=== PATIENT | female | born 1965 | race Caucasian/White ===

== ENCOUNTER 2018-05-04 23:12 | Emergency (ER) | payer MEDICARE, OTHER ==
[~2018-05-04] VITALS: Ht 157.5 cm; Wt 77.1 kg
[~2018-05-04 23:12] MED LIST: AMBIEN10 MG PO; AZITHROMYCIN250 MG PO; LITHIUM; LITHIUM CARBON300 M1 PO; LITHIUM CARBON600 MG PO; XANAX2 MG PO; [UNRECOGNIZED DRUG - REMARK]
--- OUTSIDE RECORDS SUMMARY | 2018-05-04 23:15 | XMS REPORT ---
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 Allergies, Adverse Reactions, Alerts Allergy Name Allergy Type Status Severity Reaction(s) Onset Date Inactive Date Treating Clinician Comments benztropine mesylate DA Active SV 2018-03-27 00:00:00 sertraline HCl DA Active U 2018-03-27 00:00:00 haloperidol DA Active U 2018-03-27 00:00:00 risperidone DA Active MO 2018-03-27 00:00:00 benztropine mesylate DA Active SV 2017-08-06 00:00:00 sertraline HCl DA Active U 2017-08-06 00:00:00 haloperidol DA Active U 2017-08-06 00:00:00 risperidone DA Active MO 2017-08-06 00:00:00 Medications This patient has no known medications. Results Test Description Test Time Test Comments Text Results Atomic Results Result Comments COMPREHENSIVE METABOLIC PANEL 2018-03-27 19:35:00 SODIUM (test code=NA) 139 mmol/L 136-145 POTASSIUM (test code=K) 3.6 mmol/L 3.5-5.1 CHLORIDE (test code=CL) 105.0 mmol/L 98-107 CARBON DIOXIDE (test code=CO2) 23.0 mmol/L 21-32 ANION GAP (test code=GAP) 14.6 10-20 GLUCOSE (test code=GLU) 116 mg/dL 74-106 BLOOD UREA NITROGEN (test code=BUN) 10 mg/dL 7-18 GLOMERULAR FILTRATION RATE (test code=GFR) > 60 mL/min >=60 Estimated GFR by using Modified MDRD formula.Chronic kidney disease is defined as either kidney damageor GFR <60 mL/min/1.73 m2 for >3 months. CREATININE (test code=CREAT) 0.70 mg/dL 0.55-1.02 Note change in reference range due to change in reagent. BUN/CREATININE RATIO (test code=BUN/CREA) 14.0 10-20 TOTAL PROTEIN (test code=PROT) 6.8 gram/dL 6.4-8.2 ALBUMIN (test code=ALB) 3.7 g/dL 3.4-5.0 GLOBULIN (test code=GLOB) 3.1 gram/dL 2.7-4.2 ALBUMIN/GLOBULIN RATIO (test code=A/G) 1.2 0.75-1.50 CALCIUM (test code=CA) 8.6 mg/dL 8.5-10.1 BILIRUBIN TOTAL (test code=BILT) 0.20 mg/dL 0.0-1.0 SGOT/AST (test code=AST) 17 IUnit/L 15-37 SGPT/ALT (test code=ALT) 23 IUnit/L 12-78 ALKALINE PHOSPHATASE TOTAL (test code=ALKP) 83 IUnit/L 45-117 Note change in reference range due to change in reagent. [id number] 19:35:00* Test Item Value Reference Range Comments AMYLASE (test code=DAVIDSON) 62 Unit/L 25-115 URINALYSIS W/O [id number] 19:34:00* Test Item Value Reference Range Comments UA COLOR (test code=COLU) YELLOW YELLOW UA APPEARANCE (test code=APPU) CLEAR CLEAR UA GLUCOSE DIPSTICK (test code=DGLUU) NEGATIVE mg/dL NEGATIVE UA BILIRUBIN DIPSTICK (test code=BILU) NEGATIVE mg/dL NEGATIVE UA KETONE DIPSTICK (test code=KETU) Negative mg/dL NEGATIVE UA SPECIFIC GRAVITY (test code=SGU) 1.021 1.001-1.035 UA BLOOD DIPSTICK (test code=JAMIE) Negative NEGATIVE UA PH DIPSTICK (test code=DOLORES) 5.0 5.0-8.0 UA PROTEIN DIPSTICK (test code=PROU) Negative mg/dL NEGATIVE UA UROBILINIOGEN DIPSTICK (test code=URO) NEGATIVE mg/dL NEGATIVE UA NITRITE DIPSTICK (test code=ISABEL) NEGATIVE NEGATIVE UA LEUKOCYTE ESTERASE W REFLEX (test code=LEUUR) NEGATIVE NEGATIVE COMPREHENSIVE METABOLIC [id number] 19:22:00* Test Item Value Reference Range Comments SODIUM (test code=NA) 139 mmol/L 136-145 POTASSIUM (test code=K) 3.6 mmol/L 3.5-5.1 CHLORIDE (test code=CL) 105.0 mmol/L 98-107 CARBON DIOXIDE (test code=CO2) mmol/L 21-32 ANION GAP (test code=GAP) 10-20 GLUCOSE (test code=GLU) mg/dL 74-106 BLOOD UREA NITROGEN (test code=BUN) mg/dL 7-18 GLOMERULAR FILTRATION RATE (test code=GFR) mL/min >=60 CREATININE (test code=CREAT) mg/dL 0.55-1.02 BUN/CREATININE RATIO (test code=BUN/CREA) 10-20 TOTAL PROTEIN (test code=PROT) gram/dL 6.4-8.2 ALBUMIN (test code=ALB) g/dL 3.4-5.0 GLOBULIN (test code=GLOB) gram/dL 2.7-4.2 ALBUMIN/GLOBULIN RATIO (test code=A/G) 0.75-1.50 CALCIUM (test code=CA) mg/dL 8.5-10.1 BILIRUBIN TOTAL (test code=BILT) mg/dL 0.0-1.0 SGOT/AST (test code=AST) IUnit/L 15-37 SGPT/ALT (test code=ALT) IUnit/L 12-78 ALKALINE PHOSPHATASE TOTAL (test code=ALKP) IUnit/L 45-117 [id number] 19:22:00* Test Item Value Reference Range Comments AMYLASE (test code=DAVIDSON) Unit/L 25-115 CBC W/AUTO [id number] 19:18:00* Test Item Value Reference Range Comments WHITE BLOOD CELL (test code=WBC) 9.1 K/mm3 4.5-12.5 RED BLOOD CELL (test code=RBC) 3.84 mill/mm3 3.7-5.2 HEMOGLOBIN (test code=HGB) 11.5 gram/dL 11.5-15.5 HEMATOCRIT (test code=HCT) 37.3 % 36.0-46.0 MEAN CELL VOLUME (test code=MCV) 97.1 fL 80-98 MEAN CELL HGB (test code=MCH) 29.9 picogram 27.0-33.0 MEAN CELL HGB CONCETRATION (test code=MCHC) 30.8 gram/dL 33.0-36.0 RED CELL DISTRIBUTION WIDTH (test code=RDW) 13.0 % 11.6-16.2 RED CELL DISTRIBUTION WIDTH SD (test code=RDW-SD) 46.1 fL 37.0-51.0 PLATELET COUNT (test code=PLT) 225 K/mm3 150-450 MEAN PLATELET VOLUME (test code=MPV) 10.2 fL 6.7-11.0 NEUTROPHIL % (test code=NT%) 85.5 % 39.0-69.0 IMMATURE GRANULOCYTE % (test code=IG%) 0.4 % 0.0-5.0 LYMPHOCYTE % (test code=LY%) 5.9 % 25.0-55.0 MONOCYTE % (test code=MO%) 7.2 % 0.0-10.0 EOSINOPHIL % (test code=EO%) 0.5 % 0.0-5.0 BASOPHIL % (test code=BA%) 0.5 % 0.0-1.0 NUCLEATED RBC % (test code=NRBC%) 0.0 % 0-0 NEUTROPHIL # (test code=NT#) 7.79 K/mm3 1.8-7.7 IMMATURE GRANULOCYTE # (test code=IG#) 0.04 x10 3/uL 0-0.03 LYMPHOCYTE # (test code=LY#) 0.54 K/mm3 1.0-5.0 MONOCYTE # (test code=MO#) 0.66 K/mm3 0-0.8 EOSINOPHIL # (test code=EO#) 0.05 K/mm3 0.0-0.5 BASOPHIL # (test code=BA#) 0.05 K/mm3 0.0-0.2 NUCLEATED RBC # (test code=NRBC#) 0.00 K/mm3 0.0-0.1 CBC W/AUTO [id number] 19:14:00* Test Item Value Reference Range Comments WHITE BLOOD CELL (test code=WBC) K/mm3 4.5-12.5 RED BLOOD CELL (test code=RBC) mill/mm3 3.7-5.2 HEMOGLOBIN (test code=HGB) 11.5 gram/dL 11.5-15.5 HEMATOCRIT (test code=HCT) 37.3 % 36.0-46.0 MEAN CELL VOLUME (test code=MCV) fL 80-98 MEAN CELL HGB (test code=MCH) picogram 27.0-33.0 MEAN CELL HGB CONCETRATION (test code=MCHC) gram/dL 33.0-36.0 RED CELL DISTRIBUTION WIDTH (test code=RDW) % 11.6-16.2 RED CELL DISTRIBUTION WIDTH SD (test code=RDW-SD) fL 37.0-51.0 PLATELET COUNT (test code=PLT) K/mm3 150-450 MEAN PLATELET VOLUME (test code=MPV) fL 6.7-11.0 NEUTROPHIL % (test code=NT%) % 39.0-69.0 IMMATURE GRANULOCYTE % (test code=IG%) % 0.0-5.0 LYMPHOCYTE % (test code=LY%) % 25.0-55.0 MONOCYTE % (test code=MO%) % 0.0-10.0 EOSINOPHIL % (test code=EO%) % 0.0-5.0 BASOPHIL % (test code=BA%) % 0.0-1.0 NEUTROPHIL # (test code=NT#) K/mm3 1.8-7.7 LYMPHOCYTE # (test code=LY#) K/mm3 1.0-5.0 MONOCYTE # (test code=MO#) K/mm3 0-0.8 EOSINOPHIL # (test code=EO#) K/mm3 0.0-0.5 BASOPHIL # (test code=BA#) K/mm3 0.0-0.2 - XR CHEST 2 [id number] 17:23:00 FAX: MIKE MELÉNDEZ NP [place]: B St: REG Name: GRZEGORZ TOUSSAINT [facility] : [birth year] Age/S: 53/F Paula Gates Unit #: [id number] Loc: INDERJIT [place] [address] Phys: MIKE MELÉNDEZ NP Acct: [id number] Dis Date: Status: REG ER PHONE #: [phone] Exam Date: 03/27/2018 1721 FAX #: [phone] Reason: cough EXAMS: CPT CODE: [id number] XR CHEST 2 V [id number] REASON FOR EXAM: cough Exam Order Date: 03/27/2018 4:55 PM Ordering Hernandez: MIKE MELÉNDEZ NP PROCEDURE: - XR CHEST 2 V COMPARISON: FINDINGS: PA and lateral views of the chest show clear lungs. No evidence of consolidation. No evidence of effusion. The heart size is within normal limits. Pulmonary vasculatures are unremarkable. The osseous structures are grossly intact. IMPRESSION: No active disease. at 1720 Reported and signed by: Dannie Hernández M.D. 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 FINDINGS: 3 images of the right hand and fingers are provided. Laceration is seen involving the distal aspect of the 3rd distal phalanx. Tiny ossific density is seen adjacent to the base of the 3rd distal phalanx. This was present on prior study and likely represent sequelae of remote injury. No acute fracture demonstrated. No foreign body. IMPRESSION: 1. Soft tissue laceration. No acute fracture or foreign body. Electronically Signed by Jesse Trivedi MD on 02/14 at 0864 Reported and signed by: Jesse Trivedi MD CC: Tonya Brennan NP Technologist: Liliana Diop Trnscrd Da te/Time/By: 03/09/2018 (7896) : By: [email or web address] Orig Print D/T: S: 03/10 (0002) PAGE 1 Signed Report
== END 2018-05-04 23:49 | disposition left against medical advice (07) ==
LOC: ER 23:12
DX: R21 Rash and other nonspecific skin eruption (principal)

== ENCOUNTER 2019-07-05 01:17 | Emergency (ER) | payer MEDICARE, OTHER ==
[~2019-07-05] VITALS: Ht 157.5 cm; Wt 77.1 kg
--- OUTSIDE RECORDS SUMMARY | 2019-07-05 01:20 | XMS REPORT | Clinical Summary ---
Author Author [facility] Address Unknown Phone Unavailable Care Team Providers Care Adhesive Sprayer Name Role Phone Asked, No Pcp PCP Unavailable Allergies Comments Active Allergy Reactions Severity Noted Date Lips turn blue Haloperidol Other (See 06/20/2019 Comments) Medications End Date Status Medication Sig Dispensed Refills Start Date Active lithium 150 MG capsule Take 150 mg 0 by mouth 3 (three) times a day with meals. Active phenytoin (DILANTIN) 100 Take 500 mg 0 MG ER capsule by mouth 3 (three) times a day. Active ALPRAZolam (XANAX) 1 MG Take 1 mg by 0 tablet mouth nightly as needed for anxiety. Active HYDROcodone-acetaminophen Take 1 tablet 0 (NORCO) 7.5-325 mg per by mouth tabletIndications: acute every 6 (six) pain hours as needed for moderate pain .acute pain. Active Problems Not on file Encounters Care Team Description Date Type Specialty Anthony Talamantes, Seizure (HCC) (Primary Dx) 06/20/2019 Emergency Emergency Medicine 06/20/2019 Travel after 07/04/2018 Social History Date Tobacco Use Types Packs/Day Years Used Never Smoker Drinks/Week oz/Week Comments Alcohol Use Never Alcohol Habits Answer Date Recorded How often do you have a drink containing alcohol? Never 06/20/2019 How many drinks containing alcohol do you have on No t asked a typical day when you are drinking? How often do you have six or more drinks on one Not asked occasion? Sex Assigned at Date Recorded Not on file Industry Job Start Date Occupation Not on file Not on file Not on file Travel End Travel History Travel Start No recent travel history available. Date Recorded COVID-19 Exposure Response 06/20/2019 12:34 AM CDT In the last month, have you been in contact with No / Unsure someone who was confirmed or suspected to have Coronavirus / COVID-19? Last Filed Vital Signs Reading Time Taken Comments Vital Sign 102/62 06/20/2019 5:12 AM CDT Blood Pressure 66 06/20/2019 5:12 AM CDT Pulse 36.8 C (98.3 F) 06/20/2019 5:12 AM CDT Temperature 18 06/20/2019 5:12 AM CDT Respiratory Rate 95% 06/20/2019 5:12 AM CDT Oxygen Saturation - - Inhaled Oxygen Concentration 81.6 kg (180 lb) 06/20/2019 12:45 AM CDT Weight 157.5 cm (5' 2") 06/20/2019 12:45 AM CDT Height 32.92 06/20/2019 12:45 AM CDT Body Mass Index Plan of Treatment Not on file Procedures Comments Procedure Name Priority Date/Time Associated Diag nosis LACTIC ACID LEVEL, SEPSIS Timed 06/20/2019 - NOW AND REPEAT 2X EVERY 3:30 AM CDT 3 HOURS ECG 12-LEAD STAT 06/20/2019 12:40 AM CDT PHENYTOIN LEVEL STAT 06/20/2019 12:30 AM CDT ESTIMATED GFR STAT 06/20/2019 12:30 AM CDT CREATINE KINASE, TOTAL STAT 06/20/2019 (CPK) 12:30 AM CDT LACTIC ACID LEVEL, SEPSIS STAT 06/20/2019 - NOW AND REPEAT 2X EVERY 12:30 AM CDT 3 HOURS COMPREHENSIVE METABOLIC STAT 06/20/2019 PANEL 12:30 AM CDT HC COMPLETE BLD COUNT STAT 06/20/2019 W/AUTO DIFF 12:30 AM CDT after 07/04/2018 Results * Lactic acid level, SEPSIS - Now and repeat 2x every 3 hours (06/20/2019 3:30 AM CDT) Only the most recent of 2 results within the time period is included. Lactic acid 1.6 0.5 - 2.2 mmol/L [facility] Specimen Blood Performing Organization Address City/State/Zipcode Ph one Number [facility] DEPARTMENT OF [address] [place] [address] PATHOLOGY AND GENOMIC MEDICINE [facility] [place] [address] * ECG 12 lead (06/20/2019 12:40 AM CDT) Ventricular 92 [facility] rate Atrial rate 92 [facility] MN interval 162 [facility] QRSD interval 94 [facility] QT interval 360 [facility] QTC interval 445 [facility] P axis 1 60 [facility] QRS axis 1 46 [facility] T wave axis 47 [facility] EKG impression Normal sinus rhythm-Incomplete [facility] MU SE right bundle branch block-Possible Lateral infarct , age undetermined-Abnormal ECG-In automated comparison with ECG of 07-MAY-2010 11:33,-Borderline criteria for Lateral infarct are now present- Specimen Narrative Performed At This result has an attachment that is n ot available. Performing Organization Address City/State/[facility] Ph one Number [facility] MUSE [address] [place] [address] * Estimated GFR (06/20/2019 12:30 AM CDT) [facility] Estimated GFR >=90 mL/min/1.73 m2 [place] Comment: ANABAPTISM Catergory Units [facility] G1 >=90 Normal or high G2 60-89 Mildly decreased G3a 45-59 Mildly to moderately decreased G3b 30-44 Moderately to severely decreased G4 15-29 Severely decreased G5 <15 Kidney failure The eGFR was calculated using the Chronic Kidney Disease Epidemiology Collaboration (CKD-EPI) equation. Interpretation is based on recommendations of the National Kidney Foundation-Kidney Disease Outcomes Quality Initiative (NKF-KDOQI) published in 2014. Specimen Performing Organization Address City/State/Zipcode Ph one Number [facility] DEPARTMENT OF [address] [place] [address] PATHOLOGY AND GENOMIC MEDICINE [facility] [place] [place] [address] * CBC with platelet and differential (06/20/2019 12:30 AM CDT) [facility] WBC 10.1 4.2 - 11.0 k/uL [facility] RBC 3.82 (L) 4.04 - 5.86 m/uL [facility] HGB 11.8 11.5 - 15.3 g/dL [facility] HCT 37.5 34.0 - 45.0 % [facility] MCV 98.2 (H) 80.0 - 98.[address] [facility] MCH 30.9 27.0 - 34.[address] [facility] MCHC 31.5 31.5 - 36.5 g/dL [facility] RDW - SD 47.8 37.0 - 51.[address] [facility] MPV 10.7 (H) 7.4 - 10.[address] [facility] Platelet count 312 150 - 400 k/uL [facility] Nucleated RBC 0.00 /[address] [facility] Neutrophils 91.2 (H) 36.0 - 66.0 % [facility] Lymphocytes 7.3 (L) 24.0 - 44.0 % [facility] Monocytes 0.8 0.0 - 6.0 % [facility] Eosinophils 0.0 0.0 - 6.0 % [facility] Basophils 0.2 0.0 - 1.2 % [facility] Immature 0.5 0.0 - 1.0 % [place] granulocytes [facility] Specimen Blood Performing Organization Address City/[facility] Ph one Number [facility] DEPARTMENT OF [address] [place] [address] PATHOLOGY AND GENOMIC MEDICINE [address] * Creatine kinase, total (CPK) (06/20/2019 12:30 AM CDT) Creatine kinase 65 26 - 192 U/L [facility] Specimen Blood Performing Organization Address City/State/Zipcode Ph one Number [facility] DEPARTMENT OF [facility] [place] [address] PATHOLOGY AND GENOMIC MEDICINE [address] * Phenytoin level (06/20/2019 12:30 AM CDT) Phenytoin <0.9 (L) 10.0 - 20.0 ug/mL [place] Comment: ANABAPTISM Therapeutic Range: [place] 10 - 20 ug/mL HOSPITAL Specimen Blood Performing Organization Address [facility] Ph one Number [facility] DEPARTMENT OF [address] [place] [id number] PATHOLOGY AND GENOMIC MEDICINE [place] [address] [address] * Comprehensive metabolic panel (06/20/2019 12:30 AM CDT) [facility] Sodium 136 135 - 150 mEq/L [facility] Potassium 3.8 3.5 - 5.0 mEq/L [facility] Chloride 100 98 - 112 mEq/L [facility] CO2 21 (L) 24 - 31 mmol/L [facility] Anion gap 15@ANIO 7 - 15 mEq/L [facility] BUN 9 7 - 18 mg/dL [facility] Creatinine 0.50 0.50 - 0.90 mg/dL [facility] Glucose 215 (H) 65 - 100 mg/dL [facility] Calcium 9.4 8.3 - 10.2 mg/dL [facility] Protein 6.8 6.3 - 8.3 g/dL [facility] Albumin 3.7 3.5 - 5.0 g/dL [facility] A/G ratio 1.2 0.7 - 3.[address] [facility] Alkaline 67 0 - 104 U/L [place] phosphatase [facility] AST 20 10 - 35 U/L [facility] ALT 19 5 - 50 U/L [facility] Total bilirubin <0.3 0.2 - 1.2 mg/dL [facility] Specimen Blood Performing Organization Address City/[facility] Ph one Number [facility] DEPARTMENT OF [address] [place] [address] PATHOLOGY AND GENOMIC MEDICINE [facility] [place] [place] [address] 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
--- OUTSIDE RECORDS SUMMARY | 2019-07-05 01:20 | XMS REPORT ---
Author Author [facility] t Organization [facility] Address [address] [place] [address] Phone Unavailable Care Team Providers Care Professor Of German Name Role Phone VERNA, (NON STAFF) DEVIN PCP Gen Finley DO Attphys [phone] Payers Payer Name Policy Type Policy Number Effective Date Expiration Date Minda jolly [employer] Work [facility] ADVxxxxxxxx2019-PresentO xxxxxxxx 2019 00:00:00 [facility] [employer] Songforcovina [id number] 2016 00:00:00 [facility] [id number] 2016 00:00 :00 [facility] Problems This patient has no known problems. Allergies, Adverse Reactions, Alerts Allergy Name Allergy Type Status Severity Reaction(s) Onset Date Inacti ve Date Treating Clinician Comments Source Haloperidol Propensity to adverse reactions to drug Active Other (See Comments) 2019-06-20 00:00:00 Lips turn blue [place] [facility] benztropine mesylate DA Active SV 2019-04-15 00:00:00 [facility] sertraline HCl DA Active U 2019-04-15 00:00:00 [facility] Penicillins DA Active U 2019-04-15 00:00:00 [facility] peanut FA Active SV 2019-04-15 00:00:00 [facility] haloperidol DA Active U 2019-04-15 00:00:00 [facility] phenytoin DA Active U 2019-04-15 00:00:00 [facility] risperidone DA Active MO 2019-04-15 00:00:00 [facility] shrimp FA Active SV 2019-04-15 00:00:00 [facility] Penicillins DA Active U 2019-03-27 00:00:00 [facility] phenytoin DA Active U 2019-03-27 00:00:00 [facility] benztropine mesylate DA Active SV 2019-03-14 00:00:00 [facility] sertraline HCl DA Active U 2019-03-14 00:00:00 [facility] peanut FA Active SV 2019-03-14 00:00:00 [facility] haloperidol DA Active U 2019-03-14 00:00:00 [facility] phenytoin DA Active SV 2019-03-14 00:00:00 [facility] risperidone DA Active MO 2019-03-14 00:00:00 [facility] shrimp FA Active SV 2019-03-14 00:00:00 [facility] benztropine mesylate DA Active SV 2018-09-01 00:00:00 [facility] sertraline HCl DA Active U 2018-09-01 00:00:00 [facility] haloperidol DA Active U 2018-09-01 00:00:00 [facility] risperidone DA Active MO 2018-09-01 00:00:00 [facility] benztropine mesylate DA Active SV 2018-05-05 00:00:00 [facility] sertraline HCl DA Active U 2018-05-05 00:00:00 [facility] haloperidol DA Active U 2018-05-05 00:00:00 [facility] risperidone DA Active MO 2018-05-05 00:00:00 [facility] benztropine mesylate DA Active SV 2018-03-27 00:00:00 [facility] sertraline HCl DA Active U 2018-03-27 00:00:00 [facility] haloperidol DA Active U 2018-03-27 00:00:00 [facility] risperidone DA Active MO 2018-03-27 00:00:00 [facility] benztropine mesylate DA Active SV 2017-08-06 00:00:00 [facility] sertraline HCl DA Active U 2017-08-06 00:00:00 [facility] haloperidol DA Active U 2017-08-06 00:00:00 [facility] risperidone DA Active MO 2017-08-06 00:00:00 [facility] DERMABOND Allergy to Substance Active Unknown 2016-05-21 00:00:00 [facility] benztropine mesylate Allergy to Substance Active Severe 2011- 00:00:00 [facility] Haloperidol Lactate Allergy to Substance Active Unknown 2010-09 00:00:00 [facility] Haloperidol Allergy to Substance Active Unknown 2010-09-30 00:00:0 0 [facility] Peanuts Allergy to Substance Active Unknown 2010-02-22 00:00:00 [facility] Risperidone Allergy to Substance Active Unknown 2010-02-22 00:00:0 0 [facility] Sertraline Allergy to Substance Active Severe SWELLING, SEIZU RES 2010-02-22 00:00:00 [facility] Ziprasidone Allergy to Substance Active Moderate HALLUCINATIONS 2010-02-22 00:00:00 [facility] Social History Social Habit Start Date Stop Date Quantity Comments Source History SDOH Alcohol Std Drinks Nam [facility] History SDOH Alcohol Binge Nam Harry Sex Assigned At [facility] Exposure to SARS-CoV-2 (event) Not sure Nam Harry Alcohol intake 2019-06-20 00:00:00 2019-06-20 00:00:00 Lifetime non-drinker (finding) Nam Princeist History SDOH Alcohol Frequency 2019-06-20 00:00:00 2019-06-20 00:00:0 0 1 Nam Harry Smoking Status Start Date Stop Date Source Never smoker Nam [place] t Medications Ordered Medication Name Filled Medication Name Start Date Stop Da te Current Medication? Ordering Clinician Indication Dosage Frequency Signature (SIG) Comments Components Source phenytoin (DILANTIN) 100 MG ER capsule 2019-06-20 01:12:39 Yes 500mg Q.[id number] Take 500 mg by mouth 3 (three) times a day. Nam Harry ALPRAZolam (XANAX) 1 MG tablet 2019-06-20 01:12:39 Yes 1mg QD Take 1 mg by mouth nightly as needed for anxiety. Nam Harry HYDROcodone-acetaminophen (NORCO) 7.5-325 mg per tablet 2019-06-20 01:12:39 Yes acute pain 1{tbl} Q6H Take 1 tablet b y mouth every 6 (six) hours as needed for moderate pain .acute pain. Nam quiros lithium 150 MG capsule 2019-06-20 01:12:38 Yes 150mg Q.[id number] Take 150 mg by mouth 3 (three) times a day with meals. Nam Haryr Alprazolam (Xanax) 2 Mg Tablet Alprazolam (Xanax) 2 Mg Tablet Yes 1 Twice A Day [facility] [place] Carbonate 300 Mg Tablet [place] Carbonate 300 Mg Tablet Yes 300 Every Morning [facility] [place] Carbonate 600 Mg Capsule [place] Carbonate 600 Mg Capsule Yes 300 Bedtime [facility] Zolpidem Tartrate (Ambien) 10 Mg Tablet, 10 Mg Oral Zo lpidem Tartrate (Ambien) 10 Mg Tablet, 10 Mg Oral 2016-05-29 00:00:00 No 10 Bedtime [facility] Azithromycin (Z-Leon) 250 Mg Tablet, 250 Mg Oral Azithr omycin (Z-Leon) 250 Mg Tablet, 250 Mg Oral 2012-04-03 00:00:00 No 250 He y [facility] Windom , [place] , 2012-04-03 00:00:00 No [facility] On Chemotherapy , On Chemotherapy , 2012-04-03 00:00:00 No [facility] Vital Signs Vital Name Observation Time Observation Value Comments Source Systolic blood pressure 2019-06-20 05:12:00 102 mm[Hg] Nam Harry Diastolic blood pressure 2019-06-20 05:12:00 62 mm[Hg] Nam Harry Heart rate 2019-06-20 05:12:00 66 /min Nam Harry Body temperature 2019-06-20 05:12:00 36.83 Gabrielle Delmar Harry Respiratory rate 2019-06-20 05:12:00 18 /min Delmar Harry Oxygen saturation in Arterial blood by Pulse oximetry 06-19 05:12:00 95 /min Nam Harry Body height 2019-06-20 00:45:00 157.5 cm Nam Harry Body weight 2019-06-20 00:45:00 81.647 kg Nam Harry BMI 2019-06-20 00:45:00 32.92 kg/m2 Nam Harry Procedures Procedure Date / Time Performed Performing Clinician Sourc e LACTIC ACID LEVEL, SEPSIS - NOW AND REPEAT 2X EVERY 3 HOURS 2019-06-20 03:30:00 Anthony Finley ECG 12-LEAD 2019-06-20 00:40:56 Anthony Finley HC COMPLETE BLD COUNT W/AUTO DIFF 2019-06-20 00:30:00 Anthony Finley COMPREHENSIVE METABOLIC PANEL 2019-06-20 00:30:00 Chai Finley LACTIC ACID LEVEL, SEPSIS - NOW AND REPEAT 2X EVERY 3 HOURS 2019-06-20 00:30:00 Anthony Finley CREATINE KINASE, TOTAL (CPK) 2019-06-20 00:30:00 Jackelyn Finley [facility] ESTIMATED GFR 2019-06-20 00:30:00 Anthony Finley on [facility] PHENYTOIN LEVEL 2019-06-20 00:30:00 Anthony Finley on [facility] Encounters Start Date/Time End Date/Time [facility] Source 2019-06-20 00:00:00 2019-06-20 00:00:00 Emergency [facility] [id number] Nam Harry 2018-08-02 21:30:00 2018-08-02 21:30:00 Emergency E [facility]SE [facility]SE [id number] [facility]SE 2018-07-26 14:13:00 2018-07-26 14:13:00 Emergency E MHSE [facility]SE [id number] [facility]SE 2018-07-23 17:46:00 2018-07-23 17:46:00 Emergency E MHSE MHSE [id number] MH 2018-07-03 00:04:00 2018-07-03 00:04:00 Emergency E MHSE MHSE [id number] [facility] 2018-06-25 01:05:00 2018-06-25 01:05:00 Emergency E MHSE MHSE [id number] MHSE 2018-06-21 01:16:00 2018-06-21 01:16:00 Emergency E MHSE MHSE [id number] [facility] 2018-06-04 00:29:00 2018-06-04 00:29:00 Emergency E MHSE MHSE [id number] MH 2018-05-04 23:12:00 2018-05-04 23:49:00 Departed Emergency Room [facility] [id number] [facility] Results Test Description Test Time Test Comments Results Result Comments Source ECG 12 lead 2019-06-21 17:46:56 Test Item Ventricular rate (test code = 253) 92 Atrial rate (test code = 255) 92 MD interval (test code = 266) 162 QRSD interval (test code = 260) 94 QT interval (test code = 264) 360 QTC interval (test code = 265) 445 P axis 1 (test code = 267) 60 QRS axis 1 (test code = 268) 46 T wave axis (test code = 270) 47 EKG impression (test code = 273) Normal sinus rhythm-I ncomplete right bundle branch block-Possible Lateral infarct , age undetermined-Abnormal ECG-In automated comparison with ECG of 07-MAY-2010 11:33,-Borderline criteria for Lateral infarct are now present- [facility] MethodistL[facility] acid level, SEPSIS - Now and repeat 2x every 3 hours 2019-06-20 03:58:32* Test Item Value Reference Range Interpretation Comments Lactic acid (test code = 72030-5) 1.6 mmol/L 0.5-2.2 [place] [facility]heny[facility]in [id number] 01:52:38* Test Item Value Reference Range Interpretation Comments Phenytoin (test code = 3968-5) <0.9 10-20 L Therapeutic Range: 10 - 20 ug/mL Lab Interpretation (test code = 49923-3) Abnormal [place] [facility]Comprehensive metabolic [id number] 01:51:55* Test Item Value Reference Range Interpretation Comments Sodium (test code = 2951-2) 136 135- 150 mEq/L Potassium (test code = 2823-3) 3.8 3.5- 5.0 mEq/L Chloride (test code = 2075-0) 100 98- 112 mEq/L CO2 (test code = 2027-9) 21 mmol/L 24-31 L Anion gap (test code = 61397-3) 15@ANIO 7- 15 mEq/L BUN (test code = 3094-0) 9 mg/dL 7-18 Creatinine (test code = 2160-0) 0.50 mg/dL 0.5-0.9 Glucose (test code = 2345-7) 215 mg/dL 65-100 H Calcium (test code = 39173-6) 9.4 mg/dL 8.3-10.2 Protein (test code = 2885-2) 6.8 g/dL 6.3-8.3 Albumin (test code = 1751-7) 3.7 g/dL 3.5-5 A/G ratio (test code = 1759-0) 1.2 0.7-3.8 Alkaline phosphatase (test code = 6768-6) 67 U/L 0-104 AST (test code = 1920-8) 20 U/L 10-35 ALT (test code = 1742-6) 19 U/L 5-50 Total bilirubin (test code = 1974-2) <0.3 0.2-1.2 Lab Interpretation (test code = 88570-2) Abnormal [place] MethodistCreatine kinase, total (CPK)2019-06-20 01:51:55* Test Item Value Reference Range Interpretation Comments Creatine kinase (test code = 2157-6) 65 U/L 26-192 [place] MethodistEstimated [id number] 01:51:55* Test Item Value Reference Range Interpretation Comments Estimated GFR (test code = 5488) >=90 mL/min/1.73 m2 Catergory Units InterpretationG1 >=90 Normal or highG2 60-89 Mildly vwidcudaaY6m 45-59 Mildly to moderately phtaqdsngH9l 30-44 Moderately to severely decreasedG4 15-29 Severely decreasedG5 <15 Kidney failureThe eGFR was calculated using the Chronic Kidney Disease Epidemiology Collaboration (CKD-EPI) equation. Interpretation is based on recommendations of the National Kidney Foundation-Kidney Disease Outcomes Quality Initiative (NKF-KDOQI) published in 2014. [place] MethodistCBC with platelet and [id number] 01:46:22* Test Item Value Reference Range Interpretation Comments WBC (test code = 99431-9) 10.1 4.2- 11.0 k/uL RBC (test code = 16118-1) 3.82 m/uL 4.04-5.86 L HGB (test code = 718-7) 11.8 g/dL 11.5-15.3 HCT (test code = 4544-3) 37.5 % 34-45 MCV (test code = 787-2) 98.2 fL 80-98 H MCH (test code = 785-6) 30.9 pg 27-34 MCHC (test code = 786-4) 31.5 g/dL 31.5-36.5 RDW - SD (test code = 37956-5) 47.8 fL 37-51 MPV (test code = 68533-5) 10.7 fL 7.4-10.4 H Platelet count (test code = 17150-8) 312 150- 400 k/uL Nucleated RBC (test code = 01816-6) 0.00 /100 WBC Neutrophils (test code = 45981-1) 91.2 % 36-66 H Lymphocytes (test code = 88756-0) 7.3 % 24-44 L Monocytes (test code = 81032-3) 0.8 % 0-6 Eosinophils (test code = 23767-5) 0.0 % 0-6 Basophils (test code = 89619-4) 0.2 % 0-1.2 Immature granulocytes (test code = 13542-6) 0.5 % 0-1 Lab Interpretation (test code = 78862-3) Abnormal [facility] [id number] 03:18:00* Test Item Value Reference Range Interpretation Comments GLUBED (test code = GLUBED) 94 mg/dL 74-106 N Performed by certified finishing operator at [facility] BASIC METABOLIC [id number] 01:38:00* Test Item Value Reference Range Interpretation Comments SODIUM (test code = NA) 142 mmol/L 136-145 N POTASSIUM (test code = K) 3.8 mmol/L 3.5-5.1 N CHLORIDE (test code = CL) 110.0 mmol/L 98-107 H CARBON DIOXIDE (test code = CO2) 23.0 mmol/L 21-32 N ANION GAP (test code = GAP) 12.8 10-20 N GLUCOSE (test code = GLU) 67 mg/dL 74-106 L BLOOD UREA NITROGEN (test code = BUN) 12 mg/dL 7-18 N GLOMERULAR FILTRATION RATE (test code = GFR) > 60 mL/min >=60 Estimated GFR by using Modified MDRD formula.Chronic kidney disease is defined as either kidney damageor GFR <60 mL/min/1.73 m2 for >3 months. CREATININE (test code = CREAT) 0.70 mg/dL 0.55-1.02 N Note change in reference range due to change in reagent. BUN/CREATININE RATIO (test code = BUN/CREA) 17.1 10-20 N CALCIUM (test code = CA) 8.5 mg/dL 8.5-10.1 N HCG SERUM [id number] 01:38:00* Test Item Value Reference Range Interpretation Comments HCG SERUM QUAL (test code = HCGQL) NEGATIVE DILANTIN (PHENYTOIN)2019-03-15 01:38:00* Test Item Value Reference Range Interpretation Comments DILANTIN (PHENYTOIN) (test code = DIL) 0.6 ug/mL 10.0-20.0 L BASIC METABOLIC [id number] 01:33:00* Test Item Value Reference Range Interpretation Comments SODIUM (test code = NA) 142 mmol/L 136-145 N POTASSIUM (test code = K) 3.8 mmol/L 3.5-5.1 N CHLORIDE (test code = CL) 110.0 mmol/L 98-107 H CARBON DIOXIDE (test code = CO2) mmol/L 21-32 ANION GAP (test code = GAP) 10-20 GLUCOSE (test code = GLU) mg/dL 74-106 BLOOD UREA NITROGEN (test code = BUN) mg/dL 7-18 GLOMERULAR FILTRATION RATE (test code = GFR) mL/min >=60 CREATININE (test code = CREAT) mg/dL 0.55-1.02 BUN/CREATININE RATIO (test code = BUN/CREA) 10-20 CALCIUM (test code = CA) 8.5 mg/dL 8.5-10.1 N HCG SERUM [id number] 01:33:00* Test Item Value Reference Range Interpretation Comments HCG SERUM QUAL (test code = HCGQL) NEGATIVE CBC W/O [id number] 01:18:00* Test Item Value Reference Range Interpretation Comments WHITE BLOOD CELL (test code = WBC) 10.4 K/mm3 4.5-12.5 N RED BLOOD CELL (test code = RBC) 3.94 mill/mm3 3.7-5.2 N HEMOGLOBIN (test code = HGB) 12.3 gram/dL 11.5-15.5 N HEMATOCRIT (test code = HCT) 39.4 % 36.0-46.0 N MEAN CELL VOLUME (test code = MCV) 100.0 fL 80-98 H MEAN CELL HGB (test code = MCH) 31.2 picogram 27.0-33.0 N MEAN CELL HGB CONCETRATION (test code = MCHC) 31.2 gram/dL 33.0-36. 0 L RED CELL DISTRIBUTION WIDTH (test code = RDW) 13.5 % 11.6-16. 2 N PLATELET COUNT (test code = PLT) 308 K/mm3 150-450 N MEAN PLATELET VOLUME (test code = MPV) 10.2 fL 6.7-11.0 N - XR KNEE 3 V [id number] 00:30:00 FAX: Devin Craft MD [phone] [place]: B St: REG FAX: Jn Mohr MD [phone] Name: MADISYN GONZALES [facility] : 1965 Age/S: 54/F [address] Unit #: [id number] Loc: [place] [address] Phys: Jn Mohr MD Acct: [id number] Dis Date: Status: REG ER PHONE #: [phone] Exam Date: 03/15/2019 0020 FAX #: [phone] Reason: leg pain EXAMS: CPT CODE: [id number] XR KNEE 3 V RT [id number] Dictation location: H37. RIGHT HIP 2 VIEWS; RIGHT FEMUR 2 VIEWS AND RIGHT KNEE 3 VIEWS HISTORY: Leg pain FINDINGS: No fracture or dislocation in the right hip, femur or knee. No knee joint effusion. No suspicious osseous lesion. Lower lumb ar fusion at L4-L5. IMPRESSION: No fract ure or dislocation in the right hip, femur or knee. Jenna dinero Signed by Ezequiel Mcmahon M.D. on 03/15/19 20 at 0030 Reported and signed by: Brianda Mcmahon M.D. CC: Devin Wright MD; Jn Mohr MD Technologist: Gris El Trnscrd Date/Time/By: 03/15/2019 (003) : By: [email or web address] Orig Print D/T: S: 03/15/2019 (0033) PAGE 1 Signed Report - XR FEMUR MIN 2 VWS RT 2019-03-15 00:30:00 FAX: Devin Craft MD [phone] [place]: [address] St: REG FAX: Jn Mohr MD [phone] Name: MADISYN GONZALES [facility] : 1965 Age/S: 54/F [address] [facility] Unit #: [id number] Loc: [place] [address] Phys: Jn Mohr MD Acct: [id number] Dis Date: Status: REG ER PHONE #: [phone] Exam Date: 03/15/2019 0020 FAX #: [phone] Reason: leg pain EXAMS: CPT CODE: [id number] XR FEMUR MIN 2 [place] [id number] Dictation location: H37. RIGHT HIP 2 VIEWS; RIGHT FEMUR 2 VIEWS AND RIGHT KNEE 3 VIEWS HISTORY: Leg pain FINDINGS: No fracture or dislocation in the right hip, femur or knee. No knee joint effusion. No suspicious osseous lesion. Lower lumbar fusion at L4-L5. IMPRESSION: No fracture or dislocation in the right hip, femur or knee. at 0030 Reported and signed by: Ezequiel Mcmahon M.D. CC: Devin Wright MD; Jn Mohr MD Technologist: Gris El Trngard Date/Time/By: 03/15/2019 (0030) : By: [email or web address] Orig Print D/T: S: 03/15/2019 (0033) PAGE 1 Signed Report - XR HIP W/PEL UNI 2+V RT 2019-03-15 00:30:00 FAX: Devin Craft MD [phone] [place]: B St: REG FAX: Jn Mohr MD [phone] Name: MADISYN GONZALES [facility] : 1965 Age/S: 54/F [address] Unit #: [id number] Loc: [place] [address] Phys: Jn Mohr MD Acct: [id number] Dis Date: Status: REG ER PHONE #: [phone] Exam Date: 03/15/2019 0020 FAX #: [phone] Reason: leg pain EXAMS: CPT CODE: [id number] XR HIP W/PEL UNI 2+V [place] [id number] Dictation location: H37. RIGHT HIP 2 VIEWS; RIGHT FEMUR 2 VIEWS AND RIGHT KNEE 3 VIEWS HISTORY: Leg pain FINDINGS: No fracture or dislocation in the right hip, femur or knee. No knee joint effusion. No suspicious osseous lesion. Lower lumbar fusion at L4-L5. IMPRESSION: No fracture or dislocation in the right hip, femur or knee. at 0030 Reported and signed by: Ezequiel Mcmahon M.D. CC: Devin Wright MD; Jn Mohr MD Technologist: Gris El Trngard Date/Time/By: 03/15/2019 (0030) : By: [email or web address] Orig Print D/T: S: 03/15/2019 (0033) PAGE 1 Signed Report - CT C-SPINE W/O CONTRAST 2019-03-14 23:04:00 Name: MADISYN GONZALES [facility] : 1965 Age/S: 54 / F [address] Unit #: [id number] Loc: [place] [address] Phys: Jn Mohr MD Acct: [id number] Dis Date: Status: REG ER PHONE #: [phone] Exam Date: 03/14/2019 2250 FAX #: [phone] Reason: neck pain EXAMS: CPT CODE: [id number] CT C-SPINE W/O CONTRAST 16063 EXAM: CT of the cervical spine without contrast; INFORMATION: Status post seizure; TECHNIQUE: CT dose reduction protocol; Helical scans of the cervical spine with sagittal and coronal reconstructions; FINDINGS: There is good alignment of the cervical spine; vertebral bodies and posterior elements are intact; the height of intervertebral discs is maintained. Soft tissue windows show no evidence of epidural or paravertebral hematoma. IMPRESSION: 1. Normal CT scan of the cervical spine; 2. No evidence of acute osseous trauma. Location code: [facility] at 2304 Reported and signed by: Raul Rehman M.D. CC: Devin Wright MD; Jn Mohr MD Technologist:Julisa BLAKELY(R); ROMAINE Gibson CTDI: DLP: Trnscb Date/Time: 03/14/2019 (2303) [email or web address] Orig Print D/T: S: 03/14/2019 (2306) PAGE 1 Signed Report - CT HEAD/BRAIN W/O CONT 2019-03-14 23:03:00 [facility] 1965 Age[facility]S: 54 / F [address] [facility] Unit #: [id number] Loc: [place] [address] Phys: Jn Mohr MD Acct: [id number] Dis Date: Status: REG ER PHONE #: [phone] Exam Date: 03/14/2019 224 FAX #: [phone] Reason: seizure EXAMS: CPT CODE: [id number] CT HEAD/BRAIN W/O CONT 78435 EXAM: CT of the head; INFORMATION: Seizure; TECHNIQUE AND FINDINGS: CT dose reduction protocol; The ventricles are symmetric and of normal diameter; normal width of basilar cisterns and sulci; normal prasad/white matter differentiation; no evidence of intra or extra-axial hemorrhage, mass lesion or midline shift. Bone windows show no abnormalities. No evidence of skull fracture. IMPRESSION: Normal CT scan of the head. Location code: [facility] at 2303 Reported and signed by: Raul Rehman M.D. CC: Devin Wright MD; Jn Mohr MD Technologist:Julisa Ingram RT(R); ROMAINE Gibson CTDI: DLP: Trnscb Date/Time: 03/14/2019 (9616) [email or web address] Orig Print D/T: S: 03/14/2019 (5912) PAGE 1 Signed Report - XR TOE(S) 2+V [id number] 03:10:00 FAX: Devin Craft MD [phone] [place]: St: REG FAX: Armando Ibrahim [facility] [phone] Name: GRZEGORZ GONZALES [facility] : 1965 Age/S: 54/F [address] [facility] Unit #: [id number] Loc: [place] [address] Phys: Armando Carreon [facility] Acct: [id number] Dis Date: Status: REG ER PHONE #: [phone] Exam Date: 03/14/2019 0243 FAX #: [phone] Reason: TOE PAIN EXAMS: CPT CODE: [id number] XR TOE(S) 2+V LT 77831 Dictation location: H37. LEFT TOES, 3 VIEWS HISTORY: Laceration to fifth toe, pain FINDINGS: Overlying bandage limits assessment. No fracture or dislocation. There may be at least 2 radiopaque foreign body measuring up to 3 mm at the level of the PIP joint concerning for foreign bodies. IMPRESSION: Possible foreign bodies at the level of the fifth PIP joint. No fracture. at 0310 Reported and signed by: Ezequiel Mcmahon M.D. CC: Devin Wright MD; Armando Carreon Technologist: RT BETTY Trnscrd Date/Time/By: 03/14/2019 (309) : By: [email or web address] Orig Print D/T: S: 03/14/2019 (6) PAGE 1 Signed Report URINALYSIS [id number] 14:05:00* Test Item Value Reference Range Interpretation Comments UA COLOR (test code = COLU) YELLOW YELLOW UA APPEARANCE (test code = APPU) Cloudy CLEAR A UA GLUCOSE DIPSTICK (test code = DGLUU) NEGATIVE mg/dL NEGATIVE UA BILIRUBIN DIPSTICK (test code = BILU) NEGATIVE mg/dL NEGATIVE UA KETONE DIPSTICK (test code = KETU) >150 (4+) mg/dL NEGATIVE A UA SPECIFIC GRAVITY (test code = SGU) 1.034 1.001-1.035 UA BLOOD DIPSTICK (test code = JAMIE) 0.1 mg/dL (1+) mg/dL NEGATIVE A UA PH DIPSTICK (test code = DOLORES) 6.0 5.0-8.0 UA PROTEIN DIPSTICK (test code = PROU) 70 (1+) mg/dL NEGATIVE A UA UROBILINIOGEN DIPSTICK (test code = URO) 2.0 (1+) mg/dL NEGATIVE A UA NITRITE DIPSTICK (test code = ISABEL) NEGATIVE NEGATIVE UA LEUKOCYTE ESTERASE W REFLEX (test code = LEUUR) 500 Daren/u L (3+) Daren/uL NEGATIVE A UA WBC (test code = WBCU) 51-100 per HPF 0-5 A UA RBC (test code = RBCU) 6-10 #/HPF 0-5 A UA EPITHELIAL CELLS (test code = EPIU) MANY per HPF FEW UA BACTERIA (test code = BACU) FEW #/HPF NONE A UA MUCUS (test code = MUCU) MANY #/LPF FEW A Urine Source? Clean CatchDRUGS OF ABUSE SCREEN [id number] 14:05:00* Test Item Value Reference Range Interpretation Comments URN COCAINE (test code = COCAURN) NEGATIVE <300 ng/mL URN CANNABINOIDS (test code = CANNABURN) NEGATIVE <50 ng/mL URN AMPHETAMINE (test code = AMPHETURN) POSITIVE <1000 ng/mL A This test provides only a preliminary test result. A morespecific alternate chemical method must be used in order toobtain a confirmed analytical result. Gas chromatography/mass spectrometry (GC/MS) is thepreferred confirmatory method. Other chemical confirmationmethods are available. Clinical consideration and professional judgment should be applied to any drug of abusetest result, particularly when preliminary positive resultsare used.Unconfirmed screening results must not be used fornon-medical purposes (e.g., employment testing, legaltesting). URN BARBITURATE (test code = BARBITURN) NEGATIVE <200 ng/mL URN BENZODIAZEPINE (test code = BENZOURN) NEGATIVE <200 ng/mL URN OPIATES (test code = OPIATURN) NEGATIVE <300 ng/mL URN PHENCYCLIDINE (PCP) (test code = PHENCURN) NEGATIVE <25 ng/ mL URN METHADONE (test code = METHAURN) NEGATIVE <300 ng/mL Urine Source? Clean CatchBASIC METABOLIC [id number] 13:58:00* Test Item Value Reference Range Interpretation Comments SODIUM (test code = NA) 139 mmol/L 136-145 N POTASSIUM (test code = K) 3.5 mmol/L 3.5-5.1 N CHLORIDE (test code = CL) 106.0 mmol/L 98-107 N CARBON DIOXIDE (test code = CO2) 24.0 mmol/L 21-32 N ANION GAP (test code = GAP) 12.5 10-20 N GLUCOSE (test code = GLU) 86 mg/dL 74-106 N BLOOD UREA NITROGEN (test code = BUN) 10 mg/dL 7-18 N GLOMERULAR FILTRATION RATE (test code = GFR) > 60 mL/min >=60 Estimated GFR by using Modified MDRD formula.Chronic kidney disease is defined as either kidney damageor GFR <60 mL/min/1.73 m2 for >3 months. CREATININE (test code = CREAT) 0.50 mg/dL 0.55-1.02 L Note change in reference range due to change in reagent. BUN/CREATININE RATIO (test code = BUN/CREA) 18.4 10-20 N CALCIUM (test code = CA) 8.6 mg/dL 8.5-10.1 N HEPATIC FUNCTION [id number] 13:58:00* Test Item Value Reference Range Interpretation Comments TOTAL PROTEIN (test code = PROT) 7.0 gram/dL 6.4-8.2 N ALBUMIN (test code = ALB) 3.9 g/dL 3.4-5.0 N GLOBULIN (test code = GLOB) 3.1 gram/dL 2.7-4.2 N ALBUMIN/GLOBULIN RATIO (test code = A/G) 1.3 0.75-1.50 N BILIRUBIN TOTAL (test code = BILT) 0.60 mg/dL 0.0-1.0 N BILIRUBIN DIRECT (test code = BILD) 0.16 mg/dL 0.0-0.20 N SGOT/AST (test code = AST) 18 IUnit/L 15-37 N SGPT/ALT (test code = ALT) 34 IUnit/L 12-78 N ALKALINE PHOSPHATASE TOTAL (test code = ALKP) 95 IUnit/L 45-117 N Note change in reference range due to change in reagent. [id number] 13:58:00* Test Item Value Reference Range Interpretation Comments LIPASE (test code = LIP) 134 U/L 73.0-393.0 N HCG SERUM [id number] 13:58:00* Test Item Value Reference Range Interpretation Comments HCG SERUM QUAL (test code = HCGQL) NEGATIVE NEGATIVE This HCGQL test is NOT applicable for MALE patients.Check with nurse about probable order error.If Tumor Marker Test needed, nurse should order test "HCGTU"(Test #550.54928) TSH REFLEX TO [id number] 13:58:00* Test Item Value Reference Range Interpretation Comments TSH REFLEX TO FT4 (test code = TSHREFLEX) 0.8 0.4-5.5 N [id number] 13:58:00* Test Item Value Reference Range Interpretation Comments TROPONIN-I (test code = TROPI) <0.015 ng/mL 0-0.045 N [id number] 13:58:00* Test Item Value Reference Range Interpretation Comments LITHIUM (test code = LITH) <0.1 mmol/L 0.5-1.5 L [id number] 13:58:00* Test Item Value Reference Range Interpretation Comments ALCOHOL (test code = ALC) < 3 mg/dL 0.0-3.0 N -- INTERPRETIVE DATA NOTE: POSITIVE SCREENING RESULTS SHOULD BE CONSIDERED PRESUMPTIVE.WHEN COLLECTED FOR MEDICAL PURPOSES ONLY. SPECIMEN WILL NOTBE COLLECTED BY CHAIN OF CUSTODY.IF A CONFIRMATION OF POSITIVE RESULTS IS DESIRED, ACONFIRMATION TEST MUST BE REQUESTED BY THE PHYSICIAN AT ANADDITIONAL CHARGE TO THE PATIENT. URINALYSIS [id number] 13:51:00* Test Item Value Reference Range Interpretation Comments UA COLOR (test code = COLU) YELLOW YELLOW UA APPEARANCE (test code = APPU) Cloudy CLEAR A UA GLUCOSE DIPSTICK (test code = DGLUU) NEGATIVE mg/dL NEGATIVE UA BILIRUBIN DIPSTICK (test code = BILU) NEGATIVE mg/dL NEGATIVE UA KETONE DIPSTICK (test code = KETU) >150 (4+) mg/dL NEGATIVE A UA SPECIFIC GRAVITY (test code = SGU) 1.034 1.001-1.035 UA BLOOD DIPSTICK (test code = JAMIE) 0.1 mg/dL (1+) mg/dL NEGATIVE A UA PH DIPSTICK (test code = DOLORES) 6.0 5.0-8.0 UA PROTEIN DIPSTICK (test code = PROU) 70 (1+) mg/dL NEGATIVE A UA UROBILINIOGEN DIPSTICK (test code = URO) 2.0 (1+) mg/dL NEGATIVE A UA NITRITE DIPSTICK (test code = ISABEL) NEGATIVE NEGATIVE UA LEUKOCYTE ESTERASE W REFLEX (test code = LEUUR) 500 Daren/u L (3+) Daren/uL NEGATIVE A UA WBC (test code = WBCU) 51-100 per HPF 0-5 A UA RBC (test code = RBCU) 6-10 #/HPF 0-5 A UA EPITHELIAL CELLS (test code = EPIU) MANY per HPF FEW UA BACTERIA (test code = BACU) FEW #/HPF NONE A UA MUCUS (test code = MUCU) MANY #/LPF FEW A Urine Source? Clean CatchDRUGS OF ABUSE SCREEN [id number] 13:51:00* Test Item Value Reference Range Interpretation Comments URN COCAINE (test code = COCAURN) <300 ng/mL URN CANNABINOIDS (test code = CANNABURN) <50 ng/mL URN AMPHETAMINE (test code = AMPHETURN) <1000 ng/mL URN BARBITURATE (test code = BARBITURN) <200 ng/mL URN BENZODIAZEPINE (test code = BENZOURN) <200 ng/mL URN OPIATES (test code = OPIATURN) <300 ng/mL URN PHENCYCLIDINE (PCP) (test code = PHENCURN) <25 ng/ mL URN METHADONE (test code = METHAURN) <300 ng/mL Urine Source? Clean CatchBASIC METABOLIC [id number] 13:51:00* Test Item Value Reference Range Interpretation Comments SODIUM (test code = NA) 139 mmol/L 136-145 N POTASSIUM (test code = K) 3.5 mmol/L 3.5-5.1 N CHLORIDE (test code = CL) 106.0 mmol/L 98-107 N CARBON DIOXIDE (test code = CO2) mmol/L 21-32 ANION GAP (test code = GAP) 10-20 GLUCOSE (test code = GLU) mg/dL 74-106 BLOOD UREA NITROGEN (test code = BUN) mg/dL 7-18 GLOMERULAR FILTRATION RATE (test code = GFR) mL/min >=60 CREATININE (test code = CREAT) mg/dL 0.55-1.02 BUN/CREATININE RATIO (test code = BUN/CREA) 10-20 CALCIUM (test code = CA) mg/dL 8.5-10.1 HEPATIC FUNCTION [id number] 13:51:00* Test Item Value Reference Range Interpretation Comments TOTAL PROTEIN (test code = PROT) gram/dL 6.4-8.2 ALBUMIN (test code = ALB) g/dL 3.4-5.0 GLOBULIN (test code = GLOB) gram/dL 2.7-4.2 ALBUMIN/GLOBULIN RATIO (test code = A/G) 0.75-1.50 BILIRUBIN TOTAL (test code = BILT) mg/dL 0.0-1.0 BILIRUBIN DIRECT (test code = BILD) mg/dL 0.0-0.20 SGOT/AST (test code = AST) IUnit/L 15-37 SGPT/ALT (test code = ALT) IUnit/L 12-78 ALKALINE PHOSPHATASE TOTAL (test code = ALKP) IUnit/L 45-117 [id number] 13:51:00* Test Item Value Reference Range Interpretation Comments LIPASE (test code = LIP) U/L 73.0-393.0 HCG SERUM [id number] 13:51:00* Test Item Value Reference Range Interpretation Comments HCG SERUM QUAL (test code = HCGQL) NEGATIVE NEGATIVE This HCGQL test is NOT applicable for MALE patients.Check with nurse about probable order error.If Tumor Marker Test needed, nurse should order test "HCGTU"(Test #550.13804) TSH REFLEX TO [id number] 13:51:00* Test Item Value Reference Range Interpretation Comments TSH REFLEX TO FT4 (test code = TSHREFLEX) 0.4-5.5 [id number] 13:51:00* Test Item Value Reference Range Interpretation Comments TROPONIN-I (test code = TROPI) ng/mL 0-0.045 [id number] 13:51:00* Test Item Value Reference Range Interpretation Comments LITHIUM (test code = LITH) <0.1 mmol/L 0.5-1.5 L [id number] 13:51:00* Test Item Value Reference Range Interpretation Comments ALCOHOL (test code = ALC) mg/dL 0-3 PROTHROMBIN [id number] 13:41:00* Test Item Value Reference Range Interpretation Comments PROTHROMBIN TIME PATIENT (test code = PTP) 11.9 seconds 9.0-14.0 N INTERNATIONAL NORMAL RATIO (test code = INR) 1.0 0.8-1.2 N The therapeutic range for oral anticoagulant therapy formost indications is an international normalized ratio (INR)of between 2.0 and 3.0. The recommended therapeutic INRrange for various clinical situations is listed below: Clinical Situation INR range Pulmonary e mbolism treatment (2.0-3.0)Venous thrombosis treatmentVenous thrombosis prophylaxis (high risk surgery)Prevention of systemic embolism from: Acute myocardial infarction Valvular heart disease Atrial fibrillation Mechanical prosthetic heart valves (2.5-3.5) IS PATIENT ON ANTICOAGULANTS? NTHROMBOPLASTIN TIME [id number] 13:41:00* Test Item Value Reference Range Interpretation Comments THROMBOPLASTIN TIME PARTIAL (test code = PTT) 35.8 seconds 25.0-36. 5 N IS PATIENT ON ANTICOAGULANTS? [id number] 13:34:00* Test Item Value Reference Range Interpretation Comments MAGNESIUM (test code = MAG) 2.1 mg/dL 1.8-2.4 N BASIC METABOLIC [id number] 13:33:00* Test Item Value Reference Range Interpretation Comments SODIUM (test code = NA) 139 mmol/L 136-145 N POTASSIUM (test code = K) 3.5 mmol/L 3.5-5.1 N CHLORIDE (test code = CL) 106.0 mmol/L 98-107 N CARBON DIOXIDE (test code = CO2) mmol/L 21-32 ANION GAP (test code = GAP) 10-20 GLUCOSE (test code = GLU) mg/dL 74-106 BLOOD UREA NITROGEN (test code = BUN) mg/dL 7-18 GLOMERULAR FILTRATION RATE (test code = GFR) mL/min >=60 CREATININE (test code = CREAT) mg/dL 0.55-1.02 BUN/CREATININE RATIO (test code = BUN/CREA) 10-20 CALCIUM (test code = CA) mg/dL 8.5-10.1 HEPATIC FUNCTION [id number] 13:33:00* Test Item Value Reference Range Interpretation Comments TOTAL PROTEIN (test code = PROT) gram/dL 6.4-8.2 ALBUMIN (test code = ALB) g/dL 3.4-5.0 GLOBULIN (test code = GLOB) gram/dL 2.7-4.2 ALBUMIN/GLOBULIN RATIO (test code = A/G) 0.75-1.50 BILIRUBIN TOTAL (test code = BILT) mg/dL 0.0-1.0 BILIRUBIN DIRECT (test code = BILD) mg/dL 0.0-0.20 SGOT/AST (test code = AST) IUnit/L 15-37 SGPT/ALT (test code = ALT) IUnit/L 12-78 ALKALINE PHOSPHATASE TOTAL (test code = ALKP) IUnit/L 45-117 [id number] 13:33:00* Test Item Value Reference Range Interpretation Comments LIPASE (test code = LIP) U/L 73.0-393.0 HCG SERUM [id number] 13:33:00* Test Item Value Reference Range Interpretation Comments HCG SERUM QUAL (test code = HCGQL) NEGATIVE TSH REFLEX TO [id number] 13:33:00* Test Item Value Reference Range Interpretation Comments TSH REFLEX TO FT4 (test code = TSHREFLEX) 0.4-5.5 [id number] 13:33:00* Test Item Value Reference Range Interpretation Comments TROPONIN-I (test code = TROPI) ng/mL 0-0.045 [id number] 13:33:00* Test Item Value Reference Range Interpretation Comments LITHIUM (test code = LITH) <0.1 mmol/L 0.5-1.5 L [id number] 13:33:00* Test Item Value Reference Range Interpretation Comments ALCOHOL (test code = ALC) mg/dL 0-3 - CT HEAD/BRAIN W/O [id number] 13:32:00 Name: GRZEGORZ GONZALES [facility] : 1965 Age/S: 53 / F [address] [facility] Unit #: [id number] Loc: [place] [address] Phys: Michael Adame MD Acct: [id number] Dis Date: Status: REG ER PHONE #: [phone] Exam Date: 11/05/2018 1320 FAX #: [phone] Reason: headache EXAMS: CPT CODE: [id number] CT HEAD/BRAIN W/O CONT 74897 HISTORY: headache TECHNIQUE: Noncontrast 2.[address] of the head. Examination acquired within 24 hours of arrival. Automated exposure control for dose reduction. COMPARISON: Noncontrast CT brain January 22, 2017 FINDINGS: No lacerations or contusions of the scalp or facial soft tissues.. Calvarium and skull base are intact. No acute hemorrhage. No intracranial mass, mass effect, or midline shift. No effacement of the sulci or malik-white matter interface to suggest acute infarct. No cortical atrophy. No signs of white matter small-vessel disease. No hydrocephalus.. No extra-axial fluid collection. Visualized paranasal sinuses are clear. Right mastoidotomy is unchanged. Cerumen is present in the left external auditory canal. Orbital contents are unremarkable. IMPRESSION: No acute intracranial process. Right mastoidotomy is unchanged from the previous exam. Electronically Signed by Jayson Brooks MD on 0 11/05/2018 at 1332 Reported and signed by: Jayson Brooks MD CC: Devin Wright MD; Michael Adame MD Technologist :Leonard Vance RT(R),(MR),(CT); CTDI: DLP: Trnscb Date/Time: 10/15 (5752) t.SDR.RR31 Orig Print D/T: S: 11/05/2018 (13 35) PAGE 1 Signed Report BASIC METABOLIC [id number] 13:30:00* Test Item Value Reference Range Interpretation Comments SODIUM (test code = NA) mmol/L 136-145 POTASSIUM (test code = K) mmol/L 3.5-5.1 CHLORIDE (test code = CL) mmol/L 98-107 CARBON DIOXIDE (test code = CO2) mmol/L 21-32 ANION GAP (test code = GAP) 10-20 GLUCOSE (test code = GLU) mg/dL 74-106 BLOOD UREA NITROGEN (test code = BUN) mg/dL 7-18 GLOMERULAR FILTRATION RATE (test code = GFR) mL/min >=60 CREATININE (test code = CREAT) mg/dL 0.55-1.02 BUN/CREATININE RATIO (test code = BUN/CREA) 10-20 CALCIUM (test code = CA) mg/dL 8.5-10.1 HEPATIC FUNCTION [id number] 13:30:00* Test Item Value Reference Range Interpretation Comments TOTAL PROTEIN (test code = PROT) gram/dL 6.4-8.2 ALBUMIN (test code = ALB) g/dL 3.4-5.0 GLOBULIN (test code = GLOB) gram/dL 2.7-4.2 ALBUMIN/GLOBULIN RATIO (test code = A/G) 0.75-1.50 BILIRUBIN TOTAL (test code = BILT) mg/dL 0.0-1.0 BILIRUBIN DIRECT (test code = BILD) mg/dL 0.0-0.20 SGOT/AST (test code = AST) IUnit/L 15-37 SGPT/ALT (test code = ALT) IUnit/L 12-78 ALKALINE PHOSPHATASE TOTAL (test code = ALKP) IUnit/L 45-117 [id number] 13:30:00* Test Item Value Reference Range Interpretation Comments LIPASE (test code = LIP) U/L 73.0-393.0 HCG SERUM [id number] 13:30:00* Test Item Value Reference Range Interpretation Comments HCG SERUM QUAL (test code = HCGQL) NEGATIVE TSH REFLEX TO [id number] 13:30:00* Test Item Value Reference Range Interpretation Comments TSH REFLEX TO FT4 (test code = TSHREFLEX) 0.4-5.5 [id number] 13:30:00* Test Item Value Reference Range Interpretation Comments TROPONIN-I (test code = TROPI) ng/mL 0-0.045 [id number] 13:30:00* Test Item Value Reference Range Interpretation Comments LITHIUM (test code = LITH) <0.1 mmol/L 0.5-1.5 L [id number] 13:30:00* Test Item Value Reference Range Interpretation Comments ALCOHOL (test code = ALC) mg/dL 0-3 CBC W/O [id number] 13:29:00* Test Item Value Reference Range Interpretation Comments WHITE BLOOD CELL (test code = WBC) 5.9 K/mm3 4.5-12.5 N RED BLOOD CELL (test code = RBC) 4.53 mill/mm3 3.7-5.2 N HEMOGLOBIN (test code = HGB) 13.5 gram/dL 11.5-15.5 N HEMATOCRIT (test code = HCT) 40.8 % 36.0-46.0 N MEAN CELL VOLUME (test code = MCV) 90.1 fL 80-98 N MEAN CELL HGB (test code = MCH) 29.8 picogram 27.0-33.0 N MEAN CELL HGB CONCETRATION (test code = MCHC) 33.1 gram/dL 33.0-36. 0 N RED CELL DISTRIBUTION WIDTH (test code = RDW) 13.2 % 11.6-16. 2 N PLATELET COUNT (test code = PLT) 287 K/mm3 150-450 N MEAN PLATELET VOLUME (test code = MPV) 9.2 fL 6.7-11.0 N CBC W/O [id number] 13:25:00* Test Item Value Reference Range Interpretation Comments WHITE BLOOD CELL (test code = WBC) K/mm3 4.5-12.5 RED BLOOD CELL (test code = RBC) mill/mm3 3.7-5.2 HEMOGLOBIN (test code = HGB) 13.5 gram/dL 11.5-15.5 N HEMATOCRIT (test code = HCT) 40.8 % 36.0-46.0 N MEAN CELL VOLUME (test code = MCV) fL 80-98 MEAN CELL HGB (test code = MCH) picogram 27.0-33.0 MEAN CELL HGB CONCETRATION (test code = MCHC) gram/dL 33.0-36. 0 RED CELL DISTRIBUTION WIDTH (test code = RDW) % 11.6-16. 2 PLATELET COUNT (test code = PLT) K/mm3 150-450 MEAN PLATELET VOLUME (test code = MPV) fL 6.7-11.0 BASIC METABOLIC [id number] 20:30:00* Test Item Value Reference Range Interpretation Comments SODIUM (test code = NA) 141 mmol/L 136-145 N POTASSIUM (test code = K) 4.6 mmol/L 3.5-5.1 N CHLORIDE (test code = CL) 107.0 mmol/L 98-107 N CARBON DIOXIDE (test code = CO2) 27.0 mmol/L 21-32 N ANION GAP (test code = GAP) 11.6 10-20 N GLUCOSE (test code = GLU) 77 mg/dL 74-106 N BLOOD UREA NITROGEN (test code = BUN) 12 mg/dL 7-18 N GLOMERULAR FILTRATION RATE (test code = GFR) > 60 mL/min >=60 Estimated GFR by using Modified MDRD formula.Chronic kidney disease is defined as either kidney damageor GFR <60 mL/min/1.73 m2 for >3 months. CREATININE (test code = CREAT) 0.60 mg/dL 0.55-1.02 N Note change in reference range due to change in reagent. BUN/CREATININE RATIO (test code = BUN/CREA) 18.7 10-20 N CALCIUM (test code = CA) 8.7 mg/dL 8.5-10.1 N SPECIMEN HEMOLYZED [id number] HAS BEEN NOTIEFIED PLEASE [facility] 2018-09-01 20:26:00* Test Item Value Reference Range Interpretation Comments SODIUM (test code = NA) 141 mmol/L 136-145 N POTASSIUM (test code = K) 4.6 mmol/L 3.5-5.1 N CHLORIDE (test code = CL) 107.0 mmol/L 98-107 N CARBON DIOXIDE (test code = CO2) mmol/L 21-32 ANION GAP (test code = GAP) 10-20 GLUCOSE (test code = GLU) mg/dL 74-106 BLOOD UREA NITROGEN (test code = BUN) mg/dL 7-18 GLOMERULAR FILTRATION RATE (test code = GFR) mL/min >=60 CREATININE (test code = CREAT) mg/dL 0.55-1.02 BUN/CREATININE RATIO (test code = BUN/CREA) 10-20 CALCIUM (test code = CA) mg/dL 8.5-10.1 SPECIMEN HEMOLYZED [id number] HAS BEEN NOTIEFIED [facility]FF 2018-09-01 19:06:00* Test Item Value Reference Range Interpretation Comments WHITE BLOOD CELL (test code = WBC) 7.8 K/mm3 4.5-12.5 N RED BLOOD CELL (test code = RBC) 4.46 mill/mm3 3.7-5.2 N HEMOGLOBIN (test code = HGB) 13.3 gram/dL 11.5-15.5 N HEMATOCRIT (test code = HCT) 43.5 % 36.0-46.0 N MEAN CELL VOLUME (test code = MCV) 97.5 fL 80-98 N MEAN CELL HGB (test code = MCH) 29.8 picogram 27.0-33.0 N MEAN CELL HGB CONCETRATION (test code = MCHC) 30.6 gram/dL 33.0-36. 0 L RED CELL DISTRIBUTION WIDTH (test code = RDW) 13.5 % 11.6-16. 2 N PLATELET COUNT (test code = PLT) 262 K/mm3 150-450 N MEAN PLATELET VOLUME (test code = MPV) 10.2 fL 6.7-11.0 N CBC W/O [id number] 19:04:00* Test Item Value Reference Range Interpretation Comments WHITE BLOOD CELL (test code = WBC) K/mm3 4.5-12.5 RED BLOOD CELL (test code = RBC) mill/mm3 3.7-5.2 HEMOGLOBIN (test code = HGB) 13.3 gram/dL 11.5-15.5 N HEMATOCRIT (test code = HCT) 43.5 % 36.0-46.0 N MEAN CELL VOLUME (test code = MCV) fL 80-98 MEAN CELL HGB (test code = MCH) picogram 27.0-33.0 MEAN CELL HGB CONCETRATION (test code = MCHC) gram/dL 33.0-36. 0 RED CELL DISTRIBUTION WIDTH (test code = RDW) % 11.6-16. 2 PLATELET COUNT (test code = PLT) K/mm3 150-450 MEAN PLATELET VOLUME (test code = MPV) fL 6.7-11.0 - XR HAND 3 + V [id number] 16:20:00 FAX: Marry Luna NP [place]: St: [facility] FAX: Devin Craft MD [phone] Name: GRZEGORZ GONZALES [facility] : 1965 Age/S: 53/F [address] [facility] Unit #: [id number] Loc: [place]DERJIT [place] [address] Phys: Marry Luna NP Acct: [id number] Dis Date: Status: REG ER PHONE #: [phone] Exam Date: 09/01/2018 1605 FAX #: [phone] Reason: pain sp fall EXAMS: CPT CODE: [id number] XR HAND 3 + [place] [address] CLINICAL HISTORY: pain sp fall TECHNIQUE: AP, oblique, and lateral views of the left hand COMPARISON: 01/17/18 FINDINGS: No acute fracture or dislocation. Bony trabecular pattern is unremarkable. No cortical destruction or periosteal reaction. Joint spaces are preserved. Dorsal wrist and hand soft tissue swelling. IMPRESSION: No acute osseous abnormalit y. Dorsal wrist and hand soft tissue swelling. Electronicall y Signed by Lana Ahuja D.O. on 09/01/2018 at 1620 Reporte d and signed by: Lana Ahuja D.O. CC: Marry Luna NP; Devin Manzanares MD Technologist: HOMER CLARK RT(R) Trnscrd Date/Time/By: 09/01/2018 (9184) : By: [email or web address] Orig Print D/T: S: 09/01/2018 (3242) PAGE 1 Signed Report - XR FOREARM 2 VIEWS [id number] 16:16:00 FAX: Marry Luna NP [place]: St: [facility] FAX: Devin Craft MD [phone] Name: GRZEGORZ GONZALES [facility] : 1965 Age/S: 53/F Paula Agarwalncer lio Unit #: [id number] Loc: INDERJIT [place] [address] Phys: Marry Luna [employer]ER Acct: [id number] Dis Date: Status: REG ER PHONE #: [phone] Exam Date: 09/01/2018 1605 FAX #: [phone] Reason: pain sp fall EXAMS: CPT CODE: [id number] XR [place] [address] [place] [address] CLINICAL HISTORY: pain sp fall TECHNIQUE: AP and lateral views of the left forearm COMPARISON: None FINDINGS: No acute fracture. Bony trabecular pattern is unremarkable. No cortical destruction or periosteal reaction. Elbow and wrist joints do not appear dislocated. Dorsal soft tissue swelling of the distal forearm and wrist. IMPRESSION: No acute osseous abnormality. Dorsal soft tissue swelling of the distal forearm and wrist. at 1616 Reported and signed by: Lana Ahuja D.O. CC: Marry Luna NP; Devin Wright MD Technologist: HOMER BLAKELY(R) Trnscrd Date/Time/By: 0 09/01/2018 (4671) : By: [email or web address] Orig Print D/T: S: 09/01/2018 (4371) PAGE 1 Signed Report BASIC METABOLIC [id number] 20:52:00* Test Item Value Reference Range Interpretation Comments SODIUM (test code = NA) 139 mmol/L 136-145 N POTASSIUM (test code = K) 4.3 mmol/L 3.5-5.1 N CHLORIDE (test code = CL) 103.0 mmol/L 98-107 N CARBON DIOXIDE (test code = CO2) 28.0 mmol/L 21-32 N ANION GAP (test code = GAP) 12.3 10-20 N GLUCOSE (test code = GLU) 92 mg/dL 74-106 N BLOOD UREA NITROGEN (test code = BUN) 16 mg/dL 7-18 N GLOMERULAR FILTRATION RATE (test code = GFR) > 60 mL/min >=60 Estimated GFR by using Modified MDRD formula.Chronic kidney disease is defined as either kidney damageor GFR <60 mL/min/1.73 m2 for >3 months. CREATININE (test code = CREAT) 0.60 mg/dL 0.55-1.02 N Note change in reference range due to change in reagent. BUN/CREATININE RATIO (test code = BUN/CREA) 26.7 10-20 H CALCIUM (test code = CA) 9.2 mg/dL 8.5-10.1 N [id number] 20:52:00* Test Item Value Reference Range Interpretation Comments TROPONIN-I (test code = TROPI) <0.015 ng/mL 0-0.045 N BASIC METABOLIC [id number] 20:46:00* Test Item Value Reference Range Interpretation Comments SODIUM (test code = NA) 139 mmol/L 136-145 N POTASSIUM (test code = K) 4.3 mmol/L 3.5-5.1 N CHLORIDE (test code = CL) 103.0 mmol/L 98-107 N CARBON DIOXIDE (test code = CO2) mmol/L 21-32 ANION GAP (test code = GAP) 10-20 GLUCOSE (test code = GLU) mg/dL 74-106 BLOOD UREA NITROGEN (test code = BUN) mg/dL 7-18 GLOMERULAR FILTRATION RATE (test code = GFR) mL/min >=60 CREATININE (test code = CREAT) mg/dL 0.55-1.02 BUN/CREATININE RATIO (test code = BUN/CREA) 10-20 CALCIUM (test code = CA) 9.2 mg/dL 8.5-10.1 N [id number] 20:46:00* Test Item Value Reference Range Interpretation Comments TROPONIN-I (test code = TROPI) ng/mL 0-0.045 CBC W/O [id number] 20:30:00* Test Item Value Reference Range Interpretation Comments WHITE BLOOD CELL (test code = WBC) K/mm3 4.5-12.5 RED BLOOD CELL (test code = RBC) mill/mm3 3.7-5.2 HEMOGLOBIN (test code = HGB) 13.4 gram/dL 11.5-15.5 N HEMATOCRIT (test code = HCT) 44.2 % 36.0-46.0 N MEAN CELL VOLUME (test code = MCV) fL 80-98 MEAN CELL HGB (test code = MCH) picogram 27.0-33.0 MEAN CELL HGB CONCETRATION (test code = MCHC) gram/dL 33.0-36. 0 RED CELL DISTRIBUTION WIDTH (test code = RDW) % 11.6-16. 2 PLATELET COUNT (test code = PLT) K/mm3 150-450 MEAN PLATELET VOLUME (test code = MPV) fL 6.7-11.0 CBC W/O [id number] 20:30:00* Test Item Value Reference Range Interpretation Comments WHITE BLOOD CELL (test code = WBC) 13.8 K/mm3 4.5-12.5 H RED BLOOD CELL (test code = RBC) 4.55 mill/mm3 3.7-5.2 N HEMOGLOBIN (test code = HGB) 13.4 gram/dL 11.5-15.5 N HEMATOCRIT (test code = HCT) 44.2 % 36.0-46.0 N MEAN CELL VOLUME (test code = MCV) 97.1 fL 80-98 N MEAN CELL HGB (test code = MCH) 29.5 picogram 27.0-33.0 N MEAN CELL HGB CONCETRATION (test code = MCHC) 30.3 gram/dL 33.0-36. 0 L RED CELL DISTRIBUTION WIDTH (test code = RDW) 13.5 % 11.6-16. 2 N PLATELET COUNT (test code = PLT) 346 K/mm3 150-450 N MEAN PLATELET VOLUME (test code = MPV) 9.6 fL 6.7-11.0 N - XR CHEST 1 [id number] 19:48:00 FAX: Allen Brandon MD [phone] [place]: St: REG Name: [facility] : [birth year] Age/S: 53/F [address] [facility] Unit #: [id number] Loc: [place] [address] Phys: Allen Brandon MD Acct: [id number] Dis Date: Status: REG ER PHONE #: [phone] Exam Date: 05/12/20181943 FAX #: [phone] Reason: CHEST PAIN EXAMS: CPT CODE: [id number] XR CHEST 1 V 23203 HISTORY: CHEST PAIN TECHNIQUE: AP chest x-ray COMPARISON: 03/27/18 FINDIN GS: No airspace consolidation or pleural effusion. Normal heart si ze. Mediastinal silhouette is unremarkable. Visualized osseous structures are grossly intact. IMPRESSION: No radio graphic evidence of acute cardiopulmonary process. Electronically Si gned by Lana Ahuja D.O. on 05/12/2018 at 1948 Reported an d signed by: Lana Ahuja D.O. CC: Allen Brandon MD Technologist: BILLIE LOUISE RT(R) Trnscrd Date/Time/By: 05/12/2018 (1947) : By: [email or web address] Orig Print D/T: S: 05/12/2018 (1950) PAGE 1 Signed Report COMPREHENSIVE METABOLIC [id number] 19:35:00* Test Item Value Reference Range Interpretation Comments SODIUM (test code = NA) 139 mmol/L 136-145 N POTASSIUM (test code = K) 3.6 mmol/L 3.5-5.1 N CHLORIDE (test code = CL) 105.0 mmol/L 98-107 N CARBON DIOXIDE (test code = CO2) 23.0 mmol/L 21-32 N ANION GAP (test code = GAP) 14.6 10-20 N GLUCOSE (test code = GLU) 116 mg/dL 74-106 H BLOOD UREA NITROGEN (test code = BUN) 10 mg/dL 7-18 N GLOMERULAR FILTRATION RATE (test code = GFR) > 60 mL/min >=60 Estimated GFR by using Modified MDRD formula.Chronic kidney disease is defined as either kidney damageor GFR <60 mL/min/1.73 m2 for >3 months. CREATININE (test code = CREAT) 0.70 mg/dL 0.55-1.02 N Note change in reference range due to change in reagent. BUN/CREATININE RATIO (test code = BUN/CREA) 14.0 10-20 N TOTAL PROTEIN (test code = PROT) 6.8 gram/dL 6.4-8.2 N ALBUMIN (test code = ALB) 3.7 g/dL 3.4-5.0 N GLOBULIN (test code = GLOB) 3.1 gram/dL 2.7-4.2 N ALBUMIN/GLOBULIN RATIO (test code = A/G) 1.2 0.75-1.50 N CALCIUM (test code = CA) 8.6 mg/dL 8.5-10.1 N BILIRUBIN TOTAL (test code = BILT) 0.20 mg/dL 0.0-1.0 N SGOT/AST (test code = AST) 17 IUnit/L 15-37 N SGPT/ALT (test code = ALT) 23 IUnit/L 12-78 N ALKALINE PHOSPHATASE TOTAL (test code = ALKP) 83 IUnit/L 45-117 N Note change in reference range due to change in reagent. [id number] 19:35:00* Test Item Value Reference Range Interpretation Comments AMYLASE (test code = DAVIDSON) 62 Unit/L 25-115 N URINALYSIS W/O [id number] 19:34:00* Test Item Value Reference Range Interpretation Comments UA COLOR (test code = COLU) YELLOW YELLOW UA APPEARANCE (test code = APPU) CLEAR CLEAR UA GLUCOSE DIPSTICK (test code = DGLUU) NEGATIVE mg/dL NEGATIVE UA BILIRUBIN DIPSTICK (test code = BILU) NEGATIVE mg/dL NEGATIVE UA KETONE DIPSTICK (test code = KETU) Negative mg/dL NEGATIVE UA SPECIFIC GRAVITY (test code = SGU) 1.021 1.001-1.035 UA BLOOD DIPSTICK (test code = JAMIE) Negative NEGATIVE UA PH DIPSTICK (test code = DOLORES) 5.0 5.0-8.0 UA PROTEIN DIPSTICK (test code = PROU) Negative mg/dL NEGATIVE UA UROBILINIOGEN DIPSTICK (test code = URO) NEGATIVE mg/dL NEGATIVE UA NITRITE DIPSTICK (test code = ISABEL) NEGATIVE NEGATIVE UA LEUKOCYTE ESTERASE W REFLEX (test code = LEUUR) NEGATIVE NEG ATIVE COMPREHENSIVE METABOLIC [id number] 19:22:00* Test Item Value Reference Range Interpretation Comments SODIUM (test code = NA) 139 mmol/L 136-145 N POTASSIUM (test code = K) 3.6 mmol/L 3.5-5.1 N CHLORIDE (test code = CL) 105.0 mmol/L 98-107 N CARBON DIOXIDE (test code = CO2) mmol/L 21-32 ANION GAP (test code = GAP) 10-20 GLUCOSE (test code = GLU) mg/dL 74-106 BLOOD UREA NITROGEN (test code = BUN) mg/dL 7-18 GLOMERULAR FILTRATION RATE (test code = GFR) mL/min >=60 CREATININE (test code = CREAT) mg/dL 0.55-1.02 BUN/CREATININE RATIO (test code = BUN/CREA) 10-20 TOTAL PROTEIN (test code = PROT) gram/dL 6.4-8.2 ALBUMIN (test code = ALB) g/dL 3.4-5.0 GLOBULIN (test code = GLOB) gram/dL 2.7-4.2 ALBUMIN/GLOBULIN RATIO (test code = A/G) 0.75-1.50 CALCIUM (test code = CA) mg/dL 8.5-10.1 BILIRUBIN TOTAL (test code = BILT) mg/dL 0.0-1.0 SGOT/AST (test code = AST) IUnit/L 15-37 SGPT/ALT (test code = ALT) IUnit/L 12-78 ALKALINE PHOSPHATASE TOTAL (test code = ALKP) IUnit/L 45-117 [id number] 19:22:00* Test Item Value Reference Range Interpretation Comments AMYLASE (test code = DAVIDSON) Unit/L 25-115 CBC W/AUTO [id number] 19:18:00* Test Item Value Reference Range Interpretation Comments WHITE BLOOD CELL (test code = WBC) 9.1 K/mm3 4.5-12.5 N RED BLOOD CELL (test code = RBC) 3.84 mill/mm3 3.7-5.2 N HEMOGLOBIN (test code = HGB) 11.5 gram/dL 11.5-15.5 N HEMATOCRIT (test code = HCT) 37.3 % 36.0-46.0 N MEAN CELL VOLUME (test code = MCV) 97.1 fL 80-98 N MEAN CELL HGB (test code = MCH) 29.9 picogram 27.0-33.0 N MEAN CELL HGB CONCETRATION (test code = MCHC) 30.8 gram/dL 33.0-36. 0 L RED CELL DISTRIBUTION WIDTH (test code = RDW) 13.0 % 11.6-16. 2 N RED CELL DISTRIBUTION WIDTH SD (test code = RDW-SD) 46.1 fL 37 .0-51.0 N PLATELET COUNT (test code = PLT) 225 K/mm3 150-450 N MEAN PLATELET VOLUME (test code = MPV) 10.2 fL 6.7-11.0 N NEUTROPHIL % (test code = NT%) 85.5 % 39.0-69.0 H IMMATURE GRANULOCYTE % (test code = IG%) 0.4 % 0.0-5.0 N LYMPHOCYTE % (test code = LY%) 5.9 % 25.0-55.0 L MONOCYTE % (test code = MO%) 7.2 % 0.0-10.0 N EOSINOPHIL % (test code = EO%) 0.5 % 0.0-5.0 N BASOPHIL % (test code = BA%) 0.5 % 0.0-1.0 N NUCLEATED RBC % (test code = NRBC%) 0.0 % 0-0 N NEUTROPHIL # (test code = NT#) 7.79 K/mm3 1.8-7.7 H IMMATURE GRANULOCYTE # (test code = IG#) 0.04 x10 3/uL 0-0.03 H LYMPHOCYTE # (test code = LY#) 0.54 K/mm3 1.0-5.0 L MONOCYTE # (test code = MO#) 0.66 K/mm3 0-0.8 N EOSINOPHIL # (test code = EO#) 0.05 K/mm3 0.0-0.5 N BASOPHIL # (test code = BA#) 0.05 K/mm3 0.0-0.2 N NUCLEATED RBC # (test code = NRBC#) 0.00 K/mm3 0.0-0.1 N CBC W/AUTO [id number] 19:14:00* Test Item Value Reference Range Interpretation Comments WHITE BLOOD CELL (test code = WBC) K/mm3 4.5-12.5 RED BLOOD CELL (test code = RBC) mill/mm3 3.7-5.2 HEMOGLOBIN (test code = HGB) 11.5 gram/dL 11.5-15.5 N HEMATOCRIT (test code = HCT) 37.3 % 36.0-46.0 N MEAN CELL VOLUME (test code = MCV) fL 80-98 MEAN CELL HGB (test code = MCH) picogram 27.0-33.0 MEAN CELL HGB CONCETRATION (test code = MCHC) gram/dL 33.0-36. 0 RED CELL DISTRIBUTION WIDTH (test code = RDW) % 11.6-16. 2 RED CELL DISTRIBUTION WIDTH SD (test code = RDW-SD) fL 37 .0-51.0 PLATELET COUNT (test code = PLT) K/mm3 150-450 MEAN PLATELET VOLUME (test code = MPV) fL 6.7-11.0 NEUTROPHIL % (test code = NT%) % 39.0-69.0 IMMATURE GRANULOCYTE % (test code = IG%) % 0.0-5.0 LYMPHOCYTE % (test code = LY%) % 25.0-55.0 MONOCYTE % (test code = MO%) % 0.0-10.0 EOSINOPHIL % (test code = EO%) % 0.0-5.0 BASOPHIL % (test code = BA%) % 0.0-1.0 NEUTROPHIL # (test code = NT#) K/mm3 1.8-7.7 LYMPHOCYTE # (test code = LY#) K/mm3 1.0-5.0 MONOCYTE # (test code = MO#) K/mm3 0-0.8 EOSINOPHIL # (test code = EO#) K/mm3 0.0-0.5 BASOPHIL # (test code = BA#) K/mm3 0.0-0.2 - XR CHEST 2 [id number] 17:23:00 FAX: MIKE MELÉNDEZ NP [place]: St: REG Name: GR[facility]Z [facility] : [birth year] Age/S: 53/F [address] [facility] Unit #: [id number] Loc: [place] [address] Phys: MIKE MELÉNDEZ NP Acct: [id number] Dis Date: Status: REG ER PHONE #: [phone] Exam Date: 03/27/2018 1721 FAX #: [phone] Reason: cough EXAMS: CPT CODE: [id number] XR CHEST 2 V [id number] REASON FOR EXAM: cough Exam Order Date: 03/27/2018 4:55 PM Ordering MPolly: MIKE MELÉNDEZ NP PROCEDURE: - XR CHEST 2 V COMPARISON : FINDINGS: PA and lateral views of the chest show clear lungs. N o evidence of consolidation. No evidence of effusion. The heart size is within normal limits. Pulmonary vasculatures are unremarkable. The oss eous structures are grossly intact. IMPRESSION: No active diseas e. at 1723 Reported and signed by: Hernandez Cook C: MIKE MELÉNDEZ NP Technologist: JED WEBBER RT(R) Trnscrd Date/Time/By: 03/27/2018 (665) : By: AzaleaL Orig Print D/T: S: 03/27/2018 (0067) PAGE 1 Signed Report - XR HAND 3 + V [id number] 23:59:00 FAX: Tonya Brennan [place]: B St: PRE Name: GRZEGORZ [facility]SSA[facility] : [birth year] Age/S: 53/F Paula Brown lio Unit #: [id number] Loc: [place] [address] Phys: Tonya Brennan ie [employer] Acct: [id number] Dis Date: Status: PRE ER PHONE #: [phone] Exam Date: 03/09/2018 7570 FAX #: [phone] Reason: LAC, R/O FB EXAMS: CPT CODE: [id number] XR HAND 3 + V RT 8[address]33 HISTORY: Laceration Location: C3 Comparison to exam [...] IMPRESSION: 1. Soft tissue laceration. No acute fractur e or foreign body. Electronically Signed by Romaine Trivedi MD on 02/14 at 2356 Reported and signed by: Romaine Trivedi MD CC: Tonya Brennan NP Technologist: Liliana Diop Trnscrd Da te/Time/By: 03/09/2018 (2359) : By: [email or web address] Orig Print D/T: S: 03/10 (0002) PAGE 1 Signed Report
[2019-07-05] MEDS ORDERED: SODIUM CHLORIDE 0.9% 1000ML 1,000 ML IV STA ×2 (01:23→03:15)
[2019-07-05] MEDS ORDERED: ASPIRIN 81 MG CHEW TAB PO ONE (01:30)
[2019-07-05 01:45] LABS: BASOPHILS # (AUTO) 0.1 (0.0-0.1); BASOPHILS % 1.1 % (0.0-1.0); EOSINOPHILS # (AUTO) 0.1 (0.0-0.4); EOSINOPHILS % 0.9 % (0.0-6.0); HEMATOCRIT 35.5 % (34.2-44.1); LYMPHOCYTES # (AUTO) 1.9 (1.0-3.2); LYMPHOCYTES % 20.7 % (18.0-39.1); MEAN CORPUSCULAR HEMOGLOBIN 30.6 pg (28-32); MEAN CORPUSCULAR VOLUME 98.6 fL (81-99); MONOCYTES # (AUTO) 0.7 (0.2-0.8); MONOCYTES % 7.8 % (4.4-11.3); NEUTROPHILS # (AUTO) 6.2 (2.1-6.9); NEUTROPHILS % 69.2 % (38.7-80.0); PLATELET COUNT 355 x10e3/uL (140-360); RED CELL DISTRIBUTION WIDTH 13.6 % (11.7-14.4)
[2019-07-05] MEDS ORDERED: SODIUM CHLORIDE 0.9% 1000ML 1,000 ML IV ONE (01:45)
[2019-07-05 02:00] LABS: ALANINE AMINOTRANSFERASE 21 IU/L (0-55); ALBUMIN 3.8 g/dL (3.5-5.0); ALBUMIN/GLOBULIN RATIO 1.4 (0.8-2.0); ALKALINE PHOSPHATASE 62 IU/L (40-150); ANION GAP 12.1 mmol/L (8-16); BLOOD UREA NITROGEN 18 mg/dL (7-26); BUN/CREATININE RATIO 25 (6-25); CALCIUM 8.8 mg/dL (8.4-10.2); CARBON DIOXIDE 26 mmol/L (22-29); CHLORIDE 103 mmol/L (98-107); CREATINE KINASE 67 IU/L (29-168); CREATININE, SERUM 0.72 mg/dL (0.57-1.11); EST GLOMERULAR FILTRATION RATE > 60 ML/MIN (60-); GLUCOSE 122 mg/dL (74-118); POTASSIUM 4.1 mmol/L (3.5-5.1); SODIUM 137 mmol/L (136-145)
[2019-07-05 02:05] LABS: AMPHETAMINES SCREEN,URINE NEGATIVE (NEGATIVE); BENZODIAZEPINES SCREEN,URINE NEGATIVE (NEGATIVE); PHENCYCLIDINE SCREEN,URINE NEGATIVE (NEGATIVE)
--- NOTE | 2019-07-05 03:03 | Diagnostic Imaging Report ---
History: Overdose, dizziness Comparison studies: None Technique: Axial images were obtained from the skull base to the vertex. Coronal and sagittal reconstructions obtained from the axial data. Dose modulation, iterative reconstruction, and/or weight based adjustment of the mA/kV was utilized to reduce the radiation dose to as low as reasonably achievable. Findings: Scalp/skull: No abnormalities. No fractures, blastic or lytic lesions. Extra-axial spaces: No masses. No fluid collections. Brain sulci: Appropriate for age. Ventricles: Normal in size and configuration. No hydrocephalus. Parenchyma: No abnormal densities. No masses, hemorrhage, acute or chronic cortical vascular insults. Sellar/suprasellar region: No abnormalities Craniocervical junction: Patent foramen magnum. No Chiari one malformation. IMPRESSION: No abnormalities . Signed by: DR Ho Lennon M.D. on 07/05/2019 2:59 AM
[2019-07-05] MEDS ORDERED: NALOXONE HCL 2MG/2 ML SYRINGE IV ONE (03:15)
--- NOTE | 2019-07-05 03:17 | Emergency Department Note ---
History of Present Illnes History of Present Illness Chief Complaint: General Medicine Complaints History of Present Illness This is a 54 year old female brought by EMS for evaluation of accidental drug ingestion. Patient states that she took more than her usual dose of medication inadavertantly . Denies SI. . 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 Any updates have been documented here. Past Medical History Recent Fever: No Clinical Suspicion of Infectio: No New/Unexplained Change in Ment: Yes Other Medical History: BIPOLAR CHRONIC BACK PAIN Past Surgical History: Back Surgery Other Surgery: EAR(MULTIPLE), SKIN GRAFT BACK SURGERY Social History Smoking Cessation: Former smoker Counseling Performed: Yes Alcohol Use: Social Any Illegal Drug Use: No Other Last Tetanus: unknown Review of Systems Review of Systems Constitutional: no symptoms EENTM: no symptoms Cardiovascular: no symptoms Respiratory: no symptoms Gastrointestinal: no symptoms Genitourinary: no symptoms Musculoskeletal: no symptoms Neurological: weakness Psychological: no symptoms Endocrine: no symptoms Hematological/Lymphatic: no symptoms Review of other systems All other systems reviewed and negative. Physical Exam Related Data Allergies: Coded Allergies: benztropine mesylate (Verified Allergy, Severe, 11/17/11) sertraline (Verified Allergy, Severe, SWELLING, SEIZURES, 02/22/10) ziprasidone (Verified Allergy, Intermediate, HALLUCINATIONS, 02/22/10) Haloperidol Lactate (Verified Allergy, Unknown, 09/30/10) haloperidol (Verified Allergy, Unknown, 09/30/10) peanut (Verified Allergy, Unknown, 02/22/10) risperidone (Verified Allergy, Unknown, 02/22/10) Uncoded Allergies: DERMABOND (Allergy, Unknown, 05/21/16) Triage Vital Signs Vital Signs Date Time Temp Pulse Resp B/P (MAP) Pulse Ox O2 Delivery O2 Flow Rate FiO2 07/05/19 01:45 66 16 111/98 100 07/05/19 01:57 97.8 Vital signs reviewed: Yes Physical Exam CONSTITUTIONAL Constitutional: well-developed, well-nourished HENT HENT: normocephalic, atraumatic, oropharynx clear/moist, nose normal HENT L/R: left ext ear normal, right ext ear normal EYES Eyes: PERRL, conjunctivae normal NECK Neck: ROM normal PULMONARY Pulmonary: effort normal, breath sounds normal CARDIOVASCULAR Cardiovascular: regular rhythm, heart sounds normal, capillary refill normal, normal rate GASTROINTESTINAL Abdominal: soft, nontender, bowel sounds normal GENITOURINARY Genitourinary: exam deferred SKIN Skin: warm, dry MUSCULOSKELETAL Musculoskeletal: ROM normal NEUROLOGICAL Neurological: alert, oriented x 3, no gross motor or sensory deficits, other (lethargic) PSYCHOLOGICAL Psychological: mood/affect normal Results Laboratory Lab results reviewed: Yes Laboratory comments UDS (+) narcotic tylenol level neg CMP : neg Imaging Imaging results reviewed: Yes Impressions [place] [address] Patient Name: MADISYN GONZALES MR #: [id number] : 1965 Age/Sex: 54/F Req #: [id number] Adm Physician: Ordered by: LINETTE WEST DO Report #: [id number] Location: ER Room/Bed: Procedure: [id number] CT/CT BRAIN WO Exam Date: Exam Time: REPORT STATUS: Signed History: Overdose, dizziness Comparison studies: None Technique: Axial images were obtained from the skull base to the vertex. Coronal and sagittal reconstructions obtained from the axial data. Dose modulation, iterative reconstruction, and/or weight based adjustment of the mA/kV was utilized to reduce the radiation dose to as low as reasonably achievable. Findings: Scalp/skull: No abnormalities. No fractures, blastic or lytic lesions. Extra-axial spaces: No masses. No fluid collections. Brain sulci: Appropriate for age. Ventricles: Normal in size and configuration. No hydrocephalus. Parenchyma: No abnormal densities. No masses, hemorrhage, acute or chronic cortical vascular insults. Sellar/suprasellar region: No abnormalities Craniocervical junction: Patent foramen magnum. No Chiari one malformation. IMPRESSION: No abnormalities . Signed by: DR Ho Lennon M.D. on 07/05/2019 2:59 AM Dictated By: HO FLEMING MD 8 Transcribed By: KATRIN on 07/05/19258 COPY TO: LINETTE WEST DO~ Procedures 12 Lead ECG Interpretation Office Manager: Interpreted by ED physician Date: July 05, 2019 Time: 01:32 Prior CHILD SUPPORT AGENT tracings: reviewed Rhythm: sinus rhythm Rate: normal BPM: 66 QRS axis: normal ST segments normal: Yes T waves normal: Yes Q waves: V1, V2 Clinical Impression: non-specific ECG Assessment & Plan Assessment & Plan Final Impression: (1) Drug ingestion, accidental Assessment & Plan Patient seen upon arrival by EMS. States that she had inadvertantly taken more than her usual dose of medication. Adamantly denies SI. Patient responded well to clinical therapy. patient discharged to home in the care of family member. Depart Disposition: HOME, SELF-CARE Last Vital Signs Date Time Temp Pulse Resp B/P (MAP) Pulse Ox O2 Delivery O2 Flow Rate FiO2 07/05/19 04:32 65 14 100 07/05/19 04:00 115/82 07/05/19 01:57 97.8 Home Meds Reported Medications Alprazolam (XANAX) 2 Mg Tablet, 1 MG PO BID 11/23/13 [place] Carbonate (LITHIUM CARBONATE) 600 Mg Capsule, 300 MG PO HS 11/23/13 [place] Carbonate (LITHIUM CARBONATE) 300 Mg Tablet, 300 MG PO QAM 11/23/13 Medications in the ED Aspirin 81 mg PRN ONCE PO ; Start 07/05/19 at 01:30; Stop 07/05/19 at 01:31; Status DC Sodium Chloride 1,000 ml @ 100 mls/hr Q10H STAT IV ; Start 07/05/19 at 01:23; Stop 07/05/19 at 01:43; Status DC Sodium Chloride 1,000 ml @ 999 mls/hr Q1H1M ONCE IV Last administered on 07/05/19at 01:48; Admin Dose 999 MLS/HR; Start 07/05/19 at 01:45; Stop 07/05/19 at 02:45; Status DC Naloxone HCl 1 mg ONCE ONCE IV Last administered on 07/05/19at 03:56; Admin Dose 1 MG; Start 07/05/19 at 03:15; Stop 07/05/19 at 03:17; Status DC Sodium Chloride 1,000 ml @ 0 mls/hr Q0M STAT IV Last administered on 07/05/19at 03:57; Admin Dose 999 MLS/HR; Start 07/05/19 at 03:15; Stop 07/05/19 at 03:17; Status DC Aspirin 81 mg PRN ONCE PO ; Start 07/05/19 at 01:30; Stop 07/05/19 at 01:31; Status DC Sodium Chloride 1,000 ml @ 100 mls/hr Q10H STAT IV ; Start 07/05/19 at 01:23; Stop 07/05/19 at 11:22 LINETTE WEST DO July 05, 2019 01:33
[2019-07-05 04:32] VITALS: BP 136/82
== END 2019-07-05 04:55 | disposition home or self-care (01) ==
LOC: ER 01:17
DX: T40.2X1A Poisoning by other opioids, accidental (unintentional), initial encounter (principal); Y92.008 Other place in unspecified non-institutional (private) residence as the place of occurrence of the external cause; M54.9 Dorsalgia, unspecified; G89.29 Other chronic pain; F31.9 Bipolar disorder, unspecified
CPT/HCPCS: 36415; 70450; 80053; 80307; 80320; 80329; 82550; 82553; 84484; 85025; 93005; 99284; J2310; J7030

== ENCOUNTER 2019-07-14 01:21 | Emergency (ER) | payer MEDICARE, OTHER ==
[~2019-07-14] VITALS: Ht 157.5 cm; Wt 77.1 kg
--- OUTSIDE RECORDS SUMMARY | 2019-07-14 01:25 | XMS REPORT | Clinical Summary ---
Author Author [facility] Address Unknown Phone Unavailable Care Team Providers Care Websphere Developer Name Role Phone Asked, No Pcp PCP [...] 06/20/2019 Emergency Emergency Medicine 06/20/2019 Travel after 07/13/2018 Social History Date Tobacco Use Types Packs/Day [...] 06/20/2019 W/AUTO DIFF 12:30 AM CDT after 07/13/2018 Results * Lactic acid level, SEPSIS - Now and repeat 2x every 3 hours (06/20/2019 3:30 AM CDT) Only the most recent of 2 results within the time period is included. Lactic acid 1.6 0.5 - 2.2 mmol/L [facility] Specimen Blood Performing Organization Address City/State/Zipcode Ph one Number [facility] DEPARTMENT OF [address] [place] [address] PATHOLOGY AND GENOMIC MEDICINE [facility] [address] * ECG 12 lead (06/20/2019 12:40 AM CDT) Ventricular 92 [facility] MUSE rate Atrial rate 92 [facility] MUSE [place] interval 162 [facility] M[facility] QRSD interval 94 [...] is n ot available. Performing Organization Address City/State/[facility] Ph one Number [facility] MUSE [address] [place] [address] * Estimated GFR (06/20/2019 12:30 AM CDT) [facility] Estimated GFR >=90 mL/min/1.73 m2 [place] Comment: [place] Catergory Units [facility] HOSPITAL G1 >=90 Normal or high G2 [...] Performing Organization Address City/State/Zipcode Ph one Number [facility] DEPARTMENT OF [address] [place] [address] PATHOLOGY AND GENOMIC MEDICINE [facility] [address] * CBC with platelet and differential (06/20/2019 12:30 AM CDT) [facility] WBC 10.1 4.2 - 11.0 k/uL [facility] RBC 3.82 (L) 4.04 - 5.86 m/uL [facility] HGB 11.8 11.5 - 15.3 g/dL [facility] HCT 37.5 34.0 - 45.0 % [facility] MCV 98.2 (H) 80.0 - 98.0 fL [facility] MCH 30.9 27.0 - 34.0 pg [facility] MCHC 31.5 31.5 - 36.5 g/dL [facility] RDW - SD 47.8 37.0 - 51.0 fL [facility] MPV 10.7 (H) 7.4 - 10.4 fL [facility] Platelet count 312 150 - 400 k/uL [facility] Nucleated RBC 0.00 /100 WBC [facility] Neutrophils 91.2 (H) 36.0 - 66.0 % [facility] Lymphocytes 7.3 (L) 24.0 - 44.0 % [facility] Monocytes 0.8 0.0 - 6.0 % [facility] Eosinophils 0.0 0.0 - 6.0 % [facility] Basophils 0.2 0.0 - 1.2 % [facility] Immature 0.5 0.0 - 1.0 % [place] granulocytes [facility] Specimen Blood Performing Organization Address City/[facility] Ph one Number [facility] DEPARTMENT OF [address] [place] [address] PATHOLOGY AND GENOMIC MEDICINE [address] * Creatine kinase, total (CPK) (06/20/2019 12:30 AM CDT) Creatine kinase 65 26 - 192 U/L [facility] Specimen Blood Performing Organization Address City/State/Zipcode Ph one Number [facility] DEPARTMENT OF [facility] [place] [address] PATHOLOGY AND GENOMIC MEDICINE [address] * Phenytoin level (06/20/2019 12:30 AM CDT) Phenytoin <0.9 (L) 10.0 - 20.0 ug/mL [place] Comment: [place] Therapeutic Range: GOSHEN 10 - 20 ug/mL HOSPITAL Specimen Blood Performing Organization Address [facility] Ph one Number [facility] DEPARTMENT OF [address] [place] [id number] PATHOLOGY AND GENOMIC MEDICINE [place] [address] [address] * Comprehensive metabolic panel (06/20/2019 12:30 AM CDT) [facility] Sodium 136 135 - 150 mEq/L [facility] Potassium 3.8 3.5 - 5.0 mEq/L [facility] Chloride 100 98 - 112 mEq/L [facility] CO2 21 (L) 24 - 31 mmol/L [facility] Anion gap 15@ANIO 7 - 15 mEq/L [facility] BUN 9 7 - 18 mg/dL [facility] Creatinine 0.50 0.50 - 0.90 mg/dL [facility] Glucose 215 (H) 65 - 100 mg/dL [facility] Calcium 9.4 8.3 - 10.2 mg/dL [facility] Protein 6.8 6.3 - 8.3 g/dL [facility] Albumin 3.7 3.5 - 5.0 g/dL [facility] A/G ratio 1.2 0.7 - 3.8 [facility] Alkaline 67 0 - 104 U/L [place] phosphatase [facility] AST 20 10 - 35 U/L [facility] ALT 19 5 - 50 U/L [facility] Total bilirubin <0.3 0.2 - 1.2 mg/dL [facility] Specimen Blood Performing Organization Address City/[facility] Ph one Number [facility] DEPARTMENT OF [address] [place] [address] PATHOLOGY AND GENOMIC MEDICINE [facility] [address] [place] [address] HOSPITAL after 07/13/2018 Insurance Type Payer Benefit Subscriber ID Effective Phone Address Plan / Dates Group HMO CIGNA [employer] CIGNA xxxxxxxx 2019-P [facility] AD[facility] Advance Directives For more information, please contact: [phone] Patient Manager Cath Lab Explanation Type Date Recorded Advance Directives, Living Will and Medical Power of Scouring Machine Operator Advance Directives, 06/20/2019 1:24 AM Living Will and Medical Power of Scouring Machine Operator
--- OUTSIDE RECORDS SUMMARY | 2019-07-14 01:26 | XMS REPORT ---
Author Author [facility] t Organization [facility] Address [address] [place] [address] Phone Unavailable Care Team Providers Care Chauffeur Name Role Phone VERNA, (NON STAFF) DEVIN PCP LINETTE WEST Attphys Unavailable Gen Finley DO Attphys [phone] Payers Payer Name Policy Type Policy Number Effective Date Expiration Date Minda rik [facility] [place] 2016 00:00:00 [facility] NA 2016 00:00 :00 [facility] ADVxxxxxxxx2019-[id number] xxxxxxxx 2019 00:00:00 Nam [facility] Problems Condition Name Condition Details Condition Category Status Onset Date Resolution Date Last Treatment Date Treating Clinician Comments Source Problem Condition Active [facility] Allergies, Adverse Reactions, Alerts Allergy Name Allergy Type Status Severity Reaction(s) Onset Date Inacti ve Date Treating Clinician Comments Source Haloperidol Propensity to adverse reactions to drug Active Other (See Comments) 2019-06-20 00:00:00 Lips turn blue [place] [facility] benztropine mesylate DA Active SV 2019-04-15 00:00:00 [facility] sertraline HCl DA Active U 2019-04-15 00:00:00 [facility] Penicillins DA Active U 2019-04-15 00:00:00 [facility] peanut FA Active SV 2019-04-15 00:00:00 [facility] haloperidol DA Active U 2019-04-15 00:00:00 [facility] phenytoin DA Active U 2019-04-15 00:00:00 [facility] risperidone DA Active MO 2019-04-15 00:00:00 [facility] shrimp FA Active SV 2019-04-15 00:00:00 [facility] Penicillins DA Active U 2019-03-27 00:00:00 [facility] phenytoin DA Active U 2019-03-27 00:00:00 [facility] benztropine mesylate DA Active SV 2019-03-14 00:00:00 [facility] sertraline HCl DA Active U 2019-03-14 00:00:00 [facility] peanut FA Active SV 2019-03-14 00:00:00 [facility] haloperidol DA Active U 2019-03-14 00:00:00 [facility] phenytoin DA Active SV 2019-03-14 00:00:00 [facility] risperidone DA Active MO 2019-03-14 00:00:00 [facility] shrimp FA Active SV 2019-03-14 00:00:00 [facility] benztropine mesylate DA Active SV 2018-09-01 00:00:00 [facility] sertraline HCl DA Active U 2018-09-01 00:00:00 [facility] haloperidol DA Active U 2018-09-01 00:00:00 [facility] risperidone DA Active MO 2018-09-01 00:00:00 [facility] benztropine mesylate DA Active SV 2018-05-05 00:00:00 [facility] sertraline HCl DA Active U 2018-05-05 00:00:00 [facility] haloperidol DA Active U 2018-05-05 00:00:00 [facility] risperidone DA Active MO 2018-05-05 00:00:00 [facility] benztropine mesylate DA Active SV 2018-03-27 00:00:00 [facility] sertraline HCl DA Active U 2018-03-27 00:00:00 [facility] haloperidol DA Active U 2018-03-27 00:00:00 [facility] risperidone DA Active MO 2018-03-27 00:00:00 [facility] benztropine mesylate DA Active SV 2017-08-06 00:00:00 [facility] sertraline HCl DA Active U 2017-08-06 00:00:00 [facility] haloperidol DA Active U 2017-08-06 00:00:00 [facility] risperidone DA Active MO 2017-08-06 00:00:00 [facility] DERMABOND Allergy to substance Active 2016-05-21 00:00:00 [facility] benztropine mesylate Allergy to substance Active Severe 2011-02 00:00:00 [facility] Haloperidol Lactate Allergy to substance Active 2010-09-30 00:00:00 [facility] Haloperidol Allergy to substance Active 2010-09-30 00:00:00 [facility] Peanuts Allergy to substance Active 2010-02-22 00:00:00 [facility] Risperidone Allergy to substance Active 2010-02-22 00:00:00 [facility] Sertraline Allergy to substance Active Severe SWELLING, SEIZU RES 2010-02-22 00:00:00 [facility] Ziprasidone Allergy to substance Active Moderate HALLUCINATIONS 2010-02-22 00:00:00 [facility] Social History Social Habit Start Date Stop Date Quantity Comments Source History SDOH Alcohol Std Drinks [place] [facility] History SDOH Alcohol Binge [place] [facility] Sex Assigned At [place] [place] [facility] Exposure to SARS-CoV-2 (event) Not sure Nam Harry Alcohol intake 2019-06-20 00:00:00 2019-06-20 00:00:00 Lifetime non-drinker (finding) Nam Harry History SDOH Alcohol Frequency 2019-06-20 00:00:00 2019-06-20 00:00:0 0 1 Nam Harry Smoking Status Start Date Stop Date Source Never smoker Nam saeed Medications Ordered Medication Name Filled Medication Name Start Date Stop Da te Current Medication? Ordering Clinician Indication Dosage Frequency Signature (SIG) Comments Components Source phenytoin (DILANTIN) 100 MG ER capsule 2019-06-20 01:12:39 Yes 500mg [id number] Take 500 mg by mouth 3 (three) [...] needed for moderate pain .acute pain. Nam Diaz ethodi lithium 150 MG capsule 2019-06-20 01:12:38 Yes 150mg Q.[id number] Take 150 mg by mouth 3 (three) times a day with meals. Nam Harry Alprazolam (Xanax) 2 Mg TABLET Alprazolam (Xanax) 2 Mg TABLET Yes 1 Twice A Day [facility] [place] Carbonate [place] Carbonate Yes 300 Ever y Morning [facility] [place] Carbonate [place] Carbonate Yes 300 Bedt sergio [facility] Zolpidem Tartrate (Ambien) 10 Mg TABLET Zolpidem Tartrate (A mbien) 10 Mg TABLET 2016-05-29 00:00:00 No 10 Bedtime [facility] Azithromycin (Z-Leon) 250 Mg TABLET Azithromycin (Z-Leon) 250 Mg T ABLET 2012-04-03 00:00:00 No 250 Daily [facility] [place] 2012-04-03 00:00:00 No [facility] On Chemotherapy On Chemotherapy 2012-04-03 00:00:00 No [facility] Vital Signs Vital Name Observation Time Observation Value Comments Source Body Temperature 2019-07-05 04:32:00 97.2 [degF] [facility] Weight 2019-07-05 01:57:00 170 [lb_av] [facility] BMI (Body Mass Index) 2019-07-05 01:57:00 31.1 kg/m2 [facility] Systolic blood pressure 2019-06-20 05:12:00 102 mm[Hg] Nam Harry Diastolic blood pressure 2019-06-20 05:12:00 62 mm[Hg] Nam Harry Heart rate 2019-06-20 05:12:00 66 /[facility] 2019-06-20 05:12:00 36.83 Gabrielle [place] [facility] Respiratory rate 2019-06-20 05:12:00 18 /min Del[place] Harry Oxygen saturation in Arterial blood by Pulse oximetry 06-19 05:12:00 95 /min [facility] Body height 2019-06-20 00:45:00 157.5 cm [facility] weight 2019-06-20 00:45:00 81.647 kg Nam Harry BMI 2019-06-20 00:45:00 32.92 kg/m2 Nam Harry Procedures Procedure Date / Time Performed Performing Clinician [facility] e Computed tomography of brain without radiopaque contrast 2019-06 00:00:00 [facility] LACTIC ACID LEVEL, SEPSIS - NOW AND REPEAT 2X EVERY 3 HOURS 2019-06-20 03:30:00 Anthony Finley ECG 12-LEAD 2019-06-20 00:40:56 Anthony Finley HC COMPLETE BLD COUNT W/AUTO DIFF 2019-06-20 00:30:00 Anthony Finley COMPREHENSIVE METABOLIC PANEL 2019-06-20 00:30:00 Chai Finley LACTIC ACID LEVEL, SEPSIS - NOW AND REPEAT 2X EVERY 3 HOURS 2019-06-20 00:30:00 Anthony Finley CREATINE KINASE, TOTAL (CPK) 2019-06-20 00:30:00 Jackelyn Finley ESTIMATED GFR 2019-06-20 00:30:00 Anthony Finley on [facility] PHENYTOIN LEVEL 2019-06-20 00:30:00 Anthony Finley on [facility] Plan of Care Planned Activity Planned Date Details Comments Source Instructions Medication Safety [facility] Encounters Start Date/Time End Date/Time Encounter Type Admission Type [facility] Care Department Encounter ID Source 2019-07-05 01:17:00 2019-07-05 04:55:00 Departed Emergency Room 1 [facility]ETTE [facility] [id number] [facility] 2019-06-20 00:00:00 2019-06-20 00:00:[address] [facility] [id number] Nam Harry 2018-08-02 21:30:00 2018-08-02 21:30:00 Emergency E [facility] [id number] [facility] 2018-07-26 14:13:00 2018-07-26 14:13:00 Emergency E [facility]SE [facility]SE [id number] SE 2018-07-23 17:46:00 2018-07-23 17:46:00 Emergency E [id number] 2018-07-03 00:04:00 2018-07-03 00:04:00 Emergency E [facility] [id number] 2018-06-25 01:05:00 2018-06-25 01:05:00 Emergency E [facility]SE [facility]SE [id number] [facility]SE 2018-06-21 01:16:00 2018-06-21 01:16:00 Emergency E [facility]SE [facility]SE [id number] MHSE 2018-06-04 00:29:00 2018-06-04 00:29:00 Emergency E [facility]SE [facility]SE [id number] MHSE 2018-05-04 23:12:00 2018-05-04 23:49:00 Departed Emergency Room [facility] [id number] [facility] Results Test Description Test Time Test Comments Results Result Comments Source CT BRAIN WO 2019-07-05 02:53:00 [facility] [address] [address] Patient Name: MADISYN GONZALES MR #: [id number] : 1965 Age/Sex: 54/F Req #: [id number] Adm Physician: Ordered by: LINETTE WEST DO Report #: [id number] Location: ER Room/Bed: Procedure: [id number] CT/CT BRAIN WO Exam Date: 07/05/19 Exam Time: 0230 REPORT STATUS: Signed History: Overdose, dizziness Comparison studies: None Technique: Axial images were obtained from the skull base to the vertex. Coronal and sagittal reconstructions obtained from the axial data. Dose modulation, iterative reconstruction, and/or weight based adjust ment of the mA/kV was utilized to reduce the radiation dose to as low as reasonably achievable. Findings: Scalp/skull: No abnormalities. No fractures, blastic or lytic lesions. Extra-axial spaces: No masses. No fluid collections. Brain sulci: Appropriate for age. Ventricles: Normal in size and configuration. No hydrocephalus. Parenchyma: No abnormal densities. No masses, hemorrhage, acute or chronic cortical vascular insults. Sellar/suprasellar region: No abnormalities Craniocervical junction: Patent foramen magnum. No Chiari one malformation. IMPRESSION: No abnormalities . Signed by: DR Ho Lennon M.D. on 07/05/2019 2:59 AM Dictated By: HO FLEMING MD 8 Transcribed By: KATRIN on 07/05/19258 COPY TO: LINETTE WEST DO Urine opiates screening test 2019-07-05 01:44:00 Test Item Urine Opiates Screen (test code = 92038-5) POSITIVE NEGATIVE ALL TESTS PERFORMED MANUALLY ON [employer] TOX/SEE TEST This test provides only a sc reen. Positive results should be repeated by a confirmatory test.[facility] Center[facility]bit[facility]ates screen, [id number] 01:44:00* Test Item Value Reference Range Interpretation Comments Urine Barbiturates Screen (test code = 880880578) NEGATIVE NEGA TIVE [facility] CenterUrine phencyclidine detection by screening [id number] 01:44:00* Test Item Value Reference Range Interpretation Comments Urine Phencyclidine Screen (test code = 88651-1) NEGATIVE NEGAT SESAR [facility] CenterUrine amphetamines detection by screen method > 1000 ng/[id number] 01:44:00* Test Item Value Reference Range Interpretation Comments Urine Amphetamines Screen (test code = 73052-7) NEGATIVE NEGATI VE [facility] CenterFluoroscopic procedure less than one hour bhwyzuko3212-44-63 01:44:00* Test Item Value Reference Range Interpretation Comments Urine Methamphetamines Screen (test code = Urine Metha mphetamines Screen) NEGATIVE NEGATIVE [facility] CenterUrine benzodiazepines detection by screening qbbjkg7518-12-04 01:44:00* Test Item Value Reference Range Interpretation Comments Urine Benzodiazepines Screen (test code = 81060-1) NEGATIVE NEG ATIVE [facility] CenterUrine cocaine measurement (mass/volume) 2019-07-05 01:44:00* Test Item Value Reference Range Interpretation Comments Urine Cocaine Screen (test code = 3398-5) NEGATIVE NEGATIVE [facility] CenterUrine cannabinoids detection by screening [id number] 01:44:00* Test Item Value Reference Range Interpretation Comments Urine Cannabinoids Screen (test code = 21396-4) NEGATIVE NEGATI VE THESE RESULTS ARE FOR MEDICAL TREATMENT ONLYTHIS REPORT CONTAINS UNCONFIR MED SCREENING RESULTS*POSITIVE RESULTS WILL BE CONFIRMED BY REFERENCE LAB UPON R EQUEST CUT-OFFDRUG CLASS CONCENTRATION ng/mLAmphetamines 1000Methamphetamines 1000Cocaine 300Opiate 300Phencyc lidine 25Cannabinoid 50Barbiturates 300Benzodiazepine 300Methadone 300[facility]adone [id number] 01:44:00* Test Item Value Reference Range Interpretation Comments Urine Methadone Screen (test code = 50623-4) NEGATIVE NEGATIVE THESE RESULTS ARE FOR MEDICAL TREATMENT ONLYTHIS REPORT CONTAINS UNCONFIR MED SCREENING RESULTS*POSITIVE RESULTS WILL BE CONFIRMED BY REFERENCE LAB UPON R EQUEST CUT-OFFDRUG CLASS CONCENTRATION ng/mLAmphetamines 1000Methamphetamines 1000Cocaine Metabolite 300Opiate 300Phencyc lidine 25Cannabinoid 50Barbiturates 300Benzodiazepine 300Methadone 300[facility] leukocytes automated count (number/volume) 2019-07-05 01:34:00* Test Item Value Reference Range Interpretation Comments White Blood Count (test code = 6690-2) 8.95 4.8-10.8 [facility] CenterBlood erythrocytes automated count (number/volume)2019-07-05 01:34:00* Test Item Value Reference Range Interpretation Comments Red Blood Count (test code = 789-8) 3.60 3.6-5.1 [facility] CenterBlood hemoglobin measurement (moles/volume)2019-07-05 01:34:00* Test Item Value Reference Range Interpretation Comments Hemoglobin (test code = 97017-4) 11.0 12.0-16.0 [facility] CenterAutomated blood hematocrit (volume fraction)2019-07-05 01:34:00* Test Item Value Reference Range Interpretation Comments Hematocrit (test code = 4544-3) 35.5 34.2-44.1 [facility] CenterAutomated erythrocyte mean corpuscular yezcfv3300-00-07 01:34:00* Test Item Value Reference Range Interpretation Comments Mean Corpuscular Volume (test code = 787-2) 98.6 81-99 [facility] CenterAutomated erythrocyte mean corpuscular hemoglobin (mass per erythrocyte)2019-07-05 01:34:00* Test Item Value Reference Range Interpretation Comments Mean Corpuscular Hemoglobin (test code = 785-6) 30.6 28-32 [facility] CenterAutomated erythrocyte mean corpuscular hemoglobin concentration measurement (mass/volume)2019-07-05 01:34:00* Test Item Value Reference Range Interpretation Comments Mean Corpuscular Hemoglobin Concent (test code = 786-4) 31.0 31-35 [facility] CenterRDW HkrZt-Tua2443-50-22 01:34:00* Test Item Value Reference Range Interpretation Comments Red Cell Distribution Width (test code = 67139-5) 13.6 11.7 -14.4 [facility] CenterAutomated blood platelet count (count/volume)2019-07-05 01:34:00* Test Item Value Reference Range Interpretation Comments Platelet Count (test code = 777-3) 355 140-360 [facility] CenterAutomated blood segmented neutrophil count as percentage of total dwnlblmtgc8090-74-47 01:34:00* Test Item Value Reference Range Interpretation Comments Neutrophils (%) (Auto) (test code = 95822-2) 69.2 38.7-80.0 [facility] CenterAutomated blood lymphocyte count as percentage ot total ikatfpjvmr5427-48-00 01:34:00* Test Item Value Reference Range Interpretation Comments Lymphocytes (%) (Auto) (test code = 736-9) 20.7 18.0-39.1 [facility] CenterAutomated blood monocyte count as percentage of total vzjywudpql9982-80-95 01:34:00* Test Item Value Reference Range Interpretation Comments Monocytes (%) (Auto) (test code = 5905-5) 7.8 4.4-11.3 [facility] CenterAutomated blood eosinophil count as percentage of total eepfrdpbhw9801-08-53 01:34:00* Test Item Value Reference Range Interpretation Comments Eosinophils (%) (Auto) (test code = 713-8) 0.9 0.0-6.0 [facility] CenterAutomated blood basophil count as percentage of total fbnemesnxb1551-98-93 01:34:00* Test Item Value Reference Range Interpretation Comments Basophils (%) (Auto) (test code = 706-2) 1.1 0.0-1.0 [facility] CenterFluoroscopic procedure less than one hour bnvbpxkq5259-82-19 01:34:00* Test Item Value Reference Range Interpretation Comments IM GRANULOCYTES % (test code = IM GRANULOCYTES %) 0.3 0.0- 1.0 [facility] CenterAutomated blood neutrophil count 2019-07-05 01:34:00* Test Item Value Reference Range Interpretation Comments Neutrophils # (Auto) (test code = 751-8) 6.2 2.1-6.9 [facility] CenterBlood lymphocytes count (number/volume) 2019-07-05 01:34:00* Test Item Value Reference Range Interpretation Comments Lymphocytes # (Auto) (test code = 63474-2) 1.9 1.0-3.2 [facility] CenterBlood monocytes automated count (number/volume)2019-07-05 01:34:00* Test Item Value Reference Range Interpretation Comments Monocytes # (Auto) (test code = 742-7) 0.7 0.2-0.8 [facility] CenterAutomated blood eosinophil count 2019-07-05 01:34:00* Test Item Value Reference Range Interpretation Comments Eosinophils # (Auto) (test code = 711-2) 0.1 0.0-0.4 [facility] CenterAutomated blood basophil count (count/volume)2019-07-05 01:34:00* Test Item Value Reference Range Interpretation Comments Basophils # (Auto) (test code = 704-7) 0.1 0.0-0.1 [facility] CenterFluoroscopic procedure less than one hour mrsgqkot2967-39-47 01:34:00* Test Item Value Reference Range Interpretation Comments Absolute Immature Granulocyte (auto (amos t code = Absolute Immature Granulocyte (auto) 0.03 0-0.1 [facility] plasma sodium measurement (moles/volume)2019-07-05 01:34:00* Test Item Value Reference Range Interpretation Comments Sodium Level (test code = 2951-2) 137 136-145 [facility] Hospitaler[facility] or plasma potassium measurement (moles/volume)2019-07-05 01:34:00* Test Item Value Reference Range Interpretation Comments Potassium Level (test code = 2823-3) 4.1 3.5-5.1 [facility] Hospitaler[facility] or plasma chloride measurement (moles/volume)2019-07-05 01:34:00* Test Item Value Reference Range Interpretation Comments Chloride Level (test code = 2075-0) 103 98-107 [facility] Hospitaler[facility] or plasma carbon dioxide, total measurement (moles/volume)2019-07-05 01:34:00* Test Item Value Reference Range Interpretation Comments Carbon Dioxide Level (test code = 2028-9) 26 22-29 [facility] Hospitaler[facility] or plasma anion [id number] 01:34:00* Test Item Value Reference Range Interpretation Comments Anion Gap (test code = 76901-0) 12.1 8-16 [facility] Hospitaler[facility] or plasma urea nitrogen measurement (mass/volume)2019-07-05 01:34:00* Test Item Value Reference Range Interpretation Comments Blood Urea Nitrogen (test code = 3094-0) 18 7-26 [facility] or plasma creatinine measurement (mass/volume)2019-07-05 01:34:00* Test Item Value Reference Range Interpretation Comments Creatinine (test code = 2160-0) 0.72 0.57-1.11 [facility] or plasma urea nitrogen/creatinine mass wzjuh6083-23-48 01:34:00* Test Item Value Reference Range Interpretation Comments BUN/Creatinine Ratio (test code = 3097-3) 25 6-25 [facility] CenterEstimated glomerular filtration rate (GFR) mmkowoztfragq7876-14-12 01:34:00* Test Item Value Reference Range Interpretation Comments Estimat Glomerular Filtration Rate (test code = 878948035) > 60 >60 Ranges were taken from the National Kidney Disease Education Program and the [employer] advent[employer]al [employer] literature.Reference ranges:60 or greater: Knfopq37-56 ( for 3 consecutive months): Chronic kidney disease 15 or less: Kidney failureGrace Medical CenterGlucose zgugvllkgxu7933-72-63 01:34:00* Test Item Value Reference Range Interpretation Comments Glucose Level (test code = ZSV1591) 122 74-118 [facility] or plasma calcium measurement (mass/volume)2019-07-05 01:34:00* Test Item Value Reference Range Interpretation Comments Calcium Level (test code = 61589-3) 8.8 8.4-10.2 [facility] or plasma total bilirubin measurement (mass/volume)2019-07-05 01:34:00* Test Item Value Reference Range Interpretation Comments Total Bilirubin (test code = 1975-2) 0.2 0.2-1.2 [facility] CenterFluoroscopic procedure less than one hour wtjsqjgp1919-26-68 01:34:00* Test Item Value Reference Range Interpretation Comments Aspartate Amino Transf (AST/SGOT) (test code = Aspartate Amino Transf (AST/SGOT)) 14 5-34 [facility] Hospitalerum or plasma alanine aminotransferase measurement (enzymatic activity/volume)2019-07-05 01:34:00* Test Item Value Reference Range Interpretation Comments Alanine Aminotransferase (ALT/SGPT) (test code = 1742-6) 21 0-55 [facility] Hospitalerum or plasma protein measurement (mass/volume)2019-07-05 01:34:00* Test Item Value Reference Range Interpretation Comments Total Protein (test code = 2885-2) 6.6 6.5-8.1 [facility] Hospital[facility] or plasma albumin measurement (mass/volume)2019-07-05 01:34:00* Test Item Value Reference Range Interpretation Comments Albumin (test code = 1751-7) 3.8 3.5-5.0 [facility] CenterPlasma globulin measurement (mass/volume) 2019-07-05 01:34:00* Test Item Value Reference Range Interpretation Comments Globulin (test code = 51488-7) 2.8 2.3-3.5 [facility]er[facility] or plasma albumin/globulin mass [id number] 01:34:00* Test Item Value Reference Range Interpretation Comments Albumin/Globulin Ratio (test code = 1759-0) 1.4 0.8-2.0 [facility] Hospitaler[facility] or plasma alkaline phosphatase measurement (enzymatic activity/volume)2019-07-05 01:34:00* Test Item Value Reference Range Interpretation Comments Alkaline Phosphatase (test code = 6768-6) 62 40-150 [facility] Hospitalerum or plasma creatine kinase measurement (enzymatic activity/volume)2019-07-05 01:34:00* Test Item Value Reference Range Interpretation Comments Creatine Kinase (test code = 2157-6) 67 29-168 [facility] Hospitaler[facility] or plasma creatine kinase MB measurement (mass/volume)2019-07-05 01:34:00* Test Item Value Reference Range Interpretation Comments Creatine Kinase MB (test code = 64241-9) 0.80 0-5.0 [facility] CenterTroponin I measurement by highly sensitive enzyme eoohlwduikp0158-23-96 01:34:00* Test Item Value Reference Range Interpretation Comments Troponin I (test code = 49175-5) < 0.001 0-0.300 [facility] Hospitalerum or plasma acetaminophen measurement by screening method (mass/volume)2019-07-05 01:34:00* Test Item Value Reference Range Interpretation Comments Acetaminophen Level (test code = 00276-7) 9.3 10-30 [facility] Hospitaler[facility] or plasma ethanol measurement (mass/volume)2019-07-05 01:34:00* Test Item Value Reference Range Interpretation Comments Ethyl Alcohol Level (test code = 5643-2) < 10.0 0.0-10.0 [facility] CenterECG 12 rwks1015-06-09 17:46:56* Test Item Value Reference Range Interpretation Comments Ventricular rate (test code = 253) 92 Atrial rate (test code = 255) 92 DE interval (test code = 266) 162 QRSD [...] criteria for Lateral infarct are now present- Nam MethodistLactic acid level, SEPSIS - Now and repeat 2x every 3 hours 2019-06-20 03:58:32* Test Item Value Reference Range Interpretation Comments Lactic acid (test code = 52150-7) 1.6 mmol/L 0.5-2.2 [place] MethodistPhenytoin gxzpi0281-29-80 01:52:38* Test Item Value Reference Range Interpretation Comments Phenytoin (test code = 3968-5) <0.9 10-20 L Therapeutic Range: 10 - 20 ug/mL Lab Interpretation (test code = 24710-4) Abnormal [place] MethodistComprehensive metabolic [id number] 01:51:55* Test Item Value Reference Range Interpretation Comments Sodium (test code = 2951-2) 136 135- 150 mEq/L Potassium (test code = 2823-3) 3.8 3.5- 5.0 mEq/L Chloride (test code = 2075-0) 100 98- 112 mEq/L CO2 (test code = 2027-9) 21 mmol/L 24-31 L Anion gap (test code = 69944-4) 15@ANIO 7- 15 mEq/L BUN (test code = 3094-0) 9 mg/dL 7-18 Creatinine (test code = 2160-0) 0.50 mg/dL 0.5-0.9 Glucose (test code = 2345-7) 215 mg/dL 65-100 H Calcium (test code = 20053-6) 9.4 mg/dL 8.3-10.2 Protein (test code = [...] <0.3 0.2-1.2 Lab Interpretation (test code = 84893-2) Abnormal [facility] MethodistCreatine kinase, total (CPK)2019-06-20 01:51:55* Test Item Value Reference Range Interpretation Comments Creatine kinase (test code = 2157-6) 65 U/L 26-192 Nam MethodistEstimated [id number] 01:51:55* Test Item Value Reference Range Interpretation Comments Estimated GFR (test code = 5488) >=90 mL/min/1.73 m2 Catergory Units InterpretationG1 >=90 Normal or highG2 60-89 Mildly kbixfrsxqP8q 45-59 Mildly to moderately fzvgtoulkE6r 30-44 Moderately to severely decreasedG4 15-29 Severely decreasedG5 <15 Kidney failureThe eGFR was calculated using the Chronic Kidney Disease Epidemiology Collaboration (CKD-EPI) equation. Interpretation is based on recommendations of the National Kidney Foundation-Kidney Disease Outcomes Quality Initiative (NKF-KDOQI) published in 2014. [facility] MethodistCBC with platelet and ediffblxbdjg1451-45-00 01:46:22* Test Item Value Reference Range Interpretation Comments WBC (test code = 07037-6) 10.1 4.2- 11.0 k/uL RBC (test code = 40425-6) 3.82 m/uL 4.04-5.86 L HGB (test code = 718-7) 11.8 g/dL 11.5-15.3 HCT (test code = 4544-3) 37.5 % 34-45 MCV (test code = 787-2) 98.2 fL 80-98 H MCH (test code = 785-6) 30.9 pg 27-34 MCHC (test code = 786-4) 31.5 g/dL 31.5-36.5 RDW - SD (test code = 25204-8) 47.8 fL 37-51 MPV (test code = 50517-4) 10.7 fL 7.4-10.4 H Platelet count (test code = 23416-4) 312 150- 400 k/uL Nucleated RBC (test code = 01222-1) 0.00 /100 WBC Neutrophils (test code = 90004-1) 91.2 % 36-66 H Lymphocytes (test code = 32445-1) 7.3 % 24-44 L Monocytes (test code = 14009-4) 0.8 % 0-6 Eosinophils (test code = 07321-0) 0.0 % 0-6 Basophils (test code = 96058-6) 0.2 % 0-1.2 Immature granulocytes (test code = 68770-8) 0.5 % 0-1 Lab Interpretation (test code = 51905-0) Abnormal Nam KmtxxcypxJJJAXM1859-61-48 03:18:00* Test Item Value Reference Range Interpretation Comments GLUBED (test code = GLUBED) 94 mg/dL 74-106 N Performed by certified edge bander operator at [facility] BASIC METABOLIC [id number] 01:38:00* Test Item Value Reference Range Interpretation [...] CA) 8.5 mg/dL 8.5-10.1 N HCG SERUM [id number] 01:38:00* Test Item Value Reference Range Interpretation Comments HCG SERUM QUAL (test code = HCGQL) NEGATIVE DILANTIN (PHENYTOIN)2019-03-15 01:38:00* Test Item Value Reference Range Interpretation Comments DILANTIN (PHENYTOIN) (test code = DIL) 0.6 ug/mL 10.0-20.0 L BASIC METABOLIC [id number] 01:33:00* Test Item Value Reference Range Interpretation [...] CA) 8.5 mg/dL 8.5-10.1 N HCG SERUM [id number] 01:33:00* Test Item Value Reference Range Interpretation Comments HCG SERUM QUAL (test code = HCGQL) NEGATIVE CBC W/O [id number] 01:18:00* Test Item Value Reference Range Interpretation [...] 6.7-11.0 N - XR KNEE 3 V [id number] 00:30:00 FAX: Devin Craft MD [phone] [place]: B St: REG FAX: Jn Mohr MD [phone] Name: MADISYN GONZALES [facility] : 1965 Age/S: 54/F [address] Unit #: [id number] Loc: [place] [address] Phys: Jn Mohr MD Acct: [id number] Dis Date: Status: REG ER PHONE #: [phone] Exam Date: 03/15/2019 0020 FAX #: [phone] Reason: leg pain EXAMS: CPT CODE: [id number] XR KNEE 3 V RT 05878 Dictation location: H37. RIGHT HIP 2 VIEWS; RIGHT FEMUR 2 VIEWS AND RIGHT KNEE 3 VIEWS HISTORY: Leg pain FINDINGS: No fracture or dislocation in the right hip, femur or knee. No knee joint effusion. No suspicious osseous lesion. Lower lumb ar fusion at L4-L5. IMPRESSION: No fract ure or dislocation in the right hip, femur or knee. Javidi rosette Signed by Ezequiel Mcmahon M.D. on 03/15/19 20 at 0030 Reported and signed by: Brianda Mcmahon M.D. CC: Devin Wright MD; Jn Mohr MD Technologist: Gris El Trnscrd Date/Time/By: 03/15/2019 (0030) : By: [email or web address] Orig Print D/T: S: 03/15/2019 (0033) PAGE 1 Signed Report - XR FEMUR MIN 2 VWS RT 2019-03-15 00:30:00 FAX: Devin Craft MD [phone] [place]: B St: REG FAX: Jn Mohr MD [phone] Name: MADISYN GONZALES [facility] : 1965 Age/S: 54/F [address] Unit #: [id number] Loc: [place] [address] Phys: Jn Mohr MD Acct: [id number] Dis Date: Status: REG ER PHONE #: [phone] Exam Date: 03/15/2019 0020 FAX #: [phone] Reason: leg pain EXAMS: CPT CODE: [id number] XR FEMUR MIN 2 [place] [address] Dictation location: H37. RIGHT HIP 2 VIEWS; [...] MD; Jn Mohr MD Technologist: Gris El Trnprrd Date/Time/By: 03/15/2019 (003) : By: [email or web address] Orig Print D/T: S: 03/15/2019 (0033) PAGE 1 Signed Report - XR HIP W/PEL UNI 2+V RT 2019-03-15 00:30:00 FAX: Devin Craft MD [phone] [place]: B St: REG FAX: Jn Mohr MD [phone] Name: MADISYN GONZALES [facility] : 1965 Age/S: 54/F [address] Unit #: [id number] Loc: [place] [address] Phys: Jn Mohr MD Acct: [id number] Dis Date: Status: REG ER PHONE #: [phone] Exam Date: 03/15/20190 FAX #: [phone] Reason: leg pain EXAMS: CPT CODE: [id number] XR HIP W/PEL UNI 2+V [place] [address]78 Dictation location: H37. RIGHT HIP 2 VIEWS; [...] El Trnscrd Date/Time/By: 03/15/2019 (003) : By: [email or web address] Orig Print D/T: S: 03/15/2019 (0033) PAGE 1 Signed Report - CT C-SPINE W/O CONTRAST 2019-03-14 23:04:00 Name: MADISYN GONZALES [facility] : 1965 Age/S: 54 / F [address] Unit #: [id number] Loc: [place] [address] Phys: Jn Mohr MD Acct: [id number] Dis Date: Status: REG ER PHONE #: [phone] Exam Date: 03/14/2019 2250 FAX #: [phone] Reason: neck pain EXAMS: CPT CODE: [id number] CT C-SPINE W/O CONTRAST 27550 EXAM: CT of the cervical spine without [...] evidence of acute osseous trauma. Location code: [facility] at 2304 Reported and signed by: Raul Rehman M.D. CC: Devin Wright MD; Jn Mohr MD Technologist:Julisa Ingram RT(R); ROMAINE Gibson CTDI: DLP: Trnscb Date/Time: 03/14/2019 (230) [email or web address] Orig Print D/T: S: 03/14/2019 (7) PAGE 1 Signed Report - CT HEAD/BRAIN W/O CONT 2019-03-14 23:03:00 Name: MADISYN GONZALES [facility] : 1965 Age/S: 54 / F [address] [facility] Unit #: [id number] Loc: [place] [address] Phys: Jn Mohr MD Acct: [id number] Dis Date: Status: REG ER PHONE #: [phone] Exam Date: 03/14/20193 FAX #: [phone] Reason: seizure EXAMS: CPT CODE: [id number] CT HEAD/BRAIN W/O CONT 52353 EXAM: CT of the head; INFORMATION: Seizure; [...] Devin Wright MD; Jn Mohr MD Technologist:Julisa BALKELY(R); ROMAINE Gibson CTDI: DLP: Trnscb Date/Time: 03/14/2019 (2303) [email or web address] Orig Print D/T: S: 03/14/2019 (2306) PAGE 1 Signed Report - XR TOE(S) 2+V [id number] 03:10:00 FAX: Devin Craft MD [phone] [place]: St: [facility] FAX: Armando Ibrahim [facility] [phone] Name: GRZEGORZ GONZALES [facility] : 1965 Age/S: 54/F [address] [facility] Unit #: [id number] Loc: [place] [address] Phys: Armando Carreon [facility] Acct: [id number] Dis Date: Status: REG ER PHONE #: [phone] Exam Date: 03/14/2019 0243 FAX #: [phone] Reason: TOE PAIN EXAMS: CPT CODE: [id number] XR TOE(S) 2+V LT 25967 Dictation location: H37. LEFT TOES, 3 VIEWS [...] Mcmahon M.D. CC: Devin Wright MD; Armando CarreonP Technologist: RT BETTY Trnscrd Date/Time/By: 03/14/2019 (309) : By: [email or web address] Orig Print D/T: S: 03/14/2019 (455) PAGE 1 Signed Report URINALYSIS [id number] 14:05:00* Test Item Value Reference Range Interpretation [...] Urine Source? Clean CatchDRUGS OF ABUSE SCREEN [id number] 14:05:00* Test Item Value Reference Range Interpretation [...] <300 ng/mL Urine Source? Clean CatchBASIC METABOLIC [id number] 13:58:00* Test Item Value Reference Range Interpretation [...] CA) 8.6 mg/dL 8.5-10.1 N HEPATIC FUNCTION [id number] 13:58:00* Test Item Value Reference Range Interpretation [...] reference range due to change in reagent. [id number] 13:58:00* Test Item Value Reference Range Interpretation Comments LIPASE (test code = LIP) 134 U/L 73.0-393.0 N HCG SERUM [id number] 13:58:00* Test Item Value Reference Range Interpretation Comments HCG SERUM QUAL (test code = HCGQL) NEGATIVE NEGATIVE This HCGQL test is NOT applicable for MALE patients.Check with nurse about probable order error.If Tumor Marker Test needed, nurse should order test "HCGTU"(Test #550.33202) TSH REFLEX TO [id number] 13:58:00* Test Item Value Reference Range Interpretation Comments TSH REFLEX TO FT4 (test code = TSHREFLEX) 0.8 0.4-5.5 N [id number] 13:58:00* Test Item Value Reference Range Interpretation Comments TROPONIN-I (test code = TROPI) <0.015 ng/mL 0-0.045 N [id number] 13:58:00* Test Item Value Reference Range Interpretation Comments LITHIUM (test code = LITH) <0.1 mmol/L 0.5-1.5 L [id number] 13:58:00* Test Item Value Reference Range Interpretation [...] AT ANADDITIONAL CHARGE TO THE PATIENT. URINALYSIS [id number] 13:51:00* Test Item Value Reference Range Interpretation [...] Urine Source? Clean CatchDRUGS OF ABUSE SCREEN [id number] 13:51:00* Test Item Value Reference Range Interpretation [...] <300 ng/mL Urine Source? Clean CatchBASIC METABOLIC [id number] 13:51:00* Test Item Value Reference Range Interpretation [...] code = CA) mg/dL 8.5-10.1 HEPATIC FUNCTION [id number] 13:51:00* Test Item Value Reference Range Interpretation [...] TOTAL (test code = ALKP) IUnit/L 45-117 [id number] 13:51:00* Test Item Value Reference Range Interpretation Comments LIPASE (test code = LIP) U/L 73.0-393.0 HCG SERUM [id number] 13:51:00* Test Item Value Reference Range Interpretation Comments HCG SERUM QUAL (test code = HCGQL) NEGATIVE NEGATIVE This HCGQL test is NOT applicable for MALE patients.Check with nurse about probable order error.If Tumor Marker Test needed, nurse should order test "HCGTU"(Test #550.34732) TSH REFLEX TO [id number] 13:51:00* Test Item Value Reference Range Interpretation Comments TSH REFLEX TO FT4 (test code = TSHREFLEX) 0.4-5.5 [id number] 13:51:00* Test Item Value Reference Range Interpretation Comments TROPONIN-I (test code = TROPI) ng/mL 0-0.045 [id number] 13:51:00* Test Item Value Reference Range Interpretation Comments LITHIUM (test code = LITH) <0.1 mmol/L 0.5-1.5 L [id number] 13:51:00* Test Item Value Reference Range Interpretation Comments ALCOHOL (test code = ALC) mg/dL 0-3 PROTHROMBIN [id number] 13:41:00* Test Item Value Reference Range Interpretation [...] (2.5-3.5) IS PATIENT ON ANTICOAGULANTS? NTHROMBOPLASTIN TIME [id number] 13:41:00* Test Item Value Reference Range Interpretation Comments THROMBOPLASTIN TIME PARTIAL (test code = PTT) 35.8 seconds 25.0-36. 5 N IS PATIENT ON ANTICOAGULANTS? [id number] 13:34:00* Test Item Value Reference Range Interpretation Comments MAGNESIUM (test code = MAG) 2.1 mg/dL 1.8-2.4 N BASIC METABOLIC [id number] 13:33:00* Test Item Value Reference Range Interpretation [...] code = CA) mg/dL 8.5-10.1 HEPATIC FUNCTION [id number] 13:33:00* Test Item Value Reference Range Interpretation [...] TOTAL (test code = ALKP) IUnit/L 45-117 [id number] 13:33:00* Test Item Value Reference Range Interpretation Comments LIPASE (test code = LIP) U/L 73.0-393.0 HCG SERUM [id number] 13:33:00* Test Item Value Reference Range Interpretation Comments HCG SERUM QUAL (test code = HCGQL) NEGATIVE TSH REFLEX TO [id number] 13:33:00* Test Item Value Reference Range Interpretation Comments TSH REFLEX TO FT4 (test code = TSHREFLEX) 0.4-5.5 [id number] 13:33:00* Test Item Value Reference Range Interpretation Comments TROPONIN-I (test code = TROPI) ng/mL 0-0.045 [id number] 13:33:00* Test Item Value Reference Range Interpretation Comments LITHIUM (test code = LITH) <0.1 mmol/L 0.5-1.5 L [id number] 13:33:00* Test Item Value Reference Range Interpretation Comments ALCOHOL (test code = ALC) mg/dL 0-3 - CT HEAD/BRAIN W/O [id number] 13:32:00 Name: GRZEGORZ GONZALES [facility] : 1965 Age/S: 53 / F [address] [facility] Unit #: [id number] Loc: [place] [address] Phys: Michael Adame MD Acct: [id number] Dis Date: Status: REG ER PHONE #: [phone] Exam Date: 11/05/2018 1320 FAX #: [phone] Reason: headache EXAMS: CPT CODE: [id number] CT HEAD/BRAIN W/O CONT 98039 HISTORY: headache TECHNIQUE: Noncontrast 2.5 mm axial [...] Vance RT(R),(MR),(CT); CTDI: DLP: Trnscb Date/Time: 10/15 (1332) [email or web address] Orig Print D/T: S: 11/05/2018 (10 85) PAGE 1 Signed Report BASIC METABOLIC [id number] 13:30:00* Test Item Value Reference Range Interpretation [...] code = CA) mg/dL 8.5-10.1 HEPATIC FUNCTION [id number] 13:30:00* Test Item Value Reference Range Interpretation [...] TOTAL (test code = ALKP) IUnit/L 45-117 [id number] 13:30:00* Test Item Value Reference Range Interpretation Comments LIPASE (test code = LIP) U/L 73.0-393.0 HCG SERUM [id number] 13:30:00* Test Item Value Reference Range Interpretation Comments HCG SERUM QUAL (test code = HCGQL) NEGATIVE TSH REFLEX TO [id number] 13:30:00* Test Item Value Reference Range Interpretation Comments TSH REFLEX TO FT4 (test code = TSHREFLEX) 0.4-5.5 [id number] 13:30:00* Test Item Value Reference Range Interpretation Comments TROPONIN-I (test code = TROPI) ng/mL 0-0.045 [id number] 13:30:00* Test Item Value Reference Range Interpretation Comments LITHIUM (test code = LITH) <0.1 mmol/L 0.5-1.5 L [id number] 13:30:00* Test Item Value Reference Range Interpretation Comments ALCOHOL (test code = ALC) mg/dL 0-3 CBC W/O [id number] 13:29:00* Test Item Value Reference Range Interpretation [...] MPV) 9.2 fL 6.7-11.0 N CBC W/O [id number] 13:25:00* Test Item Value Reference Range Interpretation [...] code = MPV) fL 6.7-11.0 BASIC METABOLIC [id number] 20:30:00* Test Item Value Reference Range Interpretation [...] CA) 8.7 mg/dL 8.5-10.1 N SPECIMEN HEMOLYZED [id number] HAS BEEN NOTIEFIED PLEASE [facility] 2018-09-01 20:26:00* Test Item Value [...] code = CA) mg/dL 8.5-10.1 SPECIMEN HEMOLYZED [id number] HAS BEEN NOTIEFIED PLEASE [facility] W/O DIFF 2018-09-01 19:06:00* Test Item [...] MPV) 10.2 fL 6.7-11.0 N CBC W/O [id number] 19:04:00* Test Item Value Reference Range Interpretation [...] 6.7-11.0 - XR HAND 3 + V [id number] 16:20:00 FAX: Marry Luna NP [place]: St: [facility] FAX: Devin Craft MD [phone] Name: GRZEGORZ GONZALES [facility] : 1965 Age/S: 53/F [address] [facility] Unit #: [id number] Loc: [place] [address] Phys: Marry Luna NP Acct: [id number] Dis Date: Status: REG ER PHONE #: [phone] Exam Date: 09/01/2018 1605 FAX #: [phone] Reason: pain sp fall EXAMS: CPT CODE: [id number] XR HAND 3 + [place] [address] CLINICAL HISTORY: pain sp fall TECHNIQUE: AP, oblique, and lateral views of the left hand COMPARISON: 12/5/18 FINDINGS: No acute fracture or dislocation. Bony [...] Technologist: HOMER CLARK RT(R) Trnscrd Date/Time/By: 09/01/2018 (1620) : By: [email or web address] Orig Print D/T: S: 09/01/2018 (4797) PAGE 1 Signed Report - XR FOREARM 2 VIEWS [id number] 16:16:00 FAX: Marry Luna NP [place]: St: REG FAX: Y Devin Wright MD [phone] Name: GRZEGORZ GONZALES [facility] : 1965 Age/S: 53/F [address] [facility] Unit #: [id number] Loc: [place] [address] Phys: Marry Luna NP Acct: [id number] Dis Date: Status: REG ER PHONE #: [phone] Exam Date: 09/01/2018 1605 FAX #: [phone] Reason: pain sp fall EXAMS: CPT CODE: [id number] XR FORE[place] [address] [place] [address] CLINICAL HISTORY: pain sp fall TECHNIQUE: AP [...] Ahuja D.O. CC: Marry Luna NP; Devin Wrihgt MD Technologist: HOMER BLAKELY(R) Trnscrd Date/Time/By: 0 09/01/2018 (4297) : By: [email or web address] Orig Print D/T: S: 09/01/2018 (0053) PAGE 1 Signed Report BASIC METABOLIC [id number] 20:52:00* Test Item Value Reference Range Interpretation [...] code = CA) 9.2 mg/dL 8.5-10.1 N [id number] 20:52:00* Test Item Value Reference Range Interpretation Comments TROPONIN-I (test code = TROPI) <0.015 ng/mL 0-0.045 N BASIC METABOLIC [id number] 20:46:00* Test Item Value Reference Range Interpretation [...] code = CA) 9.2 mg/dL 8.5-10.1 N [id number] 20:46:00* Test Item Value Reference Range Interpretation Comments TROPONIN-I (test code = TROPI) ng/mL 0-0.045 CBC W/O [id number] 20:30:00* Test Item Value Reference Range Interpretation [...] code = MPV) fL 6.7-11.0 CBC W/O [id number] 20:30:00* Test Item Value Reference Range Interpretation [...] fL 6.7-11.0 N - XR CHEST 1 [id number] 19:48:00 FAX: Allen Brandon MD [phone] [place]: St: REG Name: GRZEGORZ TOSUSAINT [facility] : [birth year] Age/S: 53/F [address] [facility] Unit #: [id number] Loc: [place] [address] Phys: Allen Brandon MD Acct: [id number] Dis Date: Status: REG ER PHONE #: [phone] Exam Date: 05/12/20181943 FAX #: [phone] Reason: CHEST PAIN EXAMS: CPT CODE: [id number] XR CHEST 1 V 13956 HISTORY: CHEST PAIN TECHNIQUE: AP chest x-ray COMPARISON: 03/27/18 FINDIN GS: No airspace consolidation or pleural effusion. Normal heart si ze. Mediastinal silhouette is unremarkable. Visualized osseous structures are grossly intact. IMPRESSION: No radio graphic evidence of acute cardiopulmonary process. Electronically Si gned by Lana Ahuja D.O. on 05/12/2018 at 194 Reported an d signed by: Laan Ahuja D.O. CC: Allen Brandon MD Technologist: RT ELIZABETH(R) Trnscrd Date/Time/By: 05/12/2018 (1947) : By: [email or web address] Orig Print D/T: S: 05/12/2018 (1950) PAGE 1 Signed Report COMPREHENSIVE METABOLIC [id number] 19:35:00* Test Item Value Reference Range Interpretation [...] reference range due to change in reagent. [id number] 19:35:00* Test Item Value Reference Range Interpretation Comments AMYLASE (test code = DAVIDSON) 62 Unit/L 25-115 N URINALYSIS W/O [id number] 19:34:00* Test Item Value Reference Range Interpretation [...] = LEUUR) NEGATIVE NEG ATIVE COMPREHENSIVE METABOLIC [id number] 19:22:00* Test Item Value Reference Range Interpretation [...] TOTAL (test code = ALKP) IUnit/L 45-117 [id number] 19:22:00* Test Item Value Reference Range Interpretation Comments AMYLASE (test code = DAVIDSON) Unit/L 25-115 CBC W/AUTO [id number] 19:18:00* Test Item Value Reference Range Interpretation [...] NRBC#) 0.00 K/mm3 0.0-0.1 N CBC W/AUTO [id number] 19:14:00* Test Item Value Reference Range Interpretation [...] BA#) K/mm3 0.0-0.2 - XR CHEST 2 [id number] 17:23:00 FAX: MIKE MELÉNDEZ NP [place]: St: REG Name: GRZEGORZ TOUSSAINT [facility] : [birth year] Age/S: 53/F [address] [facility] Unit #: [id number] Loc: [place] [address] Phys: MIKE MELÉNDEZ NP Acct: [id number] Dis Date: Status: REG ER PHONE #: [phone] Exam Date: 03/27/2018 1721 FAX #: [phone] Reason: cough EXAMS: CPT CODE: [id number] XR CHEST 2 V 10135 REASON FOR EXAM: cough Exam Order Date: [...] MIKE MELÉNDEZ NP Technologist: JED WEBBER RT(R) Maninder Date/Time/By: 03/27/2018 (1723) : By: [email or web address] Orig Print D/T: S: 03/27/2018 (1726) PAGE 1 Signed Report - XR HAND 3 + V [id number] 23:59:00 FAX: Tonya Brennan [place]: B St: PRE Name: GRZEGORZ TOUSSAINT [facility] : [birth year] Age/S: 53/F [address] Unit #: [id number] Loc: [place] [address] Phys: Tonya Brennan ie [employer] Acct: [id number] Dis Date: Status: PRE ER PHONE #: [phone] Exam Date: 03/09/2018 2355 FAX #: [phone] Reason: LAC, R/O FB EXAMS: CPT CODE: [id number] XR HAND 3 + V RT 61724 HISTORY: Laceration Location: C3 Comparison to exam [...] by Romaine Trivedi MD on 02/14 at 7988 Reported and signed by: Romaine Trivedi MD CC: Tonya Brennan NP Technologist: Liliana Diop Da te/Time/By: 03/09/2018 (1549) : By: [email or web address] Orig Print D/T: S: 03/10 (0002) PAGE 1 Signed Report
[2019-07-14] MEDS ORDERED: ACETAMIN/BUTALBITAL/CAFFEINE TAB ONE (01:59)
[2019-07-14] MEDS ORDERED: ACETAMIN/BUTALBITAL/CAFFEINE TAB PO ONE (02:00)
[2019-07-14 02:21] LABS: INR 0.82; PROTHROMBIN TIME 11.8 seconds (11.9-14.5)
[2019-07-14 02:30] LABS: ALANINE AMINOTRANSFERASE 37 IU/L (0-55); ALBUMIN 4.1 g/dL (3.5-5.0); ALBUMIN/GLOBULIN RATIO 1.5 (0.8-2.0); ALKALINE PHOSPHATASE 62 IU/L (40-150); ANION GAP 14.9 mmol/L (8-16); BLOOD UREA NITROGEN 16 mg/dL (7-26); BUN/CREATININE RATIO 21 (6-25); CALCIUM 9.7 mg/dL (8.4-10.2); CARBON DIOXIDE 22 mmol/L (22-29); CHLORIDE 105 mmol/L (98-107); CREATINE KINASE 120 IU/L (29-168); CREATININE, SERUM 0.78 mg/dL (0.57-1.11); EST GLOMERULAR FILTRATION RATE > 60 ML/MIN (60-); GLUCOSE 116 mg/dL (74-118); POTASSIUM 3.9 mmol/L (3.5-5.1); SODIUM 138 mmol/L (136-145)
[2019-07-14 02:37] LABS: AMPHETAMINES SCREEN,URINE NEGATIVE (NEGATIVE); BENZODIAZEPINES SCREEN,URINE NEGATIVE (NEGATIVE); PHENCYCLIDINE SCREEN,URINE NEGATIVE (NEGATIVE)
[2019-07-14 02:46] LABS: BASOPHILS % 0.4 % (0.0-1.0); EOSINOPHILS % 0.1 % (0.0-6.0); HEMATOCRIT 37.6 % (34.2-44.1); HEMOGLOBIN 11.8 g/dL (12.0-16.0); LYMPHOCYTES # (AUTO) 1.5 (1.0-3.2); LYMPHOCYTES % 14.1 % (18.0-39.1); MEAN CORPUSCULAR HGB CONC 31.4 g/dL (31-35); MEAN CORPUSCULAR VOLUME 98.7 fL (81-99); MONOCYTES # (AUTO) 0.8 (0.2-0.8); MONOCYTES % 6.9 % (4.4-11.3); NEUTROPHILS # (AUTO) 8.5 (2.1-6.9); NEUTROPHILS % 78.1 % (38.7-80.0); PLATELET COUNT 366 x10e3/uL (140-360); RED BLOOD COUNT 3.81 x10e6/uL (3.6-5.1); RED CELL DISTRIBUTION WIDTH 13.7 % (11.7-14.4)
[2019-07-14 04:16] VITALS: BP 151/92
--- NOTE | 2019-07-14 04:51 | Emergency Department Note ---
History of Present Illnes History of Present Illness Chief Complaint: Neurological History of Present Illness This is a 54 year old female brought to the ED with complaints of having a seizure. Since that she had a seizure just prior to arrival, patient denies being confused, urine loss or tongue biting. Patient denies any fever or chills, has not seen a neurologist for several months. Patient admits to getting Dilantin refilled ED. 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 BETTS IN TRIAGE FOR INITIAL EVAL. Historian: Patient Arrival Mode: Car Grievance Manager Required: No Onset (how long ago): month(s) Severity: moderate Progression: resolved Past Medical/Family History Physician Review I have reviewed the patient's past medical and family history. Any updates have been documented here. Past Medical History Recent Fever: No Clinical Suspicion of Infectio: No New/Unexplained Change in Ment: No Past Medical History: Hypertension, CVA, Seizure Disorder, Other Mental Illness, Chronic Back Pain Other Medical History: BIPOLAR CHRONIC BACK PAIN Past Surgical History: Back Surgery Other Surgery: EAR(MULTIPLE), SKIN GRAFT BACK SX NECK SX Social History Smoking Cessation: Never Smoker Alcohol Use: None Any Illegal Drug Use: No TB Exposure/Symptoms: No Physically hurt or threatened: No Other Last Tetanus: unknown Any Pre-Existing Lines (PICC,: No Is patient up to date on immun: Yes Last Flu: UTD Last Pneumovax: UNK Review of Systems Review of Systems Constitutional: no symptoms EENTM: no symptoms Cardiovascular: no symptoms Respiratory: no symptoms Gastrointestinal: no symptoms Genitourinary: no symptoms Musculoskeletal: no symptoms Neurological: as per HPI, seizure Psychological: no symptoms Endocrine: no symptoms Hematological/Lymphatic: no symptoms Review of other systems All other systems reviewed and negative. Physical Exam Related Data Allergies: Coded Allergies: benztropine mesylate (Verified Allergy, Severe, 11/17/11) sertraline (Verified Allergy, Severe, SWELLING, SEIZURES, 02/22/10) ziprasidone (Verified Allergy, Intermediate, HALLUCINATIONS, 02/22/10) Haloperidol Lactate (Verified Allergy, Unknown, 09/30/10) haloperidol (Verified Allergy, Unknown, 09/30/10) peanut (Verified Allergy, Unknown, 02/22/10) risperidone (Verified Allergy, Unknown, 02/22/10) Uncoded Allergies: DERMABOND (Allergy, Unknown, 05/21/16) Triage Vital Signs Vital Signs Date Time Temp Pulse Resp B/P (MAP) Pulse Ox O2 Delivery O2 Flow Rate FiO2 07/14/19 01:33 99.0 100 20 173/83 95 Vital signs reviewed: Yes Physical Exam CONSTITUTIONAL Constitutional: well-developed, well-nourished HENT HENT: normocephalic, atraumatic, oropharynx clear/moist, nose normal HENT L/R: left ext ear normal, right ext ear normal EYES Eyes: PERRL, conjunctivae normal NECK Neck: ROM normal PULMONARY Pulmonary: effort normal, breath sounds normal CARDIOVASCULAR Cardiovascular: regular rhythm, heart sounds normal, capillary refill normal, normal rate GASTROINTESTINAL Abdominal: soft, nontender, bowel sounds normal GENITOURINARY Genitourinary: exam deferred SKIN Skin: warm, dry MUSCULOSKELETAL Musculoskeletal: ROM normal NEUROLOGICAL Neurological: alert, oriented x 3, no gross motor or sensory deficits PSYCHOLOGICAL Psychological: mood/affect normal, judgement normal Results Laboratory Result Diagram: 07/14/19 0151 07/14/19 0151 Laboratory Laboratory Tests Test 07/14/19 02:00 07/14/19 01:51 Urine Opiates Screen Positive (NEGATIVE) Urine Methadone Screen Negative (NEGATIVE) Urine Barbiturates Screen Negative (NEGATIVE) Urine Phencyclidine Screen Negative (NEGATIVE) Urine Amphetamines Screen Negative (NEGATIVE) Urine Methamphetamines Screen Negative (NEGATIVE) Urine Benzodiazepines Screen Negative (NEGATIVE) Urine Cocaine Screen Negative (NEGATIVE) Urine Cannabinoids Screen Negative (NEGATIVE) White Blood Count 10.91 x10e3/uL (4.8-10.8) Red Blood Count 3.81 x10e6/uL (3.6-5.1) Hemoglobin 11.8 g/dL (12.0-16.0) Hematocrit 37.6 % (34.2-44.1) Mean Corpuscular Volume 98.7 fL (81-99) Mean Corpuscular Hemoglobin 31.0 pg (28-32) Mean Corpuscular Hemoglobin Concent 31.4 g/dL (31-35) Red Cell Distribution Width 13.7 % (11.7-14.4) Platelet Count 366 x10e3/uL (140-360) Neutrophils (%) (Auto) 78.1 % (38.7-80.0) Lymphocytes (%) (Auto) 14.1 % (18.0-39.1) Monocytes (%) (Auto) 6.9 % (4.4-11.3) Eosinophils (%) (Auto) 0.1 % (0.0-6.0) Basophils (%) (Auto) 0.4 % (0.0-1.0) Neutrophils # (Auto) 8.5 (2.1-6.9) Lymphocytes # (Auto) 1.5 (1.0-3.2) Monocytes # (Auto) 0.8 (0.2-0.8) Eosinophils # (Auto) 0.0 (0.0-0.4) Basophils # (Auto) 0.0 (0.0-0.1) Absolute Immature Granulocyte (auto 0.04 x10e3/uL (0-0.1) Prothrombin Time 11.8 seconds (11.9-14.5) Prothromb Time International Ratio 0.82 Sodium Level 138 mmol/L (136-145) Potassium Level 3.9 mmol/L (3.5-5.1) Chloride Level 105 mmol/L (98-107) Carbon Dioxide Level 22 mmol/L (22-29) Anion Gap 14.9 mmol/L (8-16) Blood Urea Nitrogen 16 mg/dL (7-26) Creatinine 0.78 mg/dL (0.57-1.11) Estimat Glomerular Filtration Rate > 60 ML/MIN (60-) BUN/Creatinine Ratio 21 (6-25) Glucose Level 116 mg/dL (74-118) Calcium Level 9.7 mg/dL (8.4-10.2) Total Bilirubin 0.3 mg/dL (0.2-1.2) Aspartate Amino Transf (AST/SGOT) 20 IU/L (5-34) Alanine Aminotransferase (ALT/SGPT) 37 IU/L (0-55) Alkaline Phosphatase 62 IU/L (40-150) Creatine Kinase 120 IU/L (29-168) Creatine Kinase MB 1.90 ng/mL (0-5.0) Troponin I < 0.001 ng/mL (0-0.300) Total Protein 6.8 g/dL (6.5-8.1) Albumin 4.1 g/dL (3.5-5.0) Globulin 2.7 g/dL (2.3-3.5) Albumin/Globulin Ratio 1.5 (0.8-2.0) Lab results reviewed: Yes Critical Care Time Subsequent provider I assumed direction of critical care for this patient from another provider of my specialty. Assessment & Plan Reassessment Reassessment 54-year-old female arrives the ED. Patient had no postictal period. Patient appeared well neurologically intact. Dorsal complaints of Dilantin. Patient had normal electrolyte abnormalities, no infectious etiology noted on labs. [place] [facility] [place]. Dilantin prescription refilled at patient's request. Outpatient neurology referral given. Patient still discharged home is welcome to RETURN to the ED at any time. Assessment & Plan Final Impression: (1) CONVERSION DISORDER WITH SEIZURES OR CONVULSIONS Assessment & Plan Seizure, no postictal period Patient neurologically intact in the toe steady gait CBC CMP rule out electrolyte abnormalities Rule out any infectious etiology Outpatient neurology referral Depart Disposition: HOME, SELF-CARE Last Vital Signs Date Time Temp Pulse Resp B/P (MAP) Pulse Ox O2 Delivery O2 Flow Rate FiO2 07/14/19 04:25 98.3 74 19 151/92 98 Home Meds Reported Medications Alprazolam (XANAX) 2 Mg Tablet, 1 MG PO BID 11/23/13 [place] Carbonate (LITHIUM CARBONATE) 600 Mg Capsule, 300 MG PO HS 11/23/13 [place] Carbonate (LITHIUM CARBONATE) 300 Mg Tablet, 300 MG PO QAM 11/23/13 Medications in the ED Acetaminophen/ Butalbital/ Caffeine 1 ea ONCE ONCE PO Last administered on 07/14/19at 01:57; Admin Dose 1 EA; Start 07/14/19 at 02:00; Stop 07/14/19 at 02:01 Acetaminophen/ Butalbital/ Caffeine 1 ea STK-MED ONCE .ROUTE ; Start 07/14/19 at 01:59; Stop 5/31/20 at 01:54; Status DC BHARATH BETTS, July 14, 2019 05:07
== END 2019-07-14 04:31 | disposition home or self-care (01) ==
LOC: ER 01:21
DX: G40.909 Epilepsy, unspecified, not intractable, without status epilepticus (principal); I10 Essential (primary) hypertension; F31.9 Bipolar disorder, unspecified; M54.9 Dorsalgia, unspecified; G89.29 Other chronic pain; Z86.73 Personal history of transient ischemic attack (TIA), and cerebral infarction without residual deficits
CPT/HCPCS: 36415; 80053; 80307; 82550; 82553; 84484; 85025; 85610; 99283

== ENCOUNTER 2019-08-31 01:02 | Emergency (ER) | payer MEDICARE, OTHER ==
[~2019-08-31] VITALS: Ht 157.5 cm; Wt 77.1 kg
[2019-08-31] MEDS ORDERED: LIDOCAINE HCL 1% LOCAL INJ 20 ML VIAL INJ ONE (02:30)
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
[2019-08-31] MEDS ORDERED: BACITRACIN ZINC 0.9GM TP ONE (03:45)
== END 2019-08-31 04:07 | disposition home or self-care (01) ==
LOC: ER 02:30
DX: S61.411A Laceration without foreign body of right hand, initial encounter (principal); W26.0XXA Contact with knife, initial encounter; Y93.G3 Activity, cooking and baking; Y92.000 Kitchen of unspecified non-institutional (private) residence as the place of occurrence of the external cause; I10 Essential (primary) hypertension; G40.909 Epilepsy, unspecified, not intractable, without status epilepticus; F31.9 Bipolar disorder, unspecified; Z86.73 Personal history of transient ischemic attack (TIA), and cerebral infarction without residual deficits
CPT/HCPCS: 12001; 99283; J2001

== ENCOUNTER 2019-09-09 19:24 | Emergency (ER) | payer MEDICARE, OTHER ==
[~2019-09-09] VITALS: Ht 157.5 cm; Wt 77.1 kg
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
== END 2019-09-09 20:15 | disposition home or self-care (01) ==
LOC: ER 20:05
DX: Z48.02 Encounter for removal of sutures (principal)
CPT/HCPCS: 99282; S0630

== ENCOUNTER 2019-09-15 04:15 | Emergency (ER) | payer MEDICARE, OTHER ==
[~2019-09-15] VITALS: Ht 157.5 cm; Wt 77.1 kg
--- OUTSIDE RECORDS SUMMARY | 2019-09-15 04:37 | XMS REPORT | Clinical Summary ---
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 09/03/2019 docusate sodium (COLACE) Take 1 60 capsule 0 0 100 MG capsule capsule (100 0 mg total) by mouth 2 (two) times a day for 30 days. 08/11/2019 ciprofloxacin (Cipro) 500 Take 1 tablet 14 tablet 0 MG tablet (500 mg 0 total) by mouth 2 (two) times a day for 7 days. 08/11/2019 metroNIDAZOLE (FlagyL) Take 1 tablet 21 tablet 0 0 500 MG tablet (500 mg 0 total) by mouth 3 (three) times a day for 7 days. Active Problems Problem Noted Date Fecal impaction of colon 08/01/2019 Constipation 08/01/2019 Bipolar 1 disorder Anxiety Cancer Overview: brain Encounters Care Team Description Date Type Specialty Marilyn Torres RN 08/05/2019 Patient Quality Outreach Marilyn Torres RN 08/05/2019 Patient Quality Outreach José Romo MD Al-Lahiq, Maha, MD Fecal impaction of colon (HCC) (Primary Dx); Constipation, unspecified constipation type 08/01/2019 [facility] General Surgery - Encounter 08/04/2019 Anthony Talamantes DO Seizure (HCC) (Primary Dx) 06/20/2019 Emergency Emergency Medicine 06/20/2019 Travel after 09/14/2018 Social History Date Tobacco Use Types Packs/Day Years Used Never Smoker Smokeless Tobacco: Never Used Drinks/Week oz/Week Comments Alcohol Use Never Alcohol [...] Travel Start No recent travel history available. Last Filed Vital Signs Reading Time Taken Comments Vital Sign 127/74 08/04/2019 11:15 AM CDT Blood Pressure 94 08/04/2019 11:15 AM CDT Pulse 36.6 C (97.9 F) 08/04/2019 11:15 AM CDT Temperature 19 08/04/2019 11:15 AM CDT Respiratory Rate 96% 08/04/2019 11:15 AM CDT Oxygen Saturation - - Inhaled Oxygen Concentration 81.6 kg (180 lb) 06/20/2019 12:45 AM CDT Weight 157.5 cm (5' 2") 08/01/2019 6:18 PM CDT Height 32.92 06/20/2019 12:45 AM CDT Body Mass Index Plan of Treatment Health Maintenance Due Date Last Done Comments CERVICAL CANCER SCREENING 1987 BREAST CANCER SCREENING 01/10/2016 COLONOSCOPY SCREENING 01/10/2016 SHINGLES VACCINES (#1) 01/10/2016 INFLUENZA VACCINE 09/14/2019 Procedures Comments Procedure Name Priority Date/Time Associated Diag nosis ESTIMATED GFR STAT 08/04/2019 7:58 AM CDT COMPREHENSIVE METABOLIC STAT 08/04/2019 PANEL 7:58 AM CDT HC COMPLETE BLD COUNT STAT 08/04/2019 W/AUTO DIFF 7:[address] ABDOMEN PELVIS WO STAT 08/03/2019 CONTRAST 5:47 PM CDT XR ABDOMEN 1 VW Routine 08/02/2019 4:39 PM CDT THYROID STIMULATING Routine 08/02/2019 HORMONE 5:53 AM CDT LITHIUM LEVEL Routine 08/01/2019 6:28 PM CDT PHENYTOIN LEVEL Routine 08/01/2019 6:28 PM CDT COVID-19 QUALITATIVE PCR STAT 08/01/2019 1:47 PM CDT ESTIMATED GFR Routine 08/01/2019 12:29 PM CDT LIPASE LEVEL Routine 08/01/2019 12:29 PM CDT COMPREHENSIVE METABOLIC Routine 08/01/2019 PANEL 12:29 PM CDT URINE CULTURE STAT 08/01/2019 11:[address] ABDOMEN PELVIS WO STAT 08/01/2019 CONTRAST 11:55 AM CDT ESTIMATED GFR STAT 08/01/2019 11:43 AM CDT URINALYSIS SCREEN AND STAT 08/01/2019 MICROSCOPY, WITH REFLEX 11:43 AM CDT TO CULTURE LIPASE LEVEL STAT 08/01/2019 11:43 AM CDT COMPREHENSIVE METABOLIC STAT 08/01/2019 PANEL 11:43 AM CDT PROTHROMBIN TIME WITH INR STAT 08/01/2019 11:43 AM CDT HC COMPLETE BLD COUNT STAT 08/01/2019 W/AUTO DIFF 11:43 AM CDT ECG 12-LEAD STAT 08/01/2019 11:36 AM CDT ECG ED PRELIMINARY Routine 08/01/2019 INTERPRETATION 11:30 AM CDT LACTIC ACID LEVEL, SEPSIS Timed 06/20/2019 - [...] 06/20/2019 W/AUTO DIFF 12:30 AM CDT after 09/14/2018 Results * Estimated GFR (08/04/2019 7:58 AM CDT) Only the most recent of 4 results within the time period is included. Pathologist [facility] [place] Estimated GFR >=90 mL/min/1.73 m2 DRIFTING Comment: PENTECOSTALISM CLEAR [facility] Interpretation G1 >=90 Normal or high G2 60-89 [...] Performing Organization Address City/State/Zipcode Ph [place] [address] [place] [address] PATHOLOGY AND GENOMIC MEDICINE DRIFTING PENTECOSTALISM CLEAR [address] [place] [address] [facility] * CBC with platelet and differential (08/04/2019 7:58 AM CDT) Only the most recent of 3 results within the time period is included. Pathologist [facility] [place] WBC 10.41 4.50 - 11.00 k/uL [facility] RBC 3.88 (L) 4.20 - 5.50 m/uL [facility] HGB 12.3 12.0 - 16.0 g/dL [facility] HCT 38.2 37.0 - 47.0 % [facility] MCV 98.5 82.0 - 100.0 fL [facility] MCH 31.7 27.0 - 34.0 pg [facility] MCHC 32.2 31.0 - 37.0 g/dL [facility] RDW - SD 50.4 37.0 - 55.0 fL [facility] MPV 9.6 8.8 - 13.2 fL [facility] Platelet count 272 150 - 400 k/uL [facility] Nucleated RBC 0.00 /100 WBC [facility] Neutrophils 74.5 (H) 39.0 - 69.0 % [facility] Lymphocytes 15.1 (L) 25.0 - 45.0 % [facility] Monocytes 8.5 0.0 - 10.0 % [facility] Eosinophils 1.1 0.0 - 5.0 % [facility] Basophils 0.4 0.0 - 1.0 % [facility] Specimen Blood Performing Organization Address City/State/[place] [address] [address] [place], [place] [address] PATHOLOGY AND GENOMIC MEDICINE [facility] [address] [place] [address] [facility] * Comprehensive metabolic panel (08/04/2019 7:58 AM CDT) Only the most recent of 4 results within the time period is included. Sodium 134 (L) 135 - 148 mEq/L [facility] Potassium 4.0 3.5 - 5.0 mEq/L [facility] Chloride 100 98 - 112 mEq/L [facility] CO2 25 24 - 31 mEq/L [facility] Anion gap 9@ANIO 7 - 15 mEq/L [facility] BUN 8 6 - 20 mg/dL [facility] Creatinine 0.60 0.50 - 0.90 mg/dL [facility] Glucose 98 65 - 99 mg/dL [facility] Calcium 8.7 8.3 - 10.2 mg/dL [facility] Protein 6.7 6.3 - 8.3 g/dL DRIFTING Comment: [facility] Lawrence 4.6-7.0 g/dL 1 week 4.4-7.6 g/dL 7 months-1year 5.1-7.3 g/dL 1-2 years 5.6-7.5 g/dL >3 years 6.0-8.0 g/dL 18-150 6.3-8.3 g/dL Albumin 3.9 3.5 - 5.0 g/dL [facility] A/G ratio 1.4 0.7 - 3.8 [facility] Alkaline 120 (H) 35 - 104 U/L DRIFTING phosphatase [facility] AST 14 10 - 35 U/L [facility] ALT 18 5 - 50 U/L [facility] Total bilirubin 0.5 0.0 - 1.2 mg/dL [facility] Specimen Blood Performing Organization Address City/State/[facility] Ph one Number [facility] [place] [address] [place], [place] [address] PATHOLOGY AND GENOMIC MEDICINE [facility] [address] [place] [address] [facility] * CT Abdomen Pelvis Wo Contrast (08/03/2019 5:47 PM CDT) Only the most recent of 2 results within the time period is included. Specimen Narrative Performed At EXAMINATION: CT ABDOMEN PELVIS WO CONTRAST RADI ANT CLINICAL HISTORY: Abd distension, Abd pain unspecified, Nausea vomiting TECHNIQUE: Noncontrast images of the ab domen and pelvis were obtained without intravenous iodinated contrast. The lac k of intravenous contrast limits assessment of the solid organs. CT imag ing was performed with iterative reconstruction technique and/or automated exposure control to reduce ra diation dose. COMPARISON: August 01, 2019 FINDINGS: LUNG BASES: Hypoventilatory changes in the lung bas es. ABDOMEN: Liver: No suspicious hepatic lesions. Gallbladder: Prior cholecystectomy. Spleen: The spleen is not enlarged. Pancreas: The pancreas is unremarkable. Adrenal Glands: The adrenal glands are unremarkable. Kidneys: The kidneys are unremarkable. No mass, hydronephrosis or calculi. Vascular: The abdominal aorta is nonane urysmal. Nodes: No enlarged retroperitoneal or m esenteric lymphadenopathy. Bowel: Small hiatal hernia. Greater samantha n expected colonic stool burden, compatible with constipation. There are sigmoid diverticula with associated wall thickening and surrounding stranding, s uggestive of diverticulitis. No evidence of perforation or abscess. The appendix cannot be visuali zed. Ascites/fluid collections: No pneumoper itoneum, ascites, or organized fluid collections. PELVIS: No mass, fluid collection or significan t adenopathy. MUSCULOSKELETAL: Spondylosis. Prior L4-L5 posterior spin al fusion and intervertebral disc spacer placement. IMPRESSION: 1.Sigmoid diverticula with associated w all thickening and surrounding stranding, suggestive of diverticulitis. No eviden ce of perforation or abscess. 2.Severe constipation. [id number] Procedure Note Hm Interface, Radiology Results Incoming - 08/03/2019 6:22 PM CDT EXAMINATION: CT ABDOMEN PELVIS WO CONTRAST CLINICAL HISTORY: Abd distension, Abd pain unspecified, Nausea vomiting TECHNIQUE: Noncontrast images of the abdomen and pelvis were obtained without intravenous iodinated contrast. The lack of intravenous contrast limits assessment of the solid organs. CT imaging was performed with iterative reconstruction technique and/or automated exposure control to reduce radiation dose. COMPARISON: August 01, 2019 FINDINGS: LUNG BASES: Hypoventilatory changes in the lung bases. ABDOMEN: Liver: No suspicious hepatic lesions. Gallbladder: Prior cholecystectomy. Spleen: The spleen is not enlarged. Pancreas: The pancreas is unremarkable. Adrenal Glands: The adrenal glands are unremarkable. Kidneys: The kidneys are unremarkable. No mass, hydronephrosis or calculi. Vascular: The abdominal aorta is nonaneurysmal. Nodes: No enlarged retroperitoneal or mesenteric lymphadenopathy. Bowel: Small hiatal hernia. Greater than expected colonic stool burden, compatible with constipation. There are sigmoid diverticula with associated wall thickening and surrounding stranding, suggestive of diverticulitis. No evidence of perforation or abscess. The appendix cannot be visualized. Ascites/fluid collections: No pneumoperitoneum, ascites, or organized fluid collections. PELVIS: No mass, fluid collection or significant adenopathy. MUSCULOSKELETAL: Spondylosis. Prior L4-L5 posterior spinal fusion and intervertebral disc spacer placement. IMPRESSION: 1.Sigmoid diverticula with associated wa ll thickening and surrounding stranding, suggestive of diverticulitis. No evidence of perforation or abscess. 2.Severe constipation. [id number] Performing Organization Address [facility] Ph one Number [facility] [address] [place] [address] * XR Abdomen 1 Vw (08/02/2019 4:39 PM CDT) Specimen Narrative Performed At EXAMINATION: XR ABDOMEN 1 VW [facility] CLINICAL HISTORY: constipation COMPARISON: None. IMPRESSION: Frontal views reveal a nondilated, nond istended bowel gas pattern. No abnormal masses or calcifications are readily id entified. Presumed pelvic phleboliths noted. Status post cholecystectomy and lumbar fusion. The remaining overlying bony and soft tissue structures are unremarkable. [id number] Procedure Note Hm Interface, Radiology Results Incoming - 08/02/2019 4:46 PM CDT EXAMINATION: XR ABDOMEN 1 VW CLINICAL HISTORY: constipation COMPARISON: None. IMPRESSION: Frontal views reveal a nondilated, nondistended bowel gas pattern. No abnormal masses or calcifications are readily identified. Presumed pelvic phleboliths noted. Status post cholecystectomy and lumbar fusion. The remaining overlying bony and soft tissue structures are unremarkable. [id number] Performing Organization Address [facility] one Number [facility] [address] [place] [address] * Thyroid stimulating hormone (08/02/2019 5:53 AM CDT) TSH 1.45 0.27 - 4.20 uIU/mL [facility] Specimen Blood Performing Organization Address [facility] one Number [facility] DEPARTMENT OF [address] [place] [address] [place], [place] [address] PATHOLOGY AND GENOMIC MEDICINE DRIFTING SINAN HERNANDEZ [address] [place] [address] [place] [address] [facility] * Phenytoin level (08/01/2019 6:28 PM CDT) Only the most recent of 2 results within the time period is included. Phenytoin <0.8 (A) 10.0 - 20.0 ug/mL DRIFTING Comment: SINAN HERNANDEZ Therapeutic Range: [facility] 10 - 20 ug/mL Specimen Blood Performing Organization Address [facility] Ph one Number [facility] DEPARTMENT OF [address] [place] [address] [place], [place] [address] PATHOLOGY AND GENOMIC MEDICINE [facility] [place] [address] [place] * [place] level (08/01/2019 6:28 PM CDT) Pathologist [facility] [place] 0.20 (L) 0.60 - 1.20 mmol/L [facility] Specimen Serum Performing Organization Address [facility] one Number [facility] DEPARTMENT OF [address] [place] [address]. [place], [place] [address] PATHOLOGY AND GENOMIC MEDICINE [address] [place] [address] * COVID-19 qualitative PCR (08/01/2019 1:47 PM CDT) Pathologist [facility] [place] Interpretation Negative results do not BROWNING preclude 2019-nCoV infection PENTECOSTALISM and should not be used as the HOSPITAL sole basis for treatment or other patient management decisions. Negative results must be combined with clinical observations, patient history, and epidemiological information. COVID-19 Not-Detected Not-Detected DRIFTING qualitative PCR PENT[facility]OSTALISM result HOSPITAL COVID-19 See link below for PDF Lab DRIFTING qualitative PCR ReportComment: Case Number: PENTECOSTALISM [id number] HOSPITAL Specimen Performing Organization Address [facility] one Number [facility] DEPARTMENT OF [address] [place] [address] PATHOLOGY AND GENOMIC MEDICINE [address] * Lipase level (08/01/2019 12:29 PM CDT) Only the most recent of 2 results within the time period is included. Pathologist [facility] [place] Lipase 25 13 - 60 U/L [facility] Specimen Performing Organization Address [facility] one Number [facility] DEPARTMENT OF [address] [place] [address]. [place] [address] PATHOLOGY AND GENOMIC MEDICINE [facility] [address] [address] * Urine culture (08/01/2019 11:59 AM CDT) Pathologist [facility] Urine culture Mixed [place] 10-4 col/cc DRIFTING isolate Comment: PENTECOSTALISM Specimen Information HOSPITAL Specimen Source: Urine Specimen Site: Clean catch Specimen Urine Performing Organization Address [facility] one Number [facility] DEPARTMENT OF [address] [place], [place] [id number] PATHOLOGY AND GENOMIC [facility] [address] [place], [place] [id number] HOSPITAL * Urinalysis screen and microscopy, with reflex to culture (08/01/2019 11:43 AM CDT) Specimen site Clean catch [facility] Color, UA Yellow [facility] Appearance, UA Cloudy [facility] Specific 1.013 1.001 - 1.035 DRIFTING gravity, UA [facility] pH, UA 8.0 5.0 - 8.5 [facility] Protein, UA Negative Negative [facility] Glucose, UA Negative Negative [facility] Ketones, UA Negative Negative [facility] Bilirubin, UA Negative Negative [facility] Blood, UA Negative Negative [facility] Nitrite, UA Negative Negative [facility] Urobilinogen, Negative <2.0 [facility] Leukocyte Negative Negative DRIFTING esterase, UA [facility] Epithelial Many Few /HPF DRIFTING cells, [facility] Round Moderate 0 - 1 /HPF DRIFTING epithelial [facility] cells, [facility] WBC, UA 11-20 (H) 0 - 4 /HPF [facility] RBC, UA 0-5 0 - 5 /HPF [facility] Bacteria, UA None seen None seen [facility] Yeast, UA None seen [facility] Yeast with None seen DRIFTING pseudohyphae, PENTECOSTALISM [facility] Amorphous Few DRIFTING crystals [facility] Specimen Urine Performing Organization Address [facility] Ph one Number [facility] DEPARTMENT OF [address] [place] [address] [place], [place] [address] PATHOLOGY AND GENOMIC MEDICINE [address] [place] [address] [facility] * Prothrombin time with INR (08/01/2019 11:43 AM CDT) Prothrombin 12.7 11.5 - 14.5 sec [facility] INR 1.0 DRIFTING Comment: [facility] The International Normalized [facility] Ratio (INR) is a therapeutic monitoring tool for patients who are stable on oral anticoagulant therapy. An INR of 2.0-3.0 is suggested for deep vein thrombosis/pulmonary embolism. Specimen Blood Performing Organization Address City/[facility] Ph one Number [facility] [place] [place] [address] [address] [place] [address] PATHOLOGY AND GENOMIC MEDICINE [facility] CLEAR [address] [place] [address] [facility] * ECG 12 lead (08/01/2019 11:36 AM CDT) Only the most recent of 2 results within the time period is included. Ventricular 84 [facility] rate Atrial rate 84 [facility] TX interval 164 [facility] QRSD interval 86 [facility] QT interval 364 [facility] QTC interval 430 [facility] P axis 1 65 [facility] QRS axis 1 58 [facility] T wave axis 30 [facility] EKG impression Normal sinus rhythm-Normal [facility] MUSE ECG-In automated comparison with ECG of 20-JUN-2019 00:40,-Borderline criteria for Lateral infarct are no longer present- Specimen Narrative Performed At This result has an attachment that is n ot available. Performing Organization Address City/[facility] Ph one Number [facility] MUSE [address] [place] [address] * ECG ED Preliminary Interpretation - Not an Order (08/01/2019 11:30 AM CDT) Narrative Performed At José Romo MD 08/01/2019 3:55 PM ECG ED Preliminary Interpretation - Not an Order Performed by: José Romo MD Authorized by: José Romo MD ECG reviewed by ED Physician in the abs ence of a women's apparel salesperson: yes Interpretation: Interpretation: normal Rate: ECG rate: 84 ECG rate assessment: normal Rhythm: Rhythm: sinus rhythm Ectopy: Ectopy: none QRS: QRS axis: Normal QRS intervals: Normal Conduction: Conduction: normal ST segments: ST segments: Normal T waves: T waves: normal * Lactic acid level, SEPSIS - Now and repeat 2x every 3 hours (06/20/2019 3:30 AM CDT) Only the most recent of 2 results within the time period is included. Lactic acid 1.6 0.5 - 2.2 mmol/L [facility] Specimen Blood Performing Organization Address City/State/Zipcode Ph one Number [facility] DEPARTMENT OF [address] [place] [address] PATHOLOGY AND GENOMIC MEDICINE [facility] [address] [place] [phone] HOSPITAL * Creatine kinase, total (CPK) (06/20/2019 12:30 AM CDT) Creatine kinase 65 26 - 192 U/L [facility] Specimen Blood Performing Organization Address City/State/Zipcode Ph one Number [facility] DEPARTMENT OF [address] [place] [phone] PATHOLOGY AND GENOMIC MEDICINE [facility] [address] [place] [phone] HOSPITAL after 09/14/2018 Insurance Type Payer Benefit Subscriber ID Effective Phone Address Plan / Dates Group HMO [employer] CIGNA xxxxxxxx 2019-P HEALTHSPRI resent NG O MCR ADV Advance Directives For more information, please contact: [phone] 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
--- OUTSIDE RECORDS SUMMARY | 2019-09-15 04:38 | XMS REPORT | Continuity of Care Document ---
Author Author [facility] t Organization [facility] Address [address] [place] [address] Phone Unavailable Care Team Providers Care Crutcher Helper Name Role Phone VERNA, (NON STAFF) DEVIN PCP Melissa LIMA, Marilyn Attphys Unavailable Xavi Romo MD Attphys Kan Smith MD Attphys [facility] Attphys Unavailable Gen Finley DO Attphys [phone] KAN SMITH [place] Unavailable Payers Payer Name Policy Type Policy Number Effective Date Expiration Date Minda jolly [employer] [id number] 2016 00:00:00 [facility] [id number] 2016 00[facility]00 [facility]00 [facility]PresentH[facility] xxxxxxxx 2019 00:00:00 Nam Harry Problems Condition Name Condition Details Condition Category Status Onset Date Resolution Date Last Treatment Date Treating Clinician Comments Source Fecal impaction of colon Fecal impaction of colon Disease Acti ve 2019-08-01 00:00:[address] Constipation Constipation Disease Active 2019-08-01 00:00:00 Nam Harry Accidental drug ingestion Problem Active [facility] Laceration of right hand Problem Active [facility] Encounter for removal of sutures Problem Active [facility] Bipolar 1 disorder Bipolar 1 disorder Disease Active [facility] Anxiety Anxiety Disease Active [facility] Cancer Cancer Disease Active Overview: brain Nam Harry Allergies, Adverse Reactions, Alerts Allergy Name Allergy Type Status Severity Reaction(s) Onset Date Inacti ve Date Treating Clinician Comments Source Risperidone Propensity to adverse reactions to drug Active Other (See Comments) 2019-08-01 00:00:00 unknown Nam Harry Sertraline Propensity to adverse reactions to drug Active Swelling 2019-08-01 00:00:00 Nam Willoughby t benztropine mesylate DA Active SV 2019-07-20 00:00:00 [facility] sertraline HCl DA Active U 2019-07-20 00:00:00 [facility] Penicillins DA Active U 2019-07-20 00:00:00 [facility] peanut FA Active SV 2019-07-20 00:00:00 [facility] haloperidol DA Active U 2019-07-20 00:00:00 [facility] phenytoin DA Active U 2019-07-20 00:00:00 [facility] risperidone DA Active MO 2019-07-20 00:00:00 [facility] shrimp FA Active SV 2019-07-20 00:00:00 [facility] Haloperidol Propensity to adverse reactions to drug Active Other (See Comments) 2019-06-20 00:00:00 Lips turn blue [place] [facility] benztropine mesylate DA Active SV 2019-04-15 00:00:00 [facility] sertraline HCl DA Active U 2019-04-15 00:00:00 [facility] Penicillins DA Active U 2019-04-15 00:00:00 [facility] peanut FA Active SV 2019-04-15 00:00:00 [facility] haloperidol DA Active U 2019-04-15 00:00:00 [facility] phenytoin DA Active U 2019-04-15 00:00:00 [facility] risperidone DA Active MO 2019-04-15 00:00:00 [facility] shrimp FA Active SV 2019-04-15 00:00:00 [facility] Penicillins DA Active U 2019-03-27 00:00:00 [facility] phenytoin DA Active U 2019-03-27 00:00:00 [facility] benztropine mesylate DA Active SV 2019-03-14 00:00:00 [facility] sertraline HCl DA Active U 2019-03-14 00:00:00 [facility] peanut FA Active SV 2019-03-14 00:00:00 [facility] haloperidol DA Active U 2019-03-14 00:00:00 [facility] phenytoin DA Active SV 2019-03-14 00:00:00 [facility] risperidone DA Active MO 2019-03-14 00:00:00 [facility] shrimp FA Active SV 2019-03-14 00:00:00 [facility] benztropine mesylate DA Active SV 2018-09-01 00:00:00 [facility] sertraline HCl DA Active U 2018-09-01 00:00:00 [facility] haloperidol DA Active U 2018-09-01 00:00:00 [facility] risperidone DA Active MO 2018-09-01 00:00:00 [facility] benztropine mesylate DA Active SV 2018-05-05 00:00:00 [facility] sertraline HCl DA Active U 2018-05-05 00:00:00 [facility] haloperidol DA Active U 2018-05-05 00:00:00 [facility] risperidone DA Active MO 2018-05-05 00:00:00 [facility] benztropine mesylate DA Active SV 2018-03-27 00:00:00 [facility] sertraline HCl DA Active U 2018-03-27 00:00:00 [facility] haloperidol DA Active U 2018-03-27 00:00:00 [facility] risperidone DA Active MO 2018-03-27 00:00:00 [facility] benztropine mesylate DA Active SV 2017-08-06 00:00:00 [facility] sertraline HCl DA Active U 2017-08-06 00:00:00 [facility] haloperidol DA Active U 2017-08-06 00:00:00 [facility] risperidone DA Active MO 2017-08-06 00:00:00 [facility] DERMABOND Allergy to substance Active 2016-05-21 00:00:00 [facility] benztropine mesylate Allergy to substance Active Severe 2011-02 00:00:00 [facility] Haloperidol Lactate Allergy to substance Active 2010-09-30 00:00:00 [facility] Haloperidol Allergy to substance Active 2010-09-30 00:00:00 [facility] Peanuts Allergy to substance Active 2010-02-22 00:00:00 [facility] Risperidone Allergy to substance Active 2010-02-22 00:00:00 [facility] Sertraline Allergy to substance Active Severe SWELLING, SEIZU RES 2010-02-22 00:00:00 [facility] Ziprasidone Allergy to substance Active Moderate HALLUCINATIONS 2010-02-22 00:00:00 [facility] Social History Social Habit Start Date Stop Date Quantity Comments Source History SDOH Alcohol Std Drinks [facility] Buddhism History SDOH Alcohol Binge [facility] Sex Assigned At [facility] Alcohol intake 2019-08-01 00:00:00 2019-08-01 00:00:00 Lifetime non-drinker (finding) [facility] History SDOH Alcohol Frequency 2019-06-20 00:00:00 2019-06-20 00:00:0 0 1 [facility] Smoking Status Start Date Stop Date Source Never smoker [facility] Medications Ordered Medication Name Filled Medication Name Start Date Stop Da te Current Medication? Ordering Clinician Indication Dosage Frequency Signature (SIG) Comments Components Source lithium 150 MG capsule 2019-08-04 13:47:29 Yes 150mg Q.[id number] Take 150 mg by mouth 3 (three) times a day with meals. Nam Harry phenytoin (DILANTIN) 100 MG ER capsule 2019-08-04 13:47:29 Yes 500mg Q.[id number] Take 500 mg by mouth 3 (three) times a day. Nam Harry ALPRAZolam (XANAX) 1 MG tablet 2019-08-04 13:47:29 Yes 1mg QD Take 1 mg by mouth nightly as needed for anxiety. Nam Harry HYDROcodone-acetaminophen (NORCO) 7.5-325 mg per tablet 2019-08-04 13:47:29 Yes acute pain 1{tbl} Q6H Take 1 tablet b y mouth every 6 (six) hours as needed for moderate pain .acute pain. Nam Diaz ethodist docusate sodium (COLACE) 100 MG capsule 00:00:00 2019-09-03 23:59:00 No 100mg Q.5D Take 1 capsule (100 mg total) by mouth 2 (two) times a day for 30 days. Nam Harry ciprofloxacin (Cipro) 500 MG tablet 2019-08-04 00:00:0 0 2019-08-11 23:59:00 No 500mg Q.5D Take 1 tablet ( 500 mg total) by mouth 2 (two) times a day for 7 days. Nam Harry metroNIDAZOLE (FlagyL) 500 MG tablet 2019-08-04 00:00: 00 2019-08-11 23:59:00 No 500mg Q.[id number] Take 1 tablet (500 mg total) by mouth 3 (three) times a day for 7 days. Nam Harry Alprazolam (Xanax) 2 Mg TABLET Alprazolam (Xanax) 2 Mg TABLET Yes 1 Twice A Day [facility] [place] Carbonate [place] Carbonate Yes 300 Ever y Morning [facility] [place] Carbonate [place] Carbonate Yes 300 Bedt sergio [facility] Zolpidem Tartrate (Ambien) 10 Mg TABLET Zolpidem Tartrate (A mbien) 10 Mg TABLET 2016-05-29 00:00:00 No 10 Bedtime [facility] Azithromycin (Z-Leon) 250 Mg TABLET Azithromycin (Z-Leon) 250 Mg T ABLET 2012-04-03 00:00:00 No 250 Daily [facility] Duncombe Duncombe 2012-04-03 00:00:00 No [facility] On Chemotherapy On Chemotherapy 2012-04-03 00:00:00 No [facility] Vital Signs Vital Name Observation Time Observation Value Comments Source Weight 2019-09-09 19:50:00 170 [lb_av] [facility] BMI (Body Mass Index) 2019-09-09 19:50:00 31.1 kg/m2 [facility] Weight 2019-08-31 02:20:00 170 [lb_av] [facility] BMI (Body Mass Index) 2019-08-31 02:20:00 31.1 kg/m2 [facility] Systolic blood pressure 2019-08-04 11:15:31 127 mm[Hg] [facility] Diastolic blood pressure 2019-08-04 11:15:31 74 mm[Hg] [facility] Heart rate 2019-08-04 11:15:31 94 /min [facility] Body temperature 2019-08-04 11:15:31 36.61 Gabrielle Delmar [facility] Respiratory rate 2019-08-04 11:15:31 19 /min Delmar [facility] Oxygen saturation in Arterial blood by Pulse oximetry 08-03 11:15:31 96 /min [facility] Body height 2019-08-01 18:18:[address] [facility] Body Temperature 2019-07-14 04:16:00 98.3 [degF] [facility] Weight 2019-07-14 01:33:00 170 [lb_av] [facility] BMI (Body Mass Index) 2019-07-14 01:33:00 31.1 kg/m2 [facility] Body Temperature 2019-07-05 04:32:00 97.2 [degF] [facility] Weight 2019-07-05 01:57:00 170 [lb_av] [facility] BMI (Body Mass Index) 2019-07-05 01:57:00 31.1 kg/m2 [facility] Body weight 2019-06-20 00:45:00 81.647 kg Nam Harry BMI 2019-06-20 00:45:00 32.92 kg/m2 Nam Harry Procedures Procedure Date / Time Performed Performing Clinician Sourc e RPR S/N/AX/GEN/TRNK 2.5CM/< 2019-08-31 00:00:00 [facility] HC COMPLETE BLD COUNT W/AUTO DIFF 2019-08-04 07:58:00 Cliff Sy COMPREHENSIVE METABOLIC PANEL 2019-08-04 07:58:00 Alessia Sy ESTIMATED GFR 2019-08-04 07:58:[address] ABDOMEN PELVIS WO CONTRAST 2019-08-03 17:47:55 Alessia Sy XR ABDOMEN 1 VW 2019-08-02 16:39:23 Cliff Sy oddarshan THYROID STIMULATING HORMONE 2019-08-02 05:53:00 Kan Smith PHENYTOIN LEVEL 2019-08-01 18:28:00 Kan Smith Meth odist LITHIUM LEVEL 2019-08-01 18:28:00 [facility] Jen[facility] odd[facility]han COVID-19 QUALITATIVE PCR 2019-08-01 13:47:00 Tien Romo COMPREHENSIVE METABOLIC PANEL 2019-08-01 12:29:00 José Romo LIPASE LEVEL 2019-08-01 12:29:00 José Romo ESTIMATED GFR 2019-08-01 12:29:00 José Romo URINE CULTURE 2019-08-01 11:59:[address] ABDOMEN PELVIS WO CONTRAST 2019-08-01 11:55:00 José Romo HC COMPLETE BLD COUNT W/AUTO DIFF 2019-08-01 11:43:00 José Romo PROTHROMBIN TIME WITH INR 2019-08-01 11:43:00 Elder Romo COMPREHENSIVE METABOLIC PANEL 2019-08-01 11:43:00 José Romo LIPASE LEVEL 2019-08-01 11:43:00 José Romo URINALYSIS SCREEN AND MICROSCOPY, WITH REFLEX TO CULTURE 202 11:43:00 José Romo ESTIMATED GFR 2019-08-01 11:43:00 José Romo ECG 12-LEAD 2019-08-01 11:36:53 José Romo ECG ED PRELIMINARY INTERPRETATION 2019-08-01 11:30:56 José Romo Computed tomography of brain without radiopaque contrast 2019-06 00:00:00 [facility] LACTIC ACID LEVEL, SEPSIS - NOW AND REPEAT 2X EVERY 3 HOURS 2019-06-20 03:30:00 Anthony Finley ECG 12-LEAD 2019-06-20 00:40:56 Anthony Finley on [facility] HC COMPLETE BLD COUNT W/AUTO DIFF 2019-06-20 00:30:00 Anthony Finley COMPREHENSIVE METABOLIC PANEL 2019-06-20 00:30:00 Chai Finley LACTIC ACID LEVEL, SEPSIS - NOW AND REPEAT 2X EVERY 3 HOURS 2019-06-20 00:30:00 Anthony Finley CREATINE KINASE, TOTAL (CPK) 2019-06-20 00:30:00 Jackelyn Finley ESTIMATED GFR 2019-06-20 00:30:00 Anthony Finley on [facility] PHENYTOIN LEVEL 2019-06-20 00:30:00 Anthony Finley Plan of Care Planned Activity Planned Date Details Comments Source Future Scheduled Test 2019-09-14 00:00:00 INFLUENZA VACCINE [code = INFLUENZA VACCINE] Nam Harry Future Scheduled Test 2016-01-10 00:00:00 BREAST CANCER SCRE ENING [code = BREAST CANCER SCREENING] [facility] Future Scheduled Test 2016-01-10 00:00:00 COLONOSCOPY SCREEN ING [code = COLONOSCOPY SCREENING] [facility] Scheduled Test 2016-01-10 00:00:00 SHINGLES VACCINES (#1) [code = SHINGLES VACCINES (#1)] [facility] Future Scheduled Test 1987 00:00:00 Screening for lyndsey gnant neoplasm of cervix (procedure) [code = 892176041] [facility] Instructions Wound Care (General) [facility] Encounters Start Date/Time End Date/Time Encounter Type Admission Type [facility] Care Department Encounter ID Source 2019-09-09 20:05:2019-09-09 20:15:00 Departed Emergency Room [facility] [id number] [facility] Patients [facility] 2019-08-31 02:30:00 2019-08-31 04:07:00 Departed Emergency Room [facility] [id number] [facility] Patients [facility] 2019-08-01 00:00:00 2019-08-04 00:00:00 Inpatient TAYLORRAINEBELLE DOMINGOMayur [facility] [id number] [facility] 2019-07-14 01:21:00 2019-07-14 04:31:00 Departed Emergency Room [facility] [id number] [facility] - Patients [facility] 2019-07-05 01:17:00 2019-07-05 04:55:00 Departed Emergency Room [facility] Patients [facility] [id number] [facility] 2019-06-20 00:00:00 2019-06-20 00:00:00 Emergency CHAI FINLEY [facility] [id number] [facility] 2018-08-02 21:30:00 2018-08-02 21:30:00 Emergency E [facility]SE [facility] [id number] [facility] 2018-07-26 14:13:00 2018-07-26 14:13:00 Emergency E MHSE [facility]SE [id number] [facility] 2018-07-23 17:46:00 2018-07-23 17:46:00 Emergency E MHSE [facility]SE [id number] [facility] 2018-07-03 00:04:00 2018-07-03 00:04:00 Emergency E MHSE [facility]SE [id number] [facility] 2018-06-25 01:05:00 2018-06-25 01:05:00 Emergency E MHSE [facility]SE [id number] [facility] 2018-06-21 01:16:00 2018-06-21 01:16:00 Emergency E MHSE [facility]SE [id number] [facility] 2018-06-04 00:29:00 2018-06-04 00:29:00 Emergency E MHSE [facility]SE [id number] [facility] 2018-05-04 23:12:00 2018-05-04 23:49:[address] [facility] [id number] [facility] Results Test Description Test Time Test Comments Results Result Comments Source Comprehensive metabolic panel 2019-08-04 08:28:16 Test Item Sodium (test code = 2951-2) 134 135- 148 mEq/L L Potassium (test code = 2823-3) 4.0 3.5- 5.0 mEq/L Chloride (test code = 5-0) 100 98- 112 mEq/L CO2 (test code = 2027-9) 25 24- 31 mEq/L Anion gap (test code = 26543-6) 9@ANIO 7- 15 mEq/L BUN (test code = 3094-0) 8 mg/dL 6-20 Creatinine (test code = 2160-0) 0.60 mg/dL 0.5-0.9 Glucose (test code = 2345-7) 98 mg/dL 65-99 Calcium (test code = 86124-2) 8.7 mg/dL 8.3-10.2 Protein (test code = 2885-2) 6.7 g/dL 6.3-8.3 - 4.6- 7.0 g/dL1 week 4.4-7.6 g/dL7 months-1year 5.1-7.3 g/dL1-2 years 5.6-7.5 g/dL>3 years 6.0-8.0 g/aA64-578 6.3-8.3 g/dL Albumin (test code = 1751-7) 3.9 g/dL 3.5-5 A/G ratio (test code = 1759-0) 1.4 0.7-3.8 Alkaline phosphatase (test code = 6768-6) 120 U/L 35-104 H AST (test code = 1920-8) 14 U/L 10-35 ALT (test code = 1742-6) 18 U/L 5-50 Total bilirubin (test code = 1975-2) 0.5 mg/dL 0-1.2 Lab Interpretation (test code = 55446-8) Abnormal [place] [facility] [id number] 08:19:47* Test Item Value Reference Range Interpretation Comments Estimated GFR (test code = 5488) >=90 mL/min/1.73 m2 Catergory Units InterpretationG1 >=90 Normal or highG2 60-89 Mildly aljxhwzdtO7s 45-59 Mildly to moderately qsnqxkolsK8z 30-44 Moderately to severely decreasedG4 15-29 Severely decreasedG5 <15 Kidney failureThe eGFR was calculated using the Chronic Kidney Disease Epidemiology Collaboration (CKD-EPI) equation. Interpretation is based on recommendations of the National Kidney Foundation-Kidney Disease Outcomes Quality Initiative (NKF-KDOQI) published in 2014. [place] MethodistCBC with platelet and [id number] 08:05:35* Test Item Value Reference Range Interpretation Comments WBC (test code = 30535-7) 10.41 4.50- 11.00 k/uL RBC (test code = 37095-5) 3.88 m/uL 4.2-5.5 L HGB (test code = 718-7) 12.3 g/dL 12-16 HCT (test code = 4544-3) 38.2 % 37-47 MCV (test code = 787-2) 98.5 fL 82-100 MCH (test code = 785-6) 31.7 pg 27-34 MCHC (test code = 786-4) 32.2 g/dL 31-37 RDW - SD (test code = 60212-5) 50.4 fL 37-55 MPV (test code = 24121-4) 9.6 fL 8.8-13.2 Platelet count (test code = 42011-2) 272 150- 400 k/uL Nucleated RBC (test code = 49023-0) 0.00 /100 WBC Neutrophils (test code = 13843-3) 74.5 % 39-69 H Lymphocytes (test code = 82544-1) 15.1 % 25-45 L Monocytes (test code = 60794-2) 8.5 % 0-10 Eosinophils (test code = 71138-1) 1.1 % 0-5 Basophils (test code = 19292-5) 0.4 % 0-1 Lab Interpretation (test code = 61736-8) Abnormal [place] [facility] Ab[facility] Pelvis Wo [id number] 18:19:42Hm Interface, Radiology Results 08/03/2019 6:22 PM CDTEXAMINATION: CT ABDOMEN PELVIS WO CONTRASTCLINICAL HISTORY: Abd distension, Abd pain unspecified, Nausea vomitingTECHNIQUE: Noncontrast images of the abdomen and pelvis were obtained without intravenous iodinated contrast. The lack of intravenous con trast limits assessment of the solid organs. CT imaging was performed with itera tive reconstruction technique and/or automated exposure control to reduce radiat ion dose.COMPARISON: August 01, 2019FINDINGS:LUNG BASES:Hypoventilatory changes in the lung bases.ABDOMEN:Liver: No suspicious hepatic lesions.Gallbladder: Prior cholecystectomy.Spleen: The spleen is not enlarged.Pancreas: The pancreas is unr emarkable.Adrenal Glands: The adrenal glands are unremarkable.Kidneys: The kidne ys are unremarkable. No mass, hydronephrosis or calculi.Vascular: The abdominal aorta is nonaneurysmal.Nodes: No enlarged retroperitoneal or mesenteric lymphade nopathy.Bowel: Small hiatal hernia. Greater than expected colonic stool burden, compatible with constipation. There are sigmoid diverticula with associated wall thickening and surrounding stranding, suggestive of diverticulitis. No evidence of perforation or abscess. The appendix cannot be visualized.Ascites/fluid ilia ections: No pneumoperitoneum, ascites, or organized fluid collections.PELVIS:No mass, fluid collection or significant adenopathy. MUSCULOSKELETAL: Spondylosis. Prior L4-L5 posterior spinal fusion and intervertebral disc spacer placement.IMP RESSION:1.Sigmoid diverticula with associated wall thickening and surrounding st randing, suggestive of diverticulitis. No evidence of perforation or abscess.2.S evere constipation.[id number] MethodistUrine [id number] 19:14:58* Test Item Value Reference Range Interpretation Comments Urine culture isolate (test code = 52482-6) Mixed leland 10-4 col/cc Specimen InformationSpecimen Source: UrineSpecimen Site: Clean catch [place] BuddhismXR Abdomen 1 [id number] 16:42:52Hm Interface, Radiology Results 08/02/2019 4:46 PM CDTEXAMINATION: XR ABDOMEN 1 VWCLINICAL HISTORY: constipationCOMPARISON: None.IMPRESSION:Frontal views reveal a nondilated, nondistended bowel gas pattern. No abnormal masses or calcifications are readily identified. Presumed pelvic phleboliths noted. Status post cholecystectomy and lumbar fusion. The remaining overlying bony and soft tissue structures are unremarkable.[id number] MethodistThyroid stimulating [id number] 06:36:27* Test Item Value Reference Range Interpretation Comments TSH (test code = 3016-3) 1.45 0.27- 4.20 uIU/mL Nam HarryCOVID-19 qualitative [id number] 04:18:12* Test Item Value Reference Range Interpretation Comments Interpretation (test code = 0897636) Negative results do not preclude 2019-nCoV infection and should not be used as the sole basis for treatment or other patient management decisions. Negative results must be combined with clinical observations, patient history, and epidemiological information. COVID-19 qualitative PCR result (test code = 88277-3) Not-Detect ed Not-Detected COVID-19 qualitative PCR (test code = 7070) See link below for P DF Lab Report [place] SureshistLithium [id number] 18:51:19* Test Item Value Reference Range Interpretation Comments [place] (test code = 3719-2) 0.20 mmol/L 0.6-1.2 L Lab Interpretation (test code = 99065-5) Abnormal [place] MethodistPhenytoin [id number] 18:50:46* Test Item Value Reference Range Interpretation Comments Phenytoin (test code = 3968-5) <0.8 10-20 A Therapeutic Range: 10 - 20 ug/mL Lab Interpretation (test code = 32642-3) Abnormal [place] MethodistECG 12 [id number] 13:25:40* Test Item Value Reference Range Interpretation Comments Ventricular rate (test code = 253) 84 Atrial rate (test code = 255) 84 NV interval (test code = 266) 164 QRSD interval (test code = 260) 86 QT interval (test code = 264) 364 QTC interval (test code = 265) 430 P axis 1 (test code = 267) 65 QRS axis 1 (test code = 268) 58 T wave axis (test code = 270) 30 EKG impression (test code = 273) Normal sinus rhythm-N ormal ECG-In automated comparison with ECG of 20-JUN-2019 00:40,-Borderline criteria for Lateral infarct are no longer present- Brownign MethodistLipase [id number] 13:18:12* Test Item Value Reference Range Interpretation Comments Lipase (test code = 3040-3) 25 U/L 13-60 [place] MethodistProthrombin time with [id number] 12:00:12* Test Item Value Reference Range Interpretation Comments Prothrombin time (test code = 5902-2) 12.7 11.5- 14.5 sec INR (test code = 84604-0) 1.0 Th e International Normalized Ratio (INR) is a therapeutic monitoring tool for patients who are stable on oral anticoagulant therapy. An INR of 2.0-3.0 is suggested for deep vein thrombosis/pulmonary embolism. [facility] MethodistUrinalysis screen and microscopy, with reflex to culture 2019-08-01 11:59:49* Test Item Value Reference Range Interpretation Comments Specimen site (test code = 7244903) Clean catch Color, UA (test code = 5778-6) Yellow Appearance, UA (test code = 5767-9) Cloudy Specific gravity, UA (test code = 5811-5) 1.013 1.001-1.035 pH, UA (test code = 5803-2) 8.0 5.0-8.5 Protein, UA (test code = 46873-5) Negative Negative Glucose, UA (test code = 77012-3) Negative Negative Ketones, UA (test code = 2514-8) Negative Negative Bilirubin, UA (test code = 5770-3) Negative Negative Blood, UA (test code = 5794-3) Negative Negative Nitrite, UA (test code = 5802-4) Negative Negative Urobilinogen, UA (test code = 77112-5) Negative <2.0 Leukocyte esterase, UA (test code = 5799-2) Negative Negative Epithelial cells, UA (test code = 5787-7) Many Few /HPF Round epithelial cells, UA (test code = 98933-2) Moderate 0- 1 /HPF WBC, UA (test code = 5821-4) 11-20 0- 4 /HPF H RBC, UA (test code = 69157-4) 0-5 0- 5 /HPF Bacteria, UA (test code = 55300-2) None seen None seen Yeast, UA (test code = 97275-5) None seen Yeast with pseudohyphae, UA (test code = 42214-5) None seen Amorphous crystals (test code = 50458-1) Few Lab Interpretation (test code = 62189-2) Abnormal [place] [facility] Preliminary Interpretation - Not an [id number] 11:30:56ArringtonJosé Segura MD 08/01/2019 3:55 [facility] ED Preliminary Interpretation - Not an OrderPerformed by: José Romo MDAuthorized by: José Romo MD ECG reviewed by ED Physician in the absence of a agronomy professor: yes Interpretation: Interpretation: normal Rate: ECG rate: 84 ECG rate assessment: normal Rhythm: Rhythm: sinus rhythm Ectopy: Ectopy: none QRS: QRS axis: Normal QRS intervals: NormalConduction: Conduction: normal ST segments: ST segments: NormalT waves: T waves: normal [place] MethodistURINALYSIS [id number] 21:30:00* Test Item Value Reference Range Interpretation Comments UA COLOR (test code = COLU) YELLOW YELLOW UA APPEARANCE (test code = APPU) Cloudy CLEAR A UA GLUCOSE DIPSTICK (test code = DGLUU) NEGATIVE mg/dL NEGATIVE UA BILIRUBIN DIPSTICK (test code = BILU) NEGATIVE mg/dL NEGATIVE UA KETONE DIPSTICK (test code = KETU) NEGATIVE mg/dL NEGATIVE UA SPECIFIC GRAVITY (test code = SGU) 1.026 1.001-1.035 UA BLOOD DIPSTICK (test code = JAMIE) 0.03 mg/dL (Trace) mg/dL NEGATI VE A UA PH DIPSTICK (test code = DOLORES) 5.0 5.0-8.0 UA PROTEIN DIPSTICK (test code = PROU) 10 (Trace) mg/dL NEGATIVE A UA UROBILINIOGEN DIPSTICK (test code = URO) Normal mg/dL NEGATIVE UA NITRITE DIPSTICK (test code = ISABEL) NEGATIVE NEGATIVE UA LEUKOCYTE ESTERASE W REFLEX (test code = LEUUR) 500 Daren/u L (3+) Daren/uL NEGATIVE A UA WBC (test code = WBCU) 21-50 per HPF 0-5 A UA RBC (test code = RBCU) 0-2 #/HPF 0-5 UA EPITHELIAL CELLS (test code = EPIU) MOD per HPF FEW UA BACTERIA (test code = BACU) FEW #/HPF NONE A UA MUCUS (test code = MUCU) FEW #/LPF FEW Urine Source? Clean CatchURINALYSIS [id number] 21:28:00* Test Item Value Reference Range Interpretation Comments UA COLOR (test code = COLU) YELLOW YELLOW UA APPEARANCE (test code = APPU) Cloudy CLEAR A UA GLUCOSE DIPSTICK (test code = DGLUU) NEGATIVE mg/dL NEGATIVE UA BILIRUBIN DIPSTICK (test code = BILU) NEGATIVE mg/dL NEGATIVE UA KETONE DIPSTICK (test code = KETU) NEGATIVE mg/dL NEGATIVE UA SPECIFIC GRAVITY (test code = SGU) 1.026 1.001-1.035 UA BLOOD DIPSTICK (test code = JAMIE) 0.03 mg/dL (Trace) mg/dL NEGATI VE A UA PH DIPSTICK (test code = DOLORES) 5.0 5.0-8.0 UA PROTEIN DIPSTICK (test code = PROU) 10 (Trace) mg/dL NEGATIVE A UA UROBILINIOGEN DIPSTICK (test code = URO) Normal mg/dL NEGATIVE UA NITRITE DIPSTICK (test code = ISABEL) NEGATIVE NEGATIVE UA LEUKOCYTE ESTERASE W REFLEX (test code = LEUUR) 500 Daren/u L (3+) Daren/uL NEGATIVE A UA WBC (test code = WBCU) per HPF 0-5 UA RBC (test code = RBCU) per HPF 0-5 UA EPITHELIAL CELLS (test code = EPIU) per HPF Few UA BACTERIA (test code = BACU) per HPF NONE Urine Source? Clean CatchBASIC METABOLIC [id number] 20:25:00* Test Item Value Reference Range Interpretation Comments SODIUM (test code = NA) 141 mmol/L 136-145 N POTASSIUM (test code = K) 4.2 mmol/L 3.5-5.1 N CHLORIDE (test code = CL) 108.0 mmol/L 98-107 H CARBON DIOXIDE (test code = CO2) 24.0 mmol/L 21-32 N ANION GAP (test code = GAP) 13.2 10-20 N GLUCOSE (test code = GLU) 94 mg/dL 74-106 N BLOOD UREA NITROGEN (test code = BUN) 15 mg/dL 7-18 N GLOMERULAR FILTRATION RATE (test code = GFR) > 60 mL/min >=60 Estimated GFR by using Modified MDRD formula.Chronic kidney disease is defined as either kidney damageor GFR <60 mL/min/1.73 m2 for >3 months. CREATININE (test code = CREAT) 0.60 mg/dL 0.55-1.02 N Note change in reference range due to change in reagent. BUN/CREATININE RATIO (test code = BUN/CREA) 23.3 10-20 H CALCIUM (test code = CA) 9.3 mg/dL 8.5-10.1 N HEPATIC FUNCTION [id number] 20:25:00* Test Item Value Reference Range Interpretation Comments TOTAL PROTEIN (test code = PROT) 7.7 gram/dL 6.4-8.2 N ALBUMIN (test code = ALB) 4.0 g/dL 3.4-5.0 N GLOBULIN (test code = GLOB) 3.7 gram/dL 2.7-4.2 N ALBUMIN/GLOBULIN RATIO (test code = A/G) 1.1 0.75-1.50 N BILIRUBIN TOTAL (test code = BILT) 0.40 mg/dL 0.0-1.0 N BILIRUBIN DIRECT (test code = BILD) 0.08 mg/dL 0.0-0.20 N SGOT/AST (test code = AST) 25 IUnit/L 15-37 N SGPT/ALT (test code = ALT) 39 IUnit/L 12-78 N ALKALINE PHOSPHATASE TOTAL (test code = ALKP) 78 IUnit/L 45-117 N Note change in reference range due to change in reagent. [id number] 20:25:00* Test Item Value Reference Range Interpretation Comments LIPASE (test code = LIP) 91 U/L 73.0-393.0 N [id number] 20:25:00* Test Item Value Reference Range Interpretation Comments MAGNESIUM (test code = MAG) 2.5 mg/dL 1.8-2.4 H HCG SERUM [id number] 20:25:00* Test Item Value Reference Range Interpretation Comments HCG SERUM QUAL (test code = HCGQL) NEGATIVE NEGATIVE This HCGQL test is NOT applicable for MALE patients.Check with nurse about probable order error.If Tumor Marker Test needed, nurse should order test "HCGTU"(Test #550.56858) PROTHROMBIN [id number] 20:16:00* Test Item Value Reference Range Interpretation Comments PROTHROMBIN TIME PATIENT (test code = PTP) 11.2 seconds 9.0-14.0 N INTERNATIONAL NORMAL RATIO (test [...] (2.5-3.5) IS PATIENT ON ANTICOAGULANTS? NTHROMBOPLASTIN TIME [id number] 20:16:00* Test Item Value Reference Range Interpretation Comments THROMBOPLASTIN TIME PARTIAL (test code = PTT) 32.0 seconds 23.0-37. 0 N IS PATIENT ON ANTICOAGULANTS? NBASIC METABOLIC [id number] 20:14:00* Test Item Value Reference Range Interpretation Comments SODIUM (test code = NA) 141 mmol/L 136-145 N POTASSIUM (test code = K) 4.2 mmol/L 3.5-5.1 N CHLORIDE (test code = CL) 108.0 mmol/L 98-107 H CARBON DIOXIDE (test code [...] code = CA) mg/dL 8.5-10.1 HEPATIC FUNCTION [id number] 20:14:00* Test Item Value Reference Range Interpretation Comments [...] TOTAL (test code = ALKP) IUnit/L 45-117 [id number] 20:14:00* Test Item Value Reference Range Interpretation Comments LIPASE (test code = LIP) U/L 73.0-393.0 [id number] 20:14:00* Test Item Value Reference Range Interpretation Comments MAGNESIUM (test code = MAG) mg/dL 1.8-2.4 HCG SERUM [id number] 20:14:00* Test Item Value Reference Range Interpretation Comments HCG SERUM QUAL (test code = HCGQL) NEGATIVE NEGATIVE This HCGQL test is NOT applicable for MALE patients.Check with nurse about probable order error.If Tumor Marker Test needed, nurse should order test "HCGTU"(Test #550.40083) BASIC METABOLIC [id number] 20:12:00* Test Item Value Reference Range Interpretation Comments [...] code = CA) mg/dL 8.5-10.1 HEPATIC FUNCTION [id number] 20:12:00* Test Item Value Reference Range Interpretation Comments [...] TOTAL (test code = ALKP) IUnit/L 45-117 [id number] 20:12:00* Test Item Value Reference Range Interpretation Comments LIPASE (test code = LIP) U/L 73.0-393.0 [id number] 20:12:00* Test Item Value Reference Range Interpretation Comments MAGNESIUM (test code = MAG) mg/dL 1.8-2.4 HCG SERUM [id number] 20:12:00* Test Item Value Reference Range Interpretation Comments HCG SERUM QUAL (test code = HCGQL) NEGATIVE NEGATIVE This HCGQL test is NOT applicable for MALE patients.Check with nurse about probable order error.If Tumor Marker Test needed, nurse should order test "HCGTU"(Test #550.16234) CBC W/O [id number] 20:09:00* Test Item Value Reference Range Interpretation Comments WHITE BLOOD CELL (test code = WBC) 9.0 K/mm3 4.5-12.5 N RED BLOOD CELL (test code = RBC) 4.34 mill/mm3 3.7-5.2 N HEMOGLOBIN (test code = HGB) 13.7 gram/dL 11.5-15.5 N HEMATOCRIT (test code = HCT) 42.4 % 36.0-46.0 N MEAN CELL VOLUME (test code = MCV) 97.7 fL 80-98 N MEAN CELL HGB (test code = MCH) 31.6 picogram 27.0-33.0 N MEAN CELL HGB CONCETRATION (test code = MCHC) 32.3 gram/dL 33.0-36. 0 L RED CELL DISTRIBUTION WIDTH (test code = RDW) 13.8 % 11.6-16. 2 N PLATELET COUNT (test code = PLT) 335 K/mm3 150-450 N MEAN PLATELET VOLUME (test code = MPV) 9.5 fL 6.7-11.0 N - CT HEAD/BRAIN W/O [id number] 19:16:00 Name: MADISYN GONZALES [facility] : 1965 Age/S: 54 / F [address] [facility] Unit #: [id number] Loc: [place] [address] Phys: Ethel Phelps MD Acct: [id number] Dis Date: Status: REG ER PHONE #: [phone] Exam Date: 07/20/2019 190 FAX #: [phone] Reason: headache EXAMS: CPT CODE: [id number] CT HEAD/BRAIN W/O CONT 01496 HISTORY: headache TECHNIQUE: Noncontrast 2.[address] of the head. Examination acquired within 24 hours of arrival. Automated exposure control for dose reduction. COMPARISON: CT scan of the brain March 14, 2019 FINDINGS: No lacerations or contusions of the scalp or facial soft tissues. Calvarium and skull base are intact. No acute hemorrhage. No intracranial mass, mass effect, or midline shift. No effacement of the sulci or malik-white matter interface. No cortical atrophy. No signs of white matter small-vessel disease. No hydrocephalus.. No extra-axial fluid collection. The ventricles are asymmetric however this is unchanged from the prior exam and likely represents normal anatomic variant. Visualized paranasal sinuses are clear. Mastoid air cells are underpneumatized. Middle ear ear cavities are clear. Orbital contents are unremarkable. IMPRESSION: Negative CT head. Location: RR El ectronically Signed by Jayson Brooks MD on 07/20/2019 at 1916 Reported and signed by: Jayson Brooks MD CC: Devin Wright MD; Ethel Caicedo MD Technologist:Adeel Bear RT(R)(CT) CTDI: DLP: Trnscb Date/Time: 07/20/2019 (1915) t.SDR.[id number] Orig Print D/T: S: 07/20/2019 (1918) PAGE 1 S igned Report Urine opiates screening test 2019-07-14 02:00:00* Test Item Value Reference Range Interpretation Comments Urine Opiates Screen (test code = 49584-1) POSITIVE NEGATIVE This test provides only a screen. Positive results should be repeated by a confi rmatory test.[facility], urine 2019-07-14 02:00:00* Test Item Value Reference Range Interpretation Comments Urine Barbiturates Screen (test code = 322565495) NEGATIVE NEGA TIVE [facility]entonU[facility] phencyclidine detection by screening [id number] 02:00:00* Test Item Value Reference Range Interpretation Comments Urine Phencyclidine Screen (test code = 69217-5) NEGATIVE NEGAT SESAR [facility] amphetamines detection by screen method > 1000 [id number] 02:00:00* Test Item Value Reference Range Interpretation Comments Urine Amphetamines Screen (test code = 89555-1) NEGATIVE NEGATI VE [facility]entonFluoroscopic procedure less than one hour [id number] 02:00:00* Test Item Value Reference Range Interpretation Comments Urine Methamphetamines Screen (test code = Urine Metha mphetamines Screen) NEGATIVE NEGATIVE [facility]enton[facility] benzodiazepines detection by screening [id number] 02:00:00* Test Item Value Reference Range Interpretation Comments Urine Benzodiazepines Screen (test code = 02699-6) NEGATIVE NEG ATIVE [facility]entonUrine cocaine measurement (mass/volume) 2019-07-14 02:00:00* Test Item Value Reference Range Interpretation Comments Urine Cocaine Screen (test code = 3398-5) NEGATIVE NEGATIVE [facility]enton[facility] cannabinoids detection by screening [id number] 02:00:00* Test Item Value Reference Range Interpretation Comments Urine Cannabinoids Screen (test code = 22345-7) NEGATIVE NEGATI VE THESE RESULTS ARE FOR MEDICAL TREATMENT ONLYTHIS REPORT CONTAINS UNCONFIR MED SCREENING RESULTS*POSITIVE RESULTS WILL BE CONFIRMED BY REFERENCE LAB UPON R EQUEST CUT-OFFDRUG CLASS CONCENTRATION ng/mLAmphetamines 1000Methamphetamines 1000Cocaine 300Opiate 300Phencyc lidine 25Cannabinoid 50Barbiturates 300Benzodiazepine 300Methadone 300[facility] Center[facility]adone [id number] 02:00:00* Test Item Value Reference Range Interpretation Comments Urine Methadone Screen (test code = 40595-1) NEGATIVE NEGATIVE THESE RESULTS ARE FOR MEDICAL TREATMENT ONLYTHIS REPORT CONTAINS UNCONFIR MED SCREENING RESULTS*POSITIVE RESULTS WILL BE CONFIRMED BY REFERENCE LAB UPON R EQUEST CUT-OFFDRUG CLASS CONCENTRATION ng/mLAmphetamines 1000Methamphetamines 1000Cocaine Metabolite 300Opiate 300Phencyc lidine 25Cannabinoid 50Barbiturates 300Benzodiazepine 300Methadone 300[facility] CenterUrine opiates screening [id number] 02:00:00* Test Item Value Reference Range Interpretation Comments Urine Opiates Screen (test code = 34554-4) POSITIVE NEGATIVE This test provides only a screen. Positive results should be repeated by a confi rmatory test.[facility]enton[facility]bit[facility]ates screen, urine 2019-07-14 02:00:00* Test Item Value Reference Range Interpretation Comments Urine Barbiturates Screen (test code = 983414177) NEGATIVE NEGA TIVE [facility]entonUrine phencyclidine detection by screening [id number] 02:00:00* Test Item Value Reference Range Interpretation Comments Urine Phencyclidine Screen (test code = 72037-1) NEGATIVE NEGAT SESAR [facility]enton[facility] amphetamines detection by screen method > 1000 [id number] 02:00:00* Test Item Value Reference Range Interpretation Comments Urine Amphetamines Screen (test code = 28497-5) NEGATIVE NEGATI VE [facility]entonFluoroscopic procedure less than one hour [id number] 02:00:00* Test Item Value Reference Range Interpretation Comments Urine Methamphetamines Screen (test code = Urine Metha mphetamines Screen) NEGATIVE NEGATIVE [facility]enton[facility] benzodiazepines detection by screening [id number] 02:00:00* Test Item Value Reference Range Interpretation Comments Urine Benzodiazepines Screen (test code = 60251-1) NEGATIVE NEG ATIVE [facility]entonU[facility] cocaine measurement (mass/volume) 2019-07-14 02:00:00* Test Item Value Reference Range Interpretation Comments Urine Cocaine Screen (test code = 3398-5) NEGATIVE NEGATIVE [facility]entonU[facility] cannabinoids detection by screening [id number] 02:00:00* Test Item Value Reference Range Interpretation Comments Urine Cannabinoids Screen (test code = 00709-8) NEGATIVE NEGATI VE THESE RESULTS ARE FOR MEDICAL TREATMENT ONLYTHIS REPORT CONTAINS UNCONFIR MED SCREENING RESULTS*POSITIVE RESULTS WILL BE CONFIRMED BY REFERENCE LAB UPON R EQUEST CUT-OFFDRUG CLASS CONCENTRATION ng/mLAmphetamines 1000Methamphetamines 1000Cocaine 300Opiate 300Phencyc lidine 25Cannabinoid 50Barbiturates 300Benzodiazepine 300Methadone 300[facility]entonUrine methadone [id number] 02:00:00* Test Item Value Reference Range Interpretation Comments Urine Methadone Screen (test code = 36522-7) NEGATIVE NEGATIVE THESE RESULTS ARE FOR MEDICAL TREATMENT ONLYTHIS REPORT CONTAINS UNCONFIR MED SCREENING RESULTS*POSITIVE RESULTS WILL BE CONFIRMED BY REFERENCE LAB UPON R EQUEST CUT-OFFDRUG CLASS CONCENTRATION ng/mLAmphetamines 1000Methamphetamines 1000Cocaine Metabolite 300Opiate 300Phencyc lidine 25Cannabinoid 50Barbiturates 300Benzodiazepine 300Methadone 300[facility]entonUrine opiates screening [id number] 02:00:00* Test Item Value Reference Range Interpretation Comments Urine Opiates Screen (test code = 29294-8) POSITIVE NEGATIVE This test provides only a screen. Positive results should be repeated by a confi rmatory test.[facility]entonBarbiturates screen, urine 2019-07-14 02:00:00* Test Item Value Reference Range Interpretation Comments Urine Barbiturates Screen (test code = 703955004) NEGATIVE NEGA TIVE [facility]entonUrine phencyclidine detection by screening [id number] 02:00:00* Test Item Value Reference Range Interpretation Comments Urine Phencyclidine Screen (test code = 99980-3) NEGATIVE NEGAT SESAR [facility]entonUrine amphetamines detection by screen method > 1000 [id number] 02:00:00* Test Item Value Reference Range Interpretation Comments Urine Amphetamines Screen (test code = 07440-0) NEGATIVE NEGATI VE [facility]entonFluoroscopic procedure less than one hour [id number] 02:00:00* Test Item Value Reference Range Interpretation Comments Urine Methamphetamines Screen (test code = Urine Metha mphetamines Screen) NEGATIVE NEGATIVE [facility]entonUrine benzodiazepines detection by screening [id number] 02:00:00* Test Item Value Reference Range Interpretation Comments Urine Benzodiazepines Screen (test code = 52571-5) NEGATIVE NEG ATIVE [facility]entonUrine cocaine measurement (mass/volume) 2019-07-14 02:00:00* Test Item Value Reference Range Interpretation Comments Urine Cocaine Screen (test code = 3398-5) NEGATIVE NEGATIVE [facility]entonUrine cannabinoids detection by screening [id number] 02:00:00* Test Item Value Reference Range Interpretation Comments Urine Cannabinoids Screen (test code = 93142-9) NEGATIVE NEGATI VE THESE RESULTS ARE FOR MEDICAL TREATMENT ONLYTHIS REPORT CONTAINS UNCONFIR MED SCREENING RESULTS*POSITIVE RESULTS WILL BE CONFIRMED BY REFERENCE LAB UPON R EQUEST CUT-OFFDRUG CLASS CONCENTRATION ng/mLAmphetamines 1000Methamphetamines 1000Cocaine 300Opiate 300Phencyc lidine 25Cannabinoid 50Barbiturates 300Benzodiazepine 300Methadone 300[facility]entonUrine methadone [id number] 02:00:00* Test Item Value Reference Range Interpretation Comments Urine Methadone Screen (test code = 51410-2) NEGATIVE NEGATIVE THESE RESULTS ARE FOR MEDICAL TREATMENT ONLYTHIS REPORT CONTAINS UNCONFIR MED SCREENING RESULTS*POSITIVE RESULTS WILL BE CONFIRMED BY REFERENCE LAB UPON R EQUEST CUT-OFFDRUG CLASS CONCENTRATION ng/mLAmphetamines 1000Methamphetamines 1000Cocaine Metabolite 300Opiate 300Phencyc lidine 25Cannabinoid 50Barbiturates 300Benzodiazepine 300Methadone 300[facility]entonBlood leukocytes automated count (number/volume) 2019-07-14 01:51:00* Test Item Value Reference Range Interpretation Comments White Blood Count (test code = 6690-2) 10.91 4.8-10.8 [facility]entonBlood erythrocytes automated count (number/volume)2019-07-14 01:51:00* Test Item Value Reference Range Interpretation Comments Red Blood Count (test code = 789-8) 3.81 3.6-5.1 [facility]entonBlood hemoglobin measurement (moles/volume)2019-07-14 01:51:00* Test Item Value Reference Range Interpretation Comments Hemoglobin (test code = 59741-4) 11.8 12.0-16.0 [facility]entonAutomated blood hematocrit (volume fraction)2019-07-14 01:51:00* Test Item Value Reference Range Interpretation Comments Hematocrit (test code = 4544-3) 37.6 34.2-44.1 [facility]entonAutomated erythrocyte mean corpuscular [id number] 01:51:00* Test Item Value Reference Range Interpretation Comments Mean Corpuscular Volume (test code = 787-2) 98.7 81-99 [facility]entonAutomated erythrocyte mean corpuscular hemoglobin (mass per erythrocyte)2019-07-14 01:51:00* Test Item Value Reference Range Interpretation Comments Mean Corpuscular Hemoglobin (test code = 785-6) 31.0 28-32 [facility]entonAutfirsthealth erythrocyte mean corpuscular hemoglobin concentration measurement (mass/volume)2019-07-14 01:51:00* Test Item Value Reference Range Interpretation Comments Mean Corpuscular Hemoglobin Concent (test code = 786-4) 31.4 31-35 [facility] DentonRDW [id number]-[id number] 01:51:00* Test Item Value Reference Range Interpretation Comments Red Cell Distribution Width (test code = 74326-1) 13.7 11.7 -14.4 [facility]Aut[facility] hospitaled [facility] platelet count (count/volume)2019-07-14 01:51:00* Test Item Value Reference Range Interpretation Comments Platelet Count (test code = 777-3) 366 140-360 [facility]entonAut[facility] hospitaled blood segmented neutrophil count as percentage of total oddfzbumkj8336-05-38 01:51:00* Test Item Value Reference Range Interpretation Comments Neutrophils (%) (Auto) (test code = 13422-8) 78.1 38.7-80.0 [facility]entonAutomated blood lymphocyte count as percentage ot total roklaryesz9437-11-22 01:51:00* Test Item Value Reference Range Interpretation Comments Lymphocytes (%) (Auto) (test code = 736-9) 14.1 18.0-39.1 [facility]entonAutomated blood monocyte count as percentage of total nomydpbopy7065-12-31 01:51:00* Test Item Value Reference Range Interpretation Comments Monocytes (%) (Auto) (test code = 5905-5) 6.9 4.4-11.3 [facility] DentonAutomated blood eosinophil count as percentage of total ryuhgqcajd8578-89-35 01:51:00* Test Item Value Reference Range Interpretation Comments Eosinophils (%) (Auto) (test code = 713-8) 0.1 0.0-6.0 [facility]entonAutomated blood basophil count as percentage of total iikmkdaxmi8854-84-51 01:51:00* Test Item Value Reference Range Interpretation Comments Basophils (%) (Auto) (test code = 706-2) 0.4 0.0-1.0 [facility]entonFluoroscopic procedure less than one hour [id number] 01:51:00* Test Item Value Reference Range Interpretation Comments IM GRANULOCYTES % (test code = IM GRANULOCYTES %) 0.4 0.0- 1.0 [facility]entonAutomated blood neutrophil count 2019-07-14 01:51:00* Test Item Value Reference Range Interpretation Comments Neutrophils # (Auto) (test code = 751-8) 8.5 2.1-6.9 [facility]entonBlood lymphocytes count (number/volume) 2019-07-14 01:51:00* Test Item Value Reference Range Interpretation Comments Lymphocytes # (Auto) (test code = 03129-7) 1.5 1.0-3.2 [facility]entonBlood monocytes automated count (number/volume)2019-07-14 01:51:00* Test Item Value Reference Range Interpretation Comments Monocytes # (Auto) (test code = 742-7) 0.8 0.2-0.8 [facility]entonAutomated blood eosinophil count 2019-07-14 01:51:00* Test Item Value Reference Range Interpretation Comments Eosinophils # (Auto) (test code = 711-2) 0.0 0.0-0.4 [facility]entonAutomated blood basophil count (count/volume)2019-07-14 01:51:00* Test Item Value Reference Range Interpretation Comments Basophils # (Auto) (test code = 704-7) 0.0 0.0-0.1 [facility] DentonFluoroscopic procedure less than one hour [id number] 01:51:00* Test Item Value Reference Range Interpretation Comments Absolute Immature Granulocyte (auto (amos t code = Absolute Immature Granulocyte (auto) 0.04 0-0.1 [facility] DentonProthrombin time (PT) in platelet poor plasma by coagulation [id number] 01:51:00* Test Item Value Reference Range Interpretation Comments Prothrombin Time (test code = 5902-2) 11.8 11.9-14.5 [facility] DentonINR in Platelet poor plasma by Coagulation [id number] 01:51:00* Test Item Value Reference Range Interpretation Comments Prothromb Time International Ratio (test code = 6301-6) 0.82 Oral Anticoagulant Therapy INR Values:1. Low Intensity Therapy 1.5 - 2.02 . Moderate Intensity Therapy 2.0 - 3.03. High Intensity Therapy(1) 2.5 - 3. 54. High Intensity Therapy(2) 3.0 - 4.05. Panic Value INR > 5.0 [facility] plasma sodium measurement (moles/volume)2019-07-14 01:51:00* Test Item Value Reference Range Interpretation Comments Sodium Level (test code = 2951-2) 138 136-145 [facility] plasma potassium measurement (moles/volume)2019-07-14 01:51:00* Test Item Value Reference Range Interpretation Comments Potassium Level (test code = 2823-3) 3.9 3.5-5.1 [facility] Arlingtonerum or plasma chloride measurement (moles/volume)2019-07-14 01:51:00* Test Item Value Reference Range Interpretation Comments Chloride Level (test code = 2075-0) 105 98-107 [facility] Arlingtonerum or plasma carbon dioxide, total measurement (moles/volume)2019-07-14 01:51:00* Test Item Value Reference Range Interpretation Comments Carbon Dioxide Level (test code = 2028-9) 22 22-29 [facility] Arlingtonerum or plasma anion [id number] 01:51:00* Test Item Value Reference Range Interpretation Comments Anion Gap (test code = 70923-8) 14.9 8-16 [facility] Arlingtonerum or plasma urea nitrogen measurement (mass/volume)2019-07-14 01:51:00* Test Item Value Reference Range Interpretation Comments Blood Urea Nitrogen (test code = 3094-0) 16 7-26 [facility]er[facility] or plasma creatinine measurement (mass/volume)2019-07-14 01:51:00* Test Item Value Reference Range Interpretation Comments Creatinine (test code = 2160-0) 0.78 0.57-1.11 [facility] or plasma urea nitrogen/creatinine mass vrvnq5021-88-85 01:51:00* Test Item Value Reference Range Interpretation Comments BUN/Creatinine Ratio (test code = 3097-3) 21 6-25 [facility]entonEstimated glomerular filtration rate (GFR) jpcpkbpuwhycp8383-14-66 01:51:00* Test Item Value Reference Range Interpretation Comments Estimat Glomerular Filtration Rate (test code = 692430251) > 60 >60 Ranges were taken from the National Kidney Disease Education Program and the [facility] Kidney Foundation literature.Reference ranges:60 or greater: Xaalor50-99 ( for 3 consecutive months): Chronic kidney disease 15 or less: Kidney failureTexas Health DentonGlucose oszhmtccxxv0040-31-74 01:51:00* Test Item Value Reference Range Interpretation Comments Glucose Level (test code = EBV3617) 116 74-118 [facility]er[facility] or plasma calcium measurement (mass/volume)2019-07-14 01:51:00* Test Item Value Reference Range Interpretation Comments Calcium Level (test code = 90774-6) 9.7 8.4-10.2 [facility] total bilirubin [facility] (mass/volume)2019-07-14 01:51:00* Test Item Value Reference Range Interpretation Comments Total Bilirubin (test code = 1975-2) 0.3 0.2-1.2 [facility] procedure less than one hour okfkkmkx1686-40-48 01:51:00* Test Item Value Reference Range Interpretation Comments Aspartate Amino Transf (AST/SGOT) (test code = Aspartate Amino Transf (AST/SGOT)) 20 5-34 [facility] alanine aminotransferase measurement (enzymatic activity/volume)2019-07-14 01:51:00* Test Item Value Reference Range Interpretation Comments Alanine Aminotransferase (ALT/SGPT) (test code = 1742-6) 37 0-55 [facility] protein measurement (mass/volume)2019-07-14 01:51:00* Test Item Value Reference Range Interpretation Comments Total Protein (test code = 2885-2) 6.8 6.5-8.1 [facility] albumin measurement (mass/volume)2019-07-14 01:51:00* Test Item Value Reference Range Interpretation Comments Albumin (test code = 1751-7) 4.1 3.5-5.0 [facility] globulin measurement (mass/volume) 2019-07-14 01:51:00* Test Item Value Reference Range Interpretation Comments Globulin (test code = 44261-9) 2.7 2.3-3.5 [facility] albumin/globulin mass uppjm9038-62-59 01:51:00* Test Item Value Reference Range Interpretation Comments Albumin/Globulin Ratio (test code = 1759-0) 1.5 0.8-2.0 [facility] alkaline phosphatase measurement (enzymatic activity/volume)2019-07-14 01:51:00* Test Item Value Reference Range Interpretation Comments Alkaline Phosphatase (test code = 6768-6) 62 40-150 [facility] creatine kinase measurement (enzymatic activity/volume)2019-07-14 01:51:00* Test Item Value Reference Range Interpretation Comments Creatine Kinase (test code = 2157-6) 120 29-168 [facility] creatine kinase MB measurement (mass/volume)2019-07-14 01:51:00* Test Item Value Reference Range Interpretation Comments Creatine Kinase MB (test code = 01503-4) 1.90 0-5.0 [facility]entonTroponin I measurement by highly sensitive enzyme dqzjyoaotle7647-37-25 01:51:00* Test Item Value Reference Range Interpretation Comments Troponin I (test code = 40091-7) < 0.001 0-0.300 [facility] leukocytes automated count (number/volume)2019-07-14 01:51:00* Test Item Value Reference Range Interpretation Comments White Blood Count (test code = 6690-2) 10.91 4.8-10.8 [facility] erythrocytes automated count (number/volume)2019-07-14 01:51:00* Test Item Value Reference Range Interpretation Comments Red Blood Count (test code = 789-8) 3.81 3.6-5.1 [facility] hemoglobin measurement (moles/volume)2019-07-14 01:51:00* Test Item Value Reference Range Interpretation Comments Hemoglobin (test code = 12901-8) 11.8 12.0-16.0 [facility]Autom[facility] blood hematocrit (volume fraction)2019-07-14 01:51:00* Test Item Value Reference Range Interpretation Comments Hematocrit (test code = 4544-3) 37.6 34.2-44.1 [facility]entonAutomated erythrocyte mean corpuscular pdfpmr3605-65-83 01:51:00* Test Item Value Reference Range Interpretation Comments Mean Corpuscular Volume (test code = 787-2) 98.7 81-99 [facility]entonAutomated erythrocyte mean corpuscular hemoglobin (mass per erythrocyte)2019-07-14 01:51:00* Test Item Value Reference Range Interpretation Comments Mean Corpuscular Hemoglobin (test code = 785-6) 31.0 28-32 [facility]entonAutomated erythrocyte mean corpuscular hemoglobin concentration measurement (mass/volume)2019-07-14 01:51:00* Test Item Value Reference Range Interpretation Comments Mean Corpuscular Hemoglobin Concent (test code = 786-4) 31.4 31-35 [facility]entonRDW IjxPk-Vwc9800-25-31 01:51:00* Test Item Value Reference Range Interpretation Comments Red Cell Distribution Width (test code = 08734-6) 13.7 11.7 -14.4 [facility]entonAutomated blood platelet count (count/volume)2019-07-14 01:51:00* Test Item Value Reference Range Interpretation Comments Platelet Count (test code = 777-3) 366 140-360 [facility]entonAutomated blood segmented neutrophil count as percentage of total dixkrwxvhg6128-78-48 01:51:00* Test Item Value Reference Range Interpretation Comments Neutrophils (%) (Auto) (test code = 35010-3) 78.1 38.7-80.0 [facility]entonAutomated blood lymphocyte count as percentage ot total cwudobzgfi8890-31-33 01:51:00* Test Item Value Reference Range Interpretation Comments Lymphocytes (%) (Auto) (test code = 736-9) 14.1 18.0-39.1 [facility]entonAutomated blood monocyte count as percentage of total eihzzxmfce9165-00-26 01:51:00* Test Item Value Reference Range Interpretation Comments Monocytes (%) (Auto) (test code = 5905-5) 6.9 4.4-11.3 [facility]entonAutomated blood eosinophil count as percentage of total jctuxpduuw7929-33-91 01:51:00* Test Item Value Reference Range Interpretation Comments Eosinophils (%) (Auto) (test code = 713-8) 0.1 0.0-6.0 [facility]entonAutomated blood basophil count as percentage of total gfkcdxwkaq8301-20-66 01:51:00* Test Item Value Reference Range Interpretation Comments Basophils (%) (Auto) (test code = 706-2) 0.4 0.0-1.0 [facility]entonFluoroscopic procedure less than one hour fnqfpgye4021-59-01 01:51:00* Test Item Value Reference Range Interpretation Comments IM GRANULOCYTES % (test code = IM GRANULOCYTES %) 0.4 0.0- 1.0 [facility]entonAutomated blood neutrophil count 2019-07-14 01:51:00* Test Item Value Reference Range Interpretation Comments Neutrophils # (Auto) (test code = 751-8) 8.5 2.1-6.9 [facility]entonBlood lymphocytes count (number/volume) 2019-07-14 01:51:00* Test Item Value Reference Range Interpretation Comments Lymphocytes # (Auto) (test code = 52104-0) 1.5 1.0-3.2 [facility]entonBlood monocytes automated count (number/volume)2019-07-14 01:51:00* Test Item Value Reference Range Interpretation Comments Monocytes # (Auto) (test code = 742-7) 0.8 0.2-0.8 [facility]Automated blood eosinophil count 2019-07-14 01:51:00* Test Item Value Reference Range Interpretation Comments Eosinophils # (Auto) (test code = 711-2) 0.0 0.0-0.4 [facility]Automated blood basophil count (count/volume)2019-07-14 01:51:00* Test Item Value Reference Range Interpretation Comments Basophils # (Auto) (test code = 704-7) 0.0 0.0-0.1 [facility]entonFluoroscopic procedure less than one hour vdwwccca6184-26-81 01:51:00* Test Item Value Reference Range Interpretation Comments Absolute Immature Granulocyte (auto (amos t code = Absolute Immature Granulocyte (auto) 0.04 0-0.1 [facility]entonProthrombin time (PT) in platelet poor plasma by coagulation jyczt4052-23-02 01:51:00* Test Item Value Reference Range Interpretation Comments Prothrombin Time (test code = 5902-2) 11.8 11.9-14.5 [facility]entonINR in Platelet poor plasma by Coagulation wphqg0420-18-32 01:51:00* Test Item Value Reference Range Interpretation Comments Prothromb Time International Ratio (test code = 6301-6) 0.82 Oral Anticoagulant Therapy INR Values:1. Low Intensity Therapy 1.5 - 2.02 . Moderate Intensity Therapy 2.0 - 3.03. High Intensity Therapy(1) 2.5 - 3. 54. High Intensity Therapy(2) 3.0 - 4.05. Panic Value INR > 5.0 [facility] sodium measurement (moles/volume)2019-07-14 01:51:00* Test Item Value Reference Range Interpretation Comments Sodium Level (test code = 2951-2) 138 136-145 [facility] potassium measurement (moles/volume)2019-07-14 01:51:00* Test Item Value Reference Range Interpretation Comments Potassium Level (test code = 2823-3) 3.9 3.5-5.1 [facility] chloride measurement (moles/volume)2019-07-14 01:51:00* Test Item Value Reference Range Interpretation Comments Chloride Level (test code = 2075-0) 105 98-107 [facility] carbon dioxide, total measurement (moles/volume)2019-07-14 01:51:00* Test Item Value Reference Range Interpretation Comments Carbon Dioxide Level (test code = 2028-9) 22 22-29 [facility] anion voo0531-03-36 01:51:00* Test Item Value Reference Range Interpretation Comments Anion Gap (test code = 61981-3) 14.9 8-16 [facility] urea nitrogen measurement (mass/volume)2019-07-14 01:51:00* Test Item Value Reference Range Interpretation Comments Blood Urea Nitrogen (test code = 3094-0) 16 7-26 [facility] creatinine measurement (mass/volume)2019-07-14 01:51:00* Test Item Value Reference Range Interpretation Comments Creatinine (test code = 2160-0) 0.78 0.57-1.11 [facility] urea nitrogen/creatinine mass yteid8261-02-89 01:51:00* Test Item Value Reference Range Interpretation Comments BUN/Creatinine Ratio (test code = 3097-3) 21 6-25 [facility]entonEstimated glomerular filtration rate (GFR) awdaoyekcynaj0156-52-18 01:51:00* Test Item Value Reference Range Interpretation Comments Estimat Glomerular Filtration Rate (test code = 953139393) > 60 >60 Ranges were taken from the National Kidney Disease Education Program and the [facility] Foundation literature.Reference ranges:60 or greater: Ixcsnr17-48 ( for 3 consecutive months): Chronic kidney disease 15 or less: Kidney failureTexas Health DentonGlucose axtdhkfzqhy4530-51-26 01:51:00* Test Item Value Reference Range Interpretation Comments Glucose Level (test code = QGF0881) 116 74-118 [facility] calcium measurement (mass/volume)2019-07-14 01:51:00* Test Item Value Reference Range Interpretation Comments Calcium Level (test code = 77981-2) 9.7 8.4-10.2 [facility] total bilirubin measurement (mass/volume)2019-07-14 01:51:00* Test Item Value Reference Range Interpretation Comments Total Bilirubin (test code = 1975-2) 0.3 0.2-1.2 [facility]entonFluoroscopic procedure less than one hour nmwjhufr9865-68-79 01:51:00* Test Item Value Reference Range Interpretation Comments Aspartate Amino Transf (AST/SGOT) (test code = Aspartate Amino Transf (AST/SGOT)) 20 5-34 [facility] alanine aminotransferase measurement (enzymatic activity/volume)2019-07-14 01:51:00* Test Item Value Reference Range Interpretation Comments Alanine Aminotransferase (ALT/SGPT) (test code = 1742-6) 37 0-55 [facility] protein measurement (mass/volume)2019-07-14 01:51:00* Test Item Value Reference Range Interpretation Comments Total Protein (test code = 2885-2) 6.8 6.5-8.1 [facility] albumin measurement (mass/volume)2019-07-14 01:51:00* Test Item Value Reference Range Interpretation Comments Albumin (test code = 1751-7) 4.1 3.5-5.0 [facility]entonPlasma globulin measurement (mass/volume) 2019-07-14 01:51:00* Test Item Value Reference Range Interpretation Comments Globulin (test code = 89931-5) 2.7 2.3-3.5 [facility] albumin/globulin mass wifar8263-10-80 01:51:00* Test Item Value Reference Range Interpretation Comments Albumin/Globulin Ratio (test code = 1759-0) 1.5 0.8-2.0 [facility] alkaline phosphatase measurement (enzymatic activity/volume)2019-07-14 01:51:00* Test Item Value Reference Range Interpretation Comments Alkaline Phosphatase (test code = 6768-6) 62 40-150 [facility] creatine kinase measurement (enzymatic activity/volume)2019-07-14 01:51:00* Test Item Value Reference Range Interpretation Comments Creatine Kinase (test code = 2157-6) 120 29-168 [facility] creatine kinase MB measurement (mass/volume)2019-07-14 01:51:00* Test Item Value Reference Range Interpretation Comments Creatine Kinase MB (test code = 05043-9) 1.90 0-5.0 [facility]entonTroponin I measurement by highly sensitive enzyme xolfrughaba1149-07-66 01:51:00* Test Item Value Reference Range Interpretation Comments Troponin I (test code = 79815-0) < 0.001 0-0.300 [facility] leukocytes automated count (number/volume)2019-07-14 01:51:00* Test Item Value Reference Range Interpretation Comments White Blood Count (test code = 6690-2) 10.91 4.8-10.8 [facility]entonBlood erythrocytes automated count (number/volume)2019-07-14 01:51:00* Test Item Value Reference Range Interpretation Comments Red Blood Count (test code = 789-8) 3.81 3.6-5.1 [facility]entonBlood hemoglobin measurement (moles/volume)2019-07-14 01:51:00* Test Item Value Reference Range Interpretation Comments Hemoglobin (test code = 30449-1) 11.8 12.0-16.0 [facility]entonAutomated blood hematocrit (volume fraction)2019-07-14 01:51:00* Test Item Value Reference Range Interpretation Comments Hematocrit (test code = 4544-3) 37.6 34.2-44.1 [facility]Automated erythrocyte mean corpuscular nifbtm1161-76-77 01:51:00* Test Item Value Reference Range Interpretation Comments Mean Corpuscular Volume (test code = 787-2) 98.7 81-99 [facility]Automated erythrocyte mean corpuscular hemoglobin (mass per erythrocyte)2019-07-14 01:51:00* Test Item Value Reference Range Interpretation Comments Mean Corpuscular Hemoglobin (test code = 785-6) 31.0 28-32 [facility]entonAutomated erythrocyte mean corpuscular hemoglobin concentration measurement (mass/volume)2019-07-14 01:51:00* Test Item Value Reference Range Interpretation Comments Mean Corpuscular Hemoglobin Concent (test code = 786-4) 31.4 31-35 [facility]entonRDW SoxNx-Whb9203-91-31 01:51:00* Test Item Value Reference Range Interpretation Comments Red Cell Distribution Width (test code = 33933-1) 13.7 11.7 -14.4 [facility]entonAutomated blood platelet count (count/volume)2019-07-14 01:51:00* Test Item Value Reference Range Interpretation Comments Platelet Count (test code = 777-3) 366 140-360 [facility]entonAutomated blood segmented neutrophil count as percentage of total auelyvzozj1269-62-08 01:51:00* Test Item Value Reference Range Interpretation Comments Neutrophils (%) (Auto) (test code = 19449-1) 78.1 38.7-80.0 [facility]entonAutomated blood lymphocyte count as percentage ot total elnyiozhow8219-71-22 01:51:00* Test Item Value Reference Range Interpretation Comments Lymphocytes (%) (Auto) (test code = 736-9) 14.1 18.0-39.1 [facility]Automated blood monocyte count as percentage of total qdgdghoyag5375-09-15 01:51:00* Test Item Value Reference Range Interpretation Comments Monocytes (%) (Auto) (test code = 5905-5) 6.9 4.4-11.3 [facility]Automated blood eosinophil count as percentage of total ozssyhmkcf8694-43-42 01:51:00* Test Item Value Reference Range Interpretation Comments Eosinophils (%) (Auto) (test code = 713-8) 0.1 0.0-6.0 [facility]Automated blood basophil count as percentage of total qlgqkkwtkm2619-99-10 01:51:00* Test Item Value Reference Range Interpretation Comments Basophils (%) (Auto) (test code = 706-2) 0.4 0.0-1.0 [facility]entonFluoroscopic procedure less than one hour bltxwfzb0395-25-89 01:51:00* Test Item Value Reference Range Interpretation Comments IM GRANULOCYTES % (test code = IM GRANULOCYTES %) 0.4 0.0- 1.0 [facility]Autom[facility] blood neutrophil count 2019-07-14 01:51:00* Test Item Value Reference Range Interpretation Comments Neutrophils # (Auto) (test code = 751-8) 8.5 2.1-6.9 [facility]Blood lymphocytes count (number/volume) 2019-07-14 01:51:00* Test Item Value Reference Range Interpretation Comments Lymphocytes # (Auto) (test code = 37986-5) 1.5 1.0-3.2 [facility]entonBlood monocytes automated count (number/volume)2019-07-14 01:51:00* Test Item Value Reference Range Interpretation Comments Monocytes # (Auto) (test code = 742-7) 0.8 0.2-0.8 [facility]Autom[facility] blood eosinophil count 2019-07-14 01:51:00* Test Item Value Reference Range Interpretation Comments Eosinophils # (Auto) (test code = 711-2) 0.0 0.0-0.4 [facility]Automated blood basophil count (count/volume)2019-07-14 01:51:00* Test Item Value Reference Range Interpretation Comments Basophils # (Auto) (test code = 704-7) 0.0 0.0-0.1 [facility]entonFluoroscopic procedure less than one hour jjwqnift9028-03-43 01:51:00* Test Item Value Reference Range Interpretation Comments Absolute Immature Granulocyte (auto (amos t code = Absolute Immature Granulocyte (auto) 0.04 0-0.1 [facility]entonProthrombin time (PT) in platelet poor plasma by coagulation nxkxp5036-67-43 01:51:00* Test Item Value Reference Range Interpretation Comments Prothrombin Time (test code = 5902-2) 11.8 11.9-14.5 [facility]entonINR in Platelet poor plasma by Coagulation zgpel3628-53-59 01:51:00* Test Item Value Reference Range Interpretation Comments Prothromb Time International Ratio (test code = 6301-6) 0.82 Oral Anticoagulant Therapy INR Values:1. Low Intensity Therapy 1.5 - 2.02 . Moderate Intensity Therapy 2.0 - 3.03. High Intensity Therapy(1) 2.5 - 3. 54. High Intensity Therapy(2) 3.0 - 4.05. Panic Value INR > 5.0 [facility] sodium measurement (moles/volume)2019-07-14 01:51:00* Test Item Value Reference Range Interpretation Comments Sodium Level (test code = 2951-2) 138 136-145 [facility] potassium measurement (moles/volume)2019-07-14 01:51:00* Test Item Value Reference Range Interpretation Comments Potassium Level (test code = 2823-3) 3.9 3.5-5.1 [facility] chloride measurement (moles/volume)2019-07-14 01:51:00* Test Item Value Reference Range Interpretation Comments Chloride Level (test code = 2075-0) 105 98-107 [facility] plasma carbon dioxide, total measurement (moles/volume)2019-07-14 01:51:00* Test Item Value Reference Range Interpretation Comments Carbon Dioxide Level (test code = 2028-9) 22 22-29 [facility] anion xlg8436-03-60 01:51:00* Test Item Value Reference Range Interpretation Comments Anion Gap (test code = 56969-0) 14.9 8-16 [facility] urea nitrogen measurement (mass/volume)2019-07-14 01:51:00* Test Item Value Reference Range Interpretation Comments Blood Urea Nitrogen (test code = 3094-0) 16 7-26 [facility] creatinine measurement (mass/volume)2019-07-14 01:51:00* Test Item Value Reference Range Interpretation Comments Creatinine (test code = 2160-0) 0.78 0.57-1.11 [facility] urea nitrogen/creatinine mass avaqs6976-52-82 01:51:00* Test Item Value Reference Range Interpretation Comments BUN/Creatinine Ratio (test code = 3097-3) 21 6-25 [facility]entonEstimated glomerular filtration rate (GFR) rmrdyegmlbjbt5111-59-28 01:51:00* Test Item Value Reference Range Interpretation Comments Estimat Glomerular Filtration Rate (test code = 118289156) > 60 >60 Ranges were taken from the National Kidney Disease Education Program and the [facility] literature.Reference ranges:60 or greater: Zxvubk74-24 ( for 3 consecutive months): Chronic kidney disease 15 or less: Kidney failureTexas Health DentonGlucose kwdqylweena9118-55-90 01:51:00* Test Item Value Reference Range Interpretation Comments Glucose Level (test code = LZM2388) 116 74-118 [facility] calcium measurement (mass/volume)2019-07-14 01:51:00* Test Item Value Reference Range Interpretation Comments Calcium Level (test code = 19456-5) 9.7 8.4-10.2 [facility] total bilirubin measurement (mass/volume)2019-07-14 01:51:00* Test Item Value Reference Range Interpretation Comments Total Bilirubin (test code = 1975-2) 0.3 0.2-1.2 [facility]entonFluoroscopic procedure less than one hour uxtqabrh0455-22-68 01:51:00* Test Item Value Reference Range Interpretation Comments Aspartate Amino Transf (AST/SGOT) (test code = Aspartate Amino Transf (AST/SGOT)) 20 5-34 [facility] alanine aminotransferase measurement (enzymatic activity/volume)2019-07-14 01:51:00* Test Item Value Reference Range Interpretation Comments Alanine Aminotransferase (ALT/SGPT) (test code = 1742-6) 37 0-55 [facility] protein measurement (mass/volume)2019-07-14 01:51:00* Test Item Value Reference Range Interpretation Comments Total Protein (test code = 2885-2) 6.8 6.5-8.1 [facility] albumin measurement (mass/volume)2019-07-14 01:51:00* Test Item Value Reference Range Interpretation Comments Albumin (test code = 1751-7) 4.1 3.5-5.0 [facility]entonPlasma globulin measurement (mass/volume) 2019-07-14 01:51:00* Test Item Value Reference Range Interpretation Comments Globulin (test code = 85852-5) 2.7 2.3-3.5 [facility] albumin/globulin mass xijbv9138-18-20 01:51:00* Test Item Value Reference Range Interpretation Comments Albumin/Globulin Ratio (test code = 1759-0) 1.5 0.8-2.0 [facility] alkaline phosphatase measurement (enzymatic activity/volume)2019-07-14 01:51:00* Test Item Value Reference Range Interpretation Comments Alkaline Phosphatase (test code = 6768-6) 62 40-150 [facility] plasma creatine kinase measurement (enzymatic activity/volume)2019-07-14 01:51:00* Test Item Value Reference Range Interpretation Comments Creatine Kinase (test code = 2157-6) 120 29-168 [facility] plasma creatine kinase MB measurement (mass/volume)2019-07-14 01:51:00* Test Item Value Reference Range Interpretation Comments Creatine Kinase MB (test code = 85311-5) 1.90 0-5.0 [facility]entonTroponin I measurement by highly sensitive enzyme moaunxnyihg8065-20-75 01:51:00* Test Item Value Reference Range Interpretation Comments Troponin I (test code = 44056-5) < 0.001 0-0.300 [id number] 02:53:00 [facility] [address] [address] Patient Name: MADISYN GONZALES MR #: [id number] : 1965 Age/Sex: 54/F Req #: [id number] Adm Physician: Ordered by: LINETTE WEST DO Report #: [id number] Location: ER Room/Bed: Procedure: [id number] CT/CT BRAIN WO Exam Date: 07/05/19 Exam Time: 0230 REPORT STATUS: Signed History: Overdose, dizziness Comparison studies: None Technique: Axial images were obtained from the skull base to the vertex. Coronal and sagittal reconstructions obtained from the axial data. Dose modulation, iterative reconstruction, and/or weight based adjustment of the mA/kV was utilized to reduce the radiation dose to as low as reasonably achievable. Findings: Scalp/skull: No abnormali ties. No fractures, blastic or lytic lesions. Extra-axial spaces: No mas ses. No fluid collections. Brain sulci: Appropriate for age. Ventricles: Normal in size and configuration. No hydrocephalus. Parenchyma: No abno rmal densities. No masses, hemorrhage, acute or chronic cortical vascular ins ults. Sellar/suprasellar region: No abnormalities Craniocervical junction : Patent foramen magnum. No Chiari one malformation. IMPRESSION: No a bnormalities . Signed by: DR Ho Lennon M.D. on 07/05/2019 2:59 AM Dictated By: HO FLEMING MD 8 Transcribed By: KATRIN on 07/05/19258 C OPY TO: LINETTE WEST DO Urine opiates screening wtev4548-05-00 01:44:00* Test Item Value Reference Range Interpretation Comments Urine Opiates Screen (test code = 63942-0) POSITIVE NEGATIVE ALL TESTS PERFORMED MANUALLY ON BIORAD TOX/SEE TEST This test provides only a sc reen. Positive results should be repeated by a confirmatory test.[facility]entonBarbiturates screen, ddugm1951-93-94 01:44:00* Test Item Value Reference Range Interpretation Comments Urine Barbiturates Screen (test code = 653830042) NEGATIVE NEGA TIVE [facility] DentonUrine phencyclidine detection by screening eabgnu1289-76-08 01:44:00* Test Item Value Reference Range Interpretation Comments Urine Phencyclidine Screen (test code = 24292-2) NEGATIVE NEGAT SESAR [facility] amphetamines detection by screen method > 1000 ng/mP9367-47-89 01:44:00* Test Item Value Reference Range Interpretation Comments Urine Amphetamines Screen (test code = 05496-3) NEGATIVE NEGATI VE [facility]entonFluoroscopic procedure less than one hour myycbdpn7016-46-76 01:44:00* Test Item Value Reference Range Interpretation Comments Urine Methamphetamines Screen (test code = Urine Metha mphetamines Screen) NEGATIVE NEGATIVE [facility] benzodiazepines detection by screening mbbotc0500-88-75 01:44:00* Test Item Value Reference Range Interpretation Comments Urine Benzodiazepines Screen (test code = 15841-5) NEGATIVE NEG ATIVE [facility]enton[facility] cocaine measurement (mass/volume) 2019-07-05 01:44:00* Test Item Value Reference Range Interpretation Comments Urine Cocaine Screen (test code = 3398-5) NEGATIVE NEGATIVE [facility] cannabinoids detection by screening ojflyl2238-09-54 01:44:00* Test Item Value Reference Range Interpretation Comments Urine Cannabinoids Screen (test code = 54890-0) NEGATIVE NEGATI VE THESE RESULTS ARE FOR MEDICAL TREATMENT ONLYTHIS REPORT CONTAINS UNCONFIR MED SCREENING RESULTS*POSITIVE RESULTS WILL BE CONFIRMED BY REFERENCE LAB UPON R EQUEST CUT-OFFDRUG CLASS CONCENTRATION ng/mLAmphetamines 1000Methamphetamines 1000Cocaine 300Opiate 300Phencyc lidine 25Cannabinoid 50Barbiturates 300Benzodiazepine 300Methadone 300[facility]entonUrine methadone wesimo9247-65-88 01:44:00* Test Item Value Reference Range Interpretation Comments Urine Methadone Screen (test code = 79808-2) NEGATIVE NEGATIVE THESE RESULTS ARE FOR MEDICAL TREATMENT ONLYTHIS REPORT CONTAINS UNCONFIR MED SCREENING RESULTS*POSITIVE RESULTS WILL BE CONFIRMED BY REFERENCE LAB UPON R EQUEST CUT-OFFDRUG CLASS CONCENTRATION ng/mLAmphetamines 1000Methamphetamines 1000Cocaine Metabolite 300Opiate 300Phencyc lidine 25Cannabinoid 50Barbiturates 300Benzodiazepine 300Methadone 300[facility]entonBlood leukocytes automated count (number/volume) 2019-07-05 01:34:00* Test Item Value Reference Range Interpretation Comments White Blood Count (test code = 6690-2) 8.95 4.8-10.8 [facility]Blood erythrocytes automated count (number/volume)2019-07-05 01:34:00* Test Item Value Reference Range Interpretation Comments Red Blood Count (test code = 789-8) 3.60 3.6-5.1 [facility]Blood hemoglobin measurement (moles/volume)2019-07-05 01:34:00* Test Item Value Reference Range Interpretation Comments Hemoglobin (test code = 72923-4) 11.0 12.0-16.0 [facility]entonAutomated blood hematocrit (volume fraction)2019-07-05 01:34:00* Test Item Value Reference Range Interpretation Comments Hematocrit (test code = 4544-3) 35.5 34.2-44.1 [facility]entonAutomated erythrocyte mean corpuscular gbwpdd8626-91-22 01:34:00* Test Item Value Reference Range Interpretation Comments Mean Corpuscular Volume (test code = 787-2) 98.6 81-99 [facility]entonAutomated erythrocyte mean corpuscular hemoglobin (mass per erythrocyte)2019-07-05 01:34:00* Test Item Value Reference Range Interpretation Comments Mean Corpuscular Hemoglobin (test code = 785-6) 30.6 28-32 [facility]entonAutomated erythrocyte mean corpuscular hemoglobin concentration measurement (mass/volume)2019-07-05 01:34:00* Test Item Value Reference Range Interpretation Comments Mean Corpuscular Hemoglobin Concent (test code = 786-4) 31.0 31-35 [facility]entonRDW SilJi-Ptp5743-88-22 01:34:00* Test Item Value Reference Range Interpretation Comments Red Cell Distribution Width (test code = 99615-4) 13.6 11.7 -14.4 [facility]entonAutomated blood platelet count (count/volume)2019-07-05 01:34:00* Test Item Value Reference Range Interpretation Comments Platelet Count (test code = 777-3) 355 140-360 [facility]entonAutomated blood segmented neutrophil count as percentage of total ininlhuvvl3240-04-68 01:34:00* Test Item Value Reference Range Interpretation Comments Neutrophils (%) (Auto) (test code = 94582-9) 69.2 38.7-80.0 [facility]entonAutomated blood lymphocyte count as percentage ot total fkyhcvcaps7141-79-20 01:34:00* Test Item Value Reference Range Interpretation Comments Lymphocytes (%) (Auto) (test code = 736-9) 20.7 18.0-39.1 [facility]entonAutomated blood monocyte count as percentage of total impsmpjqfw6544-58-08 01:34:00* Test Item Value Reference Range Interpretation Comments Monocytes (%) (Auto) (test code = 5905-5) 7.8 4.4-11.3 [facility]entonAutomated blood eosinophil count as percentage of total rsrpvqfgbx6336-68-38 01:34:00* Test Item Value Reference Range Interpretation Comments Eosinophils (%) (Auto) (test code = 713-8) 0.9 0.0-6.0 [facility]entonAutomated blood basophil count as percentage of total ibyvkqlvdy3731-61-23 01:34:00* Test Item Value Reference Range Interpretation Comments Basophils (%) (Auto) (test code = 706-2) 1.1 0.0-1.0 [facility]entonFluoroscopic procedure less than one hour kbtcynje3871-05-24 01:34:00* Test Item Value Reference Range Interpretation Comments IM GRANULOCYTES % (test code = IM GRANULOCYTES %) 0.3 0.0- 1.0 [facility]entonAutomated blood neutrophil count 2019-07-05 01:34:00* Test Item Value Reference Range Interpretation Comments Neutrophils # (Auto) (test code = 751-8) 6.2 2.1-6.9 [facility]Blood lymphocytes count (number/volume) 2019-07-05 01:34:00* Test Item Value Reference Range Interpretation Comments Lymphocytes # (Auto) (test code = 23549-4) 1.9 1.0-3.2 [facility]entonBlood monocytes automated count (number/volume)2019-07-05 01:34:00* Test Item Value Reference Range Interpretation Comments Monocytes # (Auto) (test code = 742-7) 0.7 0.2-0.8 [facility]entonAutomated blood eosinophil count 2019-07-05 01:34:00* Test Item Value Reference Range Interpretation Comments Eosinophils # (Auto) (test code = 711-2) 0.1 0.0-0.4 [facility]entonAutomated blood basophil count (count/volume)2019-07-05 01:34:00* Test Item Value Reference Range Interpretation Comments Basophils # (Auto) (test code = 704-7) 0.1 0.0-0.1 [facility]entonFluoroscopic procedure less than one hour ochirqaz9170-46-00 01:34:00* Test Item Value Reference Range Interpretation Comments Absolute Immature Granulocyte (auto (amos t code = Absolute Immature Granulocyte (auto) 0.03 0-0.1 [facility] plasma sodium measurement (moles/volume)2019-07-05 01:34:00* Test Item Value Reference Range Interpretation Comments Sodium Level (test code = 2951-2) 137 136-145 [facility] plasma potassium measurement (moles/volume)2019-07-05 01:34:00* Test Item Value Reference Range Interpretation Comments Potassium Level (test code = 2823-3) 4.1 3.5-5.1 [facility] Arlington[facility] plasma chloride measurement (moles/volume)2019-07-05 01:34:00* Test Item Value Reference Range Interpretation Comments Chloride Level (test code = 2075-0) 103 98-107 [facility] Arlingtoner[facility] or plasma carbon dioxide, total measurement (moles/volume)2019-07-05 01:34:00* Test Item Value Reference Range Interpretation Comments Carbon Dioxide Level (test code = 2028-9) 26 22-29 [facility] Arlingtoner[facility] or plasma anion mul1873-31-68 01:34:00* Test Item Value Reference Range Interpretation Comments Anion Gap (test code = 27257-9) 12.1 8-16 [facility] plasma urea nitrogen measurement (mass/volume)2019-07-05 01:34:00* Test Item Value Reference Range Interpretation Comments Blood Urea Nitrogen (test code = 3094-0) 18 7-26 [facility] plasma creatinine measurement (mass/volume)2019-07-05 01:34:00* Test Item Value Reference Range Interpretation Comments Creatinine (test code = 2160-0) 0.72 0.57-1.11 [facility] or plasma urea nitrogen/creatinine mass qflyi6931-74-33 01:34:00* Test Item Value Reference Range Interpretation Comments BUN/Creatinine Ratio (test code = 3097-3) 25 6-25 [facility]entonEstimated glomerular filtration rate (GFR) pfabwsohfyree6680-18-54 01:34:00* Test Item Value Reference Range Interpretation Comments Estimat Glomerular Filtration Rate (test code = 396446152) > 60 >60 Ranges were taken from the National Kidney Disease Education Program and the [facility] Foundation literature.Reference ranges:60 or greater: Yegtfo93-05 ( for 3 consecutive months): Chronic kidney disease 15 or less: Kidney failureTexas Health DentonGlucose kdfazvemdnn4489-36-82 01:34:00* Test Item Value Reference Range Interpretation Comments Glucose Level (test code = QZV9546) 122 74-118 [facility] or plasma calcium measurement (mass/volume)2019-07-05 01:34:00* Test Item Value Reference Range Interpretation Comments Calcium Level (test code = 63405-7) 8.8 8.4-10.2 [facility] or plasma total bilirubin measurement (mass/volume)2019-07-05 01:34:00* Test Item Value Reference Range Interpretation Comments Total Bilirubin (test code = 1975-2) 0.2 0.2-1.2 [facility]entonFluoroscopic procedure less than one hour gscpntjv1869-40-54 01:34:00* Test Item Value Reference Range Interpretation Comments Aspartate Amino Transf (AST/SGOT) (test code = Aspartate Amino Transf (AST/SGOT)) 14 5-34 [facility] Arlingtoner[facility] or plasma alanine aminotransferase measurement (enzymatic activity/volume)2019-07-05 01:34:00* Test Item Value Reference Range Interpretation Comments Alanine Aminotransferase (ALT/SGPT) (test code = 1742-6) 21 0-55 [facility]er[facility] plasma protein measurement (mass/volume)2019-07-05 01:34:00* Test Item Value Reference Range Interpretation Comments Total Protein (test code = 2885-2) 6.6 6.5-8.1 [facility] Arlington[facility] or plasma albumin measurement (mass/volume)2019-07-05 01:34:00* Test Item Value Reference Range Interpretation Comments Albumin (test code = 1751-7) 3.8 3.5-5.0 [facility]entonPlasma globulin measurement (mass/volume) 2019-07-05 01:34:00* Test Item Value Reference Range Interpretation Comments Globulin (test code = 28333-7) 2.8 2.3-3.5 [facility] plasma albumin/globulin mass napdx5623-02-08 01:34:00* Test Item Value Reference Range Interpretation Comments Albumin/Globulin Ratio (test code = 1759-0) 1.4 0.8-2.0 [facility] Arlingtoner[facility] or plasma alkaline phosphatase measurement (enzymatic activity/volume)2019-07-05 01:34:00* Test Item Value Reference Range Interpretation Comments Alkaline Phosphatase (test code = 6768-6) 62 40-150 [facility] Arlington[facility] or plasma creatine kinase measurement (enzymatic activity/volume)2019-07-05 01:34:00* Test Item Value Reference Range Interpretation Comments Creatine Kinase (test code = 2157-6) 67 29-168 [facility] or plasma creatine kinase MB measurement (mass/volume)2019-07-05 01:34:00* Test Item Value Reference Range Interpretation Comments Creatine Kinase MB (test code = 48754-9) 0.80 0-5.0 [facility]entonTroponin I measurement by highly sensitive enzyme omunkvgyvrb5898-20-23 01:34:00* Test Item Value Reference Range Interpretation Comments Troponin I (test code = 96246-1) < 0.001 0-0.300 [facility] or plasma acetaminophen measurement by screening method (mass/volume)2019-07-05 01:34:00* Test Item Value Reference Range Interpretation Comments Acetaminophen Level (test code = 85384-3) 9.3 10-30 [facility] plasma ethanol measurement (mass/volume)2019-07-05 01:34:00* Test Item Value Reference Range Interpretation Comments Ethyl Alcohol Level (test code = 5643-2) < 10.0 0.0-10.0 [facility] or plasma acetaminophen measurement by screening method (mass/volume)2019-07-05 01:34:00* Test Item Value Reference Range Interpretation Comments Acetaminophen Level (test code = 10404-6) 9.3 10-30 [facility] plasma ethanol measurement (mass/volume)2019-07-05 01:34:00* Test Item Value Reference Range Interpretation Comments Ethyl Alcohol Level (test code = 5643-2) < 10.0 0.0-10.0 [facility] plasma acetaminophen measurement by screening method (mass/volume)2019-07-05 01:34:00* Test Item Value Reference Range Interpretation Comments Acetaminophen Level (test code = 95183-7) 9.3 10-30 [facility] plasma ethanol measurement (mass/volume)2019-07-05 01:34:00* Test Item Value Reference Range Interpretation Comments Ethyl Alcohol Level (test code = 5643-2) < 10.0 0.0-10.0 [facility] or plasma acetaminophen measurement by screening method (mass/volume)2019-07-05 01:34:00* Test Item Value Reference Range Interpretation Comments Acetaminophen Level (test code = 84577-8) 9.3 10-30 [facility] plasma ethanol measurement (mass/volume)2019-07-05 01:34:00* Test Item Value Reference Range Interpretation Comments Ethyl Alcohol Level (test code = 5643-2) < 10.0 0.0-10.0 [facility]entonLactic acid level, SEPSIS - Now and repeat 2x every 3 qbfcw7977-93-47 03:58:32* Test Item Value Reference Range Interpretation Comments Lactic acid (test code = 64568-5) 1.6 mmol/L 0.5-2.2 [facility]istCreat[facility] kinase, total (CPK)2019-06-20 01:51:55* Test Item Value Reference Range Interpretation Comments Creatine kinase (test code = 2157-6) 65 U/L 26-192 [place] GjaxairmsOFTXHL8535-10-47 03:18:00* Test Item Value Reference Range Interpretation Comments GLUBED (test code = GLUBED) 94 mg/dL 74-106 N Performed by certified control area operator at [facility] BASIC METABOLIC SDEGM3560-02-05 01:38:00* Test Item Value Reference Range Interpretation [...] CA) 8.5 mg/dL 8.5-10.1 N HCG SERUM AHGM6915-24-42 01:38:00* Test Item Value Reference Range Interpretation Comments HCG SERUM QUAL (test code = HCGQL) NEGATIVE DILANTIN (PHENYTOIN)2019-03-15 01:38:00* Test Item Value Reference Range Interpretation Comments DILANTIN (PHENYTOIN) (test code = DIL) 0.6 ug/mL 10.0-20.0 L BASIC METABOLIC BOLWW4660-00-62 01:33:00* Test Item Value Reference Range Interpretation [...] CA) 8.5 mg/dL 8.5-10.1 N HCG SERUM IJNL3037-62-30 01:33:00* Test Item Value Reference Range Interpretation Comments HCG SERUM QUAL (test code = HCGQL) NEGATIVE CBC W/O GYZO9713-45-18 01:18:00* Test Item Value Reference Range Interpretation [...] 6.7-11.0 N - XR KNEE 3 V [id number] 00:30:00 FAX: Devin Craft MD [phone] [place]: St: [facility] FAX: Jn Mohr MD [phone] Name: MADISYN GONZALES [facility] : 1965 Age/S: 54/F [address] [facility] Unit #: [id number] Loc: [place] [address] Phys: Jn Mohr MD Acct: [id number] Dis Date: Status: REG ER PHONE #: [phone] Exam Date: 03/15/20190 FAX #: [phone] Reason: leg pain EXAMS: CPT CODE: [id number] XR KNEE 3 V RT 55921 Dictation location: H37. RIGHT HIP 2 VIEWS; [...] MD; Jn Mohr MD Technologist: Gris El [facility] Date/Time/By: 03/15/2019 (003) : By: [email or web address] Orig Print D/T: S: 03/15/2019 (0033) PAGE 1 Signed Report - XR FEMUR MIN 2 VWS RT 2019-03-15 00:30:00 FAX: Devin Craft MD [phone] [place]: St: REG FAX: Jn Mohr MD [phone] Name: MADISYN GONZALES [facility] : 1965 Age/S: 54/F [address] [facility] Unit #: [id number] Loc: [place] [address] Phys: Jn Mohr MD Acct: [id number] Dis Date: Status: REG ER PHONE #: [phone] Exam Date: 03/15/2019 0020 FAX #: [phone] Reason: leg pain EXAMS: CPT CODE: [id number] XR FEMUR MIN 2 [place] [address] Dictation location: H37. RIGHT HIP 2 VIEWS; RIGHT FEMUR 2 VIEWS AND RIGHT KNEE 3 VIEWS HISTORY: Leg pain FINDINGS: No fracture or dislocation in the right hip, femur or knee. No knee joint effusion. No suspicious osseous lesion. Lower lumbar fusion at L4- L5. IMPRESSION: No fracture or dislocation in the right hip, femur or knee. at 0030 Reported and signed by: Ezequiel Mcmahon M.D. CC: Devin Wright MD; Jn Mohr MD Technologist: Gris El Trnscrd Date/Time/By: 03/15/2019 (003) : By: [email or web address] Orig Print D/T: S: 03/15/2019 (0033) PAGE 1 Signed Report - XR HIP W/PEL UNI 2+V [id number] 00:30:00 FAX: Devin Craft MD [phone] [place]: St: REG FAX: Jn Mohr MD [phone] Name: MADISYN GONZALES [facility] : 1965 Age/S: 54/F [address] [facility] Unit #: [id number] Loc: [place] [address] Phys: Jn Mohr MD Acct: [id number] Dis Date: Status: REG ER PHONE #: [phone] Exam Date: 03/15/2019 0020 FAX #: [phone] Reason: leg pain EXAMS: CPT CODE: [id number] XR HIP W/PEL UNI 2+V RT [address]92 Dictation location: H37. RIGHT HIP 2 VIEWS; RIGHT FEMUR 2 VIEWS AND RIGHT KNEE 3 VIEWS HISTORY: Leg pain FINDINGS: No fracture or dislocation in the right hip, femur or knee. No knee joint effusion. No suspicious osseous lesion. Lower lumbar fusion at L4- L5. IMPRESSION: No fracture or dislocation in the right hip, femur or knee. at 0030 Reported and signed by: Ezequiel Mcmahon M.D. CC: Devin Wright MD; Jn Mohr MD Technologist: Gris El Trnscrd Date/Time/By: 03/15/2019 (29) : By: [email or web address] Orig Print D/T: S: 03/15/2019 (32) PAGE 1 Signed Report - CT C-SPINE W/O [id number] 23:04:00 Name: MADISYN GONZALES [facility] : 1965 Age/S: 54 / F [address] [facility] Unit #: [id number] Loc: [place] [address] Phys: Jn Mohr MD Acct: [id number] Dis Date: Status: REG ER PHONE #: [phone] Exam Date: 03/14/20192249 FAX #: [phone] Reason: neck pain EXAMS: CPT CODE: [id number] CT C-SPINE W/O CONTRAST 67260 EXAM: CT of the cervical spine without [...] evidence of acute osseous trauma. Location code: [facility] at 2304 Reported and signed by: Raul Rheman M.D. CC: Devin Wright MD; Jn Mohr MD Technologist:Julisa Ingram RT(R); ROMAINE Gibson CTDI: DLP: Trnscb Date/Time: 03/14/2019 (230) [email or web address] Orig Print D/T: S: 03/14/2019 (2306) PAGE 1 Signed Report - CT HEAD/BRAIN W/O CONT 2019-03-14 23:03:00 Name: MADISYN GONZALES [facility] : 1965 Age/S: 54 / F [address] [facility]: [id number] Loc: [place] [address] Phys: Jn Mohr MD Acct: [id number] Dis Date: Status: REG ER PHONE #: [phone] Exam Date: 03/14/20193 FAX #: [phone] Reason: seizure EXAMS: CPT CODE: [id number] CT HEAD/BRAIN W/O CONT 50887 EXAM: CT of the head; INFORMATION: Seizure; [...] CT scan of the head. Location code: [facility] at 2303 Reported and signed by: Raul Rehman M.D. CC: Devin Wright MD; Jn Mohr MD Technologist:Julisa Ingram RT(R); ROMAINE Gibson CTDI: DLP: Trnscb Date/Time: 03/14/2019 (230) [email or web address] Orig Print D/T: S: 03/14/2019 (2306) PAGE 1 Signed Report - XR TOE(S) 2+V [id number] 03:10:00 FAX: Devin Craft MD [phone] [place]: B St: REG FAX: Armando Ibrahim [facility] [phone] Name: GRZEGORZ GONZALES [facility] : 1965 Age/S: 54/F [address] Unit #: [id number] Loc: [place] [address] Phys: Armando Carreon Acct: [id number] Dis Date: Status: REG ER PHONE #: [phone] Exam Date: 03/14/2019 0243 FAX #: [phone] Reason: TOE PAIN EXAMS: CPT CODE: [id number] XR TOE(S) 2+[place] [address] Dictation location: H37. LEFT TOES, 3 VIEWS [...] By: [email or web address] Orig Print D/T: S: 03/14/2019 (031) PAGE 1 Signed Report URINALYSIS [id number] 14:05:00* Test Item Value Reference Range Interpretation [...] Urine Source? Clean CatchDRUGS OF ABUSE SCREEN [id number] 14:05:00* Test Item Value Reference Range Interpretation [...] <300 ng/mL Urine Source? Clean CatchBASIC METABOLIC [id number] 13:58:00* Test Item Value Reference Range Interpretation [...] CA) 8.6 mg/dL 8.5-10.1 N HEPATIC FUNCTION [id number] 13:58:00* Test Item Value Reference Range Interpretation [...] reference range due to change in reagent. [id number] 13:58:00* Test Item Value Reference Range Interpretation Comments LIPASE (test code = LIP) 134 U/L 73.0-393.0 N HCG SERUM [id number] 13:58:00* Test Item Value Reference Range Interpretation Comments HCG SERUM QUAL (test code = HCGQL) NEGATIVE NEGATIVE This HCGQL test is NOT applicable for MALE patients.Check with nurse about probable order error.If Tumor Marker Test needed, nurse should order test "HCGTU"(Test #550.77979) TSH REFLEX TO [id number] 13:58:00* Test Item Value Reference Range Interpretation Comments TSH REFLEX TO FT4 (test code = TSHREFLEX) 0.8 0.4-5.5 N [id number] 13:58:00* Test Item Value Reference Range Interpretation Comments TROPONIN-I (test code = TROPI) <0.015 ng/mL 0-0.045 N [id number] 13:58:00* Test Item Value Reference Range Interpretation Comments LITHIUM (test code = LITH) <0.1 mmol/L 0.5-1.5 L [id number] 13:58:00* Test Item Value Reference Range Interpretation [...] AT ANADDITIONAL CHARGE TO THE PATIENT. URINALYSIS [id number] 13:51:00* Test Item Value Reference Range Interpretation [...] Urine Source? Clean CatchDRUGS OF ABUSE SCREEN [id number] 13:51:00* Test Item Value Reference Range Interpretation [...] <300 ng/mL Urine Source? Clean CatchBASIC METABOLIC [id number] 13:51:00* Test Item Value Reference Range Interpretation [...] code = CA) mg/dL 8.5-10.1 HEPATIC FUNCTION [id number] 13:51:00* Test Item Value Reference Range Interpretation [...] TOTAL (test code = ALKP) IUnit/L 45-117 [id number] 13:51:00* Test Item Value Reference Range Interpretation Comments LIPASE (test code = LIP) U/L 73.0-393.0 HCG SERUM [id number] 13:51:00* Test Item Value Reference Range Interpretation Comments HCG SERUM QUAL (test code = HCGQL) NEGATIVE NEGATIVE This HCGQL test is NOT applicable for MALE patients.Check with nurse about probable order error.If Tumor Marker Test needed, nurse should order test "HCGTU"(Test #550.66398) TSH REFLEX TO [id number] 13:51:00* Test Item Value Reference Range Interpretation Comments TSH REFLEX TO FT4 (test code = TSHREFLEX) 0.4-5.5 [id number] 13:51:00* Test Item Value Reference Range Interpretation Comments TROPONIN-I (test code = TROPI) ng/mL 0-0.045 [id number] 13:51:00* Test Item Value Reference Range Interpretation Comments LITHIUM (test code = LITH) <0.1 mmol/L 0.5-1.5 L [id number] 13:51:00* Test Item Value Reference Range Interpretation Comments ALCOHOL (test code = ALC) mg/dL 0-3 PROTHROMBIN [id number] 13:41:00* Test Item Value Reference Range Interpretation [...] (2.5-3.5) IS PATIENT ON ANTICOAGULANTS? NTHROMBOPLASTIN TIME [id number] 13:41:00* Test Item Value Reference Range Interpretation Comments THROMBOPLASTIN TIME PARTIAL (test code = PTT) 35.8 seconds 25.0-36. 5 N IS PATIENT ON ANTICOAGULANTS? [id number] 13:34:00* Test Item Value Reference Range Interpretation Comments MAGNESIUM (test code = MAG) 2.1 mg/dL 1.8-2.4 N BASIC METABOLIC [id number] 13:33:00* Test Item Value Reference Range Interpretation [...] code = CA) mg/dL 8.5-10.1 HEPATIC FUNCTION [id number] 13:33:00* Test Item Value Reference Range Interpretation [...] TOTAL (test code = ALKP) IUnit/L 45-117 [id number] 13:33:00* Test Item Value Reference Range Interpretation Comments LIPASE (test code = LIP) U/L 73.0-393.0 HCG SERUM [id number] 13:33:00* Test Item Value Reference Range Interpretation Comments HCG SERUM QUAL (test code = HCGQL) NEGATIVE TSH REFLEX TO [id number] 13:33:00* Test Item Value Reference Range Interpretation Comments TSH REFLEX TO FT4 (test code = TSHREFLEX) 0.4-5.5 [id number] 13:33:00* Test Item Value Reference Range Interpretation Comments TROPONIN-I (test code = TROPI) ng/mL 0-0.045 [id number] 13:33:00* Test Item Value Reference Range Interpretation Comments LITHIUM (test code = LITH) <0.1 mmol/L 0.5-1.5 L [id number] 13:33:00* Test Item Value Reference Range Interpretation Comments ALCOHOL (test code = ALC) mg/dL 0-3 - CT HEAD/BRAIN W/O [id number] 13:32:00 Name: GRZEGORZ GONZALES [facility] : 1965 Age/S: 53 / F [address] Unit #: [id number] Loc: [place] [address] Phys: Michael Adame MD Acct: [id number] Dis Date: Status: REG ER PHONE #: [phone] Exam Date: 11/05/2018 1320 FAX #: [phone] Reason: headache EXAMS: CPT CODE: [id number] CT HEAD/BRAIN W/O CONT 17932 HISTORY: headache TECHNIQUE: Noncontrast 2.5 mm axial [...] mastoidotomy is unchanged from the previous exam. at 1332 Reported and signed by: Jayson Brooks MD CC: Devin Wright MD; Michael Adame MD Technologist :Leonard Vance RT(R),(MR),(CT); CTDI: DLP: Trnscb Date/Time: 10/15 (1332) [email or web address] Orig Print D/T: S: 11/05/2018 (13 35) PAGE 1 Signed Report BASIC METABOLIC [id number] 13:30:00* Test Item Value Reference Range Interpretation [...] code = CA) mg/dL 8.5-10.1 HEPATIC FUNCTION [id number] 13:30:00* Test Item Value Reference Range Interpretation [...] TOTAL (test code = ALKP) IUnit/L 45-117 [id number] 13:30:00* Test Item Value Reference Range Interpretation Comments LIPASE (test code = LIP) U/L 73.0-393.0 HCG SERUM [id number] 13:30:00* Test Item Value Reference Range Interpretation Comments HCG SERUM QUAL (test code = HCGQL) NEGATIVE TSH REFLEX TO [id number] 13:30:00* Test Item Value Reference Range Interpretation Comments TSH REFLEX TO FT4 (test code = TSHREFLEX) 0.4-5.5 [id number] 13:30:00* Test Item Value Reference Range Interpretation Comments TROPONIN-I (test code = TROPI) ng/mL 0-0.045 [id number] 13:30:00* Test Item Value Reference Range Interpretation Comments LITHIUM (test code = LITH) <0.1 mmol/L 0.5-1.5 L [id number] 13:30:00* Test Item Value Reference Range Interpretation Comments ALCOHOL (test code = ALC) mg/dL 0-3 CBC W/O [id number] 13:29:00* Test Item Value Reference Range Interpretation [...] MPV) 9.2 fL 6.7-11.0 N CBC W/O [id number] 13:25:00* Test Item Value Reference Range Interpretation [...] code = MPV) fL 6.7-11.0 BASIC METABOLIC [id number] 20:30:00* Test Item Value Reference Range Interpretation [...] CA) 8.7 mg/dL 8.5-10.1 N SPECIMEN HEMOLYZED [id number] HAS BEEN NOTIEFIED PLEASE REDRAWBASIC METABOLIC PANEL 2018-09-01 20:26:00* Test Item Value [...] code = CA) mg/dL 8.5-10.1 SPECIMEN HEMOLYZED [id number] HAS BEEN NOTIEFIED PLEASE REDRAWCBC W/O DIFF 2018-09-01 19:06:00* Test Item Value [...] MPV) 10.2 fL 6.7-11.0 N CBC W/O [id number] 19:04:00* Test Item Value Reference Range Interpretation [...] 6.7-11.0 - XR HAND 3 + V [id number] 16:20:00 FAX: Marry Luna NP [place]: [address]: REG FAX: Devin Craft MD [phone] Name: GRZEGORZ GONZALES [facility] : 1965 Age/S: 53/F [address] [facility] Unit #: [id number] Loc: [place] [address] Phys: Marry Luna NP Acct: [id number] Dis Date: Status: REG ER PHONE #: [phone] Exam Date: 09/01/2018 1605 FAX #: [phone] Reason: pain sp fall EXAMS: CPT CODE: [id number] XR HAND 3 + [place] [address] CLINICAL HISTORY: pain sp fall TECHNIQUE: AP, oblique, and lateral views of the left hand COMPARISON: 01/17/18 FINDINGS: No acute fracture or dislocation. Bony trabecular pattern is unremarkable. No cortical destruction or periosteal reaction. Joint spaces are preserved. Dorsal wrist and hand soft tissue swelling. IMPRESSION: No acute osseous abnormality. Dorsal wrist and hand soft tissue swelling. at 1620 Reported and signed by: Lana Ahuja D.O. CC: Marry Luna NP; Devin Wright MD Technologist: HOMER BLAKELY(R) Trnscrd Date/Time/By: 09/01/2018 (9450) : By: [email or web address] Orig Print D/T: S: 09/01/2018 (0050) PAGE 1 Signed Report - XR FOREARM 2 VIEWS [id number] 16:16:00 FAX: Marry Luna NP [place]: [address]: REG FAX: Devin Craft MD [phone] Name: GRZEGORZ GONZALES [facility] : 1965 Age/S: 53/F [place] [facility] Unit #: [id number] [place]: [place] [address] Phys: Marry Luna NP Acct: [id number] Dis Date: Status: REG ER PHONE #: [phone] Exam Date: 09/01/2018 1605 FAX #: [phone] Reason: pain sp fall EXAMS: CPT CODE: [id number] XR [place] [address] [place] [address] CLINICAL HISTORY: pain sp fall TECHNIQUE: AP [...] Technologist: HOMER BLAKELY(R) Trnscrd Date/Time/By: 0 09/01/2018 (0157) : By: [email or web address] Orig Print D/T: S: 09/01/2018 (9619) PAGE 1 Signed Report BASIC METABOLIC [id number] 20:52:00* Test Item Value Reference Range Interpretation [...] code = CA) 9.2 mg/dL 8.5-10.1 N [id number] 20:52:00* Test Item Value Reference Range Interpretation Comments TROPONIN-I (test code = TROPI) <0.015 ng/mL 0-0.045 N BASIC METABOLIC [id number] 20:46:00* Test Item Value Reference Range Interpretation [...] code = CA) 9.2 mg/dL 8.5-10.1 N [id number] 20:46:00* Test Item Value Reference Range Interpretation Comments TROPONIN-I (test code = TROPI) ng/mL 0-0.045 CBC W/O [id number] 20:30:00* Test Item Value Reference Range Interpretation [...] code = MPV) fL 6.7-11.0 CBC W/O [id number] 20:30:00* Test Item Value Reference Range Interpretation [...] fL 6.7-11.0 N - XR CHEST 1 [id number] 19:48:00 FAX: Allen Brandon MD [phone] [place]: [address]: REG Name: GRZEGORZ TOUSSAINT [facility] : [birth year] Age/S: 53/F Paula Gates Unit #: [id number] Loc: [place] [address] Phys: Allen Brandon MD Acct: [id number] Dis Date: Status: REG ER PHONE #: [phone] Exam Date: 05/12/20181943 FAX #: [phone] Reason: CHEST PAIN EXAMS: CPT CODE: [id number] XR CHEST 1 V 02513 HISTORY: CHEST PAIN TECHNIQUE: AP chest x-ray COMPARISON: 03/27/18 FINDIN GS: No airspace consolidation or pleural effusion. Normal heart si ze. Mediastinal silhouette is unremarkable. Visualized osseous structures are grossly intact. IMPRESSION: No radio graphic evidence of acute cardiopulmonary process. Electronically Si gned by Lana Ahuja D.O. on 05/12/2018 at 1947 Reported an d signed by: Lana Ahuja D.O. CC: Allen Brandon MD Technologist: BILLIE LOUISE RT(R) Trnscrd Date/Time/By: 05/12/2018 (1947) : By: [email or web address] Orig Print D/T: S: 05/12/2018 (1950) PAGE 1 Signed Report COMPREHENSIVE METABOLIC [id number] 19:35:00* Test Item Value Reference Range Interpretation [...] reference range due to change in reagent. [id number] 19:35:00* Test Item Value Reference Range Interpretation Comments AMYLASE (test code = DAVIDSON) 62 Unit/L 25-115 N URINALYSIS W/O [id number] 19:34:00* Test Item Value Reference Range Interpretation [...] = LEUUR) NEGATIVE NEG ATIVE COMPREHENSIVE METABOLIC [id number] 19:22:00* Test Item Value Reference Range Interpretation [...] TOTAL (test code = ALKP) IUnit/L 45-117 [id number] 19:22:00* Test Item Value Reference Range Interpretation Comments AMYLASE (test code = DAVIDSON) Unit/L 25-115 CBC W/AUTO [id number] 19:18:00* Test Item Value Reference Range Interpretation [...] NRBC#) 0.00 K/mm3 0.0-0.1 N CBC W/AUTO [id number] 19:14:00* Test Item Value Reference Range Interpretation [...] BA#) K/mm3 0.0-0.2 - XR CHEST 2 [id number] 17:23:00 FAX: MIKE MELÉNDEZ NP [place]: [address]: REG Name: GRZEGORZ TOUSSAINT [facility] : [birth year] Age/S: 53/F [address] Unit #: [id number] Loc: [place] [address] Phys: MIKE MELÉNDEZ 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 No evidence of consolidation. No evidence of effusion. The heart size is within normal limits. Pulmonary vasculatures are unremarkable. The osseous structures are grossly intact. IMPRESSION: No active disease. at 7968 Reported and signed by: Dannie Hernández M.D. CC: MIKE MELÉNDEZ NP Technologist: JED BLAKELY(R) Trnscrd Date/Time/By: 03/27/2018 (9164) : By: AzaleaL Orig Print D/T: S: 03/27/2018 (5703) PAGE 1 Signed Report - XR HAND 3 + V [id number] 23:59:00 FAX: Tonya Brennan [place]: [address]: PRE Name: GRZEGORZ TOUSSAINT [facility] : [birth year] Age/S: 53/F [address] Unit #: [id number] Loc: [place] [address] Phys: Tonya Brennan PHOTOGRAPHY PROFESSOR Acct: [id number] Dis Date: Status: PRE ER PHONE #: [phone] Exam Date: 03/09/2018 9429 FAX #: [phone] Reason: LAC, R/O FB EXAMS: CPT CODE: [id number] XR HAND 3 + V RT [address]407 HISTORY: Laceration Location: C3 Comparison to exam [...] fracture or foreign body. Electronically Signed by Romaine Trivedi MD on 02/14 at 5666 Reported and signed by: Romaine Trivedi MD CC: Tonya Brennan NP Technologist: Liliana Diop Trnscrd Quinn te/Time/By: 03/09/2018 (5128) : By: [email or web address] Orig Print D/T: S: 03/10 (0002) PAGE 1 Signed Report
--- NOTE | 2019-09-15 04:43 | Emergency Department Note ---
History of Present Illnes History of Present Illness Chief Complaint: Abdominal Complaints History of Present Illness This is a 54 year old female arrived to the ED with complaints of constipation, patient later admits to being very upset because her friend committed suicide. Patient states she needs a way to cope with the grief. Onset (how long ago): week(s) Radiation: Reports non-radiation Severity: mild Duration (how long): week(s) Timing of current episode: intermittent Progression: waxing and waning Relieving factors: none Exacerbating factors: none Past Medical/Family History Physician Review I have reviewed the patient's past medical and family history. Any updates have been documented here. Past Medical History Past Medical History: Hypertension, CVA, Seizure Disorder, Other Mental Illness, Chronic Back Pain Other Medical History: BIPOLAR CHRONIC BACK PAIN Past Surgical History: Back Surgery Other Surgery: EAR(MULTIPLE), SKIN GRAFT BACK SX NECK SX Other Last Tetanus: unknown Review of Systems Review of Systems Constitutional: Reports no symptoms EENTM: Reports no symptoms Cardiovascular: Reports no symptoms Respiratory: Reports no symptoms Gastrointestinal: Reports as per HPI, Reports constipation Genitourinary: Reports no symptoms Musculoskeletal: Reports no symptoms Integumentary: Reports no symptoms Neurological: Reports no symptoms Psychological: Reports as per HPI, Reports emotional problems Endocrine: Reports no symptoms Hematological/Lymphatic: Reports no symptoms Physical Exam Related Data Allergies: Coded Allergies: benztropine mesylate (Verified Allergy, Severe, 11/17/11) sertraline (Verified Allergy, Severe, SWELLING, SEIZURES, 02/22/10) ziprasidone (Verified Allergy, Intermediate, HALLUCINATIONS, 02/22/10) Haloperidol Lactate (Verified Allergy, Unknown, 09/30/10) haloperidol (Verified Allergy, Unknown, 09/30/10) peanut (Verified Allergy, Unknown, 02/22/10) risperidone (Verified Allergy, Unknown, 02/22/10) Uncoded Allergies: DERMABOND (Allergy, Unknown, 05/21/16) Vital signs reviewed: Yes Physical Exam CONSTITUTIONAL Constitutional: Present well-developed, Present well-nourished HENT HENT: Present normocephalic, Present atraumatic, Present oropharynx clear/moist, Present nose normal HENT L/R: Present left ext ear normal, Present right ext ear normal EYES Eyes: Reports PERRL, Reports conjunctivae normal NECK Neck: Present ROM normal PULMONARY Pulmonary: Present effort normal, Present breath sounds normal CARDIOVASCULAR Cardiovascular: Present regular rhythm, Present heart sounds normal, Present capillary refill normal, Present normal rate GASTROINTESTINAL Abdominal: Present soft, Present nontender, Present bowel sounds normal GENITOURINARY Genitourinary: Present exam deferred SKIN Skin: Present warm, Present dry MUSCULOSKELETAL Musculoskeletal: Present ROM normal NEUROLOGICAL Neurological: Present alert, Present oriented x 3, Present no gross motor or sensory deficits PSYCHOLOGICAL Psychological: Present mood/affect normal, Present judgement normal Results Laboratory Lab results reviewed: Yes Procedures 12 Lead ECG Interpretation ECG Interpretation : ECG: ECG 1 Prior ECG tracings: reviewed Rhythm: sinus rhythm QRS axis: normal ST segments normal: Yes T waves normal: Yes Assessment & Plan Medical Decision Making MDM 54-year-old female arrives to the ED with complaints of sadness after sudden after loss of her friend. Patient is not homicidal or suicidal no hallucinations stable discharge normal grief process. Assessment & Plan Final Impression: (1) Grief (2) Constipation Depart Disposition: HOME, SELF-longterm Meds Active Scripts Docusate Sodium (COLACE) 100 Mg Cap, 100 MG PO DAILY, #30 CAP Prov:BHARATH BETTS DO 09/15/19 Reported Medications Alprazolam (XANAX) 2 Mg Tablet, 1 MG PO BID 11/23/13 [place] Carbonate (LITHIUM CARBONATE) 600 Mg Capsule, 300 MG PO HS 11/23/13 [place] Carbonate (LITHIUM CARBONATE) 300 Mg Tablet, 300 MG PO QAM 11/23/13 BHARATH BETTS DO Sep 15, 2019 04:43
[2019-09-15] MEDS ORDERED: CITRATE OF MAGNESIA 300ML BOTTLE PO ONE (04:45)
[2019-09-15] MEDS ORDERED: LACTULOSE SYRUP 20 GM/30 ML UDC PO ONE (04:45)
--- NOTE | 2019-09-15 05:37 | Diagnostic Imaging Report ---
EXAM: Abdomen Radiograph 1 View INDICATION: Constipation COMPARISON: None FINDINGS: No abnormalities in the lower chest. No lines or tubes. Moderate volume of stool in the colon. No dilated loops of small bowel. Pelvic phlebolith. No abnormal soft tissue masses. No pneumoperitoneum. No acute osseous abnormality. L4-L5 fixation hardware and disc spacer. Cholecystectomy clips. IMPRESSION: Moderate volume of stool in the colon, consistent with constipation. Signed by: Flash Christie DO on 09/15/2019 5:34 AM
[2019-09-15 05:51] LABS: CLARITY,URINE CLEAR (CLEAR); COLOR,URINE YELLOW (YELLOW); KETONES,URINE NEGATIVE (NEGATIVE); LEUKOCYTE ESTERASE ,URINE NEGATIVE (NEGATIVE); NITRITE,URINE NEGATIVE (NEGATIVE); PROTEIN,URINE DIPSTICK NEGATIVE (NEGATIVE)
[2019-09-15 05:52] LABS: AMPHETAMINES SCREEN,URINE NEGATIVE (NEGATIVE); BENZODIAZEPINES SCREEN,URINE NEGATIVE (NEGATIVE); PHENCYCLIDINE SCREEN,URINE NEGATIVE (NEGATIVE)
[2019-09-15 05:53] LABS: BACTERIA,URINE RARE /HPF; BILIRUBIN,URINE NEGATIVE (NEGATIVE); EPITHELIAL CELLS,URINE FEW /LPF; RBC,URINE 0-5 /HPF (0-5); URINE UROBILINOGEN 0.2 mg/dL (0.2 - 1); WBC,URINE (MAN) 0-5 /HPF (0-5)
[2019-09-15] MEDS ORDERED: COLACE100 MG PO (05:56)
[2019-09-15 06:06] VITALS: BP 158/87
== END 2019-09-15 06:11 | disposition home or self-care (01) ==
LOC: ER 04:23
DX: F43.21 Adjustment disorder with depressed mood (principal); K59.00 Constipation, unspecified; I10 Essential (primary) hypertension; F31.9 Bipolar disorder, unspecified; G40.909 Epilepsy, unspecified, not intractable, without status epilepticus; M54.9 Dorsalgia, unspecified; G89.29 Other chronic pain; Z86.73 Personal history of transient ischemic attack (TIA), and cerebral infarction without residual deficits
CPT/HCPCS: 74018; 80307; 81001; 93005; 99283

== ENCOUNTER 2019-10-05 01:42 | Emergency (ER) | payer MEDICARE, OTHER ==
[~2019-10-05] VITALS: Ht 157.5 cm; Wt 77.1 kg
[~2019-10-05 01:42] MED LIST changes: +COLACE100 MG PO
--- NOTE | 2019-10-05 01:55 | Emergency Department Note ---
History of Present Illnes History of Present Illness Chief Complaint: General Medicine Complaints History of Present Illness This is a 54 year old female presents to the ED after having fallen with R sided head pain. Additional complaint of R Leg pain. Patient is a poor historian. Patient denies trauma but spouse states patient has had a traumatic head injury. LAW of months duration. Historian: Patient, Family Member Arrival Mode: Car Radiation: Reports non-radiation Severity: moderate Onset quality: gradual Duration (how long): day(s) (2) Timing of current episode: constant Progression: unchanged Chronicity: recurrent Context: Reports trauma/injury Relieving factors: none Exacerbating factors: none Associated symptoms: Reports headaches Past Medical/Family History Physician Review I have reviewed the patient's past medical and family history. Any updates have been documented here. Past Medical History Recent Fever: No Clinical Suspicion of Infectio: No New/Unexplained Change in Ment: No Past Medical History: Hypertension, CVA, Seizure Disorder, Other Mental Illness, Chronic Back Pain Other Medical History: BIPOLAR CHRONIC BACK PAIN DIVERTICULITIS Past Surgical History: Cholecysctectomy, Back Surgery Other Surgery: EAR(MULTIPLE), SKIN GRAFT BACK SX 2018 NECK SX Social History Smoking Cessation: Current some day smoker Alcohol Use: None Any Illegal Drug Use: No Other Last Tetanus: unknown Review of Systems Review of Systems Constitutional: Reports no symptoms EENTM: Reports no symptoms Cardiovascular: Reports no symptoms Respiratory: Reports no symptoms Gastrointestinal: Reports no symptoms Genitourinary: Reports no symptoms Musculoskeletal: Reports no symptoms Integumentary: Reports no symptoms Neurological: Reports headache Psychological: Reports no symptoms Endocrine: Reports no symptoms Hematological/Lymphatic: Reports no symptoms Physical Exam Related Data Allergies: Coded Allergies: benztropine mesylate (Verified Allergy, Severe, 11/17/11) sertraline (Verified Allergy, Severe, SWELLING, SEIZURES, 02/22/10) ziprasidone (Verified Allergy, Intermediate, HALLUCINATIONS, 02/22/10) Haloperidol Lactate (Verified Allergy, Unknown, 09/30/10) haloperidol (Verified Allergy, Unknown, 09/30/10) peanut (Verified Allergy, Unknown, 02/22/10) risperidone (Verified Allergy, Unknown, 02/22/10) Uncoded Allergies: DERMABOND (Allergy, Unknown, 05/21/16) Triage Vital Signs Vital Signs Date Time Temp Pulse Resp B/P (MAP) Pulse Ox O2 Delivery O2 Flow Rate FiO2 10/05/19 01:46 Room Air Vital signs reviewed: Yes Physical Exam CONSTITUTIONAL Constitutional: Present well-developed, Present well-nourished HENT HENT: Present normocephalic, Present atraumatic, Present oropharynx clear/mo ist, Present nose normal HENT L/R: Present left ext ear normal, Present right ext ear normal EYES Eyes: Reports PERRL, Reports conjunctivae normal NECK Neck: Present ROM normal PULMONARY Pulmonary: Present effort normal, Present breath sounds normal CARDIOVASCULAR Cardiovascular: Present regular rhythm, Present heart sounds normal, Present capillary refill normal, Present normal rate GASTROINTESTINAL Abdominal: Present soft, Present nontender, Present bowel sounds normal GENITOURINARY Genitourinary: Present exam deferred SKIN Skin: Present warm, Present dry MUSCULOSKELETAL Musculoskeletal: Present ROM normal NEUROLOGICAL Neurological: Present alert, Present oriented x 3, Present no gross motor or sensory deficits PSYCHOLOGICAL Psychological: Present mood/affect normal, Present judgement normal Results Imaging Imaging results reviewed: Yes Impressions [place] [address] Patient Name: MADISYN GONZALES MR #: [id number] : 1965 Age/Sex: 54/F Req #: [id number] Adm Physician: Ordered by: LINETTE WEST DO Report #: [id number] Location: ER Room/Bed: Procedure: [id number] CT/CT BRAIN WO Exam Date: Exam Time: REPORT STATUS: Signed Exam: Head CT without contrast History: Headache, fall Comparison studies: Head CT of 07/05/2019 Technique: Axial images were obtained from the skull base to the vertex. Coronal and sagittal images reconstructed from the axial data. Dose modulation, iterative reconstruction, and/or weight based adjustment of the mA/kV was utilized to reduce the radiation dose to as low as reasonably achievable. Radiation dose: Total DLP: 806.2 mGy*cm. Estimated effective dose: DLP x 0.015 Intravenous contrast: None Findings: Scalp: No abnormalities. Bones: No fractures, blastic or lytic lesions. Brain sulci: Appropriate for age. Ventricles: Unchanged mild asymmetry of the lateral ventricles with the right lateral ventricle being slightly larger than the left which may be an anatomical variant for this patient. No hydrocephalus. Extra-axial spaces: No masses, no fluid collection. Parenchyma: No abnormal densities. No masses, hemorrhage, acute or chronic vascular insults. Sellar/suprasellar region: No abnormalities. Craniocervical junction: Patent foramen magnum. No Chiari one malformation. Incidental findings: Prior right [id number] mastoidectomy. IMPRESSION: 1. No acute abnormalities. 2. No changes from the prior head CT of 07/05/2019. Signed by: Dr. Devin Schuster M.D. on 10/05/2019 2:30 AM Dictated By: DEVIN SCHUSTER MD 9 Transcribed By: KATRIN on 10/05/19229 COPY TO: LINETTE WEST DO~ Assessment & Plan Medical Decision Making MDM Diff dx : skull fx, SAH, Epidural hematoma, subdural hematoma, concussion Assessment & Plan Final Impression: (1) Head injury (2) Sciatica Depart Disposition: HOME, SELF-CARE Last Vital Signs Date Time Temp Pulse Resp B/P (MAP) Pulse Ox O2 Delivery O2 Flow Rate FiO2 10/05/19 01:46 Room Air Home Meds Active Scripts Docusate Sodium (COLACE) 100 Mg Cap, 100 MG PO DAILY, #30 CAP Prov:BHARATH BETTS DO 09/15/19 Reported Medications Alprazolam (XANAX) 2 Mg Tablet, 1 MG PO BID 11/23/13 [place] Carbonate (LITHIUM CARBONATE) 600 Mg Capsule, 300 MG PO HS 11/23/13 [place] Carbonate (LITHIUM CARBONATE) 300 Mg Tablet, 300 MG PO QAM 11/23/13 LINETTE WEST DO Oct 05, 2019 01:55
--- OUTSIDE RECORDS SUMMARY | 2019-10-05 02:32 | XMS REPORT | Clinical Summary ---
Author Author [facility] [employer] [facility] [employer] Address Unknown Phone Unavailable Care Team Providers Care Creative Engagement Director Name Role Phone Wing Wright MD PCP [...] (Primary Dx); Constipation, unspecified constipation type 08/01/2019 [facility] General Surgery - Encounter 08/04/2019 Anthony Talamantes DO Seizure (HCC) (Primary Dx) 06/20/2019 Emergency Emergency Medicine 06/20/2019 Travel after 10/04/2018 Social History Date Tobacco Use Types Packs/Day [...] 01/10/2016 SHINGLES VACCINES (#1) 01/10/2016 INFLUENZA VACCINE 11/14/2019 Procedures Comments Procedure Name Priority Date/Time Associated [...] 06/20/2019 W/AUTO DIFF 12:30 AM CDT after 10/04/2018 Results * Estimated GFR (08/04/2019 7:58 AM CDT) Only the most recent of 4 results within the time period is included. Pathologist [facility] Estimated GFR >=90 mL/min/1.73 m2 [place] Comment: AMISH CLEAR [facility] Interpretation G1 >=90 Normal or high G2 [...] City/State/Zipcode [place] [address] [place], [place] [address] PATHOLOGY AND GENOMIC MEDICINE [place] CLEAR [address] [place] [address] [facility] * CBC with platelet and differential (08/04/2019 7:58 AM CDT) Only the most recent of 3 results within the time period is included. Pathologist [facility] WBC 10.41 4.50 - 11.00 k/uL [facility] RBC 3.88 (L) 4.20 - 5.50 m/uL [facility] HGB 12.3 12.0 - 16.0 g/dL [facility] HCT 38.2 37.0 - 47.0 % [facility] MCV 98.5 82.0 - 100.0 fL [facility] MCH 31.7 27.0 - 34.0 pg [facility] MCHC 32.2 31.0 - 37.0 g/dL [facility] RDW - SD 50.4 37.0 - 55.0 fL [facility] MPV 9.6 8.8 - 13.2 fL [facility] Platelet count 272 150 - 400 k/uL [facility] Nucleated RBC 0.00 /100 WBC [facility] Neutrophils 74.5 (H) 39.0 - 69.0 % [facility] Lymphocytes 15.1 (L) 25.0 - 45.0 % [facility] Monocytes 8.5 0.0 - 10.0 % [facility] Eosinophils 1.1 0.0 - 5.0 % [facility] Basophils 0.4 0.0 - 1.0 % [facility] Specimen Blood Performing Organization Address City/State/[place] [address] [address] [place], [place] [address] PATHOLOGY AND GENOMIC MEDICINE [facility] [address] [place] [address] [facility] * Comprehensive metabolic panel (08/04/2019 7:58 AM CDT) Only the most recent of 4 results within the time period is included. Sodium 134 (L) 135 - 148 mEq/L [facility] Potassium 4.0 3.5 - 5.0 mEq/L [facility] Chloride 100 98 - 112 mEq/L [facility] CO2 25 24 - 31 mEq/L [facility] Anion gap 9@ANIO 7 - 15 mEq/L [facility] BUN 8 6 - 20 mg/dL [facility] Creatinine 0.60 0.50 - 0.90 mg/dL [facility] Glucose 98 65 - 99 mg/dL [facility] Calcium 8.7 8.3 - 10.2 mg/dL [facility] Protein 6.7 6.3 - 8.3 g/dL [place] Comment: [facility] [place] 4.6-7.0 g/dL 1 week 4.4-7.6 g/dL 7 months-1year 5.1-7.3 g/dL 1-2 years 5.6-7.5 g/dL >3 years 6.0-8.0 g/dL 18-150 6.3-8.3 g/dL Albumin 3.9 3.5 - 5.0 g/dL [facility] A/G ratio 1.4 0.7 - 3.8 [facility] Alkaline 120 (H) 35 - 104 U/L [place] phosphatase [facility] AST 14 10 - 35 U/L [facility] ALT 18 5 - 50 U/L [facility] Total bilirubin 0.5 0.0 - 1.2 mg/dL [facility] Specimen Blood Performing Organization Address City/State/Unm Hospitalcowy Ph one Number [facility] [place] [place] [address] [address] [place] [address] PATHOLOGY AND GENOMIC MEDICINE [facility] [address] [place] [address] [facility] * CT Abdomen Pelvis Wo Contrast (08/03/2019 [...] ce of perforation or abscess. 2.Severe constipation. [id number] Procedure Note Hm Interface, Radiology Results Incoming [...] evidence of perforation or abscess. 2.Severe constipation. [id number] Performing Organization Address [facility] Ph one Number [facility] [address] [place] [address] * XR Abdomen 1 Vw (08/02/2019 4:39 [...] bony and soft tissue structures are unremarkable. [id number] Procedure Note Hm Interface, Radiology Results Incoming - 08/02/2019 4:46 PM CDT EXAMINATION: XR ABDOMEN 1 VW CLINICAL HISTORY: constipation COMPARISON: None. IMPRESSION: Frontal views reveal a nondilated, nondistended bowel gas pattern. No abnormal masses or calcifications are readily identified. Presumed pelvic phleboliths noted. Status post cholecystectomy and lumbar fusion. The remaining overlying bony and soft tissue structures are unremarkable. [id number] Performing Organization Address [facility] one Number [facility] [address] [place] [address] * Thyroid stimulating hormone (08/02/2019 5:53 AM CDT) TSH 1.45 0.27 - 4.20 uIU/mL [facility] Specimen Blood Performing Organization Address [facility] one Number [facility] DEPARTMENT OF [address] [place] [address] [place], [place] [address] PATHOLOGY AND GENOMIC MEDICINE [place] SINAN HERNANDEZ [address] [place] [address] [place] [address] [facility] * Phenytoin level (08/01/2019 6:28 PM CDT) Only the most recent of 2 results within the time period is included. Phenytoin <0.8 (A) 10.0 - 20.0 ug/mL [place] Comment: SINAN HERNANDEZ Therapeutic Range: [facility] 10 - 20 ug/mL Specimen Blood Performing Organization Address [facility] Ph one Number [facility] DEPARTMENT OF [address] [place] [address] [place], [place] [address] PATHOLOGY AND GENOMIC MEDICINE [facility] [place] [address] * [place] level (08/01/2019 6:28 PM CDT) Pathologist [facility] 0.20 (L) 0.60 - 1.20 mmol/L [facility] Specimen Serum Performing Organization Address [facility] one Number [facility] DEPARTMENT OF [address] [place] [address]. [place] [address] PATHOLOGY AND GENOMIC MEDICINE [address] [place] [address] * COVID-19 qualitative PCR (08/01/2019 1:47 PM CDT) Pathologist [facility] Interpretation Negative results do not [place] preclude 2019-nCoV infection [facility] and should not be used as the HOSPITAL sole basis for treatment or other patient management decisions. Negative results must be combined with clinical observations, patient history, and epidemiological information. COVID-19 Not-Detected Not-Detected [place] qualitative PCR [facility] result HOSPITAL COVID-19 See link below for PDF Lab [place] qualitative PCR ReportComment: Case Number: [facility] [id number] HOSPITAL Specimen Performing Organization Address [facility] one Number [facility] DEPARTMENT OF [address] [place] [address] PATHOLOGY AND GENOMIC MEDICINE [address] * Lipase level (08/01/2019 12:29 PM CDT) Only the most recent of 2 results within the time period is included. Pathologist [facility] Lipase 25 13 - 60 U/L [facility] Specimen Performing Organization Address [facility] one Number [facility] DEPARTMENT OF [address] [place] [address]. [place] [address] PATHOLOGY AND GENOMIC MEDICINE [facility] [address] [address] * Urine culture (08/01/2019 11:59 AM CDT) Pathologist [facility] Urine culture Mixed [place]land 10-4 col/cc [place] isolate Comment: AM[facility] Specimen Information HOSPITAL Specimen Source: Urine Specimen Site: Clean catch Specimen Urine Performing Organization Address [facility] one Number [facility] DEPARTMENT OF [address] [place], [place] [id number] PATHOLOGY AND GENOMIC MEDICINE [facility] [address] [place], [place] [id number] HOSPITAL * Urinalysis screen and microscopy, with reflex to culture (08/01/2019 11:43 AM CDT) Specimen site Clean catch [facility] Color, UA Yellow [facility] Appearance, UA Cloudy [facility] Specific 1.013 1.001 - 1.035 [place] gravity, UA [facility] pH, UA 8.0 5.0 - 8.5 [facility] Protein, UA Negative Negative [facility] Glucose, UA Negative Negative [facility] Ketones, UA Negative Negative [facility] Bilirubin, UA Negative Negative [facility] Blood, UA Negative Negative [facility] Nitrite, UA Negative Negative [facility] Urobilinogen, Negative <2.0 [facility] Leukocyte Negative Negative [place] esterase, UA [facility] Epithelial Many Few /HPF [place] cells, [facility] Round Moderate 0 - 1 /HPF [place] epithelial [facility] cells, [facility] WBC, UA 11-20 (H) 0 - 4 /HPF [facility] RBC, UA 0-5 0 - 5 /HPF [facility] Bacteria, UA None seen None seen [facility] Yeast, UA None seen [facility] Yeast with None seen [place] pseudohyphae, [facility] Amorphous Few [place] crystals [facility] Specimen Urine Performing Organization Address [facility] Ph one Number [facility] DEPARTMENT OF [address] [place] [address] [place], [place] [address] PATHOLOGY AND GENOMIC MEDICINE [address] [place] [address] [facility] * Prothrombin time with INR (08/01/2019 11:43 AM CDT) Prothrombin 12.7 11.5 - 14.5 sec [facility] INR 1.0 [place] Comment: [facility] The International Normalized [facility] Ratio (INR) is a therapeutic monitoring tool for patients who are stable on oral anticoagulant therapy. An INR of 2.0-3.0 is suggested for deep vein thrombosis/pulmonary embolism. Specimen Blood Performing Organization Address City/[facility] Ph one Number [facility] [place] [address] [place] [place] [address] PATHOLOGY AND GENOMIC MEDICINE [facility] [place] [address] [place] [address] [facility] * ECG 12 lead (08/01/2019 11:36 AM CDT) Only the most recent of 2 results within the time period is included. Ventricular 84 [facility] rate Atrial rate 84 [facility] CO interval 164 [facility] QRSD interval 86 [facility] QT interval 364 [facility] QTC interval 430 [facility] P axis 1 65 [facility] QRS axis 1 58 [facility] T wave axis 30 [facility] EKG impression Normal sinus rhythm-Normal [facility] MUSE ECG-In automated comparison with ECG of 20-JUN-2019 00:40,-Borderline criteria for Lateral infarct are no longer present- Specimen Narrative Performed At This result has an attachment that is n ot available. Performing Organization Address City/[facility] Ph one Number [facility] MUSE [address] [place] [address] * ECG ED Preliminary Interpretation - Not an Order (08/01/2019 11:30 AM CDT) Narrative Performed At José Romo MD 08/01/2019 3:55 PM ECG ED Preliminary Interpretation - Not an Order Performed by: José Romo MD Authorized by: José Romo MD ECG reviewed by ED Physician in the abs ence of a foot and ankle surgeon: yes Interpretation: Interpretation: normal Rate: ECG rate: [...] 1.6 0.5 - 2.2 mmol/L [facility] Specimen Blood Performing Organization Address City/State/Zipcode Ph one Number [facility] DEPARTMENT OF [address] [place] [address] PATHOLOGY AND GENOMIC MEDICINE [facility] [address] [place] [phone] HOSPITAL * Creatine kinase, total (CPK) (06/20/2019 12:30 AM CDT) Creatine kinase 65 26 - 192 U/L [facility] Specimen Blood Performing Organization Address City/State/Zipcode Ph one Number [facility] DEPARTMENT OF [address] [place] [address] PATHOLOGY AND GENOMIC MEDICINE [facility] [address] [place] [phone] HOSPITAL after 10/04/2018 Insurance Type Payer Benefit Subscriber ID Effective Phone Address Plan / Dates Group HMO [employer] CIGNA xxxxxxxx 2019-P HEALTH[employer]I resent NG O MCR ADV Advance Directives For more information, please contact: [phone] 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
--- NOTE | 2019-10-05 02:33 | Diagnostic Imaging Report ---
Exam: Head CT without contrast History: Headache, fall Comparison studies: Head CT of 07/05/2019 Technique: Axial images were obtained from the skull base to the vertex. Coronal and sagittal images reconstructed from the axial data. Dose modulation, iterative reconstruction, and/or weight based adjustment of the mA/kV was utilized to reduce the radiation dose to as low as reasonably achievable. Radiation dose: Total DLP: 806.2 mGy*cm. Estimated effective dose: DLP x 0.015 Intravenous contrast: None Findings: Scalp: No abnormalities. Bones: No fractures, blastic or lytic lesions. Brain sulci: Appropriate for age. Ventricles: Unchanged mild asymmetry of the lateral ventricles with the right lateral ventricle being slightly larger than the left which may be an anatomical variant for this patient. No hydrocephalus. Extra-axial spaces: No masses, no fluid collection. Parenchyma: No abnormal densities. No masses, hemorrhage, acute or chronic vascular insults. Sellar/suprasellar region: No abnormalities. Craniocervical junction: Patent foramen magnum. No Chiari one malformation. Incidental findings: Prior right [id number] mastoidectomy. IMPRESSION: 1. No acute abnormalities. 2. No changes from the prior head CT of 07/05/2019. Signed by: Dr. Wing Schuster M.D. on 10/05/2019 2:30 AM
--- OUTSIDE RECORDS SUMMARY | 2019-10-05 02:33 | XMS REPORT | Continuity of Care Document ---
Author Author [facility] t Organization [facility] Address [address] [place] [address] Phone Unavailable Care Team Providers Care Manufacturing Supervisor Name Role Phone VERNA, (NON STAFF) DEVIN PCP [phone] Minda BETTS Attphys Unavailable Melissa LIMA, Marilyn Attphys Unavailable Vimal Dahl MD, Xavi Kumar Attphys Sarah COOK, Kan Attphys [facility] Attphys Unavailable Gen Talamantes DO Attphys [phone] KAN LUNA Admphys Unavailable Payers Payer Name Policy Type Policy Number Effective Date Expiration Date S rik [facility] [id number] 2019 00:00 :00 [facility] [id number] [facility]/2019-PresentHMO xxxxxxxx 2019 00:00:00 [facility] Problems Condition Name Condition Details Condition Category Status Onset Date Resolution Date Last Treatment Date Treating Clinician Comments Source Fecal impaction of colon Fecal impaction of colon Disease Acti ve 2019-08-01 00:00:[address] Constipation Constipation Disease Active 2019-08-01 00:00:00 [facility] Accidental drug ingestion Problem Active [facility] Laceration of right hand Problem Active [facility] Encounter for removal of sutures Problem Active [facility] Bipolar 1 disorder Bipolar 1 disorder Disease Active [facility] Anxiety Anxiety Disease Active [facility] Cancer Cancer Disease Active [facility]ies, Adverse Reactions, Alerts Allergy Name Allergy Type Status Severity Reaction(s) Onset Date Inacti ve Date Treating Clinician Comments Source benztropine mesylate DA Active SV 2019-09-23 00:00:00 [facility] sertraline HCl DA Active U 2019-09-23 00:00:00 [facility] Penicillins DA Active U 2019-09-23 00:00:00 [facility] peanut FA Active SV 2019-09-23 00:00:00 [facility] haloperidol DA Active U 2019-09-23 00:00:00 [facility] phenytoin DA Active U 2019-09-23 00:00:00 [facility] risperidone DA Active MO 2019-09-23 00:00:00 [facility] shrimp FA Active SV 2019-09-23 00:00:00 [facility] Risperidone Propensity to adverse reactions to drug Active Other (See Comments) 2019-08-01 00:00:00 unknown [facility] Sertraline Propensity to adverse reactions to drug Active Swelling 2019-08-01 00:00:00 Nam Willoughby t benztropine mesylate DA Active SV 2019-07-20 00:00:00 [facility] sertraline HCl DA Active U 2019-07-20 00:00:00 [facility] Penicillins DA Active U 2019-07-20 00:00:00 [facility] peanut FA Active SV 2019-07-20 00:00:00 [facility] haloperidol DA Active U 2019-07-20 00:00:00 [facility] phenytoin DA Active U 2019-07-20 00:00:00 [facility] risperidone DA Active MO 2019-07-20 00:00:00 [facility] shrimp FA Active SV 2019-07-20 00:00:00 [facility] Haloperidol Propensity to adverse reactions to drug Active Other (See Comments) 2019-06-20 00:00:00 Lips turn blue [place] [facility] benztropine mesylate DA Active SV 2019-04-15 00:00:00 [facility] sertraline HCl DA Active U 2019-04-15 00:00:00 [facility] Penicillins DA Active U 2019-04-15 00:00:00 [facility] peanut FA Active SV 2019-04-15 00:00:00 [facility] haloperidol DA Active U 2019-04-15 00:00:00 [facility] phenytoin DA Active U 2019-04-15 00:00:00 [facility] risperidone DA Active MO 2019-04-15 00:00:00 [facility] shrimp FA Active SV 2019-04-15 00:00:00 [facility] Penicillins DA Active U 2019-03-27 00:00:00 [facility] phenytoin DA Active U 2019-03-27 00:00:00 [facility] benztropine mesylate DA Active SV 2019-03-14 00:00:00 [facility] sertraline HCl DA Active U 2019-03-14 00:00:00 [facility] peanut FA Active SV 2019-03-14 00:00:00 [facility] haloperidol DA Active U 2019-03-14 00:00:00 [facility] phenytoin DA Active SV 2019-03-14 00:00:00 [facility] risperidone DA Active MO 2019-03-14 00:00:00 [facility] shrimp FA Active SV 2019-03-14 00:00:00 [facility] benztropine mesylate DA Active SV 2018-09-01 00:00:00 [facility] sertraline HCl DA Active U 2018-09-01 00:00:00 [facility] haloperidol DA Active U 2018-09-01 00:00:00 [facility] risperidone DA Active MO 2018-09-01 00:00:00 [facility] benztropine mesylate DA Active SV 2018-05-05 00:00:00 [facility] sertraline HCl DA Active U 2018-05-05 00:00:00 [facility] haloperidol DA Active U 2018-05-05 00:00:00 [facility] risperidone DA Active MO 2018-05-05 00:00:00 [facility] benztropine mesylate DA Active SV 2018-03-27 00:00:00 [facility] sertraline HCl DA Active U 2018-03-27 00:00:00 [facility] haloperidol DA Active U 2018-03-27 00:00:00 [facility] risperidone DA Active MO 2018-03-27 00:00:00 [facility] benztropine mesylate DA Active SV 2017-08-06 00:00:00 [facility] sertraline HCl DA Active U 2017-08-06 00:00:00 [facility] haloperidol DA Active U 2017-08-06 00:00:00 [facility] risperidone DA Active MO 2017-08-06 00:00:00 [facility] DERMABOND Allergy to substance Active 2016-05-21 00:00:00 [facility] benztropine mesylate Allergy to substance Active Severe 2011- 00:00:00 [facility] Haloperidol Lactate Allergy to substance Active 2010-09-30 00:00:00 [facility] Haloperidol Allergy to substance Active 2010-09-30 00:00:00 [facility] Peanuts Allergy to substance Active 2010-02-22 00:00:00 [facility] Risperidone Allergy to substance Active 2010-02-22 00:00:00 [facility] Sertraline Allergy to substance Active Severe SWELLING, SEIZU RES 2010-02-22 00:00:00 [facility] Ziprasidone Allergy to substance Active Moderate HALLUCINATIONS 2010-02-22 00:00:00 [facility] Social History Social Habit Start Date Stop Date Quantity Comments Source History SDOH Alcohol Std Drinks Nam Harry History SDOH Alcohol Binge Nam Harry Sex Assigned At [facility] Alcohol intake 2019-08-01 00:00:00 2019-08-01 00:00:00 Lifetime non-drinker (finding) Nam Princeist History SDOH Alcohol Frequency 2019-06-20 00:00:00 2019-06-20 00:00:0 0 1 Nam Harry Smoking Status Start Date Stop Date Source Never smoker Nam Willoughby t Medications Ordered Medication Name Filled Medication Name Start Date Stop Da te Current Medication? Ordering Clinician Indication Dosage Frequency Signature (SIG) Comments Components Source Docusate Sodium (Colace) 100 Mg CAP Docusate Sodium (Colace) 100 Mg CAP 2019-09-15 05:56:00 Yes 100 Daily [facility] lithium 150 MG capsule 2019-08-04 13:47:29 Yes 150mg [id number] Take 150 mg by mouth 3 (three) times a day with meals. Nam Harry phenytoin (DILANTIN) 100 MG ER capsule 2019-08-04 13:47:29 Yes 500mg Q.[id number] Take 500 mg by mouth 3 (three) [...] moderate pain .acute pain. Nam Diaz ethodi docusate sodium (COLACE) 100 MG capsule 00:00:00 [...] 2019-08-04 00:00: 00 2019-08-11 23:59:00 No 500mg Q.[id number] Take 1 tablet (500 mg total) by mouth 3 (three) times a day for 7 days. [facility] Alprazolam (Xanax) 2 Mg TABLET Alprazolam (Xanax) 2 Mg TABLET Yes 1 Twice A Day [facility] [place] Carbonate [place] Carbonate Yes 300 Ever y Morning [facility] [place] Carbonate [place] Carbonate Yes 300 Bedt sergio [facility] Zolpidem Tartrate (Ambien) 10 Mg TABLET Zolpidem Tartrate (A mbien) 10 Mg TABLET 2016-05-29 00:00:00 No 10 Bedtime [facility] Azithromycin (Z-Leon) 250 Mg TABLET Azithromycin (Z-Leon) 250 Mg T ABLET 2012-04-03 00:00:00 No 250 Daily [facility] [place] 2012-04-03 00:00:00 No [facility] On Chemotherapy On Chemotherapy 2012-04-03 00:00:00 No [facility] Vital Signs Vital Name Observation Time Observation Value Comments Source Weight 2019-09-15 04:15:00 170 [lb_av] [facility] BMI (Body Mass Index) 2019-09-15 04:15:00 31.1 kg/m2 [facility] Weight 2019-09-09 19:50:00 170 [lb_av] [facility] BMI (Body Mass Index) 2019-09-09 19:50:00 31.1 kg/m2 [facility] Weight 2019-08-31 02:20:00 170 [lb_av] [facility] BMI (Body Mass Index) 2019-08-31 02:20:00 31.1 kg/m2 [facility] Systolic blood pressure 2019-08-04 11:15:31 127 mm[Hg] Nam Harry Diastolic blood pressure 2019-08-04 11:15:31 74 mm[Hg] [facility] Heart rate 2019-08-04 11:15:31 94 /min [facility] Body temperature 2019-08-04 11:15:31 36.61 Gabrielle [place] [facility] Respiratory rate 2019-08-04 11:15:31 19 /min [place] [facility] Oxygen saturation in Arterial blood by Pulse oximetry 08-03 11:15:31 96 /min [facility] Body height 2019-08-01 18:18:00 157.5 cm [facility] Body Temperature 2019-07-14 04:16:00 98.3 [degF] [facility] Weight 2019-07-14 01:33:00 170 [lb_av] [facility] BMI (Body Mass Index) 2019-07-14 01:33:00 31.1 kg/m2 [facility] Body Temperature 2019-07-05 04:32:00 97.2 [degF] [facility] Weight 2019-07-05 01:57:00 170 [lb_av] [facility] BMI (Body Mass Index) 2019-07-05 01:57:00 31.1 kg/m2 [facility] Body weight 2019-06-20 00:45:00 81.647 kg [facility] BMI 2019-06-20 00:45:00 32.92 kg/m2 Nam Harry Procedures Procedure Date / Time Performed Performing Clinician Sourc e RPR S/N/AX/GEN/TRNK 2.5CM/< 2019-08-31 00:00:00 [facility] HC COMPLETE BLD COUNT W/AUTO DIFF 2019-08-04 07:58:00 Cliff Sy COMPREHENSIVE METABOLIC PANEL 2019-08-04 07:58:00 Alessia Sy ESTIMATED GFR 2019-08-04 07:58:00 Cliff Sy Meth odist CT ABDOMEN PELVIS WO CONTRAST 2019-08-03 17:47:55 PabloqwyosefshakiraAlessia benavidez [facility] XR ABDOMEN 1 VW 2019-08-02 16:39:23 TeqwyosefshakiraCliff benavidez oddarshan THYROID STIMULATING HORMONE 2019-08-02 05:53:00 Alex-JermaineKan [facility] PHENYTOIN LEVEL 2019-08-01 18:28:00 Al-UrsulaomarqKan odist LITHIUM LEVEL 2019-08-01 18:28:00 Al-Lahiq, Kan Burgess odist COVID-19 QUALITATIVE PCR 2019-08-01 13:47:00 Tien Romo [...] SCREEN AND MICROSCOPY, WITH REFLEX TO CULTURE 11:43:00 José Romo ESTIMATED GFR 2019-08-01 11:43:00 José Romo ECG 12-LEAD 2019-08-01 11:36:53 José Romo ECG ED PRELIMINARY INTERPRETATION 2019-08-01 11:30:56 José Romo Computed tomography of brain without radiopaque contrast 2019-06 00:00:00 [facility] LACTIC ACID LEVEL, SEPSIS - NOW AND REPEAT 2X EVERY 3 HOURS 2019-06-20 03:30:00 Anthony Talamantes ECG 12-LEAD 2019-06-20 00:40:56 Anthony Talamantes on [facility] HC COMPLETE BLD COUNT W/AUTO DIFF 2019-06-20 00:30:00 Anthony Talamantes COMPREHENSIVE METABOLIC PANEL 2019-06-20 00:30:00 Chai Talamantes LACTIC ACID LEVEL, SEPSIS - NOW AND REPEAT 2X EVERY 3 HOURS 2019-06-20 00:30:00 Anthony Talamantes CREATINE KINASE, TOTAL (CPK) 2019-06-20 00:30:00 Jackelyn Talamantes ESTIMATED GFR 2019-06-20 00:30:00 Anthony Talamantes on [facility] PHENYTOIN LEVEL 2019-06-20 00:30:00 Anthony Talamantes on [facility] Plan of Care Planned Activity Planned Date Details Comments Source Future Scheduled Test 2019-11-14 00:00:00 INFLUENZA VACCINE [code = INFLUENZA VACCINE] [facility] 2016-01-10 00:00:00 BREAST CANCER SCRE ENING [code = BREAST CANCER SCREENING] [facility] Future Scheduled Test 2016-01-10 00:00:00 COLONOSCOPY SCREEN ING [code = COLONOSCOPY SCREENING] [facility] Future Scheduled Test 2016-01-10 00:00:00 SHINGLES VACCINES (#1) [code = SHINGLES VACCINES (#1)] Nam Harry Future Scheduled Test 1987 00:00:00 Screening for lyndsey gnant neoplasm of cervix (procedure) [code = 883525912] Nam Willoughby t Instructions Constipation - Adult [facility] Encounters Start Date/Time End Date/Time Encounter Type Admission Type Attendi [facility] Facility Care Department Encounter ID Source 2019-09-15 04:23:00 2019-09-15 06:11:00 Departed Emergency Room 1 BHARATH BETTS [facility] [id number] [facility] 2019-09-09 20:05:00 2019-09-09 20:15:00 Departed Emergency Room [facility] [id number] [facility] 2019-08-31 02:30:00 2019-08-31 04:07:00 Departed Emergency Room [facility] [id number] [facility] 2019-08-01 00:00:00 2019-08-04 00:00:00 Inpatient KAN LUNA [facility] [id number] [facility] 2019-07-14 01:21:00 2019-07-14 04:31:00 Departed Emergency Room [facility] [id number] [facility] 2019-07-05 01:17:00 2019-07-05 04:55:00 Departed Emergency Room [facility] Center [id number] [facility] Patients [facility] 2019-06-20 00:00:00 2019-06-20 00:00:00 Emergency TUSHARCHAI GABBI [facility] [id number] [facility] 2018-08-02 21:30:00 2018-08-02 21:30:00 Emergency E [facility] 2018-07-26 14:13:00 2018-07-26 14:13:00 Emergency E [facility]SE [facility] 2018-07-23 17:46:00 2018-07-23 17:46:00 Emergency E [facility]SE [facility] 2018-07-03 00:04:00 2018-07-03 00:04:00 Emergency E [facility]SE [facility]SE [facility] 2018-06-25 01:05:00 2018-06-25 01:05:00 Emergency E [facility]SE [facility] 2018-06-21 01:16:00 2018-06-21 01:16:00 Emergency E [facility]SE [facility]SE [facility] 2018-06-04 00:29:00 2018-06-04 00:29:00 Emergency E [facility]SE [facility]SE [facility] 2018-05-04 23:12:00 2018-05-04 23:49:00 Departed Emergency Room [facility] [id number] [facility] Results Test Description Test Time Test Comments Results Result Comments Source - XR L-SPINE W/BEND VIEW 2019-09-27 16:02:00 FA X: Devin Craft MD [phone] [place]: O St: REG FAX: Glen Sarabia MD [phone] Name: MADISYN GONZALES [facility] : 1965 Age/S: 54/F [address] [facility] Unit #: [id number] [place]: [place] [address] Phys: Glen Lin MD Acct: [id number] Dis Date: Status: REG CLI PHONE #: [phone] Exam Date: 09/27/2019 1521 FAX #: [phone] Reason: EVALUATE LUMBAR FUSION STATUS EXAMS: CPT CODE: [id number] XR L-SPINE W/BEND VIEW 13683 HISTORY: EVALUATE LUMBAR FUSION STATUS TECHNIQUE: AP, flexion and extension, lateral, and lumbosacral views of the lumbar spine. Comparison:Lumbar spine radiographs 12/06/2017 FINDINGS/ IMPRESSION: Patient has undergone prior fusion of L4-L5 with placement of disc spacer. The spine is appropriately aligned and there is no evidence of hardware loosening. Regional soft tissues are grossly within normal limits. Location: [facility] at 1602 Reported and signed by: Jayson Brooks MD CC: Devin Wright MD; Glen Lin MD Technologist: RT Karthikeyan(R) Trnscrd Date/Time/By: 09/27/2019 (1602) : By: [email or web address] Orig Print D/T: S: 09/27/2019 (1605) PAGE 1 Signed Report BASIC METABOLIC PANEL 2019-09-17 21:27:00 Test Item SODIUM (test code = NA) 139 mmol/L 136-145 N POTASSIUM (test code = K) 4.2 mmol/L 3.5-5.1 N CHLORIDE (test code = CL) 108.0 mmol/L 98-107 H CARBON DIOXIDE (test code = CO2) 26.0 mmol/L 21-32 N ANION GAP (test code = GAP) 9.2 10-20 L GLUCOSE (test code = GLU) 87 mg/dL 74-106 N BLOOD UREA NITROGEN (test code = BUN) 13 mg/dL 7-18 N GLOMERULAR FILTRATION RATE (test code = GFR) > 60 mL/min >=60 Estimated GFR by using Modified MDRD formula.Chronic kidney disease is defined as either kidney damageor GFR <60 mL/min/1.73 m2 for >3 months. CREATININE (test code = CREAT) 0.60 mg/dL 0.55-1.02 N Note change in reference range due to change in reagent. BUN/CREATININE RATIO (test code = BUN/CREA) 23.6 10-20 H CALCIUM (test code = CA) 9.0 mg/dL 8.5-10.1 N DILANTIN (PHENYTOIN)2019-09-17 21:27:00* Test Item Value Reference Range Interpretation Comments DILANTIN (PHENYTOIN) (test code = DIL) 6.2 ug/mL 10.0-20.0 L BASIC METABOLIC [id number] 21:23:00* Test Item Value Reference Range Interpretation Comments [...] CALCIUM (test code = CA) mg/dL 8.5-10.1 DILANTIN (PHENYTOIN)2019-09-17 21:23:00* Test Item Value Reference Range Interpretation Comments DILANTIN (PHENYTOIN) (test code = DIL) ug/mL 10.0-20.0 CBC W/O [id number] 20:16:00* Test Item Value Reference Range Interpretation Comments WHITE BLOOD CELL (test code = WBC) 10.7 K/mm3 4.5-12.5 N RED BLOOD CELL (test code = RBC) 3.95 mill/mm3 3.7-5.2 N HEMOGLOBIN (test code = HGB) 12.3 gram/dL 11.5-15.5 N HEMATOCRIT (test code = HCT) 40.7 % 36.0-46.0 N MEAN CELL VOLUME (test code = MCV) 103.0 fL 80-98 H MEAN CELL HGB (test code = MCH) 31.1 picogram 27.0-33.0 N MEAN CELL HGB CONCETRATION (test code = MCHC) 30.2 gram/dL 33.0-36. 0 L RED CELL DISTRIBUTION WIDTH (test code = RDW) 15.1 % 11.6-16. 2 N PLATELET COUNT (test code = PLT) 320 K/mm3 150-450 N MEAN PLATELET VOLUME (test code = MPV) 10.1 fL 6.7-11.0 N CBC W/O [id number] 20:12:00* Test Item Value Reference Range Interpretation Comments WHITE BLOOD CELL (test code = WBC) K/mm3 4.5-12.5 RED BLOOD CELL (test code = RBC) mill/mm3 3.7-5.2 HEMOGLOBIN (test code = HGB) 12.3 gram/dL 11.5-15.5 N HEMATOCRIT (test code = HCT) 40.7 % 36.0-46.0 N MEAN CELL VOLUME (test code = MCV) fL 80-98 MEAN CELL HGB (test code = MCH) picogram 27.0-33.0 MEAN CELL HGB CONCETRATION (test code = MCHC) gram/dL 33.0-36. 0 RED CELL DISTRIBUTION WIDTH (test code = RDW) % 11.6-16. 2 PLATELET COUNT (test code = PLT) 320 K/mm3 150-450 N MEAN PLATELET VOLUME (test code = MPV) fL 6.7-11.0 - CT HEAD/BRAIN W/O [id number] 16:34:00 Name: MADISYN GONZALES [facility] : 1965 Age/S: 54 / F [address] Unit #: [id number] Loc: [place] [address] Phys: Eduar Escobedo MD Acct: [id number] Dis Date: Status: REG ER PHONE #: [phone] Exam Date: 09/17/2019 1630 FAX #: [phone] Reason: head injury, sz EXAMS: CPT CODE: [id number] CT HEAD/BRAIN W/O CONT 60443 REASON FOR EXAM: head injury, sz EXAM ORDER DATE: 09/17/2019 4:08 PM Ordering: Eduar Escobedo MD Attending:Eduar Escobedo MD Location:[facility] PROCEDURE: - CT HEAD/BRAIN W/O CONT COMPARISON: FINDINGS: CT images of the brain were obtained without IV contrast. Dose modulation, iterative reconstruction, and/or weight based adjustment of the MA/KV was utilized to reduce the radiation dose to as low as reasonably achievable. The brain parenchyma is within normal limits. The prasad-white matter delineation is unremarkable. The ventricles, cisterns, and sulci are unremarkable. There is no evidence of hemorrhage, mass, mass effect. There is no evidence of acute or old infarct. The calvarium is intact. IMPRESSION: Unremarkable brain. at 1634 Reported and signed by: Dannie Hernández M.D. CC: Eduar Luna MD Technologist:Julisa Ingram RT(R); ROMAINE Gibson CTDI: DLP: Trnscb Date/Time: 09/17/2019 (1634) tWaldo MONTIEL Orig Print D/T: S: 09/17/2019 (3539) PAGE 1 Signed Report ABDOMEN-1VIEW (KUB)2019-09-15 05:33:00 [place] [address] Patient Name: MADISYN GONZALES MR #: [id number] : 1965 Age/Sex: 54/F Req #: [id number] [facility] Physician: Ordered by: BHARATH BETTS DO Report #: [id number] Location: ER Room/Bed: Procedure: [id number] DX/ABDOMEN-1 VIEW (KUB) Exam Date: 09/15/19 Exam Time: 0502 REPORT STATUS: Signed EXAM: Abdomen R adiograph 1 View INDICATION: Constipation COMPARISON: None FINDING S: No abnormalities in the lower chest. No lines or tubes. Moder ate volume of stool in the colon. No dilated loops of small bowel. Pel susan phlebolith. No abnormal soft tissue masses. No pneumoperitoneum. No acute osseous abnormality. L4-L5 fixation hardware and disc spacer. Cholecystectomy clips. IMPRESSION: Moderate volume of stool in the colon, consistent with constipation. Signed by: Flash England DO on 09/15/2019 5:34 AM Dictated By: FLASH ENGLAND DO 3 Transcribed By: KATRIN on 09/15/19533 COPY TO: BHARATH BETTS DO Urine color determination 2019-09-15 04:20:00* Test Item Value Reference Range Interpretation Comments Urine Color (test code = 5778-6) YELLOW YELLOW [facility] [id number] 04:20:00* Test Item Value Reference Range Interpretation Comments Urine Clarity (test code = 08201-4) CLEAR [facility]AR [facility] by Test strip 2019-09-15 04:20:00* Test Item Value Reference Range Interpretation Comments Urine Specific [place] (test code = 5811-5) 1.020 1.010-1.02 5 [facility] pH measurement by automated test [id number] 04:20:00* Test Item Value Reference Range Interpretation Comments Urine pH (test code = 98057-8) 7 5-7 [facility] leukocyte esterase detection by [id number] 04:20:00* Test Item Value Reference Range Interpretation Comments Urine Leukocyte Esterase (test code = 5799-2) NEGATIVE NEGATIVE [facility] nitrite [id number] 04:20:00* Test Item Value Reference Range Interpretation Comments Urine Nitrite (test code = 16845-9) NEGATIVE NEGATIVE [facility] protein measurement by test strip (mass/volume)2019-09-15 04:20:00* Test Item Value Reference Range Interpretation Comments Urine Protein (test code = 5804-0) NEGATIVE NEGATIVE [facility] glucose [id number] 04:20:00* Test Item Value Reference Range Interpretation Comments Urine Glucose (UA) (test code = 2349-9) NEGATIVE NEGATIVE [facility] ketones detection by automated test [id number] 04:20:00* Test Item Value Reference Range Interpretation Comments Urine Ketones (test code = 45414-9) NEGATIVE NEGATIVE [facility] opiates screening [id number] 04:20:00* Test Item Value Reference Range Interpretation Comments Urine Opiates Screen (test code = 88068-1) POSITIVE NEGATIVE ALL TESTS PERFORMED MANUALLY ON [employer] TOX/SEE TEST This test provides only a sc reen. Positive results should be repeated by a confirmatory test.[facility] screen, [id number] 04:20:00* Test Item Value Reference Range Interpretation Comments Urine Barbiturates Screen (test code = 913935057) NEGATIVE NEGA TIVE [facility] phencyclidine detection by screening [id number] 04:20:00* Test Item Value Reference Range Interpretation Comments Urine Phencyclidine Screen (test code = 26573-1) NEGATIVE NEGAT SESAR [facility] amphetamines detection by screen method > 1000 [id number] 04:20:00* Test Item Value Reference Range Interpretation Comments Urine Amphetamines Screen (test code = 29137-6) NEGATIVE NEGATI VE [facility] HospitalFluoroscopic procedure less than one hour javlppby6491-73-38 04:20:00* Test Item Value Reference Range Interpretation Comments Urine Methamphetamines Screen (test code = Urine Metha mphetamines Screen) NEGATIVE NEGATIVE [facility] benzodiazepines detection by screening [id number] 04:20:00* Test Item Value Reference Range Interpretation Comments Urine Benzodiazepines Screen (test code = 83060-2) NEGATIVE NEG ATIVE [facility] HospitalU[facility] cocaine measurement (mass/volume) 2019-09-15 04:20:00* Test Item Value Reference Range Interpretation Comments Urine Cocaine Screen (test code = 3398-5) NEGATIVE NEGATIVE [facility] HospitalUrine cannabinoids detection by screening qokytx5772-63-09 04:20:00* Test Item Value Reference Range Interpretation Comments Urine Cannabinoids Screen (test code = 24474-6) NEGATIVE NEGATI VE THESE RESULTS ARE FOR MEDICAL TREATMENT ONLYTHIS REPORT CONTAINS UNCONFIR MED SCREENING RESULTS*POSITIVE RESULTS WILL BE CONFIRMED BY REFERENCE LAB UPON R EQUEST CUT-OFFDRUG CLASS CONCENTRATION ng/mLAmphetamines 1000Methamphetamines 1000Cocaine 300Opiate 300Phencyc lidine 25Cannabinoid 50Barbiturates 300Benzodiazepine 300Methadone 300[facility] Center[facility]adone [id number] 04:20:00* Test Item Value Reference Range Interpretation Comments Urine Methadone Screen (test code = 73663-9) NEGATIVE NEGATIVE THESE RESULTS ARE FOR MEDICAL TREATMENT ONLYTHIS REPORT CONTAINS UNCONFIR MED SCREENING RESULTS*POSITIVE RESULTS WILL BE CONFIRMED BY REFERENCE LAB UPON R EQUEST CUT-OFFDRUG CLASS CONCENTRATION ng/mLAmphetamines 1000Methamphetamines 1000Cocaine Metabolite 300Opiate 300Phencyc lidine 25Cannabinoid 50Barbiturates 300Benzodiazepine 300Methadone 300[facility] CenterUrine urobilinogen measurement by test strip (mass/volume)2019-09-15 04:20:00* Test Item Value Reference Range Interpretation Comments Urine Urobilinogen (test code = 38352-7) 0.2 0.2-1 [facility] total bilirubin measurement (mass/volume)2019-09-15 04:20:00* Test Item Value Reference Range Interpretation Comments Urine Bilirubin (test code = 1978-6) NEGATIVE NEGATIVE [facility] HospitalUrine erythrocytes vipfntszz0211-77-23 04:20:00* Test Item Value Reference Range Interpretation Comments Urine Blood (test code = 77263-3) NEGATIVE NEGATIVE [facility] HospitalAutomated urine sediment leukocyte count by microscopy (number/high power field)2019-09-15 04:20:00* Test Item Value Reference Range Interpretation Comments Urine WBC (test code = 5821-4) 0-5 0-5 [facility] HospitalErythrocytes detection in urine sediment by light hoalsljhtm3900-47-15 04:20:00* Test Item Value Reference Range Interpretation Comments Urine RBC (test code = 10142-9) 0-5 0-5 [facility] HospitalBacteria detection in urine sediment by light fsqehkdtlc5845-88-11 04:20:00* Test Item Value Reference Range Interpretation Comments Urine Bacteria (test code = 83088-6) RARE NONE [facility] HospitalEpithelial cells detection in urine sediment by light pwnjigyznn6307-07-32 04:20:00* Test Item Value Reference Range Interpretation Comments Urine Epithelial Cells (test code = 32381-1) FEW NONE [facility] HospitalComprehensive metabolic vwxgp7480-66-88 08:28:16* Test Item Value Reference Range Interpretation Comments Sodium (test code = 2951-2) 134 135- 148 mEq/L L Potassium (test code = 2823-3) 4.0 3.5- 5.0 mEq/L Chloride (test code = 2075-0) 100 98- 112 mEq/L CO2 (test code = 2027-9) 25 24- 31 mEq/L Anion gap (test code = 06324-4) 9@ANIO 7- 15 mEq/L BUN (test code = 3094-0) 8 mg/dL 6-20 Creatinine (test code = 2160-0) 0.60 mg/dL 0.5-0.9 Glucose (test code = 2345-7) 98 mg/dL 65-99 Calcium (test code = 48514-8) 8.7 mg/dL 8.3-10.2 Protein (test code = 2885-2) 6.7 g/dL 6.3-8.3 -[place] 4.6- 7.0 g/dL1 week 4.4-7.6 g/dL7 months-1year 5.1-7.3 g/dL1-2 years 5.6-7.5 g/dL>3 years 6.0-8.0 g/zI72-104 6.3-8.3 g/dL Albumin (test code = 1751-7) 3.9 g/dL 3.5-5 A/G ratio (test code = 1759-0) 1.4 0.7-3.8 Alkaline phosphatase (test code = 6768-6) 120 U/L 35-104 H AST (test code = 1920-8) 14 U/L 10-35 ALT (test code = 1742-6) 18 U/L 5-50 Total bilirubin (test code = 1975-2) 0.5 mg/dL 0-1.2 Lab Interpretation (test code = 14562-5) Abnormal [facility] MethodistEstimated [id number] 08:19:47* Test Item Value Reference Range Interpretation Comments Estimated GFR (test code = 5488) >=90 mL/min/1.73 m2 Catergory Units InterpretationG1 >=90 Normal or highG2 60-89 Mildly lmalsjcsyE4u 45-59 Mildly to moderately mgymsojooS6k 30-44 Moderately to severely decreasedG4 15-29 Severely decreasedG5 <15 Kidney failureThe eGFR was calculated using the Chronic Kidney Disease Epidemiology Collaboration (CKD-EPI) equation. Interpretation is based on recommendations of the National Kidney Foundation-Kidney Disease Outcomes Quality Initiative (NKF-KDOQI) published in 2014. [facility] MethodistCBC with platelet and ebtwsecqgqkq4617-48-18 08:05:35* Test Item Value Reference Range Interpretation Comments WBC (test code = 69497-7) 10.41 4.50- 11.00 k/uL RBC (test code = 09565-7) 3.88 m/uL 4.2-5.5 L HGB (test code = 718-7) 12.3 g/dL 12-16 HCT (test code = 4544-3) 38.2 % 37-47 MCV (test code = 787-2) 98.5 fL 82-100 MCH (test code = 785-6) 31.7 pg 27-34 MCHC (test code = 786-4) 32.2 g/dL 31-37 RDW - SD (test code = 39757-6) 50.4 fL 37-55 MPV (test code = 74774-1) 9.6 fL 8.8-13.2 Platelet count (test code = 47006-1) 272 150- 400 k/uL Nucleated RBC (test code = 04458-0) 0.00 /100 WBC Neutrophils (test code = 02522-0) 74.5 % 39-69 H Lymphocytes (test code = 70469-5) 15.1 % 25-45 L Monocytes (test code = 09320-0) 8.5 % 0-10 Eosinophils (test code = 37874-7) 1.1 % 0-5 Basophils (test code = 56902-3) 0.4 % 0-1 Lab Interpretation (test code = 23343-2) Abnormal [facility] Abdomen Pelvis Wo Zowstlom5459-62-10 18:19:42Hm Interface, Radiology Results 08/03/2019 6:22 PM [...] No evidence of perforation or abscess.2.S evere constipation.HMSL-[id number] MethodistUrine qondjut2643-68-87 19:14:58* Test Item Value Reference Range Interpretation Comments Urine culture isolate (test code = 78848-1) Mixed leland 10-4 col/cc Specimen InformationSpecimen Source: UrineSpecimen Site: Clean catch [facility] MethodistXR Abdomen 1 Um0880-33-61 16:42:52Hm Interface, Radiology Results - 08/02/2019 4:46 PM CDTEXAMINATION: XR ABDOMEN 1 VWCLINICAL HISTORY: constipationCOMPARISON: None.IMPRESSION:Frontal views reveal a nondilated, nondistended bowel gas pattern. No abnormal masses or calcifications are readily identified. Presumed pelvic phleboliths noted. Status post cholecystectomy and lumbar fusion. The remaining overlying bony and soft tissue structures are unremarkable.[id number] MethodistThyroid stimulating vgcupab9823-45-23 06:36:27* Test Item Value Reference Range Interpretation Comments TSH (test code = 3016-3) 1.45 0.27- 4.20 uIU/mL [facility] ChristianityCOVID-19 qualitative ZTR3038-72-91 04:18:12* Test Item Value Reference Range Interpretation Comments Interpretation (test code = 9706910) Negative results do not preclude 2019-nCoV infection and should not be used as the sole basis for treatment or other patient management decisions. Negative results must be combined with clinical observations, patient history, and epidemiological information. COVID-19 qualitative PCR result (test code = 42957-4) Not-Detect ed Not-Detected COVID-19 qualitative PCR (test code = 7070) See link below for P DF Lab Report [facility] ChristianityLithium mgkcr6098-55-32 18:51:19* Test Item Value Reference Range Interpretation Comments [place] (test code = 3719-2) 0.20 mmol/L 0.6-1.2 L Lab Interpretation (test code = 44791-8) Abnormal [facility] MethodistPhenytoin yhsqo2088-31-12 18:50:46* Test Item Value Reference Range Interpretation Comments Phenytoin (test code = 3968-5) <0.8 10-20 A Therapeutic Range: 10 - 20 ug/mL Lab Interpretation (test code = 15372-5) Abnormal [facility] MethodistECG 12 zwqm3235-33-95 13:25:40* Test Item Value Reference Range Interpretation Comments Ventricular rate (test code = 253) 84 Atrial rate (test code = 255) 84 VT interval (test code = 266) 164 QRSD [...] for Lateral infarct are no longer present- [facility] MethodistLipase cijlj6881-66-34 13:18:12* Test Item Value Reference Range Interpretation Comments Lipase (test code = 3040-3) 25 U/L 13-60 [facility] MethodistProthrombin time with UUD2697-13-63 12:00:12* Test Item Value Reference Range Interpretation Comments Prothrombin time (test code = 5902-2) 12.7 11.5- 14.5 sec INR (test code = 53991-6) 1.0 Th e International Normalized Ratio (INR) is a therapeutic monitoring tool for patients who are stable on oral anticoagulant therapy. An INR of 2.0-3.0 is suggested for deep vein thrombosis/pulmonary embolism. [facility] MethodistUrinalysis screen and microscopy, with reflex to culture 2019-08-01 11:59:49* Test Item Value Reference Range Interpretation Comments Specimen site (test code = 6848231) Clean catch Color, UA (test code = 5778-6) Yellow Appearance, UA (test code = 5767-9) Cloudy Specific gravity, UA (test code = 5811-5) 1.013 1.001-1.035 pH, UA (test code = 5803-2) 8.0 5.0-8.5 Protein, UA (test code = 33152-8) Negative Negative Glucose, UA (test code = 65218-0) Negative Negative Ketones, UA (test code = 2514-8) Negative Negative Bilirubin, UA (test code = 5770-3) Negative Negative Blood, UA (test code = 5794-3) Negative Negative Nitrite, UA (test code = 5802-4) Negative Negative Urobilinogen, UA (test code = 44313-1) Negative <2.0 Leukocyte esterase, UA (test code = 5799-2) Negative Negative Epithelial cells, UA (test code = 5787-7) Many Few /HPF Round epithelial cells, UA (test code = 81149-3) Moderate 0- 1 /HPF WBC, UA (test code = 5821-4) 11-20 0- 4 /HPF H RBC, UA (test code = 20004-0) 0-5 0- 5 /HPF Bacteria, UA (test code = 09712-1) None seen None seen Yeast, UA (test code = 10822-9) None seen Yeast with pseudohyphae, UA (test code = 59292-0) None seen Amorphous crystals (test code = 69872-3) Few Lab Interpretation (test code = 10376-9) Abnormal [facility] ED Preliminary Interpretation - Not an Wtwny2635-08-75 11:30:56José Romo MD 08/01/2019 3:55 [facility] ED Preliminary Interpretation - Not an OrderPerformed by: José Romo MDAuthorized by: José Romo MD ECG reviewed by ED Physician in the absence of a recovery manager: yes Interpretation: Interpretation: normal Rate: ECG rate: 84 ECG rate assessment: normal Rhythm: Rhythm: sinus rhythm Ectopy: Ectopy: none QRS: QRS axis: Normal QRS intervals: NormalConduction: Conduction: normal ST segments: ST segments: NormalT waves: T waves: normal [facility] MethodistURINALYSIS NBDQHOZV6231-21-70 21:30:00* Test Item Value Reference Range Interpretation [...] FEW #/LPF FEW Urine Source? Clean CatchURINALYSIS CQNFHTNF7412-65-33 21:28:00* Test Item Value Reference Range Interpretation [...] HPF NONE Urine Source? Clean CatchBASIC METABOLIC [id number] 20:25:00* Test Item Value Reference Range Interpretation [...] CA) 9.3 mg/dL 8.5-10.1 N HEPATIC FUNCTION [id number] 20:25:00* Test Item Value Reference Range Interpretation [...] reference range due to change in reagent. [id number] 20:25:00* Test Item Value Reference Range Interpretation Comments LIPASE (test code = LIP) 91 U/L 73.0-393.0 N CWUVEDLIY2856-92-18 20:25:00* Test Item Value Reference Range Interpretation Comments MAGNESIUM (test code = MAG) 2.5 mg/dL 1.8-2.4 H HCG SERUM [id number] 20:25:00* Test Item Value Reference Range Interpretation Comments HCG SERUM QUAL (test code = HCGQL) NEGATIVE NEGATIVE This HCGQL test is NOT applicable for MALE patients.Check with nurse about probable order error.If Tumor Marker Test needed, nurse should order test "HCGTU"(Test #550.32762) PROTHROMBIN [id number] 20:16:00* Test Item Value Reference Range Interpretation [...] (2.5-3.5) IS PATIENT ON ANTICOAGULANTS? NTHROMBOPLASTIN TIME TXHWUVP2530-04-70 20:16:00* Test Item Value Reference Range Interpretation Comments THROMBOPLASTIN TIME PARTIAL (test code = PTT) 32.0 seconds 23.0-37. 0 N IS PATIENT ON ANTICOAGULANTS? NBASIC METABOLIC [id number] 20:14:00* Test Item Value Reference Range Interpretation [...] code = CA) mg/dL 8.5-10.1 HEPATIC FUNCTION [id number] 20:14:00* Test Item Value Reference Range Interpretation [...] TOTAL (test code = ALKP) IUnit/L 45-117 [id number] 20:14:00* Test Item Value Reference Range Interpretation Comments LIPASE (test code = LIP) U/L 73.0-393.0 [id number] 20:14:00* Test Item Value Reference Range Interpretation Comments MAGNESIUM (test code = MAG) mg/dL 1.8-2.4 HCG SERUM [id number] 20:14:00* Test Item Value Reference Range Interpretation Comments HCG SERUM QUAL (test code = HCGQL) NEGATIVE NEGATIVE This HCGQL test is NOT applicable for MALE patients.Check with nurse about probable order error.If Tumor Marker Test needed, nurse should order test "HCGTU"(Test #550.50311) BASIC METABOLIC [id number] 20:12:00* Test Item Value Reference Range Interpretation [...] code = CA) mg/dL 8.5-10.1 HEPATIC FUNCTION [id number] 20:12:00* Test Item Value Reference Range Interpretation [...] TOTAL (test code = ALKP) IUnit/L 45-117 [id number] 20:12:00* Test Item Value Reference Range Interpretation Comments LIPASE (test code = LIP) U/L 73.0-393.0 [id number] 20:12:00* Test Item Value Reference Range Interpretation Comments MAGNESIUM (test code = MAG) mg/dL 1.8-2.4 HCG SERUM [id number] 20:12:00* Test Item Value Reference Range Interpretation Comments HCG SERUM QUAL (test code = HCGQL) NEGATIVE NEGATIVE This HCGQL test is NOT applicable for MALE patients.Check with nurse about probable order error.If Tumor Marker Test needed, nurse should order test "HCGTU"(Test #550.07309) CBC W/O [id number] 20:09:00* Test Item Value Reference Range Interpretation [...] fL 6.7-11.0 N - CT HEAD/BRAIN W/O [id number] 19:16:00 Name: [facility] 1965 Age/S: 54 / F [address] [facility] Unit #: [id number] Loc: [place] [address] Phys: Ethel Phelps MD Acct: [id number] Dis Date: Status: REG ER PHONE #: [phone] Exam Date: 07/20/20191899 FAX #: [phone] Reason: headache EXAMS: CPT CODE: [id number] CT HEAD/BRAIN W/O CONT 07281 HISTORY: headache TECHNIQUE: Noncontrast 2.5 mm axial [...] (1915) t.SDR.RR31 Orig Print D/T: S: 07/20/2019 (7182) PAGE 1 S igned Report Urine opiates screening test 2019-07-14 02:00:00* Test Item Value Reference Range Interpretation Comments Urine Opiates Screen (test code = 77154-7) POSITIVE NEGATIVE This test provides only a screen. Positive results should be repeated by a confi rmatory test.[facility] HospitalBarbit[facility]ates screen, urine 2019-07-14 02:00:00* Test Item Value Reference Range Interpretation Comments Urine Barbiturates Screen (test code = 513940143) NEGATIVE NEGA TIVE [facility] HospitalUrine phencyclidine detection by screening rutnjd5763-29-04 02:00:00* Test Item Value Reference Range Interpretation Comments Urine Phencyclidine Screen (test code = 02516-1) NEGATIVE NEGAT SESAR [facility] HospitalUrine amphetamines detection by screen method > 1000 ng/lW4449-77-68 02:00:00* Test Item Value Reference Range Interpretation Comments Urine Amphetamines Screen (test code = 99487-4) NEGATIVE NEGATI VE [facility] HospitalFluoroscopic procedure less than one hour tepqemlf8814-59-88 02:00:00* Test Item Value Reference Range Interpretation Comments Urine Methamphetamines Screen (test code = Urine Metha mphetamines Screen) NEGATIVE NEGATIVE [facility] HospitalUrine benzodiazepines detection by screening zdiouu8789-39-05 02:00:00* Test Item Value Reference Range Interpretation Comments Urine Benzodiazepines Screen (test code = 85878-3) NEGATIVE NEG ATIVE [facility] HospitalUrine cocaine measurement (mass/volume) 2019-07-14 02:00:00* Test Item Value Reference Range Interpretation Comments Urine Cocaine Screen (test code = 3398-5) NEGATIVE NEGATIVE [facility] HospitalUrine cannabinoids detection by screening jljsma3448-36-36 02:00:00* Test Item Value Reference Range Interpretation Comments Urine Cannabinoids Screen (test code = 07476-4) NEGATIVE NEGATI VE THESE RESULTS ARE FOR MEDICAL TREATMENT ONLYTHIS REPORT CONTAINS UNCONFIR MED SCREENING RESULTS*POSITIVE RESULTS WILL BE CONFIRMED BY REFERENCE LAB UPON R EQUEST CUT-OFFDRUG CLASS CONCENTRATION ng/mLAmphetamines 1000Methamphetamines 1000Cocaine 300Opiate 300Phencyc lidine 25Cannabinoid 50Barbiturates 300Benzodiazepine 300Methadone 300[facility] CenterU[facility] methadone zdeqmq2865-89-52 02:00:00* Test Item Value Reference Range Interpretation Comments Urine Methadone Screen (test code = 72821-4) NEGATIVE NEGATIVE THESE RESULTS ARE FOR MEDICAL TREATMENT ONLYTHIS REPORT CONTAINS UNCONFIR MED SCREENING RESULTS*POSITIVE RESULTS WILL BE CONFIRMED BY REFERENCE LAB UPON R EQUEST CUT-OFFDRUG CLASS CONCENTRATION ng/mLAmphetamines 1000Methamphetamines 1000Cocaine Metabolite 300Opiate 300Phencyc lidine 25Cannabinoid 50Barbiturates 300Benzodiazepine 300Methadone 300[facility] CenterUrine opiates screening rwke2689-06-15 02:00:00* Test Item Value Reference Range Interpretation Comments Urine Opiates Screen (test code = 54126-0) POSITIVE NEGATIVE This test provides only a screen. Positive results should be repeated by a confi rmatory test.[facility] HospitalBarbiturates screen, urine 2019-07-14 02:00:00* Test Item Value Reference Range Interpretation Comments Urine Barbiturates Screen (test code = 902323392) NEGATIVE NEGA TIVE [facility] HospitalUrine phencyclidine detection by screening skqpqy9333-14-49 02:00:00* Test Item Value Reference Range Interpretation Comments Urine Phencyclidine Screen (test code = 87454-7) NEGATIVE NEGAT SESAR [facility] HospitalUrine amphetamines detection by screen method > 1000 ng/cH0617-03-75 02:00:00* Test Item Value Reference Range Interpretation Comments Urine Amphetamines Screen (test code = 15000-0) NEGATIVE NEGATI VE [facility] HospitalFluoroscopic procedure less than one hour djpvzsbq5133-61-27 02:00:00* Test Item Value Reference Range Interpretation Comments Urine Methamphetamines Screen (test code = Urine Metha mphetamines Screen) NEGATIVE NEGATIVE [facility] HospitalUrine benzodiazepines detection by screening pxvnsj0878-88-43 02:00:00* Test Item Value Reference Range Interpretation Comments Urine Benzodiazepines Screen (test code = 58665-3) NEGATIVE NEG ATIVE [facility] HospitalUrine cocaine measurement (mass/volume) 2019-07-14 02:00:00* Test Item Value Reference Range Interpretation Comments Urine Cocaine Screen (test code = 3398-5) NEGATIVE NEGATIVE [facility] HospitalUrine cannabinoids detection by screening ksqwnb2609-43-80 02:00:00* Test Item Value Reference Range Interpretation Comments Urine Cannabinoids Screen (test code = 05883-3) NEGATIVE NEGATI VE THESE RESULTS ARE FOR MEDICAL TREATMENT ONLYTHIS REPORT CONTAINS UNCONFIR MED SCREENING RESULTS*POSITIVE RESULTS WILL BE CONFIRMED BY REFERENCE LAB UPON R EQUEST CUT-OFFDRUG CLASS CONCENTRATION ng/mLAmphetamines 1000Methamphetamines 1000Cocaine 300Opiate 300Phencyc lidine 25Cannabinoid 50Barbiturates 300Benzodiazepine 300Methadone 300[facility] HospitalUrine methadone bjafbo8932-49-71 02:00:00* Test Item Value Reference Range Interpretation Comments Urine Methadone Screen (test code = 53040-7) NEGATIVE NEGATIVE THESE RESULTS ARE FOR MEDICAL TREATMENT ONLYTHIS REPORT CONTAINS UNCONFIR MED SCREENING RESULTS*POSITIVE RESULTS WILL BE CONFIRMED BY REFERENCE LAB UPON R EQUEST CUT-OFFDRUG CLASS CONCENTRATION ng/mLAmphetamines 1000Methamphetamines 1000Cocaine Metabolite 300Opiate 300Phencyc lidine 25Cannabinoid 50Barbiturates 300Benzodiazepine 300Methadone 300[facility] HospitalUrine opiates screening klzi0696-23-13 02:00:00* Test Item Value Reference Range Interpretation Comments Urine Opiates Screen (test code = 90271-9) POSITIVE NEGATIVE This test provides only a screen. Positive results should be repeated by a confi rmatory test.[facility] HospitalBarbiturates screen, urine 2019-07-14 02:00:00* Test Item Value Reference Range Interpretation Comments Urine Barbiturates Screen (test code = 110632896) NEGATIVE NEGA TIVE [facility] HospitalUrine phencyclidine detection by screening qalwbi1974-72-51 02:00:00* Test Item Value Reference Range Interpretation Comments Urine Phencyclidine Screen (test code = 21874-6) NEGATIVE NEGAT SESAR [facility] HospitalUrine amphetamines detection by screen method > 1000 ng/dP7901-91-90 02:00:00* Test Item Value Reference Range Interpretation Comments Urine Amphetamines Screen (test code = 72994-9) NEGATIVE NEGATI VE [facility] HospitalFluoroscopic procedure less than one hour clgozdgn6875-37-84 02:00:00* Test Item Value Reference Range Interpretation Comments Urine Methamphetamines Screen (test code = Urine Metha mphetamines Screen) NEGATIVE NEGATIVE [facility] HospitalUrine benzodiazepines detection by screening eroxia1826-21-85 02:00:00* Test Item Value Reference Range Interpretation Comments Urine Benzodiazepines Screen (test code = 25490-1) NEGATIVE NEG ATIVE [facility] HospitalUrine cocaine measurement (mass/volume) 2019-07-14 02:00:00* Test Item Value Reference Range Interpretation Comments Urine Cocaine Screen (test code = 3398-5) NEGATIVE NEGATIVE [facility] HospitalUrine cannabinoids detection by screening hpqirr4570-64-11 02:00:00* Test Item Value Reference Range Interpretation Comments Urine Cannabinoids Screen (test code = 69675-5) NEGATIVE NEGATI VE THESE RESULTS ARE FOR MEDICAL TREATMENT ONLYTHIS REPORT CONTAINS UNCONFIR MED SCREENING RESULTS*POSITIVE RESULTS WILL BE CONFIRMED BY REFERENCE LAB UPON R EQUEST CUT-OFFDRUG CLASS CONCENTRATION ng/mLAmphetamines 1000Methamphetamines 1000Cocaine 300Opiate 300Phencyc lidine 25Cannabinoid 50Barbiturates 300Benzodiazepine 300Methadone 300[facility] CenterUrine methadone bsoozl0336-31-91 02:00:00* Test Item Value Reference Range Interpretation Comments Urine Methadone Screen (test code = 33394-2) NEGATIVE NEGATIVE THESE RESULTS ARE FOR MEDICAL TREATMENT ONLYTHIS REPORT CONTAINS UNCONFIR MED SCREENING RESULTS*POSITIVE RESULTS WILL BE CONFIRMED BY REFERENCE LAB UPON R EQUEST CUT-OFFDRUG CLASS CONCENTRATION ng/mLAmphetamines 1000Methamphetamines 1000Cocaine Metabolite 300Opiate 300Phencyc lidine 25Cannabinoid 50Barbiturates 300Benzodiazepine 300Methadone 300[facility] HospitalBlood leukocytes automated count (number/volume) 2019-07-14 01:51:00* Test Item Value Reference Range Interpretation Comments White Blood Count (test code = 6690-2) 10.91 4.8-10.8 [facility] HospitalBlood erythrocytes automated count (number/volume)2019-07-14 01:51:00* Test Item Value Reference Range Interpretation Comments Red Blood Count (test code = 789-8) 3.81 3.6-5.1 [facility] hemoglobin measurement (moles/volume)2019-07-14 01:51:00* Test Item Value Reference Range Interpretation Comments Hemoglobin (test code = 48799-6) 11.8 12.0-16.0 [facility] HospitalAutomated blood hematocrit (volume fraction)2019-07-14 01:51:00* Test Item Value Reference Range Interpretation Comments Hematocrit (test code = 4544-3) 37.6 34.2-44.1 [facility] HospitalAutomated erythrocyte mean corpuscular odjdia8314-97-42 01:51:00* Test Item Value Reference Range Interpretation Comments Mean Corpuscular Volume (test code = 787-2) 98.7 81-99 [facility] HospitalAutomated erythrocyte mean corpuscular hemoglobin (mass per erythrocyte)2019-07-14 01:51:00* Test Item Value Reference Range Interpretation Comments Mean Corpuscular Hemoglobin (test code = 785-6) 31.0 28-32 [facility] HospitalAutomated erythrocyte mean corpuscular hemoglobin concentration measurement (mass/volume)2019-07-14 01:51:00* Test Item Value Reference Range Interpretation Comments Mean Corpuscular Hemoglobin Concent (test code = 786-4) 31.4 31-35 [facility] HospitalRDW TnyUx-Ilk6193-19-31 01:51:00* Test Item Value Reference Range Interpretation Comments Red Cell Distribution Width (test code = 21171-0) 13.7 11.7 -14.4 [facility] HospitalAutomated blood platelet count (count/volume)2019-07-14 01:51:00* Test Item Value Reference Range Interpretation Comments Platelet Count (test code = 777-3) 366 140-360 [facility] neutrophil count as percentage of total ldftfscdri3830-30-09 01:51:00* Test Item Value Reference Range Interpretation Comments Neutrophils (%) (Auto) (test code = 64208-7) 78.1 38.7-80.0 [facility] HospitalAutomated blood lymphocyte count as percentage ot total xbtufnhhnf2670-73-77 01:51:00* Test Item Value Reference Range Interpretation Comments Lymphocytes (%) (Auto) (test code = 736-9) 14.1 18.0-39.1 [facility] HospitalAutomated blood monocyte count as percentage of total sfyypgeylj2152-03-54 01:51:00* Test Item Value Reference Range Interpretation Comments Monocytes (%) (Auto) (test code = 5905-5) 6.9 4.4-11.3 [facility] HospitalAutomated blood eosinophil count as percentage of total pkjtymyqku7649-16-25 01:51:00* Test Item Value Reference Range Interpretation Comments Eosinophils (%) (Auto) (test code = 713-8) 0.1 0.0-6.0 [facility] HospitalAutomated blood basophil count as percentage of total dnsutzhdyh0413-41-17 01:51:00* Test Item Value Reference Range Interpretation Comments Basophils (%) (Auto) (test code = 706-2) 0.4 0.0-1.0 [facility] HospitalFluoroscopic procedure less than one hour vemlqqjg6838-24-60 01:51:00* Test Item Value Reference Range Interpretation Comments IM GRANULOCYTES % (test code = IM GRANULOCYTES %) 0.4 0.0- 1.0 [facility] HospitalAutomated blood neutrophil count 2019-07-14 01:51:00* Test Item Value Reference Range Interpretation Comments Neutrophils # (Auto) (test code = 751-8) 8.5 2.1-6.9 [facility] HospitalBlood lymphocytes count (number/volume) 2019-07-14 01:51:00* Test Item Value Reference Range Interpretation Comments Lymphocytes # (Auto) (test code = 58686-2) 1.5 1.0-3.2 [facility] HospitalBlood monocytes automated count (number/volume)2019-07-14 01:51:00* Test Item Value Reference Range Interpretation Comments Monocytes # (Auto) (test code = 742-7) 0.8 0.2-0.8 [facility] HospitalAutomated blood eosinophil count 2019-07-14 01:51:00* Test Item Value Reference Range Interpretation Comments Eosinophils # (Auto) (test code = 711-2) 0.0 0.0-0.4 [facility] HospitalAutomated blood basophil count (count/volume)2019-07-14 01:51:00* Test Item Value Reference Range Interpretation Comments Basophils # (Auto) (test code = 704-7) 0.0 0.0-0.1 [facility] HospitalFluoroscopic procedure less than one hour pksmhvxh6469-25-92 01:51:00* Test Item Value Reference Range Interpretation Comments Absolute Immature Granulocyte (auto (amos t code = Absolute Immature Granulocyte (auto) 0.04 0-0.1 [facility] HospitalProthrombin time (PT) in platelet poor plasma by coagulation [id number] 01:51:00* Test Item Value Reference Range Interpretation Comments Prothrombin Time (test code = 5902-2) 11.8 11.9-14.5 [facility] HospitalINR in Platelet poor plasma by Coagulation munbw2465-58-01 01:51:00* Test Item Value Reference Range Interpretation Comments Prothromb Time International Ratio (test code = 6301-6) 0.82 Oral Anticoagulant Therapy INR Values:1. Low Intensity Therapy 1.5 - 2.02 . Moderate Intensity Therapy 2.0 - 3.03. High Intensity Therapy(1) 2.5 - 3. 54. High Intensity Therapy(2) 3.0 - 4.05. Panic Value INR > 5.0 [facility] sodium measurement (moles/volume)2019-07-14 01:51:00* Test Item Value Reference Range Interpretation Comments Sodium Level (test code = 2951-2) 138 136-145 [facility]icserum or plasma potassium measurement (moles/volume)2019-07-14 01:51:00* Test Item Value Reference Range Interpretation Comments Potassium Level (test code = 2823-3) 3.9 3.5-5.1 [facility]icserum or plasma chloride measurement (moles/volume)2019-07-14 01:51:00* Test Item Value Reference Range Interpretation Comments Chloride Level (test code = 2075-0) 105 98-107 [facility]icserum or plasma carbon dioxide, total measurement (moles/volume)2019-07-14 01:51:00* Test Item Value Reference Range Interpretation Comments Carbon Dioxide Level (test code = 2028-9) 22 22-29 [facility]icserum or plasma anion goo3847-42-17 01:51:00* Test Item Value Reference Range Interpretation Comments Anion Gap (test code = 92952-2) 14.9 8-16 [facility]icserum or plasma urea nitrogen measurement (mass/volume)2019-07-14 01:51:00* Test Item Value Reference Range Interpretation Comments Blood Urea Nitrogen (test code = 3094-0) 16 7-26 [facility]icserum or plasma creatinine measurement (mass/volume)2019-07-14 01:51:00* Test Item Value Reference Range Interpretation Comments Creatinine (test code = 2160-0) 0.78 0.57-1.11 [facility]icserum or plasma urea nitrogen/creatinine mass rrvas0016-70-18 01:51:00* Test Item Value Reference Range Interpretation Comments BUN/Creatinine Ratio (test code = 3097-3) 21 6-25 [facility] HospitalEstimated glomerular filtration rate (GFR) mvnkflfojdrgn5880-78-80 01:51:00* Test Item Value Reference Range Interpretation Comments Estimat Glomerular Filtration Rate (test code = 325140752) > 60 >60 Ranges were taken from the National Kidney Disease Education Program and the [facility] literature.Reference ranges:60 or greater: Rfkyvw29-42 ( for 3 consecutive months): Chronic kidney disease 15 or less: Kidney failureC[facility] Emergency HospitalGlucose amjstwkmqre2576-32-16 01:51:00* Test Item Value Reference Range Interpretation Comments Glucose Level (test code = IFV2424) 116 74-118 [facility]icserum or plasma calcium measurement (mass/volume)2019-07-14 01:51:00* Test Item Value Reference Range Interpretation Comments Calcium Level (test code = 93100-8) 9.7 8.4-10.2 [facility]icserum or plasma total bilirubin measurement (mass/volume)2019-07-14 01:51:00* Test Item Value Reference Range Interpretation Comments Total Bilirubin (test code = 1975-2) 0.3 0.2-1.2 [facility] HospitalFluoroscopic procedure less than one hour zgpqxvki4447-39-78 01:51:00* Test Item Value Reference Range Interpretation Comments Aspartate Amino Transf (AST/SGOT) (test code = Aspartate Amino Transf (AST/SGOT)) 20 5-34 [facility]icserum or plasma alanine aminotransferase measurement (enzymatic activity/volume)2019-07-14 01:51:00* Test Item Value Reference Range Interpretation Comments Alanine Aminotransferase (ALT/SGPT) (test code = 1742-6) 37 0-55 [facility]icserum or plasma protein measurement (mass/volume)2019-07-14 01:51:00* Test Item Value Reference Range Interpretation Comments Total Protein (test code = 2885-2) 6.8 6.5-8.1 [facility]icserum or plasma albumin measurement (mass/volume)2019-07-14 01:51:00* Test Item Value Reference Range Interpretation Comments Albumin (test code = 1751-7) 4.1 3.5-5.0 [facility] HospitalPlasma globulin measurement (mass/volume) 2019-07-14 01:51:00* Test Item Value Reference Range Interpretation Comments Globulin (test code = 37654-6) 2.7 2.3-3.5 [facility]icserum or plasma albumin/globulin mass yqeqv0279-11-94 01:51:00* Test Item Value Reference Range Interpretation Comments Albumin/Globulin Ratio (test code = 1759-0) 1.5 0.8-2.0 [facility]icserum or plasma alkaline phosphatase measurement (enzymatic activity/volume)2019-07-14 01:51:00* Test Item Value Reference Range Interpretation Comments Alkaline Phosphatase (test code = 6768-6) 62 40-150 [facility]icserum or plasma creatine kinase measurement (enzymatic activity/volume)2019-07-14 01:51:00* Test Item Value Reference Range Interpretation Comments Creatine Kinase (test code = 2157-6) 120 29-168 [facility] Clinicserum or plasma creatine kinase MB measurement (mass/volume)2019-07-14 01:51:00* Test Item Value Reference Range Interpretation Comments Creatine Kinase MB (test code = 94255-3) 1.90 0-5.0 [facility] HospitalTroponin I measurement by highly sensitive enzyme tnrcrncujcv0112-18-07 01:51:00* Test Item Value Reference Range Interpretation Comments Troponin I (test code = 77423-1) < 0.001 0-0.300 [facility] automated count (number/volume)2019-07-14 01:51:00* Test Item Value Reference Range Interpretation Comments White Blood Count (test code = 6690-2) 10.91 4.8-10.8 [facility] HospitalBlood erythrocytes automated count (number/volume)2019-07-14 01:51:00* Test Item Value Reference Range Interpretation Comments Red Blood Count (test code = 789-8) 3.81 3.6-5.1 [facility] HospitalBlood hemoglobin measurement (moles/volume)2019-07-14 01:51:00* Test Item Value Reference Range Interpretation Comments Hemoglobin (test code = 30256-5) 11.8 12.0-16.0 [facility] HospitalAutomated blood hematocrit (volume fraction)2019-07-14 01:51:00* Test Item Value Reference Range Interpretation Comments Hematocrit (test code = 4544-3) 37.6 34.2-44.1 [facility] HospitalAutomated erythrocyte mean corpuscular ktzyge7488-08-15 01:51:00* Test Item Value Reference Range Interpretation Comments Mean Corpuscular Volume (test code = 787-2) 98.7 81-99 [facility] HospitalAutomated erythrocyte mean corpuscular hemoglobin (mass per erythrocyte)2019-07-14 01:51:00* Test Item Value Reference Range Interpretation Comments Mean Corpuscular Hemoglobin (test code = 785-6) 31.0 28-32 [facility] HospitalAutomated erythrocyte mean corpuscular hemoglobin concentration measurement (mass/volume)2019-07-14 01:51:00* Test Item Value Reference Range Interpretation Comments Mean Corpuscular Hemoglobin Concent (test code = 786-4) 31.4 31-35 [facility] HospitalRDW YzqOu-Wns1572-17-31 01:51:00* Test Item Value Reference Range Interpretation Comments Red Cell Distribution Width (test code = 68880-3) 13.7 11.7 -14.4 [facility] HospitalAutomated blood platelet count (count/volume)2019-07-14 01:51:00* Test Item Value Reference Range Interpretation Comments Platelet Count (test code = 777-3) 366 140-360 [facility] HospitalAutomated blood segmented neutrophil count as percentage of total jfhsxmhirk9021-45-40 01:51:00* Test Item Value Reference Range Interpretation Comments Neutrophils (%) (Auto) (test code = 39344-5) 78.1 38.7-80.0 [facility] HospitalAutomated blood lymphocyte count as percentage ot total azphkwcjfu0115-67-30 01:51:00* Test Item Value Reference Range Interpretation Comments Lymphocytes (%) (Auto) (test code = 736-9) 14.1 18.0-39.1 [facility] HospitalAutomated blood monocyte count as percentage of total mnhnewcxrh7183-95-60 01:51:00* Test Item Value Reference Range Interpretation Comments Monocytes (%) (Auto) (test code = 5905-5) 6.9 4.4-11.3 [facility] HospitalAutomated blood eosinophil count as percentage of total sxvalcyevl1857-95-21 01:51:00* Test Item Value Reference Range Interpretation Comments Eosinophils (%) (Auto) (test code = 713-8) 0.1 0.0-6.0 [facility] HospitalAutomated blood basophil count as percentage of total iqasdkwejj9789-03-27 01:51:00* Test Item Value Reference Range Interpretation Comments Basophils (%) (Auto) (test code = 706-2) 0.4 0.0-1.0 [facility] HospitalFluoroscopic procedure less than one hour dntxesnh4411-78-35 01:51:00* Test Item Value Reference Range Interpretation Comments IM GRANULOCYTES % (test code = IM GRANULOCYTES %) 0.4 0.0- 1.0 [facility] HospitalAutomated blood neutrophil count 2019-07-14 01:51:00* Test Item Value Reference Range Interpretation Comments Neutrophils # (Auto) (test code = 751-8) 8.5 2.1-6.9 [facility] HospitalBlood lymphocytes count (number/volume) 2019-07-14 01:51:00* Test Item Value Reference Range Interpretation Comments Lymphocytes # (Auto) (test code = 37592-1) 1.5 1.0-3.2 [facility] HospitalBlood monocytes automated count (number/volume)2019-07-14 01:51:00* Test Item Value Reference Range Interpretation Comments Monocytes # (Auto) (test code = 742-7) 0.8 0.2-0.8 [facility] HospitalAutomated blood eosinophil count 2019-07-14 01:51:00* Test Item Value Reference Range Interpretation Comments Eosinophils # (Auto) (test code = 711-2) 0.0 0.0-0.4 [facility] HospitalAutomated blood basophil count (count/volume)2019-07-14 01:51:00* Test Item Value Reference Range Interpretation Comments Basophils # (Auto) (test code = 704-7) 0.0 0.0-0.1 [facility] HospitalFluoroscopic procedure less than one hour atqddted0572-53-40 01:51:00* Test Item Value Reference Range Interpretation Comments Absolute Immature Granulocyte (auto (amos t code = Absolute Immature Granulocyte (auto) 0.04 0-0.1 [facility] HospitalProthrombin time (PT) in platelet poor plasma by coagulation djcxs1703-17-98 01:51:00* Test Item Value Reference Range Interpretation Comments Prothrombin Time (test code = 5902-2) 11.8 11.9-14.5 [facility] HospitalINR in Platelet poor plasma by Coagulation nqven6707-51-54 01:51:00* Test Item Value Reference Range Interpretation Comments Prothromb Time International Ratio (test code = 6301-6) 0.82 Oral Anticoagulant Therapy INR Values:1. Low Intensity Therapy 1.5 - 2.02 . Moderate Intensity Therapy 2.0 - 3.03. High Intensity Therapy(1) 2.5 - 3. 54. High Intensity Therapy(2) 3.0 - 4.05. Panic Value INR > 5.0 [facility]icserum or plasma sodium measurement (moles/volume)2019-07-14 01:51:00* Test Item Value Reference Range Interpretation Comments Sodium Level (test code = 2951-2) 138 136-145 [facility]icserum or plasma potassium measurement (moles/volume)2019-07-14 01:51:00* Test Item Value Reference Range Interpretation Comments Potassium Level (test code = 2823-3) 3.9 3.5-5.1 [facility]icserum or plasma chloride measurement (moles/volume)2019-07-14 01:51:00* Test Item Value Reference Range Interpretation Comments Chloride Level (test code = 2075-0) 105 98-107 [facility]icserum or plasma carbon dioxide, total measurement (moles/volume)2019-07-14 01:51:00* Test Item Value Reference Range Interpretation Comments Carbon Dioxide Level (test code = 2028-9) 22 22-29 [facility]icserum or plasma anion cbh9517-49-44 01:51:00* Test Item Value Reference Range Interpretation Comments Anion Gap (test code = 27817-7) 14.9 8-16 [facility]icserum or plasma urea nitrogen measurement (mass/volume)2019-07-14 01:51:00* Test Item Value Reference Range Interpretation Comments Blood Urea Nitrogen (test code = 3094-0) 16 7-26 [facility]icserum or plasma creatinine measurement (mass/volume)2019-07-14 01:51:00* Test Item Value Reference Range Interpretation Comments Creatinine (test code = 2160-0) 0.78 0.57-1.11 [facility]icserum or plasma urea nitrogen/creatinine mass rtdxb8906-89-25 01:51:00* Test Item Value Reference Range Interpretation Comments BUN/Creatinine Ratio (test code = 3097-3) 21 6-25 [facility] HospitalEstimated glomerular filtration rate (GFR) sylgwyucecrau3771-25-36 01:51:00* Test Item Value Reference Range Interpretation Comments Estimat Glomerular Filtration Rate (test code = 048875584) > 60 >60 Ranges were taken from the National Kidney Disease Education Program and the [facility] [employer] literature.Reference ranges:60 or greater: Zquwnu65-33 ( for 3 consecutive months): Chronic kidney disease 15 or less: Kidney failureC[facility] Emergency HospitalGlucose jlqjobwlpge9030-47-26 01:51:00* Test Item Value Reference Range Interpretation Comments Glucose Level (test code = LLE1457) 116 74-118 [facility]icserum or plasma calcium measurement (mass/volume)2019-07-14 01:51:00* Test Item Value Reference Range Interpretation Comments Calcium Level (test code = 97906-5) 9.7 8.4-10.2 [facility]icserum or plasma total bilirubin measurement (mass/volume)2019-07-14 01:51:00* Test Item Value Reference Range Interpretation Comments Total Bilirubin (test code = 1975-2) 0.3 0.2-1.2 [facility] HospitalFluoroscopic procedure less than one hour uidrfghe6342-96-50 01:51:00* Test Item Value Reference Range Interpretation Comments Aspartate Amino Transf (AST/SGOT) (test code = Aspartate Amino Transf (AST/SGOT)) 20 5-34 [facility]icserum or plasma alanine aminotransferase measurement (enzymatic activity/volume)2019-07-14 01:51:00* Test Item Value Reference Range Interpretation Comments Alanine Aminotransferase (ALT/SGPT) (test code = 1742-6) 37 0-55 [facility]icserum or plasma protein measurement (mass/volume)2019-07-14 01:51:00* Test Item Value Reference Range Interpretation Comments Total Protein (test code = 2885-2) 6.8 6.5-8.1 [facility]icserum or plasma albumin measurement (mass/volume)2019-07-14 01:51:00* Test Item Value Reference Range Interpretation Comments Albumin (test code = 1751-7) 4.1 3.5-5.0 [facility] HospitalPlasma globulin measurement (mass/volume) 2019-07-14 01:51:00* Test Item Value Reference Range Interpretation Comments Globulin (test code = 28249-9) 2.7 2.3-3.5 [facility]icserum or plasma albumin/globulin mass plxuj3394-25-02 01:51:00* Test Item Value Reference Range Interpretation Comments Albumin/Globulin Ratio (test code = 1759-0) 1.5 0.8-2.0 [facility]icserum or plasma alkaline phosphatase measurement (enzymatic activity/volume)2019-07-14 01:51:00* Test Item Value Reference Range Interpretation Comments Alkaline Phosphatase (test code = 6768-6) 62 40-150 [facility]icserum or plasma creatine kinase measurement (enzymatic activity/volume)2019-07-14 01:51:00* Test Item Value Reference Range Interpretation Comments Creatine Kinase (test code = 2157-6) 120 29-168 [facility]icserum or plasma creatine kinase MB measurement (mass/volume)2019-07-14 01:51:00* Test Item Value Reference Range Interpretation Comments Creatine Kinase MB (test code = 18845-7) 1.90 0-5.0 [facility] HospitalTroponin I measurement by highly sensitive enzyme xucghooigfw8123-01-18 01:51:00* Test Item Value Reference Range Interpretation Comments Troponin I (test code = 48222-8) < 0.001 0-0.300 [facility] HospitalBlood leukocytes automated count (number/volume)2019-07-14 01:51:00* Test Item Value Reference Range Interpretation Comments White Blood Count (test code = 6690-2) 10.91 4.8-10.8 [facility] HospitalBlood erythrocytes automated count (number/volume)2019-07-14 01:51:00* Test Item Value Reference Range Interpretation Comments Red Blood Count (test code = 789-8) 3.81 3.6-5.1 [facility] HospitalBlood hemoglobin measurement (moles/volume)2019-07-14 01:51:00* Test Item Value Reference Range Interpretation Comments Hemoglobin (test code = 25071-2) 11.8 12.0-16.0 [facility] HospitalAutomated blood hematocrit (volume fraction)2019-07-14 01:51:00* Test Item Value Reference Range Interpretation Comments Hematocrit (test code = 4544-3) 37.6 34.2-44.1 [facility] HospitalAutomated erythrocyte mean corpuscular pulpwe0663-93-93 01:51:00* Test Item Value Reference Range Interpretation Comments Mean Corpuscular Volume (test code = 787-2) 98.7 81-99 [facility] HospitalAutomated erythrocyte mean corpuscular hemoglobin (mass per erythrocyte)2019-07-14 01:51:00* Test Item Value Reference Range Interpretation Comments Mean Corpuscular Hemoglobin (test code = 785-6) 31.0 28-32 [facility] HospitalAutomated erythrocyte mean corpuscular hemoglobin concentration measurement (mass/volume)2019-07-14 01:51:00* Test Item Value Reference Range Interpretation Comments Mean Corpuscular Hemoglobin Concent (test code = 786-4) 31.4 31-35 [facility] HospitalRDW VngLu-Auw6790-59-31 01:51:00* Test Item Value Reference Range Interpretation Comments Red Cell Distribution Width (test code = 56967-2) 13.7 11.7 -14.4 [facility] HospitalAutomated blood platelet count (count/volume)2019-07-14 01:51:00* Test Item Value Reference Range Interpretation Comments Platelet Count (test code = 777-3) 366 140-360 [facility] HospitalAutomated blood segmented neutrophil count as percentage of total owprflgaab0289-91-92 01:51:00* Test Item Value Reference Range Interpretation Comments Neutrophils (%) (Auto) (test code = 06915-2) 78.1 38.7-80.0 [facility] HospitalAutomated blood lymphocyte count as percentage ot total ykwynfkvcg9076-60-24 01:51:00* Test Item Value Reference Range Interpretation Comments Lymphocytes (%) (Auto) (test code = 736-9) 14.1 18.0-39.1 [facility] HospitalAutomated blood monocyte count as percentage of total mbayatvczr0317-52-38 01:51:00* Test Item Value Reference Range Interpretation Comments Monocytes (%) (Auto) (test code = 5905-5) 6.9 4.4-11.3 [facility] HospitalAutomated blood eosinophil count as percentage of total xdufcijesu2457-99-00 01:51:00* Test Item Value Reference Range Interpretation Comments Eosinophils (%) (Auto) (test code = 713-8) 0.1 0.0-6.0 [facility] HospitalAutomated blood basophil count as percentage of total jgjyjegxdq8893-70-53 01:51:00* Test Item Value Reference Range Interpretation Comments Basophils (%) (Auto) (test code = 706-2) 0.4 0.0-1.0 [facility] HospitalFluoroscopic procedure less than one hour gpdxomgz2709-23-92 01:51:00* Test Item Value Reference Range Interpretation Comments IM GRANULOCYTES % (test code = IM GRANULOCYTES %) 0.4 0.0- 1.0 [facility] HospitalAutomated blood neutrophil count 2019-07-14 01:51:00* Test Item Value Reference Range Interpretation Comments Neutrophils # (Auto) (test code = 751-8) 8.5 2.1-6.9 [facility] HospitalBlood lymphocytes count (number/volume) 2019-07-14 01:51:00* Test Item Value Reference Range Interpretation Comments Lymphocytes # (Auto) (test code = 43773-0) 1.5 1.0-3.2 [facility] HospitalBlood monocytes automated count (number/volume)2019-07-14 01:51:00* Test Item Value Reference Range Interpretation Comments Monocytes # (Auto) (test code = 742-7) 0.8 0.2-0.8 [facility] HospitalAutomated blood eosinophil count 2019-07-14 01:51:00* Test Item Value Reference Range Interpretation Comments Eosinophils # (Auto) (test code = 711-2) 0.0 0.0-0.4 [facility] HospitalAutomated blood basophil count (count/volume)2019-07-14 01:51:00* Test Item Value Reference Range Interpretation Comments Basophils # (Auto) (test code = 704-7) 0.0 0.0-0.1 [facility] HospitalFluoroscopic procedure less than one hour hklkpdnn2333-32-42 01:51:00* Test Item Value Reference Range Interpretation Comments Absolute Immature Granulocyte (auto (amos t code = Absolute Immature Granulocyte (auto) 0.04 0-0.1 [facility] HospitalProthrombin time (PT) in platelet poor plasma by coagulation bbcqv3307-52-11 01:51:00* Test Item Value Reference Range Interpretation Comments Prothrombin Time (test code = 5902-2) 11.8 11.9-14.5 [facility] HospitalINR in Platelet poor plasma by Coagulation zxewc5552-81-93 01:51:00* Test Item Value Reference Range Interpretation Comments Prothromb Time International Ratio (test code = 6301-6) 0.82 Oral Anticoagulant Therapy INR Values:1. Low Intensity Therapy 1.5 - 2.02 . Moderate Intensity Therapy 2.0 - 3.03. High Intensity Therapy(1) 2.5 - 3. 54. High Intensity Therapy(2) 3.0 - 4.05. Panic Value INR > 5.0 [facility] Clinicserum or plasma sodium measurement (moles/volume)2019-07-14 01:51:00* Test Item Value Reference Range Interpretation Comments Sodium Level (test code = 2951-2) 138 136-145 [facility] potassium measurement (moles/volume)2019-07-14 01:51:00* Test Item Value Reference Range Interpretation Comments Potassium Level (test code = 2823-3) 3.9 3.5-5.1 [facility] chloride measurement (moles/volume)2019-07-14 01:51:00* Test Item Value Reference Range Interpretation Comments Chloride Level (test code = 2075-0) 105 98-107 [facility] plasma carbon dioxide, total measurement (moles/volume)2019-07-14 01:51:00* Test Item Value Reference Range Interpretation Comments Carbon Dioxide Level (test code = 2028-9) 22 22-29 [facility] anion ekn2209-50-00 01:51:00* Test Item Value Reference Range Interpretation Comments Anion Gap (test code = 23926-6) 14.9 8-16 [facility] urea nitrogen measurement (mass/volume)2019-07-14 01:51:00* Test Item Value Reference Range Interpretation Comments Blood Urea Nitrogen (test code = 3094-0) 16 7-26 [facility] creatinine measurement (mass/volume)2019-07-14 01:51:00* Test Item Value Reference Range Interpretation Comments Creatinine (test code = 2160-0) 0.78 0.57-1.11 [facility] urea nitrogen/creatinine mass iwfnm3803-54-44 01:51:00* Test Item Value Reference Range Interpretation Comments BUN/Creatinine Ratio (test code = 3097-3) 21 6-25 [facility] HospitalEstimated glomerular filtration rate (GFR) rbqwnphtscanx4931-79-02 01:51:00* Test Item Value Reference Range Interpretation Comments Estimat Glomerular Filtration Rate (test code = 310295860) > 60 >60 Ranges were taken from the National Kidney Disease Education Program and the [facility] literature.Reference ranges:60 or greater: Xzetji25-37 ( for 3 consecutive months): Chronic kidney disease 15 or less: Kid[facility] failureC[facility] Emergency HospitalGlucose bfypqdpoqox0821-49-75 01:51:00* Test Item Value Reference Range Interpretation Comments Glucose Level (test code = LCG9258) 116 74-118 [facility] calcium measurement (mass/volume)2019-07-14 01:51:00* Test Item Value Reference Range Interpretation Comments Calcium Level (test code = 93029-9) 9.7 8.4-10.2 [facility] total bilirubin measurement (mass/volume)2019-07-14 01:51:00* Test Item Value Reference Range Interpretation Comments Total Bilirubin (test code = 1975-2) 0.3 0.2-1.2 [facility] HospitalFluoroscopic procedure less than one hour ovvutzzi2098-64-19 01:51:00* Test Item Value Reference Range Interpretation Comments Aspartate Amino Transf (AST/SGOT) (test code = Aspartate Amino Transf (AST/SGOT)) 20 5-34 [facility] plasma alanine aminotransferase measurement (enzymatic activity/volume)2019-07-14 01:51:00* Test Item Value Reference Range Interpretation Comments Alanine Aminotransferase (ALT/SGPT) (test code = 1742-6) 37 0-55 [facility] plasma protein measurement (mass/volume)2019-07-14 01:51:00* Test Item Value Reference Range Interpretation Comments Total Protein (test code = 2885-2) 6.8 6.5-8.1 [facility] plasma albumin measurement (mass/volume)2019-07-14 01:51:00* Test Item Value Reference Range Interpretation Comments Albumin (test code = 1751-7) 4.1 3.5-5.0 [facility] HospitalPlasma globulin measurement (mass/volume) 2019-07-14 01:51:00* Test Item Value Reference Range Interpretation Comments Globulin (test code = 75106-0) 2.7 2.3-3.5 [facility]er[facility] or plasma albumin/globulin mass bbfku9828-36-77 01:51:00* Test Item Value Reference Range Interpretation Comments Albumin/Globulin Ratio (test code = 1759-0) 1.5 0.8-2.0 [facility] plasma alkaline phosphatase measurement (enzymatic activity/volume)2019-07-14 01:51:00* Test Item Value Reference Range Interpretation Comments Alkaline Phosphatase (test code = 6768-6) 62 40-150 [facility] or plasma creatine kinase measurement (enzymatic activity/volume)2019-07-14 01:51:00* Test Item Value Reference Range Interpretation Comments Creatine Kinase (test code = 2157-6) 120 29-168 [facility] or plasma creatine kinase MB measurement (mass/volume)2019-07-14 01:51:00* Test Item Value Reference Range Interpretation Comments Creatine Kinase MB (test code = 92597-9) 1.90 0-5.0 [facility] HospitalTroponin I measurement by highly sensitive enzyme nxawvnoufqs4266-72-26 01:51:00* Test Item Value Reference Range Interpretation Comments Troponin I (test code = 87344-3) < 0.001 0-0.300 [facility] HospitalBlood leukocytes automated count (number/volume)2019-07-14 01:51:00* Test Item Value Reference Range Interpretation Comments White Blood Count (test code = 6690-2) 10.91 4.8-10.8 [facility] HospitalBlood erythrocytes automated count (number/volume)2019-07-14 01:51:00* Test Item Value Reference Range Interpretation Comments Red Blood Count (test code = 789-8) 3.81 3.6-5.1 [facility] HospitalBlood hemoglobin measurement (moles/volume)2019-07-14 01:51:00* Test Item Value Reference Range Interpretation Comments Hemoglobin (test code = 38850-1) 11.8 12.0-16.0 [facility] HospitalAutomated blood hematocrit (volume fraction)2019-07-14 01:51:00* Test Item Value Reference Range Interpretation Comments Hematocrit (test code = 4544-3) 37.6 34.2-44.1 [facility] HospitalAutomated erythrocyte mean corpuscular gdcdbd2350-20-93 01:51:00* Test Item Value Reference Range Interpretation Comments Mean Corpuscular Volume (test code = 787-2) 98.7 81-99 [facility] HospitalAutomated erythrocyte mean corpuscular hemoglobin (mass per erythrocyte)2019-07-14 01:51:00* Test Item Value Reference Range Interpretation Comments Mean Corpuscular Hemoglobin (test code = 785-6) 31.0 28-32 [facility] HospitalAutomated erythrocyte mean corpuscular hemoglobin concentration measurement (mass/volume)2019-07-14 01:51:00* Test Item Value Reference Range Interpretation Comments Mean Corpuscular Hemoglobin Concent (test code = 786-4) 31.4 31-35 [facility] HospitalRDW FduAr-Fnr7821-47-31 01:51:00* Test Item Value Reference Range Interpretation Comments Red Cell Distribution Width (test code = 81250-8) 13.7 11.7 -14.4 [facility] HospitalAutomated blood platelet count (count/volume)2019-07-14 01:51:00* Test Item Value Reference Range Interpretation Comments Platelet Count (test code = 777-3) 366 140-360 [facility] HospitalAutomated blood segmented neutrophil count as percentage of total jsypooihjy4427-42-98 01:51:00* Test Item Value Reference Range Interpretation Comments Neutrophils (%) (Auto) (test code = 54020-6) 78.1 38.7-80.0 [facility] HospitalAutomated blood lymphocyte count as percentage ot total lyrrkbguza5276-80-93 01:51:00* Test Item Value Reference Range Interpretation Comments Lymphocytes (%) (Auto) (test code = 736-9) 14.1 18.0-39.1 [facility] HospitalAutomated blood monocyte count as percentage of total cqrchraezn6168-26-66 01:51:00* Test Item Value Reference Range Interpretation Comments Monocytes (%) (Auto) (test code = 5905-5) 6.9 4.4-11.3 [facility] HospitalAutomated blood eosinophil count as percentage of total mfnagkfwqr0550-40-22 01:51:00* Test Item Value Reference Range Interpretation Comments Eosinophils (%) (Auto) (test code = 713-8) 0.1 0.0-6.0 [facility] HospitalAutomated blood basophil count as percentage of total bgwbfdgmak1085-00-64 01:51:00* Test Item Value Reference Range Interpretation Comments Basophils (%) (Auto) (test code = 706-2) 0.4 0.0-1.0 [facility] HospitalFluoroscopic procedure less than one hour jdmmsjpm9145-33-03 01:51:00* Test Item Value Reference Range Interpretation Comments IM GRANULOCYTES % (test code = IM GRANULOCYTES %) 0.4 0.0- 1.0 [facility] HospitalAutomated blood neutrophil count 2019-07-14 01:51:00* Test Item Value Reference Range Interpretation Comments Neutrophils # (Auto) (test code = 751-8) 8.5 2.1-6.9 [facility] HospitalBlood lymphocytes count (number/volume) 2019-07-14 01:51:00* Test Item Value Reference Range Interpretation Comments Lymphocytes # (Auto) (test code = 40792-4) 1.5 1.0-3.2 [facility] monocytes automated count (number/volume)2019-07-14 01:51:00* Test Item Value Reference Range Interpretation Comments Monocytes # (Auto) (test code = 742-7) 0.8 0.2-0.8 [facility] HospitalAutomated blood eosinophil count 2019-07-14 01:51:00* Test Item Value Reference Range Interpretation Comments Eosinophils # (Auto) (test code = 711-2) 0.0 0.0-0.4 [facility] HospitalAutomated blood basophil count (count/volume)2019-07-14 01:51:00* Test Item Value Reference Range Interpretation Comments Basophils # (Auto) (test code = 704-7) 0.0 0.0-0.1 [facility] HospitalFluoroscopic procedure less than one hour pwnmyfal0485-48-15 01:51:00* Test Item Value Reference Range Interpretation Comments Absolute Immature Granulocyte (auto (amos t code = Absolute Immature Granulocyte (auto) 0.04 0-0.1 [facility] HospitalProthrombin time (PT) in platelet poor plasma by coagulation uxmmh2596-06-63 01:51:00* Test Item Value Reference Range Interpretation Comments Prothrombin Time (test code = 5902-2) 11.8 11.9-14.5 [facility] HospitalINR in Platelet poor plasma by Coagulation kgjmr6425-38-43 01:51:00* Test Item Value Reference Range Interpretation Comments Prothromb Time International Ratio (test code = 6301-6) 0.82 Oral Anticoagulant Therapy INR Values:1. Low Intensity Therapy 1.5 - 2.02 . Moderate Intensity Therapy 2.0 - 3.03. High Intensity Therapy(1) 2.5 - 3. 54. High Intensity Therapy(2) 3.0 - 4.05. Panic Value INR > 5.0 [facility]icser[facility] or plasma sodium measurement (moles/volume)2019-07-14 01:51:00* Test Item Value Reference Range Interpretation Comments Sodium Level (test code = 2951-2) 138 136-145 [facility]erum or plasma potassium measurement (moles/volume)2019-07-14 01:51:00* Test Item Value Reference Range Interpretation Comments Potassium Level (test code = 2823-3) 3.9 3.5-5.1 [facility]icserum or plasma chloride measurement (moles/volume)2019-07-14 01:51:00* Test Item Value Reference Range Interpretation Comments Chloride Level (test code = 2075-0) 105 98-107 [facility]icserum or plasma carbon dioxide, total measurement (moles/volume)2019-07-14 01:51:00* Test Item Value Reference Range Interpretation Comments Carbon Dioxide Level (test code = 2028-9) 22 22-29 [facility]icserum or plasma anion wkc2241-96-73 01:51:00* Test Item Value Reference Range Interpretation Comments Anion Gap (test code = 20971-3) 14.9 8-16 [facility]icserum or plasma urea nitrogen measurement (mass/volume)2019-07-14 01:51:00* Test Item Value Reference Range Interpretation Comments Blood Urea Nitrogen (test code = 3094-0) 16 7-26 [facility]icserum or plasma creatinine measurement (mass/volume)2019-07-14 01:51:00* Test Item Value Reference Range Interpretation Comments Creatinine (test code = 2160-0) 0.78 0.57-1.11 [facility]icserum or plasma urea nitrogen/creatinine mass qejcn9063-25-69 01:51:00* Test Item Value Reference Range Interpretation Comments BUN/Creatinine Ratio (test code = 3097-3) 21 6-25 [facility] HospitalEstimated glomerular filtration rate (GFR) zgesifzpasips0028-39-99 01:51:00* Test Item Value Reference Range Interpretation Comments Estimat Glomerular Filtration Rate (test code = 168213402) > 60 >60 Ranges were taken from the National Kidney Disease Education Program and the [facility] literature.Reference ranges:60 or greater: Pxhfip22-20 ( for 3 consecutive months): Chronic kidney disease 15 or less: Kidney failureC[facility] Emergency HospitalGlucose dxsmlnikkoj8801-56-60 01:51:00* Test Item Value Reference Range Interpretation Comments Glucose Level (test code = DSR0448) 116 74-118 [facility]icserum or plasma calcium measurement (mass/volume)2019-07-14 01:51:00* Test Item Value Reference Range Interpretation Comments Calcium Level (test code = 31031-3) 9.7 8.4-10.2 [facility]icserum or plasma total bilirubin measurement (mass/volume)2019-07-14 01:51:00* Test Item Value Reference Range Interpretation Comments Total Bilirubin (test code = 1975-2) 0.3 0.2-1.2 [facility] HospitalFluoroscopic procedure less than one hour mtqijyru7406-48-62 01:51:00* Test Item Value Reference Range Interpretation Comments Aspartate Amino Transf (AST/SGOT) (test code = Aspartate Amino Transf (AST/SGOT)) 20 5-34 [facility]icserum or plasma alanine aminotransferase measurement (enzymatic activity/volume)2019-07-14 01:51:00* Test Item Value Reference Range Interpretation Comments Alanine Aminotransferase (ALT/SGPT) (test code = 1742-6) 37 0-55 [facility]icserum or plasma protein measurement (mass/volume)2019-07-14 01:51:00* Test Item Value Reference Range Interpretation Comments Total Protein (test code = 2885-2) 6.8 6.5-8.1 [facility]icserum or plasma albumin measurement (mass/volume)2019-07-14 01:51:00* Test Item Value Reference Range Interpretation Comments Albumin (test code = 1751-7) 4.1 3.5-5.0 [facility] HospitalPlasma globulin measurement (mass/volume) 2019-07-14 01:51:00* Test Item Value Reference Range Interpretation Comments Globulin (test code = 28416-6) 2.7 2.3-3.5 [facility]icserum or plasma albumin/globulin mass wemlj4747-10-36 01:51:00* Test Item Value Reference Range Interpretation Comments Albumin/Globulin Ratio (test code = 1759-0) 1.5 0.8-2.0 [facility]icserum or plasma alkaline phosphatase measurement (enzymatic activity/volume)2019-07-14 01:51:00* Test Item Value Reference Range Interpretation Comments Alkaline Phosphatase (test code = 6768-6) 62 40-150 [facility]icserum or plasma creatine kinase measurement (enzymatic activity/volume)2019-07-14 01:51:00* Test Item Value Reference Range Interpretation Comments Creatine Kinase (test code = 2157-6) 120 29-168 [facility]icserum or plasma creatine kinase MB measurement (mass/volume)2019-07-14 01:51:00* Test Item Value Reference Range Interpretation Comments Creatine Kinase MB (test code = 39888-1) 1.90 0-5.0 [facility] HospitalTroponin I measurement by highly sensitive enzyme hioqbtutonj9856-32-57 01:51:00* Test Item Value Reference Range Interpretation Comments Troponin I (test code = 83353-1) < 0.001 0-0.300 [facility] HospitalCT BRAIN UE6154-41-64 02:53:00 [facility] [address] [place] [address] Patient Name: MADISYN GONZALES MR #: [id number] : 1965 Age/Sex: 54/F Req #: [id number] Adm Physician: Ordered by: LINETTE WEST DO Report #: [id number] Location: ER Room/Bed: Procedure: [id number] CT/CT BRAIN WO Exam Date: 07/05/19 Exam Time: 229 REPORT STATUS: Signed History: Overdose, dizziness Comparison [...] TO: LINETTE WEST DO Urine opiates screening tlzm3604-78-48 01:44:00* Test Item Value Reference Range Interpretation Comments Urine Opiates Screen (test code = 86621-8) POSITIVE NEGATIVE ALL TESTS PERFORMED MANUALLY ON BIORAD TOX/SEE TEST This test provides only a sc reen. Positive results should be repeated by a confirmatory test.[facility] HospitalBarbiturates screen, tandm7551-21-78 01:44:00* Test Item Value Reference Range Interpretation Comments Urine Barbiturates Screen (test code = 678327621) NEGATIVE NEGA TIVE [facility] HospitalUrine phencyclidine detection by screening epmsgw4355-50-34 01:44:00* Test Item Value Reference Range Interpretation Comments Urine Phencyclidine Screen (test code = 85325-7) NEGATIVE NEGAT SESAR [facility] HospitalUrine amphetamines detection by screen method > 1000 ng/fK0000-36-18 01:44:00* Test Item Value Reference Range Interpretation Comments Urine Amphetamines Screen (test code = 10457-9) NEGATIVE NEGATI VE [facility] HospitalFluoroscopic procedure less than one hour zqqasuxg7495-15-71 01:44:00* Test Item Value Reference Range Interpretation Comments Urine Methamphetamines Screen (test code = Urine Metha mphetamines Screen) NEGATIVE NEGATIVE [facility] HospitalUrine benzodiazepines detection by screening oleoys6964-83-72 01:44:00* Test Item Value Reference Range Interpretation Comments Urine Benzodiazepines Screen (test code = 28744-5) NEGATIVE NEG ATIVE [facility] HospitalUrine cocaine measurement (mass/volume) 2019-07-05 01:44:00* Test Item Value Reference Range Interpretation Comments Urine Cocaine Screen (test code = 3398-5) NEGATIVE NEGATIVE [facility] HospitalUrine cannabinoids detection by screening gnvjqa5750-42-15 01:44:00* Test Item Value Reference Range Interpretation Comments Urine Cannabinoids Screen (test code = 97783-8) NEGATIVE NEGATI VE THESE RESULTS ARE FOR MEDICAL TREATMENT ONLYTHIS REPORT CONTAINS UNCONFIR MED SCREENING RESULTS*POSITIVE RESULTS WILL BE CONFIRMED BY REFERENCE LAB UPON R EQUEST CUT-OFFDRUG CLASS CONCENTRATION ng/mLAmphetamines 1000Methamphetamines 1000Cocaine 300Opiate 300Phencyc lidine 25Cannabinoid 50Barbiturates 300Benzodiazepine 300Methadone 300[facility] CenterUrine methadone hpoakt7498-91-01 01:44:00* Test Item Value Reference Range Interpretation Comments Urine Methadone Screen (test code = 66758-8) NEGATIVE NEGATIVE THESE RESULTS ARE FOR MEDICAL TREATMENT ONLYTHIS REPORT CONTAINS UNCONFIR MED SCREENING RESULTS*POSITIVE RESULTS WILL BE CONFIRMED BY REFERENCE LAB UPON R EQUEST CUT-OFFDRUG CLASS CONCENTRATION ng/mLAmphetamines 1000Methamphetamines 1000Cocaine Metabolite 300Opiate 300Phencyc lidine 25Cannabinoid 50Barbiturates 300Benzodiazepine 300Methadone 300[facility] CenterBlood leukocytes automated count (number/volume) 2019-07-05 01:34:00* Test Item Value Reference Range Interpretation Comments White Blood Count (test code = 6690-2) 8.95 4.8-10.8 [facility] HospitalBlood erythrocytes automated count (number/volume)2019-07-05 01:34:00* Test Item Value Reference Range Interpretation Comments Red Blood Count (test code = 789-8) 3.60 3.6-5.1 [facility] HospitalBlood hemoglobin measurement (moles/volume)2019-07-05 01:34:00* Test Item Value Reference Range Interpretation Comments Hemoglobin (test code = 83593-7) 11.0 12.0-16.0 [facility] HospitalAutomated blood hematocrit (volume fraction)2019-07-05 01:34:00* Test Item Value Reference Range Interpretation Comments Hematocrit (test code = 4544-3) 35.5 34.2-44.1 [facility] HospitalAutomated erythrocyte mean corpuscular lkmykw4363-69-20 01:34:00* Test Item Value Reference Range Interpretation Comments Mean Corpuscular Volume (test code = 787-2) 98.6 81-99 [facility] HospitalAutomated erythrocyte mean corpuscular hemoglobin (mass per erythrocyte)2019-07-05 01:34:00* Test Item Value Reference Range Interpretation Comments Mean Corpuscular Hemoglobin (test code = 785-6) 30.6 28-32 [facility] HospitalAutomated erythrocyte mean corpuscular hemoglobin concentration measurement (mass/volume)2019-07-05 01:34:00* Test Item Value Reference Range Interpretation Comments Mean Corpuscular Hemoglobin Concent (test code = 786-4) 31.0 31-35 [facility] HospitalRDW FrmDx-Jic1978-77-22 01:34:00* Test Item Value Reference Range Interpretation Comments Red Cell Distribution Width (test code = 23794-9) 13.6 11.7 -14.4 [facility] HospitalAutomated blood platelet count (count/volume)2019-07-05 01:34:00* Test Item Value Reference Range Interpretation Comments Platelet Count (test code = 777-3) 355 140-360 [facility] HospitalAutomated blood segmented neutrophil count as percentage of total shjfntmzrw9889-60-34 01:34:00* Test Item Value Reference Range Interpretation Comments Neutrophils (%) (Auto) (test code = 65462-5) 69.2 38.7-80.0 [facility] HospitalAutomated blood lymphocyte count as percentage ot total yyrxuhcnax5039-15-32 01:34:00* Test Item Value Reference Range Interpretation Comments Lymphocytes (%) (Auto) (test code = 736-9) 20.7 18.0-39.1 [facility] HospitalAutomated blood monocyte count as percentage of total xzwdptpzht7145-68-57 01:34:00* Test Item Value Reference Range Interpretation Comments Monocytes (%) (Auto) (test code = 5905-5) 7.8 4.4-11.3 [facility] HospitalAutomated blood eosinophil count as percentage of total xnrpmiulrv5771-19-55 01:34:00* Test Item Value Reference Range Interpretation Comments Eosinophils (%) (Auto) (test code = 713-8) 0.9 0.0-6.0 [facility] HospitalAutomated blood basophil count as percentage of total vbprqbytdp2207-27-20 01:34:00* Test Item Value Reference Range Interpretation Comments Basophils (%) (Auto) (test code = 706-2) 1.1 0.0-1.0 [facility] HospitalFluoroscopic procedure less than one hour ozhvwxtt4215-26-34 01:34:00* Test Item Value Reference Range Interpretation Comments IM GRANULOCYTES % (test code = IM GRANULOCYTES %) 0.3 0.0- 1.0 [facility] HospitalAutomated blood neutrophil count 2019-07-05 01:34:00* Test Item Value Reference Range Interpretation Comments Neutrophils # (Auto) (test code = 751-8) 6.2 2.1-6.9 [facility] HospitalBlood lymphocytes count (number/volume) 2019-07-05 01:34:00* Test Item Value Reference Range Interpretation Comments Lymphocytes # (Auto) (test code = 79124-2) 1.9 1.0-3.2 [facility] HospitalBlood monocytes automated count (number/volume)2019-07-05 01:34:00* Test Item Value Reference Range Interpretation Comments Monocytes # (Auto) (test code = 742-7) 0.7 0.2-0.8 [facility] HospitalAutomated blood eosinophil count 2019-07-05 01:34:00* Test Item Value Reference Range Interpretation Comments Eosinophils # (Auto) (test code = 711-2) 0.1 0.0-0.4 [facility] HospitalAutomated blood basophil count (count/volume)2019-07-05 01:34:00* Test Item Value Reference Range Interpretation Comments Basophils # (Auto) (test code = 704-7) 0.1 0.0-0.1 [facility] HospitalFluoroscopic procedure less than one hour rkohzsoq1070-73-20 01:34:00* Test Item Value Reference Range Interpretation Comments Absolute Immature Granulocyte (auto (amos t code = Absolute Immature Granulocyte (auto) 0.03 0-0.1 [facility]icserum or plasma sodium measurement (moles/volume)2019-07-05 01:34:00* Test Item Value Reference Range Interpretation Comments Sodium Level (test code = 2951-2) 137 136-145 [facility]icserum or plasma potassium measurement (moles/volume)2019-07-05 01:34:00* Test Item Value Reference Range Interpretation Comments Potassium Level (test code = 2823-3) 4.1 3.5-5.1 [facility]icserum or plasma chloride measurement (moles/volume)2019-07-05 01:34:00* Test Item Value Reference Range Interpretation Comments Chloride Level (test code = 2075-0) 103 98-107 [facility] Clinicserum or plasma carbon dioxide, total measurement (moles/volume)2019-07-05 01:34:00* Test Item Value Reference Range Interpretation Comments Carbon Dioxide Level (test code = 2028-9) 26 22-29 [facility]icserum or plasma anion kwu4643-19-22 01:34:00* Test Item Value Reference Range Interpretation Comments Anion Gap (test code = 39188-2) 12.1 8-16 [facility]icserum or plasma urea nitrogen measurement (mass/volume)2019-07-05 01:34:00* Test Item Value Reference Range Interpretation Comments Blood Urea Nitrogen (test code = 3094-0) 18 7-26 [facility]icserum or plasma creatinine measurement (mass/volume)2019-07-05 01:34:00* Test Item Value Reference Range Interpretation Comments Creatinine (test code = 2160-0) 0.72 0.57-1.11 [facility] or plasma urea nitrogen/creatinine mass sffwz3161-53-47 01:34:00* Test Item Value Reference Range Interpretation Comments BUN/Creatinine Ratio (test code = 3097-3) 25 6-25 [facility] HospitalEstimated glomerular filtration rate (GFR) sdesdcowuoqcm7055-19-93 01:34:00* Test Item Value Reference Range Interpretation Comments Estimat Glomerular Filtration Rate (test code = 048047226) > 60 >60 Ranges were taken from the National Kidney Disease Education Program and the [facility] literature.Reference ranges:60 or greater: Nkvapd55-45 ( for 3 consecutive months): Chronic kidney disease 15 or less: Kidney failureCleveland Emergency HospitalGlucose myvzummyjdv6734-47-49 01:34:00* Test Item Value Reference Range Interpretation Comments Glucose Level (test code = OCV7471) 122 74-118 [facility] or plasma calcium measurement (mass/volume)2019-07-05 01:34:00* Test Item Value Reference Range Interpretation Comments Calcium Level (test code = 71440-2) 8.8 8.4-10.2 [facility] or plasma total bilirubin measurement (mass/volume)2019-07-05 01:34:00* Test Item Value Reference Range Interpretation Comments Total Bilirubin (test code = 1975-2) 0.2 0.2-1.2 [facility] HospitalFluoroscopic procedure less than one hour ietddnak5276-85-01 01:34:00* Test Item Value Reference Range Interpretation Comments Aspartate Amino Transf (AST/SGOT) (test code = Aspartate Amino Transf (AST/SGOT)) 14 5-34 [facility] or plasma alanine aminotransferase measurement (enzymatic activity/volume)2019-07-05 01:34:00* Test Item Value Reference Range Interpretation Comments Alanine Aminotransferase (ALT/SGPT) (test code = 1742-6) 21 0-55 [facility] or plasma protein measurement (mass/volume)2019-07-05 01:34:00* Test Item Value Reference Range Interpretation Comments Total Protein (test code = 2885-2) 6.6 6.5-8.1 [facility] or plasma albumin measurement (mass/volume)2019-07-05 01:34:00* Test Item Value Reference Range Interpretation Comments Albumin (test code = 1751-7) 3.8 3.5-5.0 [facility] HospitalPlasma globulin measurement (mass/volume) 2019-07-05 01:34:00* Test Item Value Reference Range Interpretation Comments Globulin (test code = 59676-5) 2.8 2.3-3.5 [facility] or plasma albumin/globulin mass gnbbt9816-56-35 01:34:00* Test Item Value Reference Range Interpretation Comments Albumin/Globulin Ratio (test code = 1759-0) 1.4 0.8-2.0 [facility] or plasma alkaline phosphatase measurement (enzymatic activity/volume)2019-07-05 01:34:00* Test Item Value Reference Range Interpretation Comments Alkaline Phosphatase (test code = 6768-6) 62 40-150 [facility] or plasma creatine kinase measurement (enzymatic activity/volume)2019-07-05 01:34:00* Test Item Value Reference Range Interpretation Comments Creatine Kinase (test code = 2157-6) 67 29-168 [facility] or plasma creatine kinase MB measurement (mass/volume)2019-07-05 01:34:00* Test Item Value Reference Range Interpretation Comments Creatine Kinase MB (test code = 25330-7) 0.80 0-5.0 [facility] HospitalTroponin I measurement by highly sensitive enzyme vjgaddyccul9624-37-11 01:34:00* Test Item Value Reference Range Interpretation Comments Troponin I (test code = 55514-3) < 0.001 0-0.300 [facility] or plasma acetaminophen measurement by screening method (mass/volume)2019-07-05 01:34:00* Test Item Value Reference Range Interpretation Comments Acetaminophen Level (test code = 05391-3) 9.3 10-30 [facility] or plasma ethanol measurement (mass/volume)2019-07-05 01:34:00* Test Item Value Reference Range Interpretation Comments Ethyl Alcohol Level (test code = 5643-2) < 10.0 0.0-10.0 [facility] or plasma acetaminophen measurement by screening method (mass/volume)2019-07-05 01:34:00* Test Item Value Reference Range Interpretation Comments Acetaminophen Level (test code = 32429-8) 9.3 10-30 [facility] or plasma ethanol measurement (mass/volume)2019-07-05 01:34:00* Test Item Value Reference Range Interpretation Comments Ethyl Alcohol Level (test code = 5643-2) < 10.0 0.0-10.0 [facility] or plasma acetaminophen measurement by screening method (mass/volume)2019-07-05 01:34:00* Test Item Value Reference Range Interpretation Comments Acetaminophen Level (test code = 92014-8) 9.3 10-30 [facility] or plasma ethanol measurement (mass/volume)2019-07-05 01:34:00* Test Item Value Reference Range Interpretation Comments Ethyl Alcohol Level (test code = 5643-2) < 10.0 0.0-10.0 [facility] or plasma acetaminophen measurement by screening method (mass/volume)2019-07-05 01:34:00* Test Item Value Reference Range Interpretation Comments Acetaminophen Level (test code = 27880-1) 9.3 10-30 [facility] or plasma ethanol measurement (mass/volume)2019-07-05 01:34:00* Test Item Value Reference Range Interpretation Comments Ethyl Alcohol Level (test code = 5643-2) < 10.0 0.0-10.0 [facility] or plasma acetaminophen measurement by screening method (mass/volume)2019-07-05 01:34:00* Test Item Value Reference Range Interpretation Comments Acetaminophen Level (test code = 47525-2) 9.3 10 [facility] or plasma ethanol measurement (mass/volume)2019-07-05 01:34:00* Test Item Value Reference Range Interpretation Comments Ethyl Alcohol Level (test code = 5643-2) < 10.0 0.0-10.0 [facility] HospitalLactic acid level, SEPSIS - Now and repeat 2x every 3 cknnr2081-01-56 03:58:32* Test Item Value Reference Range Interpretation Comments Lactic acid (test code = 79699-8) 1.6 mmol/L 0.5-2.2 Helena MethoddarshanCreatine kinase, total (CPK)2019-06-20 01:51:55* Test Item Value Reference Range Interpretation Comments Creatine kinase (test code = 2157-6) 65 U/L 26-192 Helena NdiykzsjkQETDXQ7492-53-03 03:18:00* Test Item Value Reference Range Interpretation Comments GLUBED (test code = GLUBED) 94 mg/dL 74-106 N Performed by certified local owner operator truck driver at [facility] BASIC METABOLIC NWKEC5227-79-00 01:38:00* Test Item Value Reference Range Interpretation [...] CA) 8.5 mg/dL 8.5-10.1 N HCG SERUM HSIG4414-42-49 01:38:00* Test Item Value Reference Range Interpretation Comments HCG SERUM QUAL (test code = HCGQL) NEGATIVE DILANTIN (PHENYTOIN)2019-03-15 01:38:00* Test Item Value Reference Range Interpretation Comments DILANTIN (PHENYTOIN) (test code = DIL) 0.6 ug/mL 10.0-20.0 L BASIC METABOLIC ZUIEE7777-89-12 01:33:00* Test Item Value Reference Range Interpretation [...] CA) 8.5 mg/dL 8.5-10.1 N HCG SERUM GCOU3916-74-78 01:33:00* Test Item Value Reference Range Interpretation Comments HCG SERUM QUAL (test code = HCGQL) NEGATIVE CBC W/O IOWH8797-92-27 01:18:00* Test Item Value Reference Range Interpretation [...] 6.7-11.0 N - XR KNEE 3 V [id number] 00:30:00 FAX: Devin Craft MD [phone] [place]: St: REG FAX: Jn Mohr MD [phone] Name: MADISYN GONZALES [facility] : 1965 Age/S: 54/F [address] [facility] Unit #: [id number] Loc: [place] [address] Phys: Jn Mohr MD Acct: [id number] Dis Date: Status: REG ER PHONE #: [phone] Exam Date: 03/15/2019 0020 FAX #: [phone] Reason: leg pain EXAMS: CPT CODE: [id number] XR KNEE 3 [place] RT [address] Dictation location: H37. RIGHT HIP 2 VIEWS; [...] MD; Jn Mohr MD Technologist: Gris El Trntxrd Date/Time/By: 03/15/2019 (003) : By: [email or web address] Orig Print D/T: S: 03/15/2019 (0033) PAGE 1 Signed Report - XR FEMUR MIN 2 VWS RT 2019-03-15 00:30:00 FAX: Devin Craft MD [phone] [place]: St: [facility] FAX: Jn Mohr MD [phone] Name: MADISYN GONZALES [facility] : 1965 Age/S: 54/F [address] [facility] Unit #: [id number] Loc: [place] [address] Phys: Jn Mohr MD Acct: [id number] Dis Date: Status: REG ER PHONE #: [phone] Exam Date: 03/15/2019 0020 FAX #: [phone] Reason: leg pain EXAMS: CPT CODE: [id number] XR FEMUR MIN [address] [place] [address] Dictation location: H37. RIGHT HIP 2 VIEWS; [...] Wright MD; Jn Mohr MD Technologist: Gris Dickens Date/Time/By: 03/15/2019 (0030) : By: [email or web address] Orig Print D/T: S: 03/15/2019 (0033) PAGE 1 Signed Report - XR HIP W/PEL UNI 2+V [id number] 00:30:00 FAX: Devin Craft MD [phone] [place]: St: REG FAX: Jn Mohr MD [phone] Name: MADISYN GONZALES [facility] : 1965 Age/S: 54/F [address] [facility] Unit #: [id number] Loc: [place] [address] Phys: Jn Mohr MD Acct: [id number] Dis Date: Status: REG ER PHONE #: [phone] Exam Date: 03/15/2019 0020 FAX #: [phone] Reason: leg pain EXAMS: CPT CODE: [id number] XR HIP W/PEL UNI 2+[place] [address] Dictation location: H37. RIGHT HIP 2 VIEWS; [...] Wright MD; Jn Mohr MD Technologist: Gris Dickens Date/Time/By: 03/15/2019 (0030) : By: [email or web address] Orig Print D/T: S: 03/15/2019 (0033) PAGE 1 Signed Report - CT C-SPINE W/O [id number] 23:04:00 Name: MADISYN GONZALES [facility] : 1965 Age/S: 54 / F [address] [facility] Unit #: [id number] Loc: [place] [address] Phys: Jn Mohr MD Acct: [id number] Dis Date: Status: REG ER PHONE #: [phone] Exam Date: 03/14/20192249 FAX #: [phone] Reason: neck pain EXAMS: CPT CODE: [id number] CT C-SPINE W/O CONTRAST 16140 EXAM: CT of the cervical spine without [...] evidence of acute osseous trauma. Location code: [facility] at 2304 Reported and signed by: Raul Rehman M.D. CC: Devin Wright MD; Jn Mohr MD Technologist:Julisa BLAKELY(R); ROMAINE Gibson CTDI: DLP: Trnscb Date/Time: 03/14/2019 (2304) [email or web address] Orig Print D/T: S: 03/14/2019 (2307) PAGE 1 Signed Report - CT HEAD/BRAIN W/O CONT 2019-03-14 23:03:00 Name: MADISYN GONZALES [facility] : 1965 Age/S: 54 / F [address] Unit #: [id number] [place]: [place] [address] Phys: Jn Mohr MD Acct: [id number] Dis Date: Status: REG ER PHONE #: [phone] Exam Date: 03/14/2019 2243 FAX #: [phone] Reason: seizure EXAMS: CPT CODE: [id number] CT HEAD/BRAIN W/O CONT 82418 EXAM: CT of the head; INFORMATION: Seizure; [...] CT scan of the head. Location code: [facility] at 2303 Reported and signed by: Raul Rehman M.D. CC: Devin Wright MD; Jn Mohr MD Technologist:Julisa Ingram RT(R); ROMAINE Gibson CTDI: DLP: Trnscb Date/Time: 03/14/2019 (2302) t.[email or web address].GRW Orig Print D/T: S: 03/14/2019 (2305) PAGE 1 Signed Report - XR TOE(S) 2+V [id number] 03:10:00 FAX: Devin Craft MD [phone] [place]: St: REG FAX: Armando Ibrahim [facility] [phone] Name: GRZEGORZ GONZALES [facility] : 1965 Age/S: 54/F [address] Unit #: [id number] Loc: [place] [address] Phys: Armando CarreonP Acct: [id number] Dis Date: Status: REG ER PHONE #: [phone] Exam Date: 03/14/2019 0243 FAX #: [phone] Reason: TOE PAIN EXAMS: CPT CODE: [id number] XR TOE(S) 2+V LT [address] Dictation location: H37. LEFT TOES, 3 VIEWS [...] By: [email or web address] Orig Print D/T: S: 03/14/2019 (0313) PAGE 1 Signed Report URINALYSIS [id number] 14:05:00* Test Item Value Reference Range Interpretation [...] Urine Source? Clean CatchDRUGS OF ABUSE SCREEN [id number] 14:05:00* Test Item Value Reference Range Interpretation [...] <300 ng/mL Urine Source? Clean CatchBASIC METABOLIC [id number] 13:58:00* Test Item Value Reference Range Interpretation [...] CA) 8.6 mg/dL 8.5-10.1 N HEPATIC FUNCTION [id number] 13:58:00* Test Item Value Reference Range Interpretation [...] reference range due to change in reagent. [id number] 13:58:00* Test Item Value Reference Range Interpretation Comments LIPASE (test code = LIP) 134 U/L 73.0-393.0 N HCG SERUM [id number] 13:58:00* Test Item Value Reference Range Interpretation Comments HCG SERUM QUAL (test code = HCGQL) NEGATIVE NEGATIVE This HCGQL test is NOT applicable for MALE patients.Check with nurse about probable order error.If Tumor Marker Test needed, nurse should order test "HCGTU"(Test #550.70490) TSH REFLEX TO [id number] 13:58:00* Test Item Value Reference Range Interpretation Comments TSH REFLEX TO FT4 (test code = TSHREFLEX) 0.8 0.4-5.5 N [id number] 13:58:00* Test Item Value Reference Range Interpretation Comments TROPONIN-I (test code = TROPI) <0.015 ng/mL 0-0.045 N [id number] 13:58:00* Test Item Value Reference Range Interpretation Comments LITHIUM (test code = LITH) <0.1 mmol/L 0.5-1.5 L [id number] 13:58:00* Test Item Value Reference Range Interpretation [...] AT ANADDITIONAL CHARGE TO THE PATIENT. URINALYSIS [id number] 13:51:00* Test Item Value Reference Range Interpretation [...] Urine Source? Clean CatchDRUGS OF ABUSE SCREEN [id number] 13:51:00* Test Item Value Reference Range Interpretation [...] <300 ng/mL Urine Source? Clean CatchBASIC METABOLIC [id number] 13:51:00* Test Item Value Reference Range Interpretation [...] code = CA) mg/dL 8.5-10.1 HEPATIC FUNCTION [id number] 13:51:00* Test Item Value Reference Range Interpretation [...] TOTAL (test code = ALKP) IUnit/L 45-117 [id number] 13:51:00* Test Item Value Reference Range Interpretation Comments LIPASE (test code = LIP) U/L 73.0-393.0 HCG SERUM [id number] 13:51:00* Test Item Value Reference Range Interpretation Comments HCG SERUM QUAL (test code = HCGQL) NEGATIVE NEGATIVE This HCGQL test is NOT applicable for MALE patients.Check with nurse about probable order error.If Tumor Marker Test needed, nurse should order test "HCGTU"(Test #550.21527) TSH REFLEX TO [id number] 13:51:00* Test Item Value Reference Range Interpretation Comments TSH REFLEX TO FT4 (test code = TSHREFLEX) 0.4-5.5 [id number] 13:51:00* Test Item Value Reference Range Interpretation Comments TROPONIN-I (test code = TROPI) ng/mL 0-0.045 [id number] 13:51:00* Test Item Value Reference Range Interpretation Comments LITHIUM (test code = LITH) <0.1 mmol/L 0.5-1.5 L [id number] 13:51:00* Test Item Value Reference Range Interpretation Comments ALCOHOL (test code = ALC) mg/dL 0-3 PROTHROMBIN [id number] 13:41:00* Test Item Value Reference Range Interpretation [...] (2.5-3.5) IS PATIENT ON ANTICOAGULANTS? NTHROMBOPLASTIN TIME [id number] 13:41:00* Test Item Value Reference Range Interpretation Comments THROMBOPLASTIN TIME PARTIAL (test code = PTT) 35.8 seconds 25.0-36. 5 N IS PATIENT ON ANTICOAGULANTS? [id number] 13:34:00* Test Item Value Reference Range Interpretation Comments MAGNESIUM (test code = MAG) 2.1 mg/dL 1.8-2.4 N BASIC METABOLIC [id number] 13:33:00* Test Item Value Reference Range Interpretation [...] code = CA) mg/dL 8.5-10.1 HEPATIC FUNCTION [id number] 13:33:00* Test Item Value Reference Range Interpretation [...] TOTAL (test code = ALKP) IUnit/L 45-117 [id number] 13:33:00* Test Item Value Reference Range Interpretation Comments LIPASE (test code = LIP) U/L 73.0-393.0 HCG SERUM [id number] 13:33:00* Test Item Value Reference Range Interpretation Comments HCG SERUM QUAL (test code = HCGQL) NEGATIVE TSH REFLEX TO [id number] 13:33:00* Test Item Value Reference Range Interpretation Comments TSH REFLEX TO FT4 (test code = TSHREFLEX) 0.4-5.5 [id number] 13:33:00* Test Item Value Reference Range Interpretation Comments TROPONIN-I (test code = TROPI) ng/mL 0-0.045 [id number] 13:33:00* Test Item Value Reference Range Interpretation Comments LITHIUM (test code = LITH) <0.1 mmol/L 0.5-1.5 L [id number] 13:33:00* Test Item Value Reference Range Interpretation Comments ALCOHOL (test code = ALC) mg/dL 0-3 - CT HEAD/BRAIN W/O [id number] 13:32:00 Name: GRZEGORZ GONZALES [facility] : 1965 Age/S: 53 / F [address] Unit #: [id number] Loc: [place] [address] Phys: Michael Adame MD Acct: [id number] Dis Date: Status: REG ER PHONE #: [phone] Exam Date: 11/05/2018 1320 FAX #: [phone] Reason: headache EXAMS: CPT CODE: [id number] CT HEAD/BRAIN W/O CONT 12070 HISTORY: headache TECHNIQUE: Noncontrast 2.5 mm axial [...] 35) PAGE 1 Signed Report BASIC METABOLIC [id number] 13:30:00* Test Item Value Reference Range Interpretation [...] code = CA) mg/dL 8.5-10.1 HEPATIC FUNCTION [id number] 13:30:00* Test Item Value Reference Range Interpretation [...] TOTAL (test code = ALKP) IUnit/L 45-117 [id number] 13:30:00* Test Item Value Reference Range Interpretation Comments LIPASE (test code = LIP) U/L 73.0-393.0 HCG SERUM [id number] 13:30:00* Test Item Value Reference Range Interpretation Comments HCG SERUM QUAL (test code = HCGQL) NEGATIVE TSH REFLEX TO [id number] 13:30:00* Test Item Value Reference Range Interpretation Comments TSH REFLEX TO FT4 (test code = TSHREFLEX) 0.4-5.5 [id number] 13:30:00* Test Item Value Reference Range Interpretation Comments TROPONIN-I (test code = TROPI) ng/mL 0-0.045 [id number] 13:30:00* Test Item Value Reference Range Interpretation Comments LITHIUM (test code = LITH) <0.1 mmol/L 0.5-1.5 L [id number] 13:30:00* Test Item Value Reference Range Interpretation Comments ALCOHOL (test code = ALC) mg/dL 0-3 CBC W/O [id number] 13:29:00* Test Item Value Reference Range Interpretation [...] MPV) 9.2 fL 6.7-11.0 N CBC W/O [id number] 13:25:00* Test Item Value Reference Range Interpretation [...] code = MPV) fL 6.7-11.0 BASIC METABOLIC [id number] 20:30:00* Test Item Value Reference Range Interpretation [...] CA) 8.7 mg/dL 8.5-10.1 N SPECIMEN HEMOLYZED UEG0327 HAS BEEN NOTIEFIED PLEASE REDRAWBASIC METABOLIC PANEL [...] code = CA) mg/dL 8.5-10.1 SPECIMEN HEMOLYZED VTC2488 HAS BEEN NOTIEFIED PLEASE REDRAWCBC W/O DIFF [...] MPV) 10.2 fL 6.7-11.0 N CBC W/O [id number] 19:04:00* Test Item Value Reference Range Interpretation [...] 6.7-11.0 - XR HAND 3 + V [id number] 16:20:00 FAX: Marry Luna NP [place]: B St: REG FAX: Devin Craft MD [phone] Name: GRZEGORZ GONZALES [facility] : 1965 Age/S: 53/F [address] Unit #: [id number] Loc: [place] [address] Phys: Marry Luna NP Acct: [id number] Dis Date: Status: REG ER PHONE #: [phone] Exam Date: 09/01/2018 1605 FAX #: [phone] Reason: pain sp fall EXAMS: CPT CODE: [id number] XR HAND 3 + [place] [address] CLINICAL HISTORY: pain sp fall TECHNIQUE: AP, [...] MD Technologist: HOMER BLAKELY(R) Trnscrd Date/Time/By: 09/01/2018 (1620) : By: [email or web address] Orig Print D/T: S: 09/01/2018 (7402) PAGE 1 Signed Report - XR FOREARM 2 VIEWS [id number] 16:16:00 FAX: Marry Luna NP [place]: B St: REG FAX: Devin Craft MD [phone] Name: GRZEGORZ GONZALES [facility] : 1965 Age/S: 53/F [address] [facility] Unit #: [id number] Loc: [place] [address] Phys: Marry Luna NP Acct: [id number] Dis Date: Status: REG ER PHONE #: [phone] Exam Date: 09/01/2018 1605 FAX #: [phone] Reason: pain sp fall EXAMS: CPT CODE: [id number] [place]R [place] [address] [place] [address] CLINICAL HISTORY: pain sp fall TECHNIQUE: AP [...] Technologist: HOMER BLAKELY(R) Trnscrd Date/Time/By: 0 09/01/2018 (5585) : By: [email or web address] Orig Print D/T: S: 09/01/2018 (2768) PAGE 1 Signed Report BASIC METABOLIC [id number] 20:52:00* Test Item Value Reference Range Interpretation [...] code = CA) 9.2 mg/dL 8.5-10.1 N [id number] 20:52:00* Test Item Value Reference Range Interpretation Comments TROPONIN-I (test code = TROPI) <0.015 ng/mL 0-0.045 N BASIC METABOLIC [id number] 20:46:00* Test Item Value Reference Range Interpretation [...] code = CA) 9.2 mg/dL 8.5-10.1 N [id number] 20:46:00* Test Item Value Reference Range Interpretation Comments TROPONIN-I (test code = TROPI) ng/mL 0-0.045 CBC W/O [id number] 20:30:00* Test Item Value Reference Range Interpretation [...] code = MPV) fL 6.7-11.0 CBC W/O [id number] 20:30:00* Test Item Value Reference Range Interpretation [...] fL 6.7-11.0 N - XR CHEST 1 [id number] 19:48:00 FAX: Allen Brandon MD [phone] [place]: B St: REG Name: GRZEGORZ TOUSSAINT [facility] : [birth year] Age/S: 53/F [address] Unit #: [id number] Loc: [place] [address] Phys: Allen Brandon MD Acct: [id number] Dis Date: Status: REG ER PHONE #: [phone] Exam Date: 05/12/20181943 FAX #: [phone] Reason: CHEST PAIN EXAMS: CPT CODE: [id number] XR CHEST 1 V 17870 HISTORY: CHEST PAIN TECHNIQUE: AP chest x-ray [...] (1950) PAGE 1 Signed Report COMPREHENSIVE METABOLIC [id number] 19:35:00* Test Item Value Reference Range Interpretation [...] reference range due to change in reagent. [id number] 19:35:00* Test Item Value Reference Range Interpretation Comments AMYLASE (test code = DAVIDSON) 62 Unit/L 25-115 N URINALYSIS W/O [id number] 19:34:00* Test Item Value Reference Range Interpretation [...] = LEUUR) NEGATIVE NEG ATIVE COMPREHENSIVE METABOLIC [id number] 19:22:00* Test Item Value Reference Range Interpretation [...] TOTAL (test code = ALKP) IUnit/L 45-117 [id number] 19:22:00* Test Item Value Reference Range Interpretation Comments AMYLASE (test code = DAVIDSON) Unit/L 25-115 CBC W/AUTO [id number] 19:18:00* Test Item Value Reference Range Interpretation [...] NRBC#) 0.00 K/mm3 0.0-0.1 N CBC W/AUTO [id number] 19:14:00* Test Item Value Reference Range Interpretation [...] BA#) K/mm3 0.0-0.2 - XR CHEST 2 [id number] 17:23:00 FAX: MIKE MELÉNDEZ NP [place]: B St: REG Name: GRZEGORZ TOUSSAINT [facility] : [birth year] Age/S: 53/F [address] Unit #: [id number] Loc: [place] [address] Phys: MIKE MELÉNDEZ SIDING APPLICATOR Acct: [id number] Dis Date: Status: REG ER PHONE #: [phone] Exam Date: 03/27/2018 1721 FAX #: [phone] Reason: cough EXAMS: CPT CODE: [id number] XR CHEST 2 V 65158 REASON FOR EXAM: cough Exam Order Date: 03/27/2018 4:55 PM Ordering Hernandez: MIKE MELÉNDEZ NP PROCEDURE: - XR CHEST 2 V COMPARISON: FINDINGS: PA and lateral views of the chest show clear lungs. No evidence of consolidation. No evidence of effusion. The heart size is within normal limits. Pulmonary vasculatures are unremarkable. The osseous structures are grossly intact. IMPRESSION: No active disease. at 9979 Reported and signed by: Dannie Hernández M.D. CC: MIKE MELÉNDEZ NP Technologist: JED BLAKELY(R) Trnscrd Date/Time/By: 03/27/2018 (4670) : By: [email or web address] Orig Print D/T: S: 03/27/2018 (4336) PAGE 1 Signed Report - XR HAND 3 + V [id number] 23:59:00 FAX: Tonya Brennan [place]: B St: PRE Name: GRZEGORZ TOUSSAINT [facility] : [birth year] Age/S: 53/F [address] Unit #: [id number] Loc: [place] [address] Phys: Tonya Brennan SIDING APPLICATOR Acct: [id number] Dis Date: Status: PRE ER PHONE #: [phone] Exam Date: 03/09/2018 2351 FAX #: [phone] Reason: LAC, R/O FB EXAMS: CPT CODE: [id number] XR HAND 3 + V RT 53480 HISTORY: Laceration Location: C3 Comparison to exam [...] by Romaine Trivedi MD on 02/14 at 9953 Reported and signed by: Romaine Trivedi MD CC: Tonya Brennan NP Technologist: Liliana Diop Trnscrd Da te/Time/By: 03/09/2018 (2079) : By: [email or web address] Orig Print D/T: S: 03/10 (0002) PAGE 1 Signed Report
[2019-10-05 02:56] VITALS: BP 131/78
== END 2019-10-05 03:09 | disposition home or self-care (01) ==
LOC: ER 02:30
DX: S00.83XA Contusion of other part of head, initial encounter (principal); R51 Headache; M54.31 Sciatica, right side; W18.30XA Fall on same level, unspecified, initial encounter; Y92.008 Other place in unspecified non-institutional (private) residence as the place of occurrence of the external cause; I10 Essential (primary) hypertension; G40.909 Epilepsy, unspecified, not intractable, without status epilepticus; F31.9 Bipolar disorder, unspecified; M54.9 Dorsalgia, unspecified; G89.29 Other chronic pain; Z86.73 Personal history of transient ischemic attack (TIA), and cerebral infarction without residual deficits
CPT/HCPCS: 70450; 99283

== ENCOUNTER 2019-10-15 02:54 | Emergency (ER) | payer MEDICARE, OTHER ==
[~2019-10-15] VITALS: Ht 157.5 cm; Wt 77.1 kg
--- NOTE | 2019-10-15 03:18 | Emergency Department Note ---
History of Present Illnes History of Present Illness Chief Complaint: Head/Face Trauma History of Present Illness This is a 54 year old female pt [id number] presents to ED with report of fall approx 1 hr ago; pt states, "I tripped when going to the bathroom." Pt denies LOC, bruise noted to forehead; V/S/S; pt with NAD noted; . 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 Any updates have been documented here. Past Medical History Recent Fever: No Clinical Suspicion of Infectio: No New/Unexplained Change in Ment: No Past Medical History: Hypertension, CVA, Seizure Disorder, Other Mental Illness, Chronic Back Pain Other Medical History: BIPOLAR CHRONIC BACK PAIN DIVERTICULITIS Past Surgical History: Cholecysctectomy, Back Surgery Other Surgery: EAR(MULTIPLE), SKIN GRAFT BACK SX 2018 NECK SX Social History Smoking Cessation: Never Smoker Counseling Performed: No Alcohol Use: None Any Illegal Drug Use: No Physically hurt or threatened: No Other Last Tetanus: unknown Any Pre-Existing Lines (PICC,: No Review of Systems Review of Systems Constitutional: Reports no symptoms EENTM: Reports no symptoms Cardiovascular: Reports no symptoms Respiratory: Reports no symptoms Gastrointestinal: Reports no symptoms Genitourinary: Reports no symptoms Musculoskeletal: Reports as per HPI Integumentary: Reports no symptoms Neurological: Reports no symptoms Psychological: Reports no symptoms Endocrine: Reports no symptoms Hematological/Lymphatic: Reports no symptoms Physical Exam Related Data Allergies: Coded Allergies: benztropine mesylate (Verified Allergy, Severe, 11/17/11) sertraline (Verified Allergy, Severe, SWELLING, SEIZURES, 02/22/10) ziprasidone (Verified Allergy, Intermediate, HALLUCINATIONS, 02/22/10) Haloperidol Lactate (Verified Allergy, Unknown, 09/30/10) haloperidol (Verified Allergy, Unknown, 09/30/10) peanut (Verified Allergy, Unknown, 02/22/10) risperidone (Verified Allergy, Unknown, 02/22/10) Uncoded Allergies: DERMABOND (Allergy, Unknown, 05/21/16) Triage Vital Signs Vital Signs Date Time Temp Pulse Resp B/P (MAP) Pulse Ox O2 Delivery O2 Flow Rate FiO2 10/15/19 03:02 99.1 97 16 137/85 100 Room Air Vital signs reviewed: Yes Physical Exam CONSTITUTIONAL Constitutional: Present well-developed, Present well-nourished; Absent distressed HENT HENT: Present normocephalic, Present oropharynx clear/moist, Present nose no rmal, Present other (CONTUSION TO FOREHEAD) HENT L/R: Present left ext ear normal, Present right ext ear normal EYES Eyes: Reports PERRL, Reports conjunctivae normal NECK Neck: Present ROM normal PULMONARY Pulmonary: Present effort normal, Present breath sounds normal CARDIOVASCULAR Cardiovascular: Present regular rhythm, Present heart sounds normal, Present capillary refill normal, Present normal rate GASTROINTESTINAL Abdominal: Present soft, Present nontender, Present bowel sounds normal GENITOURINARY Genitourinary: Present exam deferred SKIN Skin: Present warm, Present dry MUSCULOSKELETAL Musculoskeletal: Present ROM normal NEUROLOGICAL Neurological: Present alert, Present oriented x 3, Present no gross motor or sensory deficits PSYCHOLOGICAL Psychological: Present mood/affect normal, Present judgement normal Results Imaging Imaging results reviewed: Yes Impressions Procedure: [id number] CT/CT BRAIN WO Exam Date: 10/15/19 Exam Time: 0325 REPORT STATUS: Signed CT BRAIN WO HISTORY: Trauma COMPARISON: Head CT 10/05/2019 TECHNIQUE: Noncontrast axial scans were obtained from skull base to the vertex. Coronal and sagittal reconstructions obtained from the axial data. One or more of the following dose reduction techniques were used: Automated exposure control, adjustment of the mA and/or kV according to patient size, and/or utilization of iterative reconstruction technique. DISCUSSION: Scalp/Skull: No acute calvarial fracture. Prior right wall up right mastoidectomy changes. Brain sulci: Appropriate for patient's age. Ventricles: Normal in size and configuration. Stable asymmetric mild prominence of the right lateral ventricle, which is within normal variation. Extra-axial spaces: No masses or fluid collections. Carotid siphon calcifications. Parenchyma: No abnormal densities. No mass, hemorrhage, or large vascular territory acute infarct. Dural sinuses: No abnormal densities. Sellar/Suprasellar region: Intact. Skull base: Intact. Incidental findings: Minimal right sphenoid sinus mucosal thickening. IMPRESSION: 1. No acute intracranial abnormalities. 2. No significant change when compared to head CT dated 10/05/2019. Signed by: Dr. Rj Gregory M.D. on 10/15/2019 4:13 AM Dictated By: RJ GREGORY MD 2 Transcribed By: KATRIN on 10/15/19412 COPY TO: MERLYN RAYMOND MD~ Procedure: [id number] CT/CT CERVICAL SPINE WO Exam Date: 10/15/19 Exam Time: 324 REPORT STATUS: Signed CT CERVICAL SPINE WO HISTORY: Trauma COMPARISON: Concurrent head CT TECHNIQUE: CT of the cervical spine without contrast. Sagittal and coronal reformations were created. One or more of the following dose reduction techniques were used: Automated exposure control, adjustment of the mA and/or kV according to patient size, and/or utilization of iterative reconstruction technique. FINDINGS: Cervical lordosis is straightened. There is no scoliosis or subluxation. No fractures, compression deformity, or destructive osseous lesions are seen. The craniocervical junction is intact. No gross spinal canal masses are seen. The paravertebral and paraspinal soft tissues are unremarkable. Degenerative changes: The disc spaces are preserved with mild multilevel spondylotic changes. Incidental findings: Subcentimeter hypodense right thyroid nodule is present; no further imaging is indicated. IMPRESSION: No acute osseous abnormalities. Signed by: Dr. Rj Gregory M.D. on 10/15/2019 4:19 AM Dictated By: RJ GREGORY MD 8 Transcribed By: KATRIN on 10/15/19418 COPY TO: MERLYN RAYMOND MD~ Assessment & Plan Medical Decision Making MDM PT S/P FALL HITTING HEAD CT BRAIN, CT C SPINE TO EVAL FOR FRACTURES, INTRACRANIAL TRAUMA Assessment & Plan Final Impression: (1) Fall (2) Contusion of head Depart Disposition: HOME, SELF-CARE Last Vital Signs Date Time Temp Pulse Resp B/P (MAP) Pulse Ox O2 Delivery O2 Flow Rate FiO2 10/15/19 03:02 99.1 97 16 137/85 100 Room Air Home Meds Active Scripts Docusate Sodium (COLACE) 100 Mg Cap, 100 MG PO DAILY, #30 CAP Prov:JOSHNILSAKieshaBHARATH, 09/15/19 Reported Medications Alprazolam (XANAX) 2 Mg Tablet, 1 MG PO BID 11/23/13 Happy Carbonate (LITHIUM CARBONATE) 600 Mg Capsule, 300 MG PO HS 11/23/13 Happy Carbonate (LITHIUM CARBONATE) 300 Mg Tablet, 300 MG PO QAM 11/23/13 MERLYN RAYMOND MD Oct 15, 2019 03:18
--- NOTE | 2019-10-15 04:16 | Diagnostic Imaging Report ---
CT BRAIN WO HISTORY: Trauma COMPARISON: Head CT 10/05/2019 TECHNIQUE: Noncontrast axial scans were obtained from skull base to the vertex. Coronal and sagittal reconstructions obtained from the axial data. One or more of the following dose reduction techniques were used: Automated exposure control, adjustment of the mA and/or kV according to patient size, and/or utilization of iterative reconstruction technique. DISCUSSION: Scalp/Skull: No acute calvarial fracture. Prior right wall up right mastoidectomy changes. Brain sulci: Appropriate for patient's age. Ventricles: Normal in size and configuration. Stable asymmetric mild prominence of the right lateral ventricle, which is within normal variation. Extra-axial spaces: No masses or fluid collections. Carotid siphon calcifications. Parenchyma: No abnormal densities. No mass, hemorrhage, or large vascular territory acute infarct. Dural sinuses: No abnormal densities. Sellar/Suprasellar region: Intact. Skull base: Intact. Incidental findings: Minimal right sphenoid sinus mucosal thickening. IMPRESSION: 1. No acute intracranial abnormalities. 2. No significant change when compared to head CT dated 10/05/2019. Signed by: Dr. Rj Rouse M.D. on 10/15/2019 4:13 AM
--- NOTE | 2019-10-15 04:23 | Diagnostic Imaging Report ---
CT CERVICAL SPINE WO HISTORY: Trauma COMPARISON: Concurrent head CT TECHNIQUE: CT of the cervical spine without contrast. Sagittal and coronal reformations were created. One or more of the following dose reduction techniques were used: Automated exposure control, adjustment of the mA and/or kV according to patient size, and/or utilization of iterative reconstruction technique. FINDINGS: Cervical lordosis is straightened. There is no scoliosis or subluxation. No fractures, compression deformity, or destructive osseous lesions are seen. The craniocervical junction is intact. No gross spinal canal masses are seen. The paravertebral and paraspinal soft tissues are unremarkable. Degenerative changes: The disc spaces are preserved with mild multilevel spondylotic changes. Incidental findings: Subcentimeter hypodense right thyroid nodule is present; no further imaging is indicated. IMPRESSION: No acute osseous abnormalities. Signed by: Dr. Rj Rouse M.D. on 10/15/2019 4:19 AM
--- OUTSIDE RECORDS SUMMARY | 2019-10-15 05:37 | XMS REPORT | Clinical Summary ---
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 Pathologist [facility] Estimated GFR >=90 mL/min/1.73 m2 [place] Comment: [place] [facility] Interpretation G1 >=90 Normal or high [...] City/State/Zipcode [place] [address] [place] [address] PATHOLOGY AND GENOMIC MEDICINE [place] [address] [place] [address] [facility] * CBC with platelet and differential (08/04/2019 7:58 AM CDT) Only the most recent of 3 results within the time period is included. Pathologist [facility] WBC 10.41 4.50 - 11.00 k/uL [facility] RBC 3.88 (L) 4.20 - 5.50 m/uL [facility] HGB 12.3 12.0 - 16.0 g/dL [facility] HCT 38.2 37.0 - 47.0 % [facility] MCV 98.5 82.0 - 100.0 fL [facility] MCH 31.7 27.0 - 34.0 pg [facility] MCHC 32.2 31.0 - 37.0 g/dL [facility] RDW - SD 50.4 37.0 - 55.0 fL [facility] MPV 9.6 8.8 - 13.2 fL [facility] Platelet count 272 150 - 400 k/uL [facility] Nucleated RBC 0.00 /100 WBC [facility] Neutrophils 74.5 (H) 39.0 - 69.0 % [facility] Lymphocytes 15.1 (L) 25.0 - 45.0 % [facility] Monocytes 8.5 0.0 - 10.0 % [facility] Eosinophils 1.1 0.0 - 5.0 % [facility] Basophils 0.4 0.0 - 1.0 % [facility] Specimen Blood Performing Organization Address City/State/Zipcoar [place] [address] [address] [place], [place] [address] PATHOLOGY AND GENOMIC MEDICINE [facility] [address] [place] [address] [facility] * Comprehensive metabolic panel (08/04/2019 7:58 AM CDT) Only the most recent of 4 results within the time period is included. Sodium 134 (L) 135 - 148 mEq/L [facility] Potassium 4.0 3.5 - 5.0 mEq/L [facility] Chloride 100 98 - 112 mEq/L [facility] CO2 25 24 - 31 mEq/L [facility] Anion gap 9@ANIO 7 - 15 mEq/L [facility] BUN 8 6 - 20 mg/dL [facility] Creatinine 0.60 0.50 - 0.90 mg/dL [facility] Glucose 98 65 - 99 mg/dL [facility] Calcium 8.7 8.3 - 10.2 mg/dL [facility] Protein 6.7 6.3 - 8.3 g/dL [place] Comment: [facility] Kila 4.6-7.0 g/dL 1 week 4.4-7.6 g/dL 7 months-1year 5.1-7.3 g/dL 1-2 years 5.6-7.5 g/dL >3 years 6.0-8.0 g/dL 18-150 6.3-8.3 g/dL Albumin 3.9 3.5 - 5.0 g/dL [facility] A/G ratio 1.4 0.7 - 3.8 [facility] Alkaline 120 (H) 35 - 104 U/L [place] phosphatase [facility] AST 14 10 - 35 U/L [facility] ALT 18 5 - 50 U/L [facility] Total bilirubin 0.5 0.0 - 1.2 mg/dL [facility] Specimen Blood Performing Organization Address City/State[facility] Ph one Number [facility] [place] [address] [address] [place], [place] [address] PATHOLOGY AND GENOMIC MEDICINE [facility] [address] [place] [address] [facility] * CT Abdomen Pelvis Wo [...] ce of perforation or abscess. 2.Severe constipation. [id number] Procedure Note Hm Interface, Radiology Results Incoming [...] evidence of perforation or abscess. 2.Severe constipation. [id number] Performing Organization Address [facility] Ph one Number [facility] [address] [place] [address] * XR Abdomen 1 Vw (08/02/2019 4:39 [...] bony and soft tissue structures are unremarkable. [id number] Procedure Note Hm Interface, Radiology Results Incoming - 08/02/2019 4:46 PM CDT EXAMINATION: XR ABDOMEN 1 VW CLINICAL HISTORY: constipation COMPARISON: None. IMPRESSION: Frontal views reveal a nondilated, nondistended bowel gas pattern. No abnormal masses or calcifications are readily identified. Presumed pelvic phleboliths noted. Status post cholecystectomy and lumbar fusion. The remaining overlying bony and soft tissue structures are unremarkable. [id number] Performing Organization Address [facility] one Number [facility] [address] [place] [address] * Thyroid stimulating hormone (08/02/2019 5:53 AM CDT) TSH 1.45 0.27 - 4.20 uIU/mL [facility] Specimen Blood Performing Organization Address [facility] one Number [facility] DEPARTMENT OF [address] [place] [address] [place], [place] [address] PATHOLOGY AND GENOMIC MEDICINE [place] SINAN HERNANDEZ [address] [place] [address] [place] [address] [facility] * Phenytoin level (08/01/2019 6:28 PM CDT) Only the most recent of 2 results within the time period is included. Phenytoin <0.8 (A) 10.0 - 20.0 ug/mL [place] Comment: SINAN HERNANDEZ Therapeutic Range: [facility] 10 - 20 ug/mL Specimen Blood Performing Organization Address [facility] Ph one Number [facility] DEPARTMENT OF [address] [place] [address] [place], [place] [address] PATHOLOGY AND GENOMIC MEDICINE [facility] [place] [address] * [place] level (08/01/2019 6:28 PM CDT) Pathologist [facility] [place] 0.20 (L) 0.60 - 1.20 mmol/L [facility] Specimen Serum Performing Organization Address [facility] one Number [facility] DEPARTMENT OF [address] [place] [address]. [place], [place] [address] PATHOLOGY AND GENOMIC MEDICINE [address] [place] [address] * COVID-19 qualitative PCR (08/01/2019 1:47 PM CDT) Pathologist [facility] Interpretation Negative results do not [place] preclude 2019-nCoV infection [place] and should not be used as the HOSPITAL sole basis for treatment or other patient management decisions. Negative results must be combined with clinical observations, patient history, and epidemiological information. COVID-19 Not-Detected Not-Detected [place] qualitative PCR [place] result HOSPITAL COVID-19 See link below for PDF Lab [place] qualitative PCR ReportComment: Case Number: [place] [id number] HOSPITAL Specimen Performing Organization Address [facility] one Number [facility] DEPARTMENT OF [address] [place] [address] PATHOLOGY AND GENOMIC MEDICINE [address] * Lipase level (08/01/2019 12:29 PM CDT) Only the most recent of 2 results within the time period is included. Pathologist [facility] Lipase 25 13 - 60 U/L [facility] Specimen Performing Organization Address [facility] one Number [facility] DEPARTMENT OF [address] [place] [address]. [place], [place] [address] PATHOLOGY AND GENOMIC MEDICINE [facility] [address] [address] * Urine culture (08/01/2019 11:59 AM CDT) Pathologist [facility] Urine culture Mixed leland 10-4 col/cc [place] isolate Comment: [place] Specimen Information HOSPITAL Specimen Source: Urine Specimen Site: Clean catch Specimen Urine Performing Organization Address [facility] one Number [facility] DEPARTMENT OF [address] [place], [place] [id number] PATHOLOGY AND GENOMIC MEDICINE [facility] [address] [place], [place] [id number] HOSPITAL * Urinalysis screen and microscopy, with reflex to culture (08/01/2019 11:43 AM CDT) Specimen site Clean catch [facility] Color, UA Yellow [facility] Appearance, UA Cloudy [facility] Specific 1.013 1.001 - 1.035 [place] gravity, UA [facility] pH, UA 8.0 5.0 - 8.5 [facility] Protein, UA Negative Negative [facility] Glucose, UA Negative Negative [facility] Ketones, UA Negative Negative [facility] Bilirubin, UA Negative Negative [facility] Blood, UA Negative Negative [facility] Nitrite, UA Negative Negative [facility] Urobilinogen, Negative <2.0 [facility] Leukocyte Negative Negative [place] esterase, UA [facility] Epithelial Many Few /HPF [place] cells, [facility] Round Moderate 0 - 1 /HPF [place] epithelial [facility] cells, [facility] WBC, UA 11-20 (H) 0 - 4 /HPF [facility] RBC, UA 0-5 0 - 5 /HPF [facility] Bacteria, UA None seen None seen [facility] Yeast, UA None seen [facility] Yeast with None seen [place] pseudohyphae, [facility] [facility] Amorphous Few [place] crystals [facility] Specimen Urine Performing Organization Address [facility] Ph one Number [facility] DEPARTMENT OF [address] [place] [address] [place], [place] [address] PATHOLOGY AND GENOMIC MEDICINE [address] [place] [address] [facility] * Prothrombin time with INR (08/01/2019 11:43 AM CDT) Prothrombin 12.7 11.5 - 14.5 sec [facility] INR 1.0 [place] Comment: [facility] The International Normalized [facility] Ratio (INR) is a therapeutic monitoring tool for patients who are stable on oral anticoagulant therapy. An INR of 2.0-3.0 is suggested for deep vein thrombosis/pulmonary embolism. Specimen Blood Performing Organization Address City/[facility] Ph one Number [facility] [place] [address] [address] [place], [place] [address] PATHOLOGY AND GENOMIC MEDICINE [facility] [place] [address] [place] [address] [facility] * ECG 12 lead (08/01/2019 11:36 AM CDT) Only the most recent of 2 results within the time period is included. Ventricular 84 [facility] rate Atrial rate 84 [facility] OR interval 164 [facility] QRSD interval 86 [facility] QT interval 364 [facility] QTC interval 430 [facility] P axis 1 65 [facility] QRS axis 1 58 [facility] T wave axis 30 [facility] EKG impression Normal sinus rhythm-Normal [facility] MUSE ECG-In automated comparison with ECG of 20-JUN-2019 00:40,-Borderline criteria for Lateral infarct are no longer present- Specimen Narrative Performed At This result has an attachment that is n ot available. Performing Organization Address City/[facility] Ph one Number [facility] MUSE [address] [place] [address] * ECG ED Preliminary Interpretation - Not an Order (08/01/2019 11:30 AM CDT) Narrative Performed At José Romo MD 08/01/2019 3:55 PM ECG ED Preliminary Interpretation - Not an Order Performed by: José Romo MD Authorized by: José Romo MD ECG reviewed by ED Physician in the abs ence of a radiographer: yes Interpretation: Interpretation: normal Rate: ECG rate: [...] 1.6 0.5 - 2.2 mmol/L [facility] [place] Specimen Blood Performing Organization Address City/State/Zipcode Ph one Number [facility] DEPARTMENT OF [address] [place] [address] PATHOLOGY AND GENOMIC MEDICINE [facility] [address] [place] [phone] HOSPITAL * Creatine kinase, total (CPK) (06/20/2019 12:30 AM CDT) Creatine kinase 65 26 - 192 U/L [facility] [place] Specimen Blood Performing Organization Address City/State/Zipcode Ph one Number [facility] [place] DEPARTMENT OF [address] [place] [phone] PATHOLOGY AND GENOMIC MEDICINE [facility] [address] [place] [phone] HOSPITAL after 10/14/2018 Insurance Type Payer Benefit Subscriber ID Effective Phone Address Plan / Dates Group HMO [employer] CIGNA xxxxxxxx 2019-P HEALTHSPRI resent NG O MCR ADV Advance Directives For more information, please contact: [phone] 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
--- OUTSIDE RECORDS SUMMARY | 2019-10-15 05:38 | XMS REPORT | Continuity of Care Document ---
Author Author [facility] t Organization [facility] Address [address] [place] [address] Phone Unavailable Care Team Providers Care Process Engineering Manager Name Role Phone VERNA, (NON STAFF) DEVIN PCP Daniela RAYMOND Attphys Unavailable LINETTE WEST Attphys Unavailable Minda BETTS Attphys Unavailable Melissa LIMA, Marilyn Attphys Unavailable Vimal Dahl MD, Xavi Kumar Attphys Sarah COOK, Kan Attphys Gen Finley DO Attphys [phone] KAN LUNA Admcolton Unavailable Payers Payer Name Policy Type Policy Number Effective Date Expiration Date [id number] 2016 00:00 :00 [facility] [id number] [facility] [id number] [id number] 2019 00:00:00 Nam Princeist Problems Condition Name Condition Details Condition Category Status Onset Date Resolution Date Last Treatment Date Treating Clinician Comments Source Fecal impaction of colon Fecal impaction of colon Disease Acti ve 2019-08-01 00:00:[address] Constipation Constipation Disease Active 2019-08-01 00:00:00 Nam Harry Accidental drug ingestion Problem Active [facility] Laceration of right hand Problem Active [facility] Encounter for removal of sutures Problem Active [facility] Grief Problem Active [facility] Bipolar 1 disorder Bipolar 1 disorder Disease [facility] Anxiety Anxiety Disease Active [facility] Cancer Cancer Disease Active Overview: brain [facility] Allergies, Adverse Reactions, Alerts Allergy Name Allergy Type Status Severity Reaction(s) Onset Date Inacti ve Date Treating Clinician Comments Source benztropine mesylate DA Active SV 2019-09-23 00:00:00 [facility] sertraline HCl DA Active U 2019-09-23 00:00:00 [facility] Penicillins DA Active U 2019-09-23 00:00:00 [facility] peanut FA Active SV 2019-09-23 00:00:00 [facility] haloperidol DA Active U 2019-09-23 00:00:00 [facility] phenytoin DA Active U 2019-09-23 00:00:00 [facility] risperidone DA Active MO 2019-09-23 00:00:00 [facility] shrimp FA Active SV 2019-09-23 00:00:00 [facility] Risperidone Propensity to adverse reactions to drug Active Other (See Comments) 2019-08-01 00:00:00 unknown Nam Harry Sertraline Propensity to adverse reactions to drug Active Swelling 2019-08-01 00:00:00 Nam [place] t benztropine mesylate DA Active SV 2019-07-20 00:00:00 [facility] sertraline HCl DA Active U 2019-07-20 00:00:00 [facility] Penicillins DA Active U 2019-07-20 00:00:00 [facility] peanut FA Active SV 2019-07-20 00:00:00 [facility] haloperidol DA Active U 2019-07-20 00:00:00 [facility] phenytoin DA Active U 2019-07-20 00:00:00 [facility] risperidone DA Active MO 2019-07-20 00:00:00 [facility] shrimp FA Active SV 2019-07-20 00:00:00 [facility] Haloperidol Propensity to adverse reactions to drug Active Other (See Comments) 2019-06-20 00:00:00 Lips turn blue [place] [facility] benztropine mesylate DA Active SV 2019-04-15 00:00:00 [facility] sertraline HCl DA Active U 2019-04-15 00:00:00 [facility] Penicillins DA Active U 2019-04-15 00:00:00 [facility] peanut FA Active SV 2019-04-15 00:00:00 [facility] haloperidol DA Active U 2019-04-15 00:00:00 [facility] phenytoin DA Active U 2019-04-15 00:00:00 [facility] risperidone DA Active MO 2019-04-15 00:00:00 [facility] shrimp FA Active SV 2019-04-15 00:00:00 [facility] Penicillins DA Active U 2019-03-27 00:00:00 [facility] phenytoin DA Active U 2019-03-27 00:00:00 [facility] benztropine mesylate DA Active SV 2019-03-14 00:00:00 [facility] sertraline HCl DA Active U 2019-03-14 00:00:00 [facility] peanut FA Active SV 2019-03-14 00:00:00 [facility] haloperidol DA Active U 2019-03-14 00:00:00 [facility] phenytoin DA Active SV 2019-03-14 00:00:00 [facility] risperidone DA Active MO 2019-03-14 00:00:00 [facility] shrimp FA Active SV 2019-03-14 00:00:00 [facility] benztropine mesylate DA Active SV 2018-09-01 00:00:00 [facility] sertraline HCl DA Active U 2018-09-01 00:00:00 [facility] haloperidol DA Active U 2018-09-01 00:00:00 [facility] risperidone DA Active MO 2018-09-01 00:00:00 [facility] benztropine mesylate DA Active SV 2018-05-05 00:00:00 [facility] sertraline HCl DA Active U 2018-05-05 00:00:00 [facility] haloperidol DA Active U 2018-05-05 00:00:00 [facility] risperidone DA Active MO 2018-05-05 00:00:00 [facility] benztropine mesylate DA Active SV 2018-03-27 00:00:00 [facility] sertraline HCl DA Active U 2018-03-27 00:00:00 [facility] haloperidol DA Active U 2018-03-27 00:00:00 [facility] risperidone DA Active MO 2018-03-27 00:00:00 [facility] benztropine mesylate DA Active SV 2017-08-06 00:00:00 [facility] sertraline HCl DA Active U 2017-08-06 00:00:00 [facility] haloperidol DA Active U 2017-08-06 00:00:00 [facility] risperidone DA Active MO 2017-08-06 00:00:00 [facility] DERMABOND Allergy to substance Active 2016-05-21 00:00:00 [facility] benztropine mesylate Allergy to substance Active Severe 2011- 0- 00:00:00 [facility] Haloperidol Lactate Allergy to substance Active 2010-09-30 00:00:00 [facility] Haloperidol Allergy to substance Active 2010-09-30 00:00:00 [facility] Peanuts Allergy to substance Active 2010-02-22 00:00:00 [facility] Risperidone Allergy to substance Active 2010-02-22 00:00:00 [facility] Sertraline Allergy to substance Active Severe SWELLING, SEIZU RES 2010-02-22 00:00:00 [facility] Ziprasidone Allergy to substance Active Moderate HALLUCINATIONS 2010-02-22 00:00:00 [facility] Social History Social Habit Start Date Stop Date Quantity Comments Source History SDOH Alcohol Std Drinks Nam Christianity History SDOH Alcohol Binge Nam Harry Sex Assigned At [facility] Alcohol intake 2019-08-01 00:00:00 2019-08-01 00:00:00 Lifetime non-drinker (finding) Nam Christianity History SDOH Alcohol Frequency 2019-06-20 00:00:00 2019-06-20 [...] Mg CAP 2019-09-15 05:56:00 Yes 100 Daily [facility] lithium 150 MG capsule 2019-08-04 13:47:29 Yes 150mg Q.[id number] Take 150 mg by mouth 3 (three) times a day with meals. Nam Harry phenytoin (DILANTIN) 100 MG ER capsule 2019-08-04 13:47:29 Yes 500mg Q.[id number] Take 500 mg by mouth 3 (three) [...] (two) times a day for 30 days. [facility] ciprofloxacin (Cipro) 500 MG tablet 2019-08-04 00:00:0 0 2019-08-11 23:59:00 No 500mg Q.5D Take 1 tablet ( 500 mg total) by mouth 2 (two) times a day for 7 days. [facility] metroNIDAZOLE (FlagyL) 500 MG tablet 2019-08-04 00:00: 00 2019-08-11 23:59:00 No 500mg Q.[id number] Take 1 tablet (500 mg total) by mouth 3 (three) times a day for 7 days. [facility] Alprazolam (Xanax) 2 Mg TABLET Alprazolam (Xanax) 2 Mg TABLET Yes 1 Twice A Day [facility] [place] Carbonate [place] Carbonate Yes 300 Ever y Morning [facility] [place] Carbonate [place] Carbonate Yes 300 Bedt sergio [facility] Zolpidem Tartrate (Ambien) 10 Mg TABLET Zolpidem Tartrate (A mbien) 10 Mg TABLET 2016-05-29 00:00:00 No 10 Bedtime [facility] Azithromycin (Z-Leon) 250 Mg TABLET Azithromycin (Z-Leon) 250 Mg T ABLET 2012-04-03 00:00:00 No 250 Daily [facility] [place] 2012-04-03 00:00:00 No [facility] On Chemotherapy On Chemotherapy 2012-04-03 00:00:00 No [facility] Vital Signs Vital Name Observation Time Observation Value Comments Source Body Temperature 2019-10-05 02:56:00 97.9 [degF] [facility] Weight 2019-10-05 01:46:00 170 [lb_av] [facility] BMI (Body Mass Index) 2019-10-05 01:46:00 31.1 kg/m2 [facility] Weight 2019-09-15 04:15:00 170 [lb_av] [facility] BMI (Body Mass Index) 2019-09-15 04:15:00 31.1 kg/m2 [facility] Weight 2019-09-09 19:50:00 170 [lb_av] [facility] BMI (Body Mass Index) 2019-09-09 19:50:00 31.1 kg/m2 [facility] Weight 2019-08-31 02:20:00 170 [lb_av] [facility] BMI (Body Mass Index) 2019-08-31 02:20:00 31.1 kg/m2 [facility] Systolic blood pressure 2019-08-04 11:15:31 127 mm[Hg] [facility] Diastolic blood pressure 2019-08-04 11:15:31 74 mm[Hg] [facility] Heart rate 2019-08-04 11:15:31 94 /min [facility] Body temperature 2019-08-04 11:15:31 36.61 Gabrielle [place] [facility] Respiratory rate 2019-08-04 11:15:31 19 /min [place] [facility] Oxygen saturation in Arterial blood by Pulse oximetry 08-03 11:15:31 96 /min [facility] Body height 2019-08-01 18:18:00 157.5 cm [facility] Body Temperature 2019-07-14 04:16:00 98.3 [degF] [facility] Weight 2019-07-14 01:33:00 170 [lb_av] [facility] BMI (Body Mass Index) 2019-07-14 01:33:00 31.1 kg/m2 [facility] Body Temperature 2019-07-05 04:32:00 97.2 [degF] [facility] Weight 2019-07-05 01:57:00 170 [lb_av] [facility] BMI (Body Mass Index) 2019-07-05 01:57:00 31.1 kg/m2 [facility] Body weight 2019-06-20 00:45:00 81.647 kg [facility] BMI 2019-06-20 00:45:00 32.92 kg/m2 Nam Harry Procedures Procedure Date / Time Performed Performing Clinician Sourc e Computed tomography of brain without radiopaque contrast 2019-09 00:00:00 [facility] RPR S/N/AX/GEN/TRNK 2.5CM/< 2019-08-31 00:00:00 [facility] HC COMPLETE BLD COUNT W/AUTO DIFF 2019-08-04 07:58:00 PabloqwCliff hubbard COMPREHENSIVE METABOLIC PANEL 2019-08-04 07:58:00 Teqwimuah, Cate vaca Nam Christianity ESTIMATED GFR 2019-08-04 07:58:00 Teqwimuasanthosh, Cliff Nam Meth odist CT ABDOMEN PELVIS WO CONTRAST 2019-08-03 17:47:55 TeqwimCate cast lio Nam Christianity XR ABDOMEN 1 VW 2019-08-02 16:39:23 TeqwimCate casty Nam Meth odist THYROID STIMULATING HORMONE 2019-08-02 05:53:00 Al-LuisqKan Christianity PHENYTOIN LEVEL 2019-08-01 18:28:00 Al-Laomarq, Kan [place] Meth odist LITHIUM LEVEL 2019-08-01 18:28:00 Al-Laomarq, Natsarah Nam Meth odist COVID-19 QUALITATIVE PCR 2019-08-01 13:47:00 Tien Romo COMPREHENSIVE METABOLIC PANEL 2019-08-01 12:29:00 Merlyn Romo LIPASE LEVEL 2019-08-01 12:29:00 Merlyn Romo ESTIMATED GFR 2019-08-01 12:29:00 Merlyn Romo URINE CULTURE 2019-08-01 11:59:[address] ABDOMEN PELVIS WO CONTRAST 2019-08-01 11:55:00 Merlyn Romo HC COMPLETE BLD COUNT W/AUTO DIFF 2019-08-01 11:43:00 Merlyn Romo PROTHROMBIN TIME WITH INR 2019-08-01 11:43:00 Elder Romo COMPREHENSIVE METABOLIC PANEL 2019-08-01 11:43:00 Merlyn Romo LIPASE LEVEL 2019-08-01 11:43:00 Merlyn Romo URINALYSIS SCREEN AND MICROSCOPY, WITH REFLEX TO CULTURE 202 11:43:00 Merlyn Romo ESTIMATED GFR 2019-08-01 11:43:00 Merlyn Romo ECG 12-LEAD 2019-08-01 11:36:53 Merlyn Romo ECG ED PRELIMINARY INTERPRETATION 2019-08-01 11:30:56 Merlyn Romo Computed tomography of brain without radiopaque contrast 2019-06 00:00:00 [facility] LACTIC ACID LEVEL, SEPSIS - NOW AND REPEAT 2X EVERY 3 HOURS 2019-06-20 03:30:00 Anthony Finley ECG 12-LEAD 2019-06-20 00:40:56 Anthony Finley on [facility] HC COMPLETE BLD COUNT W/AUTO DIFF 2019-06-20 00:30:00 Anthony Finley COMPREHENSIVE METABOLIC PANEL 2019-06-20 00:30:00 Chai Finley LACTIC ACID LEVEL, SEPSIS - NOW AND REPEAT 2X EVERY 3 HOURS 2019-06-20 00:30:00 Anthony Finley CREATINE KINASE, TOTAL (CPK) 2019-06-20 00:30:00 Jackelyn Finley ESTIMATED GFR 2019-06-20 00:30:00 Anthony Finley PHENYTOIN LEVEL 2019-06-20 00:30:00 Anthony Finley Christianity Plan of Care Planned Activity Planned Date Details Comments Source Future Scheduled Test 2019-11-14 00:00:00 INFLUENZA VACCINE [code = INFLUENZA VACCINE] [facility] Future Scheduled Test 2016-01-10 00:00:00 BREAST CANCER SCRE ENING [code = BREAST CANCER SCREENING] [facility] Future Scheduled Test 2016-01-10 00:00:00 COLONOSCOPY SCREEN ING [code = COLONOSCOPY SCREENING] [facility] Future Scheduled Test 2016-01-10 00:00:00 SHINGLES VACCINES (#1) [code = SHINGLES VACCINES (#1)] [facility] Future Scheduled Test 1987 00:00:00 Screening for lyndsey gnant neoplasm of cervix (procedure) [code = 144266883] [facility] t Instructions Headache [facility] Encounters Start Date/Time End Date/Time Encounter Type Admission Type Attendi [facility] Care Department Encounter ID Source 2019-09-15 04:23:00 2019-09-15 06:11:00 Departed Emergency Room 1 BHARATH BETTS [facility] [id number] [facility] 2019-09-09 20:05:00 2019-09-09 20:15:00 Departed Emergency Room [facility] [id number] [facility] 2019-08-31 02:30:00 2019-08-31 04:07:00 Departed Emergency Room [facility] [id number] [facility] 2019-08-01 00:00:00 2019-08-04 00:00:00 Inpatient KAN LUNA [facility] [id number] [facility] 2019-07-14 01:21:00 2019-07-14 04:31:00 Departed Emergency Room [facility] [id number] [facility] 2019-07-05 01:17:00 2019-07-05 04:55:00 Departed Emergency Room 1 LINETTE WEST [facility] [id number] [facility] - Patients [facility] 2019-06-20 00:00:00 2019-06-20 00:00:00 Emergency CHAI FINLEY [facility] [id number] [facility] 2018-08-02 21:30:00 2018-08-02 21:30:00 Emergency E [id number] 2018-07-26 14:13:00 2018-07-26 14:13:00 Emergency E [facility] 2018-07-23 17:46:00 2018-07-23 17:46:00 Emergency E [facility] 2018-07-03 00:04:00 2018-07-03 00:04:00 Emergency E [facility] 2018-06-25 01:05:00 2018-06-25 01:05:00 Emergency E [facility] 2018-06-21 01:16:00 2018-06-21 01:16:00 Emergency E [facility] 2018-06-04 00:29:00 2018-06-04 00:29:00 Emergency E [facility] 2018-05-04 23:12:00 2018-05-04 23:49:00 Departed Emergency Room [facility] [id number] [facility] Results Test Description Test Time Test Comments Results Result Comments Source CT CERVICAL SPINE WO 2019-10-15 04:14:00 [facility] [address] [place] [address] Patient Name: MADISYN GONZALES MR #: [id number] : 1965 Age/Sex: 54/F Req #: [id number] Adm Physician: Ordered by: MERLYN RAYMOND MD Report #: [id number] Location: ER Room/Bed: Procedure: CT/CT CERVICAL SPINE WO Exam Date: 10/15/19 Exam Time: 0325 REPORT STATUS: Signed CT CERVICAL SPINE WO HISTORY: Trauma COMPARISON: Concurrent head CT TECHNIQUE: CT of the cervical spine without contrast. Sagittal and coronal reformations were created. One or more of the following dose reduction techniques were used: Automated exposure control, adjustment of the mA and/or kV according to patient size, and/or utilization of iterative reconstruction technique. FINDINGS: Cervical lordosis is straightened. There is no scoliosis or subluxation. No fractures, compression deformity, or destructive osseous lesions are seen. The craniocervical junction is intact. No gross spinal canal masses are s een. The paravertebral and paraspinal soft tissues are unremarkable. Degenerative changes: The disc spaces are preserved with mild multilevel spondylotic changes. Incidental findings: Subcentimeter hypodense right thyroid nodule is present; no further imaging is indicated. IMPRESSION: No acute osseous abnormalities. Signed by: Dr. Rj Rouse M.D. on 10/15/2019 4:19 AM Dictated By: RJ ROUSE MD 8 Transcribed By: KATRIN on 10/15/19418 COPY TO: MERLYN RAYMOND MD CT BRAIN WO 2019-10-15 04:08:00 [place] [address] Patient Name: MADISYN GONZALES MR #: [id number] : 1965 Age/Sex: 54/F Req #: [id number] Adm Physician: Ordered by: MERLYN RAYMOND MD Report #: [id number] Location: ER Room/Bed: Procedure: [id number] CT/CT BRAIN WO Exam Date: 10/15/19 Exam Time: 0325 REPORT STATUS: Signed CT BRAIN WO HISTORY: Trauma COMPARISON: Head CT 10/05/2019 TECHNIQUE: Noncontrast axial scans were obtained from skull base to the vertex. Coronal and sagittal reconstructions obtained from the axial data. One or more of the following dose reduction techniques were used: Automated exposure control, adjustment of the mA and/or kV according to patient size, and/or utilization of iterative reconstruction technique. DISCUSSION: Scalp/Skull: No acute calvarial fracture. Prior right wall up right mastoidectomy changes. Brain sulci: Appropriate for patient's age. Ventricles: Normal in size and configuration. Stable asymmetric mild prominence of the right lateral ventricle, which is within normal variation. Extra-axial spaces: No masses or fluid collections. Carotid siphon calcifications. Parenchyma: No abnormal densities. No mass, hemorrhage, or large vascular territory acute infarct. Dural sinuses: No abnormal densities. Sellar/Suprasellar region: Intact. Skull base: Intact. Incidental findings: Minimal right sphenoid sinus mucosal thickening. IMPRESSION: 1. No acute intracranial abnormalities. 2. No significant change when compared to head CT dated 10/05/2019. Signed by: Dr. Rj Rouse M.D. on 10/15/2019 4:13 AM Dictated By: RJ ROUSE MD 2 Transcribed By: KATRIN on 10/15/19412 COPY TO: MERLYN RAYMOND MD CT BRAIN WO 2019-10-05 02:25:00 [place] [address] Patient Name: MADISYN GONZALES MR #: [id number] : 1965 Age/Sex: 54/F Req #: [id number] Adm Physician: Ordered by: LINETTE WEST DO Report #: [id number] Location: ER Room/Bed: Procedure: [id number] CT/CT BRAIN WO Exam Date: 10/05/19 Exam Time: 0210 REPORT STATUS: Signed Exam: Head CT without contrast History: Headache, fall Comparison studies: Head CT of 07/05/2019 Technique: Axial images were obtained from the skull base to the vertex. Coronal and sagittal images reconstructed from the axial data. Dose modulation, iterative reconstruction, and/or weight based adjustment of the mA/kV was utilized to reduce the radiation dose to as low as reasonably achievable. Radiation dose: Total DLP: 806.2 mGy*cm. Estimated effective dose: DLP x 0.015 Intravenous contrast: None Findings: Scalp: No abnormalities. Bones: No fractures, blastic or lytic lesions. Brain sulci: Appropriate for age. Ventricles: Unchanged mild asymmetry of the lateral ventricles with the right lateral ventricle being slightly larger than the left which may be an anatomical variant for this patient. No hydrocephalus. Extra-axial spaces: No masses, no fluid collection. Parenchyma: No abnormal densities. No masses, hemorrhage, acute or chronic vascular insults. Sellar/suprasellar region: No abnormalities. Craniocervical junction: Patent foramen magnum. No Chiari one malformation. Incidental findings: Prior right [id number]-veux-mi mastoidectomy. IMPRESSION: 1. No acute abnormal ities. 2. No changes from the prior head CT of 07/05/2019. Signed by: Dr. Devin Schmitz M.D. on 10/05/2019 2:30 AM Dictated By: DEVIN SCHMITZ MD 9 Transcribed By: KATRIN on 10/05/19229 COPY TO: LINETTE WEST DO - XR L-SPINE W/BEND VIEW 2019-09-27 16:02:00 FA X: Devin Craft MD [phone] [place]: O St: REG FAX: Glen Sarabia MD [phone] Name: MADISYN GONZALES [facility] : 1965 Age/S: 54/F [address] [facility]: [id number] Loc: [place] [address] Phys: Glen Lin MD Acct: [id number] Dis Date: Status: REG CLI PHONE #: [phone] Exam Date: 09/27/2019 1521 FAX #: [phone] Reason: EVALUATE LUMBAR FUSION STATUS EXAMS: CPT CODE: [id number] XR L-SPINE W/BEND VIEW 48112 HISTORY: EVALUATE LUMBAR FUSION STATUS TECHNIQUE: AP, flexion and extension, lateral, and lumbosacral views of the lumbar spine. Comparison:Lumbar spine radiographs 12/06/2017 FINDINGS/ IMPRESSION: Patient has undergone prior fusion of L4-L5 with placement of disc spacer. The spine is appropriately aligned and there is no evidence of hardware loosening. Regional soft tissues are grossly within normal limits. Location: [facility] at 1602 Reported and signed by: Jayson Brooks MD CC: Devin Wright MD; Glen Lin MD Technologist: RT Karthikeyan(Kiesha) Trnscrd Date/Time/By: 09/27/2019 (1211) : By: [email or web address] Orig Print D/T: S: 09/27/2019 (9528) PAGE 1 Signed Report BASIC METABOLIC PANEL [...] DIL) 6.2 ug/mL 10.0-20.0 L BASIC METABOLIC [id number] 21:23:00* Test Item Value Reference Range Interpretation [...] code = DIL) ug/mL 10.0-20.0 CBC W/O [id number] 20:16:00* Test Item Value Reference Range Interpretation [...] MPV) 10.1 fL 6.7-11.0 N CBC W/O [id number] 20:12:00* Test Item Value Reference Range Interpretation [...] MPV) fL 6.7-11.0 - CT HEAD/BRAIN W/O [id number] 16:34:00 Name: MADISYN GONZALES [facility] : 1965 Age/S: 54 / F [address] [facility] #: [id number] Loc: [place] [address] Phys: Eduar Escobedo MD Acct: [id number] Dis Date: Status: REG ER PHONE #: [phone] Exam Date: 09/17/2019 1630 FAX #: [phone] Reason: head injury, sz EXAMS: CPT CODE: [id number] CT HEAD/BRAIN W/O CONT 06907 REASON FOR EXAM: head injury, sz EXAM ORDER DATE: 09/17/2019 4:08 PM Ordering: Eduar Escobedo MD Attending:Eduar Escobedo MD Location:[facility] PROCEDURE: - CT HEAD/BRAIN W/O CONT COMPARISON: [...] ROMAINE Gibson CTDI: DLP: Trnscb Date/Time: 09/17/2019 (1633) t. JIM.VTL Orig Print D/T: S: 09/17/2019 (7948) PAGE 1 Signed Report ABDOMEN-1VIEW (KUB)2019-09-15 05:33:00 [place] [address] Patient Name: MADISYN GONZALES MR #: [id number] : 1965 Age/Sex: 54/F Req #: [id number] Adm Physician: Ordered by: BHARATH BETTS DO Report #: [id number] Location: ER Room/Bed: Procedure: [id number] DX/ABDOMEN-1 VIEW (KUB) Exam Date: 09/15/19 Exam [...] Color (test code = 5778-6) YELLOW YELLOW [facility] nuszdxy7444-64-74 04:20:00* Test Item Value Reference Range Interpretation Comments Urine Clarity (test code = 54043-9) [facility] by Test strip 2019-09-15 04:20:00* Test Item Value Reference Range Interpretation Comments Urine Specific [place] (test code = 5811-5) 1.020 1.010-1.02 5 [facility]villeU[facility] pH measurement by automated test qhtxi1239-48-89 04:20:00* Test Item Value Reference Range Interpretation Comments Urine pH (test code = 89223-3) 7 5-7 [facility]villeU[facility] leukocyte esterase detection by atfqhgym1316-53-82 04:20:00* Test Item Value Reference Range Interpretation Comments Urine Leukocyte Esterase (test code = 5799-2) NEGATIVE NEGATIVE [facility]villeU[facility] nitrite kgijmaryn8650-77-46 04:20:00* Test Item Value Reference Range Interpretation Comments Urine Nitrite (test code = 62675-5) NEGATIVE NEGATIVE [facility]ville[facility] protein measurement by test strip (mass/volume)2019-09-15 04:20:00* Test Item Value Reference Range Interpretation Comments Urine Protein (test code = 5804-0) NEGATIVE NEGATIVE [facility]ville[facility] glucose lyfiptgco7367-18-80 04:20:00* Test Item Value Reference Range Interpretation Comments Urine Glucose (UA) (test code = 2349-9) NEGATIVE NEGATIVE [facility]villeU[facility] ketones detection by automated test xnkzb4614-42-27 04:20:00* Test Item Value Reference Range Interpretation Comments Urine Ketones (test code = 66221-9) NEGATIVE NEGATIVE [facility]villeU[facility] opiates screening gjyc8611-75-46 04:20:00* Test Item Value Reference Range Interpretation Comments Urine Opiates Screen (test code = 46812-5) POSITIVE NEGATIVE ALL TESTS PERFORMED MANUALLY ON [employer] TOX/SEE TEST This test provides only a sc reen. Positive results should be repeated by a confirmatory test.[facility] StephenvilleBarbiturates screen, bpyux1592-25-83 04:20:00* Test Item Value Reference Range Interpretation Comments Urine Barbiturates Screen (test code = 460299761) NEGATIVE NEGA TIVE [facility]villeUrine phencyclidine detection by screening prnbog8949-19-24 04:20:00* Test Item Value Reference Range Interpretation Comments Urine Phencyclidine Screen (test code = 88304-5) NEGATIVE NEGAT SESAR [facility]villeUrine amphetamines detection by screen method > 1000 ng/bS8307-85-99 04:20:00* Test Item Value Reference Range Interpretation Comments Urine Amphetamines Screen (test code = 17214-3) NEGATIVE NEGATI VE [facility] StephenvilleFluoroscopic procedure less than one hour ssbxvzij2775-84-68 04:20:00* Test Item Value Reference Range Interpretation Comments Urine Methamphetamines Screen (test code = Urine Metha mphetamines Screen) NEGATIVE NEGATIVE [facility] StephenvilleUrine benzodiazepines detection by screening twanty0446-83-42 04:20:00* Test Item Value Reference Range Interpretation Comments Urine Benzodiazepines Screen (test code = 90861-8) NEGATIVE NEG ATIVE [facility]villeUrine cocaine measurement (mass/volume) 2019-09-15 04:20:00* Test Item Value Reference Range Interpretation Comments Urine Cocaine Screen (test code = 3398-5) NEGATIVE NEGATIVE [facility] StephenvilleUrine cannabinoids detection by screening frhiac4141-97-18 04:20:00* Test Item Value Reference Range Interpretation Comments Urine Cannabinoids Screen (test code = 26883-8) NEGATIVE NEGATI VE THESE RESULTS ARE FOR MEDICAL TREATMENT ONLYTHIS REPORT CONTAINS UNCONFIR MED SCREENING RESULTS*POSITIVE RESULTS WILL BE CONFIRMED BY REFERENCE LAB UPON R EQUEST CUT-OFFDRUG CLASS CONCENTRATION ng/mLAmphetamines 1000Methamphetamines 1000Cocaine 300Opiate 300Phencyc lidine 25Cannabinoid 50Barbiturates 300Benzodiazepine 300Methadone 300[facility] wxinhq3237-48-31 04:20:00* Test Item Value Reference Range Interpretation Comments Urine Methadone Screen (test code = 93439-7) NEGATIVE NEGATIVE THESE RESULTS ARE FOR MEDICAL TREATMENT ONLYTHIS REPORT CONTAINS UNCONFIR MED SCREENING RESULTS*POSITIVE RESULTS WILL BE CONFIRMED BY REFERENCE LAB UPON R EQUEST CUT-OFFDRUG CLASS CONCENTRATION ng/mLAmphetamines 1000Methamphetamines 1000Cocaine Metabolite 300Opiate 300Phencyc lidine 25Cannabinoid 50Barbiturates 300Benzodiazepine 300Methadone 300[facility]villeUrine urobilinogen measurement by test strip (mass/volume)2019-09-15 04:20:00* Test Item Value Reference Range Interpretation Comments Urine Urobilinogen (test code = 40183-9) 0.2 0.2-1 [facility]villeU[facility] total bilirubin measurement (mass/volume)2019-09-15 04:20:00* Test Item Value Reference Range Interpretation Comments Urine Bilirubin (test code = 1978-6) NEGATIVE NEGATIVE [facility]villeUrine erythrocytes arlotvbre3363-93-33 04:20:00* Test Item Value Reference Range Interpretation Comments Urine Blood (test code = 26218-0) NEGATIVE NEGATIVE [facility] StephenvilleAutomated urine sediment leukocyte count by microscopy (number/high power field)2019-09-15 04:20:00* Test Item Value Reference Range Interpretation Comments Urine WBC (test code = 5821-4) 0-5 0-5 [facility] StephenvilleErythrocytes detection in urine sediment by light seowyhuenv5798-32-03 04:20:00* Test Item Value Reference Range Interpretation Comments Urine RBC (test code = 26676-5) 0-5 0-5 [facility] StephenvilleBacteria detection in urine sediment by light yzokykhxpk7554-55-02 04:20:00* Test Item Value Reference Range Interpretation Comments Urine Bacteria (test code = 56902-8) RARE NONE [facility] StephenvilleEpithelial cells detection in urine sediment by light tcarunkkaf6347-51-50 04:20:00* Test Item Value Reference Range Interpretation Comments Urine Epithelial Cells (test code = 56462-9) FEW NONE [facility] StephenvilleUrine color kkhkxdkbrknng7221-14-89 04:20:00* Test Item Value Reference Range Interpretation Comments Urine Color (test code = 5778-6) YELLOW YELLOW [facility] StephenvilleUrine owoekbo7948-79-93 04:20:00* Test Item Value Reference Range Interpretation Comments Urine Clarity (test code = 41610-9) [facility]AR [facility]AR [facility] Dallaspecific gravity of Urine by Test strip 2019-09-15 04:20:00* Test Item Value Reference Range Interpretation Comments Urine Specific [place] (test code = 5811-5) 1.020 1.010-1.02 5 [facility]villeUrine pH measurement by automated test kxgpp7332-45-32 04:20:00* Test Item Value Reference Range Interpretation Comments Urine pH (test code = 42747-0) 7 5-7 [facility] StephenvilleUrine leukocyte esterase detection by optouaoc0584-91-85 04:20:00* Test Item Value Reference Range Interpretation Comments Urine Leukocyte Esterase (test code = 5799-2) NEGATIVE NEGATIVE [facility] StephenvilleUrine nitrite wxoubxtco8668-68-76 04:20:00* Test Item Value Reference Range Interpretation Comments Urine Nitrite (test code = 56550-8) NEGATIVE NEGATIVE [facility]villeUrine protein measurement by test strip (mass/volume)2019-09-15 04:20:00* Test Item Value Reference Range Interpretation Comments Urine Protein (test code = 5804-0) NEGATIVE NEGATIVE [facility]villeUrine glucose rnedkgxmh9882-09-34 04:20:00* Test Item Value Reference Range Interpretation Comments Urine Glucose (UA) (test code = 2349-9) NEGATIVE NEGATIVE [facility] StephenvilleUrine ketones detection by automated test likle3123-66-90 04:20:00* Test Item Value Reference Range Interpretation Comments Urine Ketones (test code = 90619-4) NEGATIVE NEGATIVE [facility] StephenvilleUrine opiates screening xilv5404-06-79 04:20:00* Test Item Value Reference Range Interpretation Comments Urine Opiates Screen (test code = 05248-6) POSITIVE NEGATIVE ALL TESTS PERFORMED MANUALLY ON [employer] TOX/SEE TEST This test provides only a sc reen. Positive results should be repeated by a confirmatory test.[facility] StephenvilleBarbiturates screen, atnjq1609-75-60 04:20:00* Test Item Value Reference Range Interpretation Comments Urine Barbiturates Screen (test code = 603616884) NEGATIVE NEGA TIVE [facility] StephenvilleUrine phencyclidine detection by screening chggvq5039-60-57 04:20:00* Test Item Value Reference Range Interpretation Comments Urine Phencyclidine Screen (test code = 78058-0) NEGATIVE NEGAT SESAR [facility] StephenvilleUrine amphetamines detection by screen method > 1000 ng/nX1873-33-29 04:20:00* Test Item Value Reference Range Interpretation Comments Urine Amphetamines Screen (test code = 55435-2) NEGATIVE NEGATI VE [facility] StephenvilleFluoroscopic procedure less than one hour wuyuqwpv8723-27-94 04:20:00* Test Item Value Reference Range Interpretation Comments Urine Methamphetamines Screen (test code = Urine Metha mphetamines Screen) NEGATIVE NEGATIVE [facility] StephenvilleUrine benzodiazepines detection by screening ztliir4202-74-89 04:20:00* Test Item Value Reference Range Interpretation Comments Urine Benzodiazepines Screen (test code = 28240-6) NEGATIVE NEG ATIVE [facility]villeUrine cocaine measurement (mass/volume) 2019-09-15 04:20:00* Test Item Value Reference Range Interpretation Comments Urine Cocaine Screen (test code = 3398-5) NEGATIVE NEGATIVE [facility] StephenvilleUrine cannabinoids detection by screening nbbjki8186-58-03 04:20:00* Test Item Value Reference Range Interpretation Comments Urine Cannabinoids Screen (test code = 69165-6) NEGATIVE NEGATI VE THESE RESULTS ARE FOR MEDICAL TREATMENT ONLYTHIS REPORT CONTAINS UNCONFIR MED SCREENING RESULTS*POSITIVE RESULTS WILL BE CONFIRMED BY REFERENCE LAB UPON R EQUEST CUT-OFFDRUG CLASS CONCENTRATION ng/mLAmphetamines 1000Methamphetamines 1000Cocaine 300Opiate 300Phencyc lidine 25Cannabinoid 50Barbiturates 300Benzodiazepine 300Methadone 300[facility] HospitalUrine methadone zgcegf0372-58-58 04:20:00* Test Item Value Reference Range Interpretation Comments Urine Methadone Screen (test code = 77939-1) NEGATIVE NEGATIVE THESE RESULTS ARE FOR MEDICAL TREATMENT ONLYTHIS REPORT CONTAINS UNCONFIR MED SCREENING RESULTS*POSITIVE RESULTS WILL BE CONFIRMED BY REFERENCE LAB UPON R EQUEST CUT-OFFDRUG CLASS CONCENTRATION ng/mLAmphetamines 1000Methamphetamines 1000Cocaine Metabolite 300Opiate 300Phencyc lidine 25Cannabinoid 50Barbiturates 300Benzodiazepine 300Methadone 300[facility]villeUrine urobilinogen measurement by test strip (mass/volume)2019-09-15 04:20:00* Test Item Value Reference Range Interpretation Comments Urine Urobilinogen (test code = 95029-5) 0.2 0.2-1 [facility]villeUrine total bilirubin measurement (mass/volume)2019-09-15 04:20:00* Test Item Value Reference Range Interpretation Comments Urine Bilirubin (test code = 1978-6) NEGATIVE NEGATIVE [facility]villeUrine erythrocytes wiwezblpj6967-28-10 04:20:00* Test Item Value Reference Range Interpretation Comments Urine Blood (test code = 35182-2) NEGATIVE NEGATIVE [facility] StephenvilleAutomated urine sediment leukocyte count by microscopy (number/high power field)2019-09-15 04:20:00* Test Item Value Reference Range Interpretation Comments Urine WBC (test code = 5821-4) 0-5 0-5 [facility] StephenvilleErythrocytes detection in urine sediment by light rlcbnfhqno2829-38-64 04:20:00* Test Item Value Reference Range Interpretation Comments Urine RBC (test code = 69016-8) 0-5 0-5 [facility] StephenvilleBacteria detection in urine sediment by light zrcgyhupwx0351-57-64 04:20:00* Test Item Value Reference Range Interpretation Comments Urine Bacteria (test code = 06915-9) RARE NONE [facility] StephenvilleEpithelial cells detection in urine sediment by light ddfhduwuqy6292-37-17 04:20:00* Test Item Value Reference Range Interpretation Comments Urine Epithelial Cells (test code = 78833-4) FEW NONE [facility] StephenvilleComprehensive metabolic umslh5169-94-49 08:28:16* Test Item Value Reference Range Interpretation Comments Sodium (test code = 2951-2) 134 135- 148 mEq/L L Potassium (test code = 2823-3) 4.0 3.5- 5.0 mEq/L Chloride (test code = 5-0) 100 98- 112 mEq/L CO2 (test code = 2027-9) 25 24- 31 mEq/L Anion gap (test code = 82035-4) 9@ANIO 7- 15 mEq/L BUN (test code = 3094-0) 8 mg/dL 6-20 Creatinine (test code = 2160-0) 0.60 mg/dL 0.5-0.9 Glucose (test code = 2345-7) 98 mg/dL 65-99 Calcium (test code = 57626-8) 8.7 mg/dL 8.3-10.2 Protein (test code = 2885-2) 6.7 g/dL 6.3-8.3 -[place] 4.6- 7.0 g/dL1 week 4.4-7.6 g/dL7 months-1year 5.1-7.3 g/dL1-2 years 5.6-7.5 g/dL>3 years 6.0-8.0 g/zQ80-947 6.3-8.3 g/dL Albumin (test code = 1751-7) 3.9 g/dL 3.5-5 A/G ratio (test code = 1759-0) 1.4 0.7-3.8 Alkaline phosphatase (test code = 6768-6) 120 U/L 35-104 H AST (test code = 1920-8) 14 U/L 10-35 ALT (test code = 1742-6) 18 U/L 5-50 Total bilirubin (test code = 1974-2) 0.5 mg/dL 0-1.2 Lab Interpretation (test code = 74946-4) Abnormal [facility] MethodistEstimated [id number] 08:19:47* Test Item Value Reference Range Interpretation Comments Estimated GFR (test code = 5488) >=90 mL/min/1.73 m2 Catergory Units InterpretationG1 >=90 Normal or highG2 60-89 Mildly wgdwgwhdlV3j 45-59 Mildly to moderately llqeavdvuP0u 30-44 Moderately to severely decreasedG4 15-29 Severely decreasedG5 <15 Kidney failureThe eGFR was calculated using the Chronic Kidney Disease Epidemiology Collaboration (CKD-EPI) equation. Interpretation is based on recommendations of the National Kidney Foundation-Kidney Disease Outcomes Quality Initiative (NKF-KDOQI) published in 2014. [facility] MethodistCBC with platelet and iselqtcnlkvt6679-22-27 08:05:35* Test Item Value Reference Range Interpretation Comments WBC (test code = 19122-9) 10.41 4.50- 11.00 k/uL RBC (test code = 42511-4) 3.88 m/uL 4.2-5.5 L HGB (test code = 718-7) 12.3 g/dL 12-16 HCT (test code = 4544-3) 38.2 % 37-47 MCV (test code = 787-2) 98.5 fL 82-100 MCH (test code = 785-6) 31.7 pg 27-34 MCHC (test code = 786-4) 32.2 g/dL 31-37 RDW - SD (test code = 47878-2) 50.4 fL 37-55 MPV (test code = 31623-5) 9.6 fL 8.8-13.2 Platelet count (test code = 63176-2) 272 150- 400 k/uL Nucleated RBC (test code = 68075-0) 0.00 /100 WBC Neutrophils (test code = 11345-7) 74.5 % 39-69 H Lymphocytes (test code = 74724-7) 15.1 % 25-45 L Monocytes (test code = 01906-6) 8.5 % 0-10 Eosinophils (test code = 47079-2) 1.1 % 0-5 Basophils (test code = 62689-7) 0.4 % 0-1 Lab Interpretation (test code = 68268-1) Abnormal [facility] MethodistCT Abdomen Pelvis Wo Lbmmcdce3162-88-79 18:19:42Hm Interface, Radiology Results 08/03/2019 6:22 PM [...] No evidence of perforation or abscess.2.S evere constipation.[id number] MethodistUrine ncjvgdh4274-68-31 19:14:58* Test Item Value Reference Range Interpretation Comments Urine culture isolate (test code = 36132-7) Mixed leland 10-4 col/cc Specimen InformationSpecimen Source: UrineSpecimen Site: Clean catch [facility] MethodistXR Abdomen 1 [id number] 16:42:52Hm Interface, Radiology Results - 08/02/2019 4:46 PM CDTEXAMINATION: XR ABDOMEN 1 VWCLINICAL HISTORY: constipationCOMPARISON: None.IMPRESSION:Frontal views reveal a nondilated, nondistended bowel gas pattern. No abnormal masses or calcifications are readily identified. Presumed pelvic phleboliths noted. Status post cholecystectomy and lumbar fusion. The remaining overlying bony and soft tissue structures are unremarkable.[id number] MethodistThyroid stimulating vtqnkru2656-49-65 06:36:27* Test Item Value Reference Range Interpretation Comments TSH (test code = 3016-3) 1.45 0.27- 4.20 uIU/mL Nam HarryCOVID-19 qualitative [id number] 04:18:12* Test Item Value Reference Range Interpretation Comments Interpretation (test code = 7026805) Negative results do not preclude 2019-nCoV infection and should not be used as the sole basis for treatment or other patient management decisions. Negative results must be combined with clinical observations, patient history, and epidemiological information. COVID-19 qualitative PCR result (test code = 72142-7) Not-Detect ed Not-Detected COVID-19 qualitative PCR (test code = 7070) See link below for P DF Lab Report Nam PrinceistLithium dmymq1701-05-35 18:51:19* Test Item Value Reference Range Interpretation Comments [place] (test code = 3719-2) 0.20 mmol/L 0.6-1.2 L Lab Interpretation (test code = 21979-1) Abnormal [facility] MethodistPhenytoin skuvk3521-93-16 18:50:46* Test Item Value Reference Range Interpretation Comments Phenytoin (test code = 3968-5) <0.8 10-20 A Therapeutic Range: 10 - 20 ug/mL Lab Interpretation (test code = 85383-6) Abnormal [facility] MethodistECG 12 pmhy7390-93-28 13:25:40* Test Item Value Reference Range Interpretation Comments Ventricular rate (test code = 253) 84 Atrial rate (test code = 255) 84 NC interval (test code = 266) 164 QRSD [...] ormal ECG-In automated comparison with ECG of -2019 00:40,-Borderline criteria for Lateral infarct are no longer present- [facility] MethodistLipase oacsv7245-61-63 13:18:12* Test Item Value Reference Range Interpretation Comments Lipase (test code = 3040-3) 25 U/L 13-60 [facility] MethodistProthrombin time with BVP7730-30-51 12:00:12* Test Item Value Reference Range Interpretation Comments Prothrombin time (test code = 5902-2) 12.7 11.5- 14.5 sec INR (test code = 20180-5) 1.0 Th e International Normalized Ratio (INR) is a therapeutic monitoring tool for patients who are stable on oral anticoagulant therapy. An INR of 2.0-3.0 is suggested for deep vein thrombosis/pulmonary embolism. [facility] MethodistUrinalysis screen and microscopy, with reflex to culture 2019-08-01 11:59:49* Test Item Value Reference Range Interpretation Comments Specimen site (test code = 4076179) Clean catch Color, UA (test code = 5778-6) Yellow Appearance, UA (test code = 5767-9) Cloudy Specific gravity, UA (test code = 5811-5) 1.013 1.001-1.035 pH, UA (test code = 5803-2) 8.0 5.0-8.5 Protein, UA (test code = 78669-8) Negative Negative Glucose, UA (test code = 17047-0) Negative Negative Ketones, UA (test code = 2514-8) Negative Negative Bilirubin, UA (test code = 5770-3) Negative Negative Blood, UA (test code = 5794-3) Negative Negative Nitrite, UA (test code = 5802-4) Negative Negative Urobilinogen, UA (test code = 23419-2) Negative <2.0 Leukocyte esterase, UA (test code = 5799-2) Negative Negative Epithelial cells, UA (test code = 5787-7) Many Few /HPF Round epithelial cells, UA (test code = 66775-5) Moderate 0- 1 /HPF WBC, UA (test code = 5821-4) 11-20 0- 4 /HPF H RBC, UA (test code = 72925-4) 0-5 0- 5 /HPF Bacteria, UA (test code = 12600-3) None seen None seen Yeast, UA (test code = 60317-3) None seen Yeast with pseudohyphae, UA (test code = 26426-9) None seen Amorphous crystals (test code = 55944-5) Few Lab Interpretation (test code = 87683-8) Abnormal [facility] ED Preliminary Interpretation - Not an Oqajm0509-71-56 11:30:56Merlyn Romo MD 08/01/2019 3:55 [facility] Preliminary Interpretation - Not an OrderPerformed by: Merlyn Romo MDAuthorized by: Merlyn Romo MD ECG reviewed by ED Physician in the absence of a health screener: yes Interpretation: Interpretation: normal Rate: ECG rate: 84 ECG rate assessment: normal Rhythm: Rhythm: sinus rhythm Ectopy: Ectopy: none QRS: QRS axis: Normal QRS intervals: NormalConduction: Conduction: normal ST segments: ST segments: NormalT waves: T waves: normal [facility] MethodistURINALYSIS [id number] 21:30:00* Test Item Value Reference Range Interpretation [...] FEW #/LPF FEW Urine Source? Clean CatchURINALYSIS AKHCTYAY9318-90-71 21:28:00* Test Item Value Reference Range Interpretation [...] HPF NONE Urine Source? Clean CatchBASIC METABOLIC [id number] 20:25:00* Test Item Value Reference Range Interpretation [...] CA) 9.3 mg/dL 8.5-10.1 N HEPATIC FUNCTION [id number] 20:25:00* Test Item Value Reference Range Interpretation [...] reference range due to change in reagent. [id number] 20:25:00* Test Item Value Reference Range Interpretation Comments LIPASE (test code = LIP) 91 U/L 73.0-393.0 N [id number] 20:25:00* Test Item Value Reference Range Interpretation Comments MAGNESIUM (test code = MAG) 2.5 mg/dL 1.8-2.4 H HCG SERUM [id number] 20:25:00* Test Item Value Reference Range Interpretation Comments HCG SERUM QUAL (test code = HCGQL) NEGATIVE NEGATIVE This HCGQL test is NOT applicable for MALE patients.Check with nurse about probable order error.If Tumor Marker Test needed, nurse should order test "HCGTU"(Test #550.99645) PROTHROMBIN [id number] 20:16:00* Test Item Value Reference Range Interpretation [...] (2.5-3.5) IS PATIENT ON ANTICOAGULANTS? NTHROMBOPLASTIN TIME [id number] 20:16:00* Test Item Value Reference Range Interpretation Comments THROMBOPLASTIN TIME PARTIAL (test code = PTT) 32.0 seconds 23.0-37. 0 N IS PATIENT ON ANTICOAGULANTS? NBASIC METABOLIC [id number] 20:14:00* Test Item Value Reference Range Interpretation [...] code = CA) mg/dL 8.5-10.1 HEPATIC FUNCTION [id number] 20:14:00* Test Item Value Reference Range Interpretation [...] TOTAL (test code = ALKP) IUnit/L 45-117 [id number] 20:14:00* Test Item Value Reference Range Interpretation Comments LIPASE (test code = LIP) U/L 73.0-393.0 [id number] 20:14:00* Test Item Value Reference Range Interpretation Comments MAGNESIUM (test code = MAG) mg/dL 1.8-2.4 HCG SERUM [id number] 20:14:00* Test Item Value Reference Range Interpretation Comments HCG SERUM QUAL (test code = HCGQL) NEGATIVE NEGATIVE This HCGQL test is NOT applicable for MALE patients.Check with nurse about probable order error.If Tumor Marker Test needed, nurse should order test "HCGTU"(Test #550.22084) BASIC METABOLIC [id number] 20:12:00* Test Item Value Reference Range Interpretation [...] code = CA) mg/dL 8.5-10.1 HEPATIC FUNCTION [id number] 20:12:00* Test Item Value Reference Range Interpretation [...] TOTAL (test code = ALKP) IUnit/L 45-117 [id number] 20:12:00* Test Item Value Reference Range Interpretation Comments LIPASE (test code = LIP) U/L 73.0-393.0 [id number] 20:12:00* Test Item Value Reference Range Interpretation Comments MAGNESIUM (test code = MAG) mg/dL 1.8-2.4 HCG SERUM [id number] 20:12:00* Test Item Value Reference Range Interpretation Comments HCG SERUM QUAL (test code = HCGQL) NEGATIVE NEGATIVE This HCGQL test is NOT applicable for MALE patients.Check with nurse about probable order error.If Tumor Marker Test needed, nurse should order test "HCGTU"(Test #550.08165) CBC W/O [id number] 20:09:00* Test Item Value Reference Range Interpretation [...] fL 6.7-11.0 N - CT HEAD/BRAIN W/O [id number] 19:16:00 Name: MADISYN GONZALES [facility] : 1965 Age/S: 54 / F [address] [facility] Unit #: [id number] Loc: [place] [address] Phys: Ethel Phelps MD Acct: [id number] Dis Date: Status: REG ER PHONE #: [phone] Exam Date: 07/20/2019 1900 FAX #: [phone] Reason: headache EXAMS: CPT CODE: [id number] CT HEAD/BRAIN W/O CONT 55399 HISTORY: headache TECHNIQUE: Noncontrast 2.5 mm axial [...] by Jayson Brooks MD on 07/20/2019 at 191 Reported and signed by: Jayson Brooks MD CC: Devin Wright MD; Ethel Caicedo MD Technologist:Adeel Bear RT(R)(CT) CTDI: DLP: Trnscb Date/Time: 07/20/2019 (1915) [id number] Orig Print D/T: S: 07/20/2019 (1918) PAGE 1 S igned Report Urine opiates screening test 2019-07-14 02:00:00* Test Item Value Reference Range Interpretation Comments Urine Opiates Screen (test code = 66143-7) POSITIVE NEGATIVE This test provides only a screen. Positive results should be repeated by a confi rmatory test.[facility], urine 2019-07-14 02:00:00* Test Item Value Reference Range Interpretation Comments Urine Barbiturates Screen (test code = 381567805) NEGATIVE NEGA TIVE [facility] StephenvilleUrine phencyclidine detection by screening [id number] 02:00:00* Test Item Value Reference Range Interpretation Comments Urine Phencyclidine Screen (test code = 36929-9) NEGATIVE NEGAT SESAR [facility] StephenvilleUrine amphetamines detection by screen method > 1000 ng/xT1419-74-15 02:00:00* Test Item Value Reference Range Interpretation Comments Urine Amphetamines Screen (test code = 90535-8) NEGATIVE NEGATI VE [facility] StephenvilleFluoroscopic procedure less than one hour xhywpygl2994-26-25 02:00:00* Test Item Value Reference Range Interpretation Comments Urine Methamphetamines Screen (test code = Urine Metha mphetamines Screen) NEGATIVE NEGATIVE [facility]villeUrine benzodiazepines detection by screening aclvsf1483-66-05 02:00:00* Test Item Value Reference Range Interpretation Comments Urine Benzodiazepines Screen (test code = 47410-7) NEGATIVE NEG ATIVE [facility] StephenvilleUrine cocaine measurement (mass/volume) 2019-07-14 02:00:00* Test Item Value Reference Range Interpretation Comments Urine Cocaine Screen (test code = 3398-5) NEGATIVE NEGATIVE [facility] StephenvilleUrine cannabinoids detection by screening niraso3541-89-94 02:00:00* Test Item Value Reference Range Interpretation Comments Urine Cannabinoids Screen (test code = 93592-5) NEGATIVE NEGATI VE THESE RESULTS ARE FOR MEDICAL TREATMENT ONLYTHIS REPORT CONTAINS UNCONFIR MED SCREENING RESULTS*POSITIVE RESULTS WILL BE CONFIRMED BY REFERENCE LAB UPON R EQUEST CUT-OFFDRUG CLASS CONCENTRATION ng/mLAmphetamines 1000Methamphetamines 1000Cocaine 300Opiate 300Phencyc lidine 25Cannabinoid 50Barbiturates 300Benzodiazepine 300Methadone 300[facility] Hospital[facility] methadone opoaok2700-63-04 02:00:00* Test Item Value Reference Range Interpretation Comments Urine Methadone Screen (test code = 48351-4) NEGATIVE NEGATIVE THESE RESULTS ARE FOR MEDICAL TREATMENT ONLYTHIS REPORT CONTAINS UNCONFIR MED SCREENING RESULTS*POSITIVE RESULTS WILL BE CONFIRMED BY REFERENCE LAB UPON R EQUEST CUT-OFFDRUG CLASS CONCENTRATION ng/mLAmphetamines 1000Methamphetamines 1000Cocaine Metabolite 300Opiate 300Phencyc lidine 25Cannabinoid 50Barbiturates 300Benzodiazepine 300Methadone 300[facility] HospitalUrine opiates screening [id number] 02:00:00* Test Item Value Reference Range Interpretation Comments Urine Opiates Screen (test code = 25967-5) POSITIVE NEGATIVE This test provides only a screen. Positive results should be repeated by a confi rmatory test.[facility]ville[facility]bit[facility] screen, urine 2019-07-14 02:00:00* Test Item Value Reference Range Interpretation Comments Urine Barbiturates Screen (test code = 116045803) NEGATIVE NEGA TIVE [facility] StephenvilleUrine phencyclidine detection by screening wfivco5383-00-24 02:00:00* Test Item Value Reference Range Interpretation Comments Urine Phencyclidine Screen (test code = 75901-1) NEGATIVE NEGAT SESAR [facility]villeUrine amphetamines detection by screen method > 1000 ng/xH0260-73-82 02:00:00* Test Item Value Reference Range Interpretation Comments Urine Amphetamines Screen (test code = 91395-6) NEGATIVE NEGATI VE [facility] StephenvilleFluoroscopic procedure less than one hour fzwomrin1245-13-90 02:00:00* Test Item Value Reference Range Interpretation Comments Urine Methamphetamines Screen (test code = Urine Metha mphetamines Screen) NEGATIVE NEGATIVE [facility]villeUrine benzodiazepines detection by screening hdsgip3851-02-46 02:00:00* Test Item Value Reference Range Interpretation Comments Urine Benzodiazepines Screen (test code = 85573-5) NEGATIVE NEG ATIVE [facility]villeUrine cocaine measurement (mass/volume) 2019-07-14 02:00:00* Test Item Value Reference Range Interpretation Comments Urine Cocaine Screen (test code = 3398-5) NEGATIVE NEGATIVE [facility] StephenvilleUrine cannabinoids detection by screening lwikkp5466-65-11 02:00:00* Test Item Value Reference Range Interpretation Comments Urine Cannabinoids Screen (test code = 02832-2) NEGATIVE NEGATI VE THESE RESULTS ARE FOR MEDICAL TREATMENT ONLYTHIS REPORT CONTAINS UNCONFIR MED SCREENING RESULTS*POSITIVE RESULTS WILL BE CONFIRMED BY REFERENCE LAB UPON R EQUEST CUT-OFFDRUG CLASS CONCENTRATION ng/mLAmphetamines 1000Methamphetamines 1000Cocaine 300Opiate 300Phencyc lidine 25Cannabinoid 50Barbiturates 300Benzodiazepine 300Methadone 300[facility] HospitalUrine methadone skkszv4202-29-54 02:00:00* Test Item Value Reference Range Interpretation Comments Urine Methadone Screen (test code = 61418-8) NEGATIVE NEGATIVE THESE RESULTS ARE FOR MEDICAL TREATMENT ONLYTHIS REPORT CONTAINS UNCONFIR MED SCREENING RESULTS*POSITIVE RESULTS WILL BE CONFIRMED BY REFERENCE LAB UPON R EQUEST CUT-OFFDRUG CLASS CONCENTRATION ng/mLAmphetamines 1000Methamphetamines 1000Cocaine Metabolite 300Opiate 300Phencyc lidine 25Cannabinoid 50Barbiturates 300Benzodiazepine 300Methadone 300[facility] HospitalUrine opiates screening [id number] 02:00:00* Test Item Value Reference Range Interpretation Comments Urine Opiates Screen (test code = 50798-0) POSITIVE NEGATIVE This test provides only a screen. Positive results should be repeated by a confi rmatory test.[facility]villeBarbit[facility] screen, urine 2019-07-14 02:00:00* Test Item Value Reference Range Interpretation Comments Urine Barbiturates Screen (test code = 917394942) NEGATIVE NEGA TIVE [facility] StephenvilleUrine phencyclidine detection by screening vcbypl5696-86-99 02:00:00* Test Item Value Reference Range Interpretation Comments Urine Phencyclidine Screen (test code = 90291-6) NEGATIVE NEGAT SESAR [facility] StephenvilleUrine amphetamines detection by screen method > 1000 ng/aG2658-20-93 02:00:00* Test Item Value Reference Range Interpretation Comments Urine Amphetamines Screen (test code = 25799-2) NEGATIVE NEGATI VE [facility] StephenvilleFluoroscopic procedure less than one hour zvbzrcwj0846-39-24 02:00:00* Test Item Value Reference Range Interpretation Comments Urine Methamphetamines Screen (test code = Urine Metha mphetamines Screen) NEGATIVE NEGATIVE [facility] StephenvilleUrine benzodiazepines detection by screening qyjeji2796-84-67 02:00:00* Test Item Value Reference Range Interpretation Comments Urine Benzodiazepines Screen (test code = 12985-3) NEGATIVE NEG ATIVE [facility] StephenvilleUrine cocaine measurement (mass/volume) 2019-07-14 02:00:00* Test Item Value Reference Range Interpretation Comments Urine Cocaine Screen (test code = 3398-5) NEGATIVE NEGATIVE [facility] StephenvilleUrine cannabinoids detection by screening gcndcu1771-26-01 02:00:00* Test Item Value Reference Range Interpretation Comments Urine Cannabinoids Screen (test code = 91947-7) NEGATIVE NEGATI VE THESE RESULTS ARE FOR MEDICAL TREATMENT ONLYTHIS REPORT CONTAINS UNCONFIR MED SCREENING RESULTS*POSITIVE RESULTS WILL BE CONFIRMED BY REFERENCE LAB UPON R EQUEST CUT-OFFDRUG CLASS CONCENTRATION ng/mLAmphetamines 1000Methamphetamines 1000Cocaine 300Opiate 300Phencyc lidine 25Cannabinoid 50Barbiturates 300Benzodiazepine 300Methadone 300[facility] HospitalUrine methadone iqvgcr6799-72-63 02:00:00* Test Item Value Reference Range Interpretation Comments Urine Methadone Screen (test code = 67218-0) NEGATIVE NEGATIVE THESE RESULTS ARE FOR MEDICAL TREATMENT ONLYTHIS REPORT CONTAINS UNCONFIR MED SCREENING RESULTS*POSITIVE RESULTS WILL BE CONFIRMED BY REFERENCE LAB UPON R EQUEST CUT-OFFDRUG CLASS CONCENTRATION ng/mLAmphetamines 1000Methamphetamines 1000Cocaine Metabolite 300Opiate 300Phencyc lidine 25Cannabinoid 50Barbiturates 300Benzodiazepine 300Methadone 300[facility] HospitalBlood leukocytes automated count (number/volume) 2019-07-14 01:51:00* Test Item Value Reference Range Interpretation Comments White Blood Count (test code = 6690-2) 10.91 4.8-10.8 [facility]villeBlood erythrocytes automated count (number/volume)2019-07-14 01:51:00* Test Item Value Reference Range Interpretation Comments Red Blood Count (test code = 789-8) 3.81 3.6-5.1 [facility]villeBlood hemoglobin measurement (moles/volume)2019-07-14 01:51:00* Test Item Value Reference Range Interpretation Comments Hemoglobin (test code = 80726-3) 11.8 12.0-16.0 [facility] StephenvilleAutomated blood hematocrit (volume fraction)2019-07-14 01:51:00* Test Item Value Reference Range Interpretation Comments Hematocrit (test code = 4544-3) 37.6 34.2-44.1 [facility] StephenvilleAutomated erythrocyte mean corpuscular mwekkv9192-78-35 01:51:00* Test Item Value Reference Range Interpretation Comments Mean Corpuscular Volume (test code = 787-2) 98.7 81-99 [facility] StephenvilleAutomated erythrocyte mean corpuscular hemoglobin (mass per erythrocyte)2019-07-14 01:51:00* Test Item Value Reference Range Interpretation Comments Mean Corpuscular Hemoglobin (test code = 785-6) 31.0 28-32 [facility] StephenvilleAutomated erythrocyte mean corpuscular hemoglobin concentration measurement (mass/volume)2019-07-14 01:51:00* Test Item Value Reference Range Interpretation Comments Mean Corpuscular Hemoglobin Concent (test code = 786-4) 31.4 31-35 [facility] StephenvilleRDW WijPw-Uaa8733-77-31 01:51:00* Test Item Value Reference Range Interpretation Comments Red Cell Distribution Width (test code = 04677-5) 13.7 11.7 -14.4 [facility] StephenvilleAutomated blood platelet count (count/volume)2019-07-14 01:51:00* Test Item Value Reference Range Interpretation Comments Platelet Count (test code = 777-3) 366 140-360 [facility] StephenvilleAutomated blood segmented neutrophil count as percentage of total fvzqdofifh0916-58-54 01:51:00* Test Item Value Reference Range Interpretation Comments Neutrophils (%) (Auto) (test code = 40393-0) 78.1 38.7-80.0 [facility] StephenvilleAutomated blood lymphocyte count as percentage ot total nxzumbhdvv0818-46-90 01:51:00* Test Item Value Reference Range Interpretation Comments Lymphocytes (%) (Auto) (test code = 736-9) 14.1 18.0-39.1 [facility] StephenvilleAutomated blood monocyte count as percentage of total izcgvfikpy7030-97-67 01:51:00* Test Item Value Reference Range Interpretation Comments Monocytes (%) (Auto) (test code = 5905-5) 6.9 4.4-11.3 [facility] StephenvilleAutomated blood eosinophil count as percentage of total cldffuldto5529-94-86 01:51:00* Test Item Value Reference Range Interpretation Comments Eosinophils (%) (Auto) (test code = 713-8) 0.1 0.0-6.0 [facility] StephenvilleAutomated blood basophil count as percentage of total cegneytocb3095-43-36 01:51:00* Test Item Value Reference Range Interpretation Comments Basophils (%) (Auto) (test code = 706-2) 0.4 0.0-1.0 [facility] StephenvilleFluoroscopic procedure less than one hour vrqdccdk1691-68-17 01:51:00* Test Item Value Reference Range Interpretation Comments IM GRANULOCYTES % (test code = IM GRANULOCYTES %) 0.4 0.0- 1.0 [facility] StephenvilleAutomated blood neutrophil count 2019-07-14 01:51:00* Test Item Value Reference Range Interpretation Comments Neutrophils # (Auto) (test code = 751-8) 8.5 2.1-6.9 [facility]villeBlood lymphocytes count (number/volume) 2019-07-14 01:51:00* Test Item Value Reference Range Interpretation Comments Lymphocytes # (Auto) (test code = 35485-0) 1.5 1.0-3.2 [facility]Bl[facility] [place] monocytes automated count (number/volume)2019-07-14 01:51:00* Test Item Value Reference Range Interpretation Comments Monocytes # (Auto) (test code = 742-7) 0.8 0.2-0.8 [facility] StephenvilleAutomated blood eosinophil count 2019-07-14 01:51:00* Test Item Value Reference Range Interpretation Comments Eosinophils # (Auto) (test code = 711-2) 0.0 0.0-0.4 [facility] StephenvilleAutomated blood basophil count (count/volume)2019-07-14 01:51:00* Test Item Value Reference Range Interpretation Comments Basophils # (Auto) (test code = 704-7) 0.0 0.0-0.1 [facility] StephenvilleFluoroscopic procedure less than one hour mhdnviuq9220-40-88 01:51:00* Test Item Value Reference Range Interpretation Comments Absolute Immature Granulocyte (auto (amos t code = Absolute Immature Granulocyte (auto) 0.04 0-0.1 [facility] StephenvilleProthrombin time (PT) in platelet poor plasma by coagulation nzovc4109-00-91 01:51:00* Test Item Value Reference Range Interpretation Comments Prothrombin Time (test code = 5902-2) 11.8 11.9-14.5 [facility] StephenvilleINR in Platelet poor plasma by Coagulation ohanc5151-54-53 01:51:00* Test Item Value Reference Range Interpretation Comments Prothromb Time International Ratio (test code = 6301-6) 0.82 Oral Anticoagulant Therapy INR Values:1. Low Intensity Therapy 1.5 - 2.02 . Moderate Intensity Therapy 2.0 - 3.03. High Intensity Therapy(1) 2.5 - 3. 54. High Intensity Therapy(2) 3.0 - 4.05. Panic Value INR > 5.0 [facility] sodium measurement (moles/volume)2019-07-14 01:51:00* Test Item Value Reference Range Interpretation Comments Sodium Level (test code = 2951-2) 138 136-145 [facility] plasma potassium measurement (moles/volume)2019-07-14 01:51:00* Test Item Value Reference Range Interpretation Comments Potassium Level (test code = 2823-3) 3.9 3.5-5.1 [facility] or plasma chloride measurement (moles/volume)2019-07-14 01:51:00* Test Item Value Reference Range Interpretation Comments Chloride Level (test code = 2075-0) 105 98-107 [facility] plasma carbon dioxide, total measurement (moles/volume)2019-07-14 01:51:00* Test Item Value Reference Range Interpretation Comments Carbon Dioxide Level (test code = 2028-9) 22 22-29 [facility] plasma anion muy0689-04-66 01:51:00* Test Item Value Reference Range Interpretation Comments Anion Gap (test code = 30126-2) 14.9 8-16 [facility] urea nitrogen measurement (mass/volume)2019-07-14 01:51:00* Test Item Value Reference Range Interpretation Comments Blood Urea Nitrogen (test code = 3094-0) 16 7-26 [facility] creatinine measurement (mass/volume)2019-07-14 01:51:00* Test Item Value Reference Range Interpretation Comments Creatinine (test code = 2160-0) 0.78 0.57-1.11 [facility] urea nitrogen/creatinine mass pbsao9025-01-93 01:51:00* Test Item Value Reference Range Interpretation Comments BUN/Creatinine Ratio (test code = 3097-3) 21 6-25 [facility] StephenvilleEstimated glomerular filtration rate (GFR) gtmzyfmysecjn0007-82-70 01:51:00* Test Item Value Reference Range Interpretation Comments Estimat Glomerular Filtration Rate (test code = 258744674) > 60 >60 Ranges were taken from the National Kidney Disease Education Program and the [facility] literature.Reference ranges:60 or greater: Pjhdak75-80 ( for 3 consecutive months): Chronic kidney disease 15 or less: Kidney failureTexas [facility] StephenvilleGlucose bltemhdmzjk5998-62-34 01:51:00* Test Item Value Reference Range Interpretation Comments Glucose Level (test code = TXI8203) 116 74-118 [facility] calcium measurement (mass/volume)2019-07-14 01:51:00* Test Item Value Reference Range Interpretation Comments Calcium Level (test code = 13010-9) 9.7 8.4-10.2 [facility] plasma total bilirubin measurement (mass/volume)2019-07-14 01:51:00* Test Item Value Reference Range Interpretation Comments Total Bilirubin (test code = 1975-2) 0.3 0.2-1.2 [facility] StephenvilleFluoroscopic procedure less than one hour paqgiiql1589-89-45 01:51:00* Test Item Value Reference Range Interpretation Comments Aspartate Amino Transf (AST/SGOT) (test code = Aspartate Amino Transf (AST/SGOT)) 20 5-34 [facility] plasma alanine aminotransferase measurement (enzymatic activity/volume)2019-07-14 01:51:00* Test Item Value Reference Range Interpretation Comments Alanine Aminotransferase (ALT/SGPT) (test code = 1742-6) 37 0-55 [facility] protein measurement (mass/volume)2019-07-14 01:51:00* Test Item Value Reference Range Interpretation Comments Total Protein (test code = 2885-2) 6.8 6.5-8.1 [facility] or [facility] albumin measurement (mass/volume)2019-07-14 01:51:00* Test Item Value Reference Range Interpretation Comments Albumin (test code = 1751-7) 4.1 3.5-5.0 [facility] StephenvillePlasma globulin measurement (mass/volume) 2019-07-14 01:51:00* Test Item Value Reference Range Interpretation Comments Globulin (test code = 35536-7) 2.7 2.3-3.5 [facility] albumin/globulin mass bweui6429-18-95 01:51:00* Test Item Value Reference Range Interpretation Comments Albumin/Globulin Ratio (test code = 1759-0) 1.5 0.8-2.0 [facility] alkaline phosphatase measurement (enzymatic activity/volume)2019-07-14 01:51:00* Test Item Value Reference Range Interpretation Comments Alkaline Phosphatase (test code = 6768-6) 62 40-150 [facility] creatine kinase measurement (enzymatic activity/volume)2019-07-14 01:51:00* Test Item Value Reference Range Interpretation Comments Creatine Kinase (test code = 2157-6) 120 29-168 [facility] creatine kinase MB measurement (mass/volume)2019-07-14 01:51:00* Test Item Value Reference Range Interpretation Comments Creatine Kinase MB (test code = 09119-6) 1.90 0-5.0 [facility] StephenvilleTroponin I measurement by highly sensitive enzyme fkvkcameusw8734-36-50 01:51:00* Test Item Value Reference Range Interpretation Comments Troponin I (test code = 64859-1) < 0.001 0-0.300 [facility] StephenvilleBlood leukocytes automated count (number/volume)2019-07-14 01:51:00* Test Item Value Reference Range Interpretation Comments White Blood Count (test code = 6690-2) 10.91 4.8-10.8 [facility] StephenvilleBlood erythrocytes automated count (number/volume)2019-07-14 01:51:00* Test Item Value Reference Range Interpretation Comments Red Blood Count (test code = 789-8) 3.81 3.6-5.1 [facility] StephenvilleBlood hemoglobin measurement (moles/volume)2019-07-14 01:51:00* Test Item Value Reference Range Interpretation Comments Hemoglobin (test code = 23140-6) 11.8 12.0-16.0 [facility] StephenvilleAutomated blood hematocrit (volume fraction)2019-07-14 01:51:00* Test Item Value Reference Range Interpretation Comments Hematocrit (test code = 4544-3) 37.6 34.2-44.1 [facility] StephenvilleAutomated erythrocyte mean corpuscular zbuixa4510-98-42 01:51:00* Test Item Value Reference Range Interpretation Comments Mean Corpuscular Volume (test code = 787-2) 98.7 81-99 [facility] StephenvilleAutomated erythrocyte mean corpuscular hemoglobin (mass per erythrocyte)2019-07-14 01:51:00* Test Item Value Reference Range Interpretation Comments Mean Corpuscular Hemoglobin (test code = 785-6) 31.0 28-32 [facility] StephenvilleAutomated erythrocyte mean corpuscular hemoglobin concentration measurement (mass/volume)2019-07-14 01:51:00* Test Item Value Reference Range Interpretation Comments Mean Corpuscular Hemoglobin Concent (test code = 786-4) 31.4 31-35 [facility] StephenvilleRDW EwdXl-Ucx0627-56-31 01:51:00* Test Item Value Reference Range Interpretation Comments Red Cell Distribution Width (test code = 54018-4) 13.7 11.7 -14.4 [facility] StephenvilleAutomated blood platelet count (count/volume)2019-07-14 01:51:00* Test Item Value Reference Range Interpretation Comments Platelet Count (test code = 777-3) 366 140-360 [facility] StephenvilleAutaffinity health partnersed blood segmented neutrophil count as percentage of total eivxgwnjwy2331-55-64 01:51:00* Test Item Value Reference Range Interpretation Comments Neutrophils (%) (Auto) (test code = 62631-9) 78.1 38.7-80.0 [facility] StephenvilleAutomated blood lymphocyte count as percentage ot total xysldltipr4931-51-73 01:51:00* Test Item Value Reference Range Interpretation Comments Lymphocytes (%) (Auto) (test code = 736-9) 14.1 18.0-39.1 [facility] StephenvilleAutomated blood monocyte count as percentage of total sqmexcsoxu4735-82-59 01:51:00* Test Item Value Reference Range Interpretation Comments Monocytes (%) (Auto) (test code = 5905-5) 6.9 4.4-11.3 [facility] StephenvilleAutomated blood eosinophil count as percentage of total fkfrdiwynz4505-46-26 01:51:00* Test Item Value Reference Range Interpretation Comments Eosinophils (%) (Auto) (test code = 713-8) 0.1 0.0-6.0 [facility] as percentage of total migiikvjsw0998-15-68 01:51:00* Test Item Value Reference Range Interpretation Comments Basophils (%) (Auto) (test code = 706-2) 0.4 0.0-1.0 [facility] StephenvilleFluoroscopic procedure less than one hour giqundoa3479-81-48 01:51:00* Test Item Value Reference Range Interpretation Comments IM GRANULOCYTES % (test code = IM GRANULOCYTES %) 0.4 0.0- 1.0 [facility] StephenvilleAutomated blood neutrophil count 2019-07-14 01:51:00* Test Item Value Reference Range Interpretation Comments Neutrophils # (Auto) (test code = 751-8) 8.5 2.1-6.9 [facility]villeBlood lymphocytes count (number/volume) 2019-07-14 01:51:00* Test Item Value Reference Range Interpretation Comments Lymphocytes # (Auto) (test code = 49279-8) 1.5 1.0-3.2 [facility] StephenvilleBlood monocytes automated count (number/volume)2019-07-14 01:51:00* Test Item Value Reference Range Interpretation Comments Monocytes # (Auto) (test code = 742-7) 0.8 0.2-0.8 [facility] StephenvilleAutomated blood eosinophil count 2019-07-14 01:51:00* Test Item Value Reference Range Interpretation Comments Eosinophils # (Auto) (test code = 711-2) 0.0 0.0-0.4 [facility] StephenvilleAutomated blood basophil count (count/volume)2019-07-14 01:51:00* Test Item Value Reference Range Interpretation Comments Basophils # (Auto) (test code = 704-7) 0.0 0.0-0.1 [facility] StephenvilleFluoroscopic procedure less than one hour zfecezlp8775-02-70 01:51:00* Test Item Value Reference Range Interpretation Comments Absolute Immature Granulocyte (auto (amos t code = Absolute Immature Granulocyte (auto) 0.04 0-0.1 [facility] [place]villeProthrombin time (PT) in platelet poor plasma by coagulation [id number] 01:51:00* Test Item Value Reference Range Interpretation Comments Prothrombin Time (test code = 5902-2) 11.8 11.9-14.5 [facility] StephenvilleINR in Platelet poor plasma by Coagulation attuf2971-00-96 01:51:00* Test Item Value Reference Range Interpretation Comments Prothromb Time International Ratio (test code = 6301-6) 0.82 Oral Anticoagulant Therapy INR Values:1. Low Intensity Therapy 1.5 - 2.02 . Moderate Intensity Therapy 2.0 - 3.03. High Intensity Therapy(1) 2.5 - 3. 54. High Intensity Therapy(2) 3.0 - 4.05. Panic Value INR > 5.0 [facility] sodium [facility] (moles/volume)2019-07-14 01:51:00* Test Item Value Reference Range Interpretation Comments Sodium Level (test code = 2951-2) 138 136-145 [facility] potassium measurement (moles/volume)2019-07-14 01:51:00* Test Item Value Reference Range Interpretation Comments Potassium Level (test code = 2823-3) 3.9 3.5-5.1 [facility] chloride measurement (moles/volume)2019-07-14 01:51:00* Test Item Value Reference Range Interpretation Comments Chloride Level (test code = 2075-0) 105 98-107 [facility] carbon dioxide, total measurement (moles/volume)2019-07-14 01:51:00* Test Item Value Reference Range Interpretation Comments Carbon Dioxide Level (test code = 2028-9) 22 22-29 [facility] anion urw2346-72-67 01:51:00* Test Item Value Reference Range Interpretation Comments Anion Gap (test code = 13801-7) 14.9 8-16 [facility] urea nitrogen measurement (mass/volume)2019-07-14 01:51:00* Test Item Value Reference Range Interpretation Comments Blood Urea Nitrogen (test code = 3094-0) 16 7-26 [facility] creatinine measurement (mass/volume)2019-07-14 01:51:00* Test Item Value Reference Range Interpretation Comments Creatinine (test code = 2160-0) 0.78 0.57-1.11 [facility] urea nitrogen/creatinine mass scrzr3730-41-47 01:51:00* Test Item Value Reference Range Interpretation Comments BUN/Creatinine Ratio (test code = 3097-3) 21 6-25 [facility] StephenvilleEstimated glomerular filtration rate (GFR) oykftmaktkugf4653-24-55 01:51:00* Test Item Value Reference Range Interpretation Comments Estimat Glomerular Filtration Rate (test code = 645997439) > 60 >60 Ranges were taken from the National Kidney Disease Education Program and the [facility] Kidney Foundation literature.Reference ranges:60 or greater: Ejazjn26-40 ( for 3 consecutive months): Chronic kidney disease 15 or less: Kidney failureTexas [facility] StephenvilleGlucose zxkvjmjvrsp6197-71-67 01:51:00* Test Item Value Reference Range Interpretation Comments Glucose Level (test code = ZJG0009) 116 74-118 [facility] calcium measurement (mass/volume)2019-07-14 01:51:00* Test Item Value Reference Range Interpretation Comments Calcium Level (test code = 91596-5) 9.7 8.4-10.2 [facility] total bilirubin measurement (mass/volume)2019-07-14 01:51:00* Test Item Value Reference Range Interpretation Comments Total Bilirubin (test code = 1975-2) 0.3 0.2-1.2 [facility] StephenvilleFluoroscopic procedure less than one hour rppofzhi2642-55-12 01:51:00* Test Item Value Reference Range Interpretation Comments Aspartate Amino Transf (AST/SGOT) (test code = Aspartate Amino Transf (AST/SGOT)) 20 5-34 [facility] alanine aminotransferase measurement (enzymatic activity/volume)2019-07-14 01:51:00* Test Item Value Reference Range Interpretation Comments Alanine Aminotransferase (ALT/SGPT) (test code = 1742-6) 37 0-55 [facility] protein measurement (mass/volume)2019-07-14 01:51:00* Test Item Value Reference Range Interpretation Comments Total Protein (test code = 2885-2) 6.8 6.5-8.1 [facility] albumin measurement (mass/volume)2019-07-14 01:51:00* Test Item Value Reference Range Interpretation Comments Albumin (test code = 1751-7) 4.1 3.5-5.0 [facility] StephenvillePlasma globulin measurement (mass/volume) 2019-07-14 01:51:00* Test Item Value Reference Range Interpretation Comments Globulin (test code = 06881-4) 2.7 2.3-3.5 [facility] albumin/globulin mass tewlu3039-18-40 01:51:00* Test Item Value Reference Range Interpretation Comments Albumin/Globulin Ratio (test code = 1759-0) 1.5 0.8-2.0 [facility] alkaline phosphatase measurement (enzymatic activity/volume)2019-07-14 01:51:00* Test Item Value Reference Range Interpretation Comments Alkaline Phosphatase (test code = 6768-6) 62 40-150 [facility] creatine kinase measurement (enzymatic activity/volume)2019-07-14 01:51:00* Test Item Value Reference Range Interpretation Comments Creatine Kinase (test code = 2157-6) 120 29-168 [facility] creatine kinase MB measurement (mass/volume)2019-07-14 01:51:00* Test Item Value Reference Range Interpretation Comments Creatine Kinase MB (test code = 19519-9) 1.90 0-5.0 [facility] StephenvilleTroponin I measurement by highly sensitive enzyme sdgmbhcdnqg1354-10-42 01:51:00* Test Item Value Reference Range Interpretation Comments Troponin I (test code = 60438-3) < 0.001 0-0.300 [facility] StephenvilleBlood leukocytes automated count (number/volume)2019-07-14 01:51:00* Test Item Value Reference Range Interpretation Comments White Blood Count (test code = 6690-2) 10.91 4.8-10.8 [facility] [place]Bl[place] [place] erythrocytes automated count (number/volume)2019-07-14 01:51:00* Test Item Value Reference Range Interpretation Comments Red Blood Count (test code = 789-8) 3.81 3.6-5.1 [facility] StephenvilleBlood hemoglobin measurement (moles/volume)2019-07-14 01:51:00* Test Item Value Reference Range Interpretation Comments Hemoglobin (test code = 21267-9) 11.8 12.0-16.0 [facility] StephenvilleAutomated blood hematocrit (volume fraction)2019-07-14 01:51:00* Test Item Value Reference Range Interpretation Comments Hematocrit (test code = 4544-3) 37.6 34.2-44.1 [facility] StephenvilleAutomated erythrocyte mean corpuscular iocxan8237-03-28 01:51:00* Test Item Value Reference Range Interpretation Comments Mean Corpuscular Volume (test code = 787-2) 98.7 81-99 [facility] StephenvilleAutomated erythrocyte mean corpuscular hemoglobin (mass per erythrocyte)2019-07-14 01:51:00* Test Item Value Reference Range Interpretation Comments Mean Corpuscular Hemoglobin (test code = 785-6) 31.0 28-32 [facility] StephenvilleAutomated erythrocyte mean corpuscular hemoglobin concentration measurement (mass/volume)2019-07-14 01:51:00* Test Item Value Reference Range Interpretation Comments Mean Corpuscular Hemoglobin Concent (test code = 786-4) 31.4 31-35 [facility] StephenvilleRDW SkkQl-Lok4214-70-31 01:51:00* Test Item Value Reference Range Interpretation Comments Red Cell Distribution Width (test code = 69281-0) 13.7 11.7 -14.4 [facility] StephenvilleAutomated blood platelet count (count/volume)2019-07-14 01:51:00* Test Item Value Reference Range Interpretation Comments Platelet Count (test code = 777-3) 366 140-360 [facility] StephenvilleAutomated blood segmented neutrophil count as percentage of total gremmxtdrg7913-52-29 01:51:00* Test Item Value Reference Range Interpretation Comments Neutrophils (%) (Auto) (test code = 88770-2) 78.1 38.7-80.0 [facility] StephenvilleAutomated blood lymphocyte count as percentage ot total agfvixmnwk5671-18-88 01:51:00* Test Item Value Reference Range Interpretation Comments Lymphocytes (%) (Auto) (test code = 736-9) 14.1 18.0-39.1 [facility] StephenvilleAutomated blood monocyte count as percentage of total hxvibgrjxd7700-87-80 01:51:00* Test Item Value Reference Range Interpretation Comments Monocytes (%) (Auto) (test code = 5905-5) 6.9 4.4-11.3 [facility]villeAutomated blood eosinophil count as percentage of total qgwazthyzp1577-94-02 01:51:00* Test Item Value Reference Range Interpretation Comments Eosinophils (%) (Auto) (test code = 713-8) 0.1 0.0-6.0 [facility]villeAutomated blood basophil count as percentage of total ewernwsfln0931-44-35 01:51:00* Test Item Value Reference Range Interpretation Comments Basophils (%) (Auto) (test code = 706-2) 0.4 0.0-1.0 [facility] StephenvilleFluoroscopic procedure less than one hour xgzyayjm2548-43-48 01:51:00* Test Item Value Reference Range Interpretation Comments IM GRANULOCYTES % (test code = IM GRANULOCYTES %) 0.4 0.0- 1.0 [facility] StephenvilleAutomated blood neutrophil count 2019-07-14 01:51:00* Test Item Value Reference Range Interpretation Comments Neutrophils # (Auto) (test code = 751-8) 8.5 2.1-6.9 [facility] StephenvilleBlood lymphocytes count (number/volume) 2019-07-14 01:51:00* Test Item Value Reference Range Interpretation Comments Lymphocytes # (Auto) (test code = 07411-6) 1.5 1.0-3.2 [facility] [place]Blchildren[facility] [place] monocytes automated count (number/volume)2019-07-14 01:51:00* Test Item Value Reference Range Interpretation Comments Monocytes # (Auto) (test code = 742-7) 0.8 0.2-0.8 [facility] StephenvilleAutomated blood eosinophil count 2019-07-14 01:51:00* Test Item Value Reference Range Interpretation Comments Eosinophils # (Auto) (test code = 711-2) 0.0 0.0-0.4 [facility]villeAutomated blood basophil count (count/volume)2019-07-14 01:51:00* Test Item Value Reference Range Interpretation Comments Basophils # (Auto) (test code = 704-7) 0.0 0.0-0.1 [facility] StephenvilleFluoroscopic procedure less than one hour dydmxmix9262-67-54 01:51:00* Test Item Value Reference Range Interpretation Comments Absolute Immature Granulocyte (auto (amos t code = Absolute Immature Granulocyte (auto) 0.04 0-0.1 [facility] StephenvilleProthrombin time (PT) in platelet poor plasma by coagulation ycbog3027-10-80 01:51:00* Test Item Value Reference Range Interpretation Comments Prothrombin Time (test code = 5902-2) 11.8 11.9-14.5 [facility] StephenvilleINR in Platelet poor plasma by Coagulation jglky9389-78-99 01:51:00* Test Item Value Reference Range Interpretation Comments Prothromb Time International Ratio (test code = 6301-6) 0.82 Oral Anticoagulant Therapy INR Values:1. Low Intensity Therapy 1.5 - 2.02 . Moderate Intensity Therapy 2.0 - 3.03. High Intensity Therapy(1) 2.5 - 3. 54. High Intensity Therapy(2) 3.0 - 4.05. Panic Value INR > 5.0 [facility] sodium measurement (moles/volume)2019-07-14 01:51:00* Test Item Value Reference Range Interpretation Comments Sodium Level (test code = 2951-2) 138 136-145 [facility] potassium measurement (moles/volume)2019-07-14 01:51:00* Test Item Value Reference Range Interpretation Comments Potassium Level (test code = 2823-3) 3.9 3.5-5.1 [facility] chloride measurement (moles/volume)2019-07-14 01:51:00* Test Item Value Reference Range Interpretation Comments Chloride Level (test code = 2075-0) 105 98-107 [facility] carbon dioxide, total measurement (moles/volume)2019-07-14 01:51:00* Test Item Value Reference Range Interpretation Comments Carbon Dioxide Level (test code = 2028-9) 22 22-29 [facility] anion ail9403-39-71 01:51:00* Test Item Value Reference Range Interpretation Comments Anion Gap (test code = 09338-4) 14.9 8-16 [facility] urea nitrogen measurement (mass/volume)2019-07-14 01:51:00* Test Item Value Reference Range Interpretation Comments Blood Urea Nitrogen (test code = 3094-0) 16 7-26 [facility] creatinine measurement (mass/volume)2019-07-14 01:51:00* Test Item Value Reference Range Interpretation Comments Creatinine (test code = 2160-0) 0.78 0.57-1.11 [facility] urea nitrogen/creatinine mass faeve1540-28-74 01:51:00* Test Item Value Reference Range Interpretation Comments BUN/Creatinine Ratio (test code = 3097-3) 21 6-25 [facility] StephenvilleEstimated glomerular filtration rate (GFR) hdsisxntdwuyx9080-31-97 01:51:00* Test Item Value Reference Range Interpretation Comments Estimat Glomerular Filtration Rate (test code = 627779400) > 60 >60 Ranges were taken from the National Kidney Disease Education Program and the [facility] Foundation literature.Reference ranges:60 or greater: Aqbwaq34-30 ( for 3 consecutive months): Chronic kidney disease 15 or less: Kidney failureTexas [facility] StephenvilleGlucose ehnygstnnng8606-08-52 01:51:00* Test Item Value Reference Range Interpretation Comments Glucose Level (test code = GEM1784) 116 74-118 [facility] calcium measurement (mass/volume)2019-07-14 01:51:00* Test Item Value Reference Range Interpretation Comments Calcium Level (test code = 88464-0) 9.7 8.4-10.2 [facility] total bilirubin measurement (mass/volume)2019-07-14 01:51:00* Test Item Value Reference Range Interpretation Comments Total Bilirubin (test code = 1975-2) 0.3 0.2-1.2 [facility] StephenvilleFluoroscopic procedure less than one hour gidnohtp8959-80-73 01:51:00* Test Item Value Reference Range Interpretation Comments Aspartate Amino Transf (AST/SGOT) (test code = Aspartate Amino Transf (AST/SGOT)) 20 5-34 [facility] alanine aminotransferase measurement (enzymatic activity/volume)2019-07-14 01:51:00* Test Item Value Reference Range Interpretation Comments Alanine Aminotransferase (ALT/SGPT) (test code = 1742-6) 37 0-55 [facility] protein measurement (mass/volume)2019-07-14 01:51:00* Test Item Value Reference Range Interpretation Comments Total Protein (test code = 2885-2) 6.8 6.5-8.1 [facility] albumin measurement (mass/volume)2019-07-14 01:51:00* Test Item Value Reference Range Interpretation Comments Albumin (test code = 1751-7) 4.1 3.5-5.0 [facility] StephenvillePlasma globulin measurement (mass/volume) 2019-07-14 01:51:00* Test Item Value Reference Range Interpretation Comments Globulin (test code = 54419-9) 2.7 2.3-3.5 [facility] albumin/globulin mass mkktb9966-86-76 01:51:00* Test Item Value Reference Range Interpretation Comments Albumin/Globulin Ratio (test code = 1759-0) 1.5 0.8-2.0 [facility] alkaline phosphatase measurement (enzymatic activity/volume)2019-07-14 01:51:00* Test Item Value Reference Range Interpretation Comments Alkaline Phosphatase (test code = 6768-6) 62 40-150 [facility] creatine kinase measurement (enzymatic activity/volume)2019-07-14 01:51:00* Test Item Value Reference Range Interpretation Comments Creatine Kinase (test code = 2157-6) 120 29-168 [facility] creatine kinase MB measurement (mass/volume)2019-07-14 01:51:00* Test Item Value Reference Range Interpretation Comments Creatine Kinase MB (test code = 20407-3) 1.90 0-5.0 [facility] StephenvilleTroponin I measurement by highly sensitive enzyme azgxfrrvnmx8772-22-95 01:51:00* Test Item Value Reference Range Interpretation Comments Troponin I (test code = 27344-7) < 0.001 0-0.300 [facility] StephenvilleBlood leukocytes automated count (number/volume)2019-07-14 01:51:00* Test Item Value Reference Range Interpretation Comments White Blood Count (test code = 6690-2) 10.91 4.8-10.8 [facility] StephenvilleBlood erythrocytes automated count (number/volume)2019-07-14 01:51:00* Test Item Value Reference Range Interpretation Comments Red Blood Count (test code = 789-8) 3.81 3.6-5.1 [facility] StephenvilleBlood hemoglobin measurement (moles/volume)2019-07-14 01:51:00* Test Item Value Reference Range Interpretation Comments Hemoglobin (test code = 63584-9) 11.8 12.0-16.0 [facility] StephenvilleAutomated blood hematocrit (volume fraction)2019-07-14 01:51:00* Test Item Value Reference Range Interpretation Comments Hematocrit (test code = 4544-3) 37.6 34.2-44.1 [facility] StephenvilleAutomated erythrocyte mean corpuscular iheafm6596-74-90 01:51:00* Test Item Value Reference Range Interpretation Comments Mean Corpuscular Volume (test code = 787-2) 98.7 81-99 [facility] StephenvilleAutomated erythrocyte mean corpuscular hemoglobin (mass per erythrocyte)2019-07-14 01:51:00* Test Item Value Reference Range Interpretation Comments Mean Corpuscular Hemoglobin (test code = 785-6) 31.0 28-32 [facility] StephenvilleAutomated erythrocyte mean corpuscular hemoglobin concentration measurement (mass/volume)2019-07-14 01:51:00* Test Item Value Reference Range Interpretation Comments Mean Corpuscular Hemoglobin Concent (test code = 786-4) 31.4 31-35 [facility] StephenvilleRDW BruKt-Dyn1923-05-31 01:51:00* Test Item Value Reference Range Interpretation Comments Red Cell Distribution Width (test code = 27785-9) 13.7 11.7 -14.4 [facility] StephenvilleAutomated blood platelet count (count/volume)2019-07-14 01:51:00* Test Item Value Reference Range Interpretation Comments Platelet Count (test code = 777-3) 366 140-360 [facility] count as percentage of total urszupmypv1981-00-26 01:51:00* Test Item Value Reference Range Interpretation Comments Neutrophils (%) (Auto) (test code = 81007-3) 78.1 38.7-80.0 [facility] StephenvilleAutomated blood lymphocyte count as percentage ot total uweztqomnu6130-94-39 01:51:00* Test Item Value Reference Range Interpretation Comments Lymphocytes (%) (Auto) (test code = 736-9) 14.1 18.0-39.1 [facility] StephenvilleAutomated blood monocyte count as percentage of total qjcazhqypw9976-14-45 01:51:00* Test Item Value Reference Range Interpretation Comments Monocytes (%) (Auto) (test code = 5905-5) 6.9 4.4-11.3 [facility] StephenvilleAutomated blood eosinophil count as percentage of total pxqquzwkik7861-09-67 01:51:00* Test Item Value Reference Range Interpretation Comments Eosinophils (%) (Auto) (test code = 713-8) 0.1 0.0-6.0 [facility]villeAutomated blood basophil count as percentage of total xilmofjphp3511-01-38 01:51:00* Test Item Value Reference Range Interpretation Comments Basophils (%) (Auto) (test code = 706-2) 0.4 0.0-1.0 [facility] StephenvilleFluoroscopic procedure less than one hour rmthezas7957-82-77 01:51:00* Test Item Value Reference Range Interpretation Comments IM GRANULOCYTES % (test code = IM GRANULOCYTES %) 0.4 0.0- 1.0 [facility]villeAutomated blood neutrophil count 2019-07-14 01:51:00* Test Item Value Reference Range Interpretation Comments Neutrophils # (Auto) (test code = 751-8) 8.5 2.1-6.9 [facility]villeBlood lymphocytes count (number/volume) 2019-07-14 01:51:00* Test Item Value Reference Range Interpretation Comments Lymphocytes # (Auto) (test code = 69051-2) 1.5 1.0-3.2 [facility]villeBlood monocytes automated count (number/volume)2019-07-14 01:51:00* Test Item Value Reference Range Interpretation Comments Monocytes # (Auto) (test code = 742-7) 0.8 0.2-0.8 [facility] StephenvilleAutomated blood eosinophil count 2019-07-14 01:51:00* Test Item Value Reference Range Interpretation Comments Eosinophils # (Auto) (test code = 711-2) 0.0 0.0-0.4 [facility] StephenvilleAutomated blood basophil count (count/volume)2019-07-14 01:51:00* Test Item Value Reference Range Interpretation Comments Basophils # (Auto) (test code = 704-7) 0.0 0.0-0.1 [facility] StephenvilleFluoroscopic procedure less than one hour rlwwwmhu0699-43-14 01:51:00* Test Item Value Reference Range Interpretation Comments Absolute Immature Granulocyte (auto (amos t code = Absolute Immature Granulocyte (auto) 0.04 0-0.1 [facility] StephenvilleProthrombin time (PT) in platelet poor plasma by coagulation wjziw8142-07-44 01:51:00* Test Item Value Reference Range Interpretation Comments Prothrombin Time (test code = 5902-2) 11.8 11.9-14.5 [facility] StephenvilleINR in Platelet poor plasma by Coagulation lcecf2443-72-92 01:51:00* Test Item Value Reference Range Interpretation Comments Prothromb Time International Ratio (test code = 6301-6) 0.82 Oral Anticoagulant Therapy INR Values:1. Low Intensity Therapy 1.5 - 2.02 . Moderate Intensity Therapy 2.0 - 3.03. High Intensity Therapy(1) 2.5 - 3. 54. High Intensity Therapy(2) 3.0 - 4.05. Panic Value INR > 5.0 [facility] sodium [facility] (moles/volume)2019-07-14 01:51:00* Test Item Value Reference Range Interpretation Comments Sodium Level (test code = 2951-2) 138 136-145 [facility] potassium measurement (moles/volume)2019-07-14 01:51:00* Test Item Value Reference Range Interpretation Comments Potassium Level (test code = 2823-3) 3.9 3.5-5.1 [facility] chloride measurement (moles/volume)2019-07-14 01:51:00* Test Item Value Reference Range Interpretation Comments Chloride Level (test code = 2075-0) 105 98-107 [facility] carbon dioxide, total measurement (moles/volume)2019-07-14 01:51:00* Test Item Value Reference Range Interpretation Comments Carbon Dioxide Level (test code = 2028-9) 22 22-29 [facility] anion mkb8874-84-00 01:51:00* Test Item Value Reference Range Interpretation Comments Anion Gap (test code = 13019-1) 14.9 8-16 [facility] urea nitrogen measurement (mass/volume)2019-07-14 01:51:00* Test Item Value Reference Range Interpretation Comments Blood Urea Nitrogen (test code = 3094-0) 16 7-26 [facility] creatinine measurement (mass/volume)2019-07-14 01:51:00* Test Item Value Reference Range Interpretation Comments Creatinine (test code = 2160-0) 0.78 0.57-1.11 [facility] urea nitrogen/creatinine mass gnxcy0406-73-07 01:51:00* Test Item Value Reference Range Interpretation Comments BUN/Creatinine Ratio (test code = 3097-3) 21 6-25 [facility] StephenvilleEstimated glomerular filtration rate (GFR) kfvsxkcjaymzl5371-64-80 01:51:00* Test Item Value Reference Range Interpretation Comments Estimat Glomerular Filtration Rate (test code = 629309343) > 60 >60 Ranges were taken from the National Kidney Disease Education Program and the [facility] literature.Reference ranges:60 or greater: Cyqdpi56-71 ( for 3 consecutive months): Chronic kidney disease 15 or less: Kid[facility] failureTexas [facility] StephenvilleGlucose mmjefrawxhe6488-21-45 01:51:00* Test Item Value Reference Range Interpretation Comments Glucose Level (test code = AEJ0174) 116 74-118 [facility] calcium measurement (mass/volume)2019-07-14 01:51:00* Test Item Value Reference Range Interpretation Comments Calcium Level (test code = 10213-4) 9.7 8.4-10.2 [facility] total bilirubin measurement (mass/volume)2019-07-14 01:51:00* Test Item Value Reference Range Interpretation Comments Total Bilirubin (test code = 1975-2) 0.3 0.2-1.2 [facility] StephenvilleFluoroscopic procedure less than one hour btkzqqdw4535-48-10 01:51:00* Test Item Value Reference Range Interpretation Comments Aspartate Amino Transf (AST/SGOT) (test code = Aspartate Amino Transf (AST/SGOT)) 20 5-34 [facility] or plasma alanine aminotransferase measurement (enzymatic activity/volume)2019-07-14 01:51:00* Test Item Value Reference Range Interpretation Comments Alanine Aminotransferase (ALT/SGPT) (test code = 1742-6) 37 0-55 [facility] protein measurement (mass/volume)2019-07-14 01:51:00* Test Item Value Reference Range Interpretation Comments Total Protein (test code = 2885-2) 6.8 6.5-8.1 [facility] albumin measurement (mass/volume)2019-07-14 01:51:00* Test Item Value Reference Range Interpretation Comments Albumin (test code = 1751-7) 4.1 3.5-5.0 [facility] StephenvillePlasma globulin measurement (mass/volume) 2019-07-14 01:51:00* Test Item Value Reference Range Interpretation Comments Globulin (test code = 44839-5) 2.7 2.3-3.5 [facility] albumin/globulin mass qlupv6335-08-57 01:51:00* Test Item Value Reference Range Interpretation Comments Albumin/Globulin Ratio (test code = 1759-0) 1.5 0.8-2.0 [facility] alkaline phosphatase measurement (enzymatic activity/volume)2019-07-14 01:51:00* Test Item Value Reference Range Interpretation Comments Alkaline Phosphatase (test code = 6768-6) 62 40-150 [facility] plasma creatine kinase measurement (enzymatic activity/volume)2019-07-14 01:51:00* Test Item Value Reference Range Interpretation Comments Creatine Kinase (test code = 2157-6) 120 29-168 [facility] plasma creatine kinase MB measurement (mass/volume)2019-07-14 01:51:00* Test Item Value Reference Range Interpretation Comments Creatine Kinase MB (test code = 38581-5) 1.90 0-5.0 [facility] StephenvilleTroponin I measurement by highly sensitive enzyme athyshnhfup4246-54-77 01:51:00* Test Item Value Reference Range Interpretation Comments Troponin I (test code = 44838-4) < 0.001 0-0.300 [facility] [place] leukocytes automated count (number/volume)2019-07-14 01:51:00* Test Item Value Reference Range Interpretation Comments White Blood Count (test code = 6690-2) 10.91 4.8-10.8 [facility]Bl[facility] [place] erythrocytes automated count (number/volume)2019-07-14 01:51:00* Test Item Value Reference Range Interpretation Comments Red Blood Count (test code = 789-8) 3.81 3.6-5.1 [facility]villeBlood hemoglobin measurement (moles/volume)2019-07-14 01:51:00* Test Item Value Reference Range Interpretation Comments Hemoglobin (test code = 97665-1) 11.8 12.0-16.0 [facility] StephenvilleAutomated blood hematocrit (volume fraction)2019-07-14 01:51:00* Test Item Value Reference Range Interpretation Comments Hematocrit (test code = 4544-3) 37.6 34.2-44.1 [facility] StephenvilleAutomated erythrocyte mean corpuscular nqqarm0236-45-92 01:51:00* Test Item Value Reference Range Interpretation Comments Mean Corpuscular Volume (test code = 787-2) 98.7 81-99 [facility] StephenvilleAutomated erythrocyte mean corpuscular hemoglobin (mass per erythrocyte)2019-07-14 01:51:00* Test Item Value Reference Range Interpretation Comments Mean Corpuscular Hemoglobin (test code = 785-6) 31.0 28-32 [facility] StephenvilleAutomated erythrocyte mean corpuscular hemoglobin concentration measurement (mass/volume)2019-07-14 01:51:00* Test Item Value Reference Range Interpretation Comments Mean Corpuscular Hemoglobin Concent (test code = 786-4) 31.4 31-35 [facility] StephenvilleRDW ThuUz-Drc0531-43-31 01:51:00* Test Item Value Reference Range Interpretation Comments Red Cell Distribution Width (test code = 64321-7) 13.7 11.7 -14.4 [facility] StephenvilleAutomated blood platelet count (count/volume)2019-07-14 01:51:00* Test Item Value Reference Range Interpretation Comments Platelet Count (test code = 777-3) 366 140-360 [facility] StephenvilleAutomated blood segmented neutrophil count as percentage of total omwwepudxj6162-92-23 01:51:00* Test Item Value Reference Range Interpretation Comments Neutrophils (%) (Auto) (test code = 56506-1) 78.1 38.7-80.0 [facility] StephenvilleAutomated blood lymphocyte count as percentage ot total rhoxaevapl7917-89-01 01:51:00* Test Item Value Reference Range Interpretation Comments Lymphocytes (%) (Auto) (test code = 736-9) 14.1 18.0-39.1 [facility] StephenvilleAutomated blood monocyte count as percentage of total gxuibysvnp0670-03-27 01:51:00* Test Item Value Reference Range Interpretation Comments Monocytes (%) (Auto) (test code = 5905-5) 6.9 4.4-11.3 [facility] StephenvilleAutomated blood eosinophil count as percentage of total mbchjudjjw8992-33-06 01:51:00* Test Item Value Reference Range Interpretation Comments Eosinophils (%) (Auto) (test code = 713-8) 0.1 0.0-6.0 [facility]villeAutomated blood basophil count as percentage of total rtpngtbvci2729-59-27 01:51:00* Test Item Value Reference Range Interpretation Comments Basophils (%) (Auto) (test code = 706-2) 0.4 0.0-1.0 [facility] StephenvilleFluoroscopic procedure less than one hour clgotqvm4551-10-86 01:51:00* Test Item Value Reference Range Interpretation Comments IM GRANULOCYTES % (test code = IM GRANULOCYTES %) 0.4 0.0- 1.0 [facility] StephenvilleAutomated blood neutrophil count 2019-07-14 01:51:00* Test Item Value Reference Range Interpretation Comments Neutrophils # (Auto) (test code = 751-8) 8.5 2.1-6.9 [facility] StephenvilleBlood lymphocytes count (number/volume) 2019-07-14 01:51:00* Test Item Value Reference Range Interpretation Comments Lymphocytes # (Auto) (test code = 36708-3) 1.5 1.0-3.2 [facility] StephenvilleBlood monocytes automated count (number/volume)2019-07-14 01:51:00* Test Item Value Reference Range Interpretation Comments Monocytes # (Auto) (test code = 742-7) 0.8 0.2-0.8 [facility] StephenvilleAutomated blood eosinophil count 2019-07-14 01:51:00* Test Item Value Reference Range Interpretation Comments Eosinophils # (Auto) (test code = 711-2) 0.0 0.0-0.4 [facility] StephenvilleAutomated blood basophil count (count/volume)2019-07-14 01:51:00* Test Item Value Reference Range Interpretation Comments Basophils # (Auto) (test code = 704-7) 0.0 0.0-0.1 [facility] StephenvilleFluoroscopic procedure less than one hour sdmkueqq2012-39-61 01:51:00* Test Item Value Reference Range Interpretation Comments Absolute Immature Granulocyte (auto (amos t code = Absolute Immature Granulocyte (auto) 0.04 0-0.1 [facility] StephenvilleProthrombin time (PT) in platelet poor plasma by coagulation fycjm9436-77-23 01:51:00* Test Item Value Reference Range Interpretation Comments Prothrombin Time (test code = 5902-2) 11.8 11.9-14.5 [facility] StephenvilleINR in Platelet poor plasma by Coagulation udohe5979-58-89 01:51:00* Test Item Value Reference Range Interpretation Comments Prothromb Time International Ratio (test code = 6301-6) 0.82 Oral Anticoagulant Therapy INR Values:1. Low Intensity Therapy 1.5 - 2.02 . Moderate Intensity Therapy 2.0 - 3.03. High Intensity Therapy(1) 2.5 - 3. 54. High Intensity Therapy(2) 3.0 - 4.05. Panic Value INR > 5.0 [facility] sodium measurement (moles/volume)2019-07-14 01:51:00* Test Item Value Reference Range Interpretation Comments Sodium Level (test code = 2951-2) 138 136-145 [facility] potassium measurement (moles/volume)2019-07-14 01:51:00* Test Item Value Reference Range Interpretation Comments Potassium Level (test code = 2823-3) 3.9 3.5-5.1 [facility] chloride measurement (moles/volume)2019-07-14 01:51:00* Test Item Value Reference Range Interpretation Comments Chloride Level (test code = 2075-0) 105 98-107 [facility] carbon dioxide, total measurement (moles/volume)2019-07-14 01:51:00* Test Item Value Reference Range Interpretation Comments Carbon Dioxide Level (test code = 2028-9) 22 22-29 [facility] plasma anion rmv0035-51-91 01:51:00* Test Item Value Reference Range Interpretation Comments Anion Gap (test code = 79491-0) 14.9 8-16 [facility] urea nitrogen measurement (mass/volume)2019-07-14 01:51:00* Test Item Value Reference Range Interpretation Comments Blood Urea Nitrogen (test code = 3094-0) 16 7-26 [facility] creatinine measurement (mass/volume)2019-07-14 01:51:00* Test Item Value Reference Range Interpretation Comments Creatinine (test code = 2160-0) 0.78 0.57-1.11 [facility] plasma urea nitrogen/creatinine mass dekri9508-55-11 01:51:00* Test Item Value Reference Range Interpretation Comments BUN/Creatinine Ratio (test code = 3097-3) 21 6-25 [facility] StephenvilleEstimated glomerular filtration rate (GFR) zawcmonxvsqzz7079-04-33 01:51:00* Test Item Value Reference Range Interpretation Comments Estimat Glomerular Filtration Rate (test code = 872503096) > 60 >60 Ranges were taken from the National Kidney Disease Education Program and the [facility] literature.Reference ranges:60 or greater: Qjgebj35-40 ( for 3 consecutive months): Chronic kidney disease 15 or less: Kidney failureTexas [facility] StephenvilleGlucose vobwjanehpd5254-87-53 01:51:00* Test Item Value Reference Range Interpretation Comments Glucose Level (test code = DFW5445) 116 74-118 [facility] plasma calcium measurement (mass/volume)2019-07-14 01:51:00* Test Item Value Reference Range Interpretation Comments Calcium Level (test code = 85472-6) 9.7 8.4-10.2 [facility] total bilirubin measurement (mass/volume)2019-07-14 01:51:00* Test Item Value Reference Range Interpretation Comments Total Bilirubin (test code = 1975-2) 0.3 0.2-1.2 [facility] StephenvilleFluoroscopic procedure less than one hour eezjqxtd6525-25-40 01:51:00* Test Item Value Reference Range Interpretation Comments Aspartate Amino Transf (AST/SGOT) (test code = Aspartate Amino Transf (AST/SGOT)) 20 5-34 [facility] alanine aminotransferase measurement (enzymatic activity/volume)2019-07-14 01:51:00* Test Item Value Reference Range Interpretation Comments Alanine Aminotransferase (ALT/SGPT) (test code = 1742-6) 37 0-55 [facility] protein measurement (mass/volume)2019-07-14 01:51:00* Test Item Value Reference Range Interpretation Comments Total Protein (test code = 2885-2) 6.8 6.5-8.1 [facility] albumin measurement (mass/volume)2019-07-14 01:51:00* Test Item Value Reference Range Interpretation Comments Albumin (test code = 1751-7) 4.1 3.5-5.0 [facility] StephenvillePlasma globulin measurement (mass/volume) 2019-07-14 01:51:00* Test Item Value Reference Range Interpretation Comments Globulin (test code = 48115-8) 2.7 2.3-3.5 [facility] albumin/globulin mass rgnbr9956-02-53 01:51:00* Test Item Value Reference Range Interpretation Comments Albumin/Globulin Ratio (test code = 1759-0) 1.5 0.8-2.0 [facility] alkaline phosphatase measurement (enzymatic activity/volume)2019-07-14 01:51:00* Test Item Value Reference Range Interpretation Comments Alkaline Phosphatase (test code = 6768-6) 62 40-150 [facility] creatine kinase measurement (enzymatic activity/volume)2019-07-14 01:51:00* Test Item Value Reference Range Interpretation Comments Creatine Kinase (test code = 2157-6) 120 29-168 [facility] creatine kinase MB measurement (mass/volume)2019-07-14 01:51:00* Test Item Value Reference Range Interpretation Comments Creatine Kinase MB (test code = 82383-0) 1.90 0-5.0 [facility] StephenvilleTroponin I measurement by highly sensitive enzyme ithottusnqp4819-48-58 01:51:00* Test Item Value Reference Range Interpretation Comments Troponin I (test code = 86429-7) < 0.001 0-0.300 [facility] StephenvilleCT BRAIN OT6344-89-03 02:53:00 [place] [address] Patient Name: MADISYN GONZALES MR #: [id number] : 1965 Age/Sex: 54/F Req #: [id number] Adm Physician: Ordered by: LINETTE WEST DO Report #: [id number] Location: ER Room/Bed: Procedure: [id number] CT/CT BRAIN WO Exam Date: 07/05/19 Exam [...] TO: LINETTE WEST DO Urine opiates screening aveq9247-74-81 01:44:00* Test Item Value Reference Range Interpretation Comments Urine Opiates Screen (test code = 00162-9) POSITIVE NEGATIVE ALL TESTS PERFORMED MANUALLY ON BIORAD TOX/SEE TEST This test provides only a sc reen. Positive results should be repeated by a confirmatory test.[facility]villeBarbiturates screen, zpqxb0374-78-30 01:44:00* Test Item Value Reference Range Interpretation Comments Urine Barbiturates Screen (test code = 632432638) NEGATIVE NEGA TIVE [facility] StephenvilleUrine phencyclidine detection by screening vghxeq7034-17-67 01:44:00* Test Item Value Reference Range Interpretation Comments Urine Phencyclidine Screen (test code = 99254-3) NEGATIVE NEGAT SESAR [facility] StephenvilleUrine amphetamines detection by screen method > 1000 ng/kF6423-73-92 01:44:00* Test Item Value Reference Range Interpretation Comments Urine Amphetamines Screen (test code = 51664-7) NEGATIVE NEGATI VE [facility] StephenvilleFluoroscopic procedure less than one hour wljtnftn4617-12-96 01:44:00* Test Item Value Reference Range Interpretation Comments Urine Methamphetamines Screen (test code = Urine Metha mphetamines Screen) NEGATIVE NEGATIVE [facility] StephenvilleUrine benzodiazepines detection by screening bddhuv7844-25-86 01:44:00* Test Item Value Reference Range Interpretation Comments Urine Benzodiazepines Screen (test code = 70970-4) NEGATIVE NEG ATIVE [facility] StephenvilleUrine cocaine measurement (mass/volume) 2019-07-05 01:44:00* Test Item Value Reference Range Interpretation Comments Urine Cocaine Screen (test code = 3398-5) NEGATIVE NEGATIVE [facility] StephenvilleUrine cannabinoids detection by screening heuoyp3473-43-43 01:44:00* Test Item Value Reference Range Interpretation Comments Urine Cannabinoids Screen (test code = 19191-2) NEGATIVE NEGATI VE THESE RESULTS ARE FOR MEDICAL TREATMENT ONLYTHIS REPORT CONTAINS UNCONFIR MED SCREENING RESULTS*POSITIVE RESULTS WILL BE CONFIRMED BY REFERENCE LAB UPON R EQUEST CUT-OFFDRUG CLASS CONCENTRATION ng/mLAmphetamines 1000Methamphetamines 1000Cocaine 300Opiate 300Phencyc lidine 25Cannabinoid 50Barbiturates 300Benzodiazepine 300Methadone 300[facility] StephenvilleUrine methadone yaqypq4688-94-32 01:44:00* Test Item Value Reference Range Interpretation Comments Urine Methadone Screen (test code = 87821-0) NEGATIVE NEGATIVE THESE RESULTS ARE FOR MEDICAL TREATMENT ONLYTHIS REPORT CONTAINS UNCONFIR MED SCREENING RESULTS*POSITIVE RESULTS WILL BE CONFIRMED BY REFERENCE LAB UPON R EQUEST CUT-OFFDRUG CLASS CONCENTRATION ng/mLAmphetamines 1000Methamphetamines 1000Cocaine Metabolite 300Opiate 300Phencyc lidine 25Cannabinoid 50Barbiturates 300Benzodiazepine 300Methadone 300[facility] StephenvilleBlood leukocytes automated count (number/volume) 2019-07-05 01:34:00* Test Item Value Reference Range Interpretation Comments White Blood Count (test code = 6690-2) 8.95 4.8-10.8 [facility]Bl[facility] [place] erythrocytes automated count (number/volume)2019-07-05 01:34:00* Test Item Value Reference Range Interpretation Comments Red Blood Count (test code = 789-8) 3.60 3.6-5.1 [facility]villeBlood hemoglobin measurement (moles/volume)2019-07-05 01:34:00* Test Item Value Reference Range Interpretation Comments Hemoglobin (test code = 07881-7) 11.0 12.0-16.0 [facility] StephenvilleAutomated blood hematocrit (volume fraction)2019-07-05 01:34:00* Test Item Value Reference Range Interpretation Comments Hematocrit (test code = 4544-3) 35.5 34.2-44.1 [facility]villeAutomated erythrocyte mean corpuscular vnlryh8569-02-53 01:34:00* Test Item Value Reference Range Interpretation Comments Mean Corpuscular Volume (test code = 787-2) 98.6 81-99 [facility]villeAutomated erythrocyte mean corpuscular hemoglobin (mass per erythrocyte)2019-07-05 01:34:00* Test Item Value Reference Range Interpretation Comments Mean Corpuscular Hemoglobin (test code = 785-6) 30.6 28-32 [facility] StephenvilleAutomated erythrocyte mean corpuscular hemoglobin concentration measurement (mass/volume)2019-07-05 01:34:00* Test Item Value Reference Range Interpretation Comments Mean Corpuscular Hemoglobin Concent (test code = 786-4) 31.0 31-35 [facility] StephenvilleRDW RgsCm-Zim8341-05-22 01:34:00* Test Item Value Reference Range Interpretation Comments Red Cell Distribution Width (test code = 78587-8) 13.6 11.7 -14.4 [facility] StephenvilleAutomated blood platelet count (count/volume)2019-07-05 01:34:00* Test Item Value Reference Range Interpretation Comments Platelet Count (test code = 777-3) 355 140-360 [facility]villeAutomated blood segmented neutrophil count as percentage of total zgqayuuwyx6738-78-98 01:34:00* Test Item Value Reference Range Interpretation Comments Neutrophils (%) (Auto) (test code = 66638-1) 69.2 38.7-80.0 [facility] StephenvilleAutomated blood lymphocyte count as percentage ot total gmhflsrtzu7704-52-96 01:34:00* Test Item Value Reference Range Interpretation Comments Lymphocytes (%) (Auto) (test code = 736-9) 20.7 18.0-39.1 [facility]villeAutomated blood monocyte count as percentage of total ertsdobjzu4537-11-10 01:34:00* Test Item Value Reference Range Interpretation Comments Monocytes (%) (Auto) (test code = 5905-5) 7.8 4.4-11.3 [facility]villeAutomated blood eosinophil count as percentage of total pjgltmilaq9109-55-21 01:34:00* Test Item Value Reference Range Interpretation Comments Eosinophils (%) (Auto) (test code = 713-8) 0.9 0.0-6.0 [facility]villeAutomated blood basophil count as percentage of total xkmjtirscw3632-87-21 01:34:00* Test Item Value Reference Range Interpretation Comments Basophils (%) (Auto) (test code = 706-2) 1.1 0.0-1.0 [facility] StephenvilleFluoroscopic procedure less than one hour cggpprmi7042-70-68 01:34:00* Test Item Value Reference Range Interpretation Comments IM GRANULOCYTES % (test code = IM GRANULOCYTES %) 0.3 0.0- 1.0 [facility] StephenvilleAutomated blood neutrophil count 2019-07-05 01:34:00* Test Item Value Reference Range Interpretation Comments Neutrophils # (Auto) (test code = 751-8) 6.2 2.1-6.9 [facility]villeBlood lymphocytes count (number/volume) 2019-07-05 01:34:00* Test Item Value Reference Range Interpretation Comments Lymphocytes # (Auto) (test code = 24310-7) 1.9 1.0-3.2 [facility]villeBlood monocytes automated count (number/volume)2019-07-05 01:34:00* Test Item Value Reference Range Interpretation Comments Monocytes # (Auto) (test code = 742-7) 0.7 0.2-0.8 [facility] StephenvilleAutomated blood eosinophil count 2019-07-05 01:34:00* Test Item Value Reference Range Interpretation Comments Eosinophils # (Auto) (test code = 711-2) 0.1 0.0-0.4 [facility]villeAutomated blood basophil count (count/volume)2019-07-05 01:34:00* Test Item Value Reference Range Interpretation Comments Basophils # (Auto) (test code = 704-7) 0.1 0.0-0.1 [facility] StephenvilleFluoroscopic procedure less than one hour oazhobdq3123-29-13 01:34:00* Test Item Value Reference Range Interpretation Comments Absolute Immature Granulocyte (auto (amos t code = Absolute Immature Granulocyte (auto) 0.03 0-0.1 [facility] sodium measurement (moles/volume)2019-07-05 01:34:00* Test Item Value Reference Range Interpretation Comments Sodium Level (test code = 2951-2) 137 136-145 [facility] potassium measurement (moles/volume)2019-07-05 01:34:00* Test Item Value Reference Range Interpretation Comments Potassium Level (test code = 2823-3) 4.1 3.5-5.1 [facility] chloride measurement (moles/volume)2019-07-05 01:34:00* Test Item Value Reference Range Interpretation Comments Chloride Level (test code = 2075-0) 103 98-107 [facility] carbon dioxide, total measurement (moles/volume)2019-07-05 01:34:00* Test Item Value Reference Range Interpretation Comments Carbon Dioxide Level (test code = 2028-9) 26 22-29 [facility] anion [id number] 01:34:00* Test Item Value Reference Range Interpretation Comments Anion Gap (test code = 84350-3) 12.1 8-16 [facility] urea nitrogen measurement (mass/volume)2019-07-05 01:34:00* Test Item Value Reference Range Interpretation Comments Blood Urea Nitrogen (test code = 3094-0) 18 7-26 [facility] creatinine measurement (mass/volume)2019-07-05 01:34:00* Test Item Value Reference Range Interpretation Comments Creatinine (test code = 2160-0) 0.72 0.57-1.11 [facility] or plasma urea nitrogen/creatinine mass oxgsg9812-92-95 01:34:00* Test Item Value Reference Range Interpretation Comments BUN/Creatinine Ratio (test code = 3097-3) 25 6-25 [facility] StephenvilleEstimated glomerular filtration rate (GFR) dlfjwletenshb5005-57-23 01:34:00* Test Item Value Reference Range Interpretation Comments Estimat Glomerular Filtration Rate (test code = 933411544) > 60 >60 Ranges were taken from the National Kidney Disease Education Program and the [facility] literature.Reference ranges:60 or greater: Fzqxmw13-89 ( for 3 consecutive months): Chronic kidney disease 15 or less: Kidney failureTexas [facility] StephenvilleGlucose peyqaffifng2564-07-33 01:34:00* Test Item Value Reference Range Interpretation Comments Glucose Level (test code = WTM8271) 122 74-118 [facility] plasma calcium measurement (mass/volume)2019-07-05 01:34:00* Test Item Value Reference Range Interpretation Comments Calcium Level (test code = 21259-0) 8.8 8.4-10.2 [facility] total bilirubin measurement (mass/volume)2019-07-05 01:34:00* Test Item Value Reference Range Interpretation Comments Total Bilirubin (test code = 1975-2) 0.2 0.2-1.2 [facility] StephenvilleFluoroscopic procedure less than one hour rblbmhsy9428-66-36 01:34:00* Test Item Value Reference Range Interpretation Comments Aspartate Amino Transf (AST/SGOT) (test code = Aspartate Amino Transf (AST/SGOT)) 14 5-34 [facility] or plasma alanine aminotransferase measurement (enzymatic activity/volume)2019-07-05 01:34:00* Test Item Value Reference Range Interpretation Comments Alanine Aminotransferase (ALT/SGPT) (test code = 1742-6) 21 0-55 [facility] protein measurement (mass/volume)2019-07-05 01:34:00* Test Item Value Reference Range Interpretation Comments Total Protein (test code = 2885-2) 6.6 6.5-8.1 [facility] albumin measurement (mass/volume)2019-07-05 01:34:00* Test Item Value Reference Range Interpretation Comments Albumin (test code = 1751-7) 3.8 3.5-5.0 [facility] StephenvillePlasma globulin measurement (mass/volume) 2019-07-05 01:34:00* Test Item Value Reference Range Interpretation Comments Globulin (test code = 88732-6) 2.8 2.3-3.5 [facility] albumin/globulin mass inclr3113-20-31 01:34:00* Test Item Value Reference Range Interpretation Comments Albumin/Globulin Ratio (test code = 1759-0) 1.4 0.8-2.0 [facility] or plasma alkaline phosphatase measurement (enzymatic activity/volume)2019-07-05 01:34:00* Test Item Value Reference Range Interpretation Comments Alkaline Phosphatase (test code = 6768-6) 62 40-150 [facility] or plasma creatine kinase measurement (enzymatic activity/volume)2019-07-05 01:34:00* Test Item Value Reference Range Interpretation Comments Creatine Kinase (test code = 2157-6) 67 29-168 [facility] or plasma creatine kinase MB measurement (mass/volume)2019-07-05 01:34:00* Test Item Value Reference Range Interpretation Comments Creatine Kinase MB (test code = 35569-1) 0.80 0-5.0 [facility] StephenvilleTroponin I measurement by highly sensitive enzyme gurnzbsbqfd2646-65-49 01:34:00* Test Item Value Reference Range Interpretation Comments Troponin I (test code = 54197-8) < 0.001 0-0.300 [facility] or plasma acetaminophen measurement by screening method (mass/volume)2019-07-05 01:34:00* Test Item Value Reference Range Interpretation Comments Acetaminophen Level (test code = 62201-9) 9.3 10-30 [facility] plasma ethanol measurement (mass/volume)2019-07-05 01:34:00* Test Item Value Reference Range Interpretation Comments Ethyl Alcohol Level (test code = 5643-2) < 10.0 0.0-10.0 [facility] or plasma acetaminophen measurement by screening method (mass/volume)2019-07-05 01:34:00* Test Item Value Reference Range Interpretation Comments Acetaminophen Level (test code = 15669-6) 9.3 10-30 [facility] or plasma ethanol measurement (mass/volume)2019-07-05 01:34:00* Test Item Value Reference Range Interpretation Comments Ethyl Alcohol Level (test code = 5643-2) < 10.0 0.0-10.0 [facility] or plasma acetaminophen measurement by screening method (mass/volume)2019-07-05 01:34:00* Test Item Value Reference Range Interpretation Comments Acetaminophen Level (test code = 20816-3) 9.3 10-30 [facility] or plasma ethanol measurement (mass/volume)2019-07-05 01:34:00* Test Item Value Reference Range Interpretation Comments Ethyl Alcohol Level (test code = 5643-2) < 10.0 0.0-10.0 [facility] or plasma acetaminophen measurement by screening method (mass/volume)2019-07-05 01:34:00* Test Item Value Reference Range Interpretation Comments Acetaminophen Level (test code = 57701-5) 9.3 10-30 [facility] or plasma ethanol measurement (mass/volume)2019-07-05 01:34:00* Test Item Value Reference Range Interpretation Comments Ethyl Alcohol Level (test code = 5643-2) < 10.0 0.0-10.0 [facility] or plasma acetaminophen measurement by screening method (mass/volume)2019-07-05 01:34:00* Test Item Value Reference Range Interpretation Comments Acetaminophen Level (test code = 77771-7) 9.3 10-30 [facility] or plasma ethanol measurement (mass/volume)2019-07-05 01:34:00* Test Item Value Reference Range Interpretation Comments Ethyl Alcohol Level (test code = 5643-2) < 10.0 0.0-10.0 [facility] or plasma acetaminophen measurement by screening method (mass/volume)2019-07-05 01:34:00* Test Item Value Reference Range Interpretation Comments Acetaminophen Level (test code = 22328-4) 9.3 10-30 [facility] or plasma ethanol measurement (mass/volume)2019-07-05 01:34:00* Test Item Value Reference Range Interpretation Comments Ethyl Alcohol Level (test code = 5643-2) < 10.0 0.0-10.0 [facility] StephenvilleLactic acid level, SEPSIS - Now and repeat 2x every 3 lkwpn5583-74-61 03:58:32* Test Item Value Reference Range Interpretation Comments Lactic acid (test code = 39902-4) 1.6 mmol/L 0.5-2.2 [facility] ChristianityCreatine kinase, total (CPK)2019-06-20 01:51:55* Test Item Value Reference Range Interpretation Comments Creatine kinase (test code = 2157-6) 65 U/L 26-192 [facility] LdqznzoadOFTKFR0564-39-17 03:18:00* Test Item Value Reference Range Interpretation Comments GLUBED (test code = GLUBED) 94 mg/dL 74-106 N Performed by certified dice table operator at [facility] BASIC METABOLIC HYOLF9547-60-29 01:38:00* Test Item Value Reference Range Interpretation [...] CA) 8.5 mg/dL 8.5-10.1 N HCG SERUM [id number] 01:38:00* Test Item Value Reference Range Interpretation Comments HCG SERUM QUAL (test code = HCGQL) NEGATIVE DILANTIN (PHENYTOIN)2019-03-15 01:38:00* Test Item Value Reference Range Interpretation Comments DILANTIN (PHENYTOIN) (test code = DIL) 0.6 ug/mL 10.0-20.0 L BASIC METABOLIC WLYKI4687-97-78 01:33:00* Test Item Value Reference Range Interpretation [...] CA) 8.5 mg/dL 8.5-10.1 N HCG SERUM JNJR6964-21-58 01:33:00* Test Item Value Reference Range Interpretation Comments HCG SERUM QUAL (test code = HCGQL) NEGATIVE CBC W/O SKGO3777-90-86 01:18:00* Test Item Value Reference Range Interpretation [...] 6.7-11.0 N - XR KNEE 3 V [id number] 00:30:00 FAX: Devin Craft MD [phone] [place]: St: [facility] FAX: Jn Mohr MD [phone] Name: MAIDSYN GONZALES [facility] : 1965 Age/S: 54/F [address] [facility] Unit #: [id number] Loc: [place] [address] Phys: Jn Mohr MD Acct: [id number] Dis Date: Status: REG ER PHONE #: [phone] Exam Date: 03/15/2019 0020 FAX #: [phone] Reason: leg pain EXAMS: CPT CODE: [id number] XR KNEE 3 V RT [address] Dictation location: H37. RIGHT HIP 2 VIEWS; [...] MD; Jn Mohr MD Technologist: [facility] Date/Time/By: 03/15/2019 (003) : By: [email or web address] Orig Print D/T: S: 03/15/2019 (0033) PAGE 1 Signed Report - XR FEMUR MIN 2 VWS RT 2019-03-15 00:30:00 FAX: Devin Craft MD [phone] [place]: B St: REG FAX: Jn Mohr MD [phone] Name: MADISYN GONZALES [facility] : 1965 Age/S: 54/F [address] [facility] Unit #: [id number] Loc: [place] [address] Phys: Jn Mohr MD Acct: [id number] Dis Date: Status: REG ER PHONE #: [phone] Exam Date: 03/15/2019 0020 FAX #: [phone] Reason: leg pain EXAMS: CPT CODE: [id number] XR FEMUR MIN 2 [place] [address] Dictation location: H37. RIGHT HIP 2 VIEWS; [...] MD; Jn Mohr MD Technologist: [facility] Date/Time/By: 03/15/2019 (003) : By: [email or web address] Orig Print D/T: S: 03/15/2019 (0033) PAGE 1 Signed Report - XR HIP W/PEL UNI 2+V [id number] 00:30:00 FAX: Devin Craft MD [phone] [place]: St: REG FAX: Jn Mohr MD [phone] Name: MADISYN GONZALES [facility] : 1965 Age/S: 54/F [address] [facility] Unit #: [id number] Loc: [place] [address] Phys: Jn Mohr MD Acct: [id number] Dis Date: Status: REG ER PHONE #: [phone] Exam Date: 03/15/2019 0020 FAX #: [phone] Reason: leg pain EXAMS: CPT CODE: [id number] XR HIP W/PEL UNI 2+V RT 23149 Dictation location: H37. RIGHT HIP 2 VIEWS; [...] 1 Signed Report - CT C-SPINE W/O [id number] 23:04:00 Name: MADISYN GONZALES [facility] : 1965 Age/S: 54 / F [address] [facility] Unit #: [id number] Loc: [place] [address] Phys: Jn Mohr MD Acct: [id number] Dis Date: Status: REG ER PHONE #: [phone] Exam Date: 03/14/20192249 FAX #: [phone] Reason: neck pain EXAMS: CPT CODE: [id number] CT C-SPINE W/O CONTRAST 17226 EXAM: CT of the cervical spine without [...] evidence of acute osseous trauma. Location code: [facility] at 2304 Reported and signed by: Raul Rehman M.D. CC: Devin Wright MD; Jn Mohr MD Technologist:Julisa SILVERIOR); ROMAINE Gibson CTDI: DLP: Trnscb Date/Time: 03/14/2019 (2304) [email or web address] Orig Print D/T: S: 03/14/2019 (783) PAGE 1 Signed Report - CT HEAD/BRAIN W/O CONT 2019-03-14 23:03:00 Name: [facility] 1965 Age/S: 54 / F [address] Unit #: [id number] Loc: [place] [address] Phys: Jn Mohr MD Acct: [id number] Dis Date: Status: REG ER PHONE #: [phone] Exam Date: 03/14/20193 FAX #: [phone] Reason: seizure EXAMS: CPT CODE: [id number] CT HEAD/BRAIN W/O CONT 26373 EXAM: CT of the head; INFORMATION: Seizure; [...] CT scan of the head. Location code: [facility] at 2303 Reported and signed by: Raul Rehman M.D. CC: Devin Wright MD; Jn Mohr MD Technologist:Julisa BLAKELY(R); ROMAINE Gibson CTDI: DLP: Trnscb Date/Time: 03/14/2019 (2302) [email or web address] Orig Print D/T: S: 03/14/2019 (6) PAGE 1 Signed Report - XR TOE(S) 2+V [id number] 03:10:00 FAX: Devin Craft MD [phone] [place]: St: REG FAX: Armando Ibrahim [facility] [phone] Name: GRZEGORZ GONZALES [facility] : 1965 Age/S: 54/F [address] Unit #: [id number] Loc: [place] [address] Phys: Armando Carreon Acct: [id number] Dis Date: Status: REG ER PHONE #: [phone] Exam Date: 03/14/2019 0243 FAX #: [phone] Reason: TOE PAIN EXAMS: CPT CODE: [id number] XR TOE(S) 2+V LT 37687 Dictation location: H37. LEFT TOES, 3 VIEWS [...] 03/14/2019 (031) PAGE 1 Signed Report URINALYSIS [id number] 14:05:00* Test Item Value Reference Range Interpretation [...] Urine Source? Clean CatchDRUGS OF ABUSE SCREEN [id number] 14:05:00* Test Item Value Reference Range Interpretation [...] <300 ng/mL Urine Source? Clean CatchBASIC METABOLIC [id number] 13:58:00* Test Item Value Reference Range Interpretation [...] CA) 8.6 mg/dL 8.5-10.1 N HEPATIC FUNCTION [id number] 13:58:00* Test Item Value Reference Range Interpretation [...] reference range due to change in reagent. [id number] 13:58:00* Test Item Value Reference Range Interpretation Comments LIPASE (test code = LIP) 134 U/L 73.0-393.0 N HCG SERUM [id number] 13:58:00* Test Item Value Reference Range Interpretation Comments HCG SERUM QUAL (test code = HCGQL) NEGATIVE NEGATIVE This HCGQL test is NOT applicable for MALE patients.Check with nurse about probable order error.If Tumor Marker Test needed, nurse should order test "HCGTU"(Test #550.78212) TSH REFLEX TO [id number] 13:58:00* Test Item Value Reference Range Interpretation Comments TSH REFLEX TO FT4 (test code = TSHREFLEX) 0.8 0.4-5.5 N [id number] 13:58:00* Test Item Value Reference Range Interpretation Comments TROPONIN-I (test code = TROPI) <0.015 ng/mL 0-0.045 N [id number] 13:58:00* Test Item Value Reference Range Interpretation Comments LITHIUM (test code = LITH) <0.1 mmol/L 0.5-1.5 L [id number] 13:58:00* Test Item Value Reference Range Interpretation [...] AT ANADDITIONAL CHARGE TO THE PATIENT. URINALYSIS [id number] 13:51:00* Test Item Value Reference Range Interpretation [...] Urine Source? Clean CatchDRUGS OF ABUSE SCREEN [id number] 13:51:00* Test Item Value Reference Range Interpretation [...] <300 ng/mL Urine Source? Clean CatchBASIC METABOLIC [id number] 13:51:00* Test Item Value Reference Range Interpretation [...] code = CA) mg/dL 8.5-10.1 HEPATIC FUNCTION [id number] 13:51:00* Test Item Value Reference Range Interpretation [...] TOTAL (test code = ALKP) IUnit/L 45-117 [id number] 13:51:00* Test Item Value Reference Range Interpretation Comments LIPASE (test code = LIP) U/L 73.0-393.0 HCG SERUM [id number] 13:51:00* Test Item Value Reference Range Interpretation Comments HCG SERUM QUAL (test code = HCGQL) NEGATIVE NEGATIVE This HCGQL test is NOT applicable for MALE patients.Check with nurse about probable order error.If Tumor Marker Test needed, nurse should order test "HCGTU"(Test #550.87361) TSH REFLEX TO [id number] 13:51:00* Test Item Value Reference Range Interpretation Comments TSH REFLEX TO FT4 (test code = TSHREFLEX) 0.4-5.5 [id number] 13:51:00* Test Item Value Reference Range Interpretation Comments TROPONIN-I (test code = TROPI) ng/mL 0-0.045 [id number] 13:51:00* Test Item Value Reference Range Interpretation Comments LITHIUM (test code = LITH) <0.1 mmol/L 0.5-1.5 L [id number] 13:51:00* Test Item Value Reference Range Interpretation Comments ALCOHOL (test code = ALC) mg/dL 0-3 PROTHROMBIN [id number] 13:41:00* Test Item Value Reference Range Interpretation [...] (2.5-3.5) IS PATIENT ON ANTICOAGULANTS? NTHROMBOPLASTIN TIME [id number] 13:41:00* Test Item Value Reference Range Interpretation Comments THROMBOPLASTIN TIME PARTIAL (test code = PTT) 35.8 seconds 25.0-36. 5 N IS PATIENT ON ANTICOAGULANTS? [id number] 13:34:00* Test Item Value Reference Range Interpretation Comments MAGNESIUM (test code = MAG) 2.1 mg/dL 1.8-2.4 N BASIC METABOLIC [id number] 13:33:00* Test Item Value Reference Range Interpretation [...] code = CA) mg/dL 8.5-10.1 HEPATIC FUNCTION [id number] 13:33:00* Test Item Value Reference Range Interpretation [...] TOTAL (test code = ALKP) IUnit/L 45-117 [id number] 13:33:00* Test Item Value Reference Range Interpretation Comments LIPASE (test code = LIP) U/L 73.0-393.0 HCG SERUM [id number] 13:33:00* Test Item Value Reference Range Interpretation Comments HCG SERUM QUAL (test code = HCGQL) NEGATIVE TSH REFLEX TO [id number] 13:33:00* Test Item Value Reference Range Interpretation Comments TSH REFLEX TO FT4 (test code = TSHREFLEX) 0.4-5.5 [id number] 13:33:00* Test Item Value Reference Range Interpretation Comments TROPONIN-I (test code = TROPI) ng/mL 0-0.045 [id number] 13:33:00* Test Item Value Reference Range Interpretation Comments LITHIUM (test code = LITH) <0.1 mmol/L 0.5-1.5 L [id number] 13:33:00* Test Item Value Reference Range Interpretation Comments ALCOHOL (test code = ALC) mg/dL 0-3 - CT HEAD/BRAIN W/O [id number] 13:32:00 Name: GRZEGORZ GONZALES [facility] : 1965 Age/S: 53 / F [address] [facility] [id number] Loc: [place] [address] Phys: Michael Adame MD Acct: [id number] Dis Date: Status: REG ER PHONE #: [phone] Exam Date: 11/05/2018 1320 FAX #: [phone] Reason: headache EXAMS: CPT CODE: [id number] CT HEAD/BRAIN W/O CONT 91987 HISTORY: headache TECHNIQUE: Noncontrast 2.5 mm axial [...] Vance RT(R),(MR),(CT); CTDI: DLP: Trnscb Date/Time: 10/15 (8841) [email or web address] Orig Print D/T: S: 11/05/2018 (65 55) PAGE 1 Signed Report BASIC METABOLIC [id number] 13:30:00* Test Item Value Reference Range Interpretation [...] code = CA) mg/dL 8.5-10.1 HEPATIC FUNCTION [id number] 13:30:00* Test Item Value Reference Range Interpretation [...] TOTAL (test code = ALKP) IUnit/L 45-117 [id number] 13:30:00* Test Item Value Reference Range Interpretation Comments LIPASE (test code = LIP) U/L 73.0-393.0 HCG SERUM [id number] 13:30:00* Test Item Value Reference Range Interpretation Comments HCG SERUM QUAL (test code = HCGQL) NEGATIVE TSH REFLEX TO [id number] 13:30:00* Test Item Value Reference Range Interpretation Comments TSH REFLEX TO FT4 (test code = TSHREFLEX) 0.4-5.5 [id number] 13:30:00* Test Item Value Reference Range Interpretation Comments TROPONIN-I (test code = TROPI) ng/mL 0-0.045 [id number] 13:30:00* Test Item Value Reference Range Interpretation Comments LITHIUM (test code = LITH) <0.1 mmol/L 0.5-1.5 L [id number] 13:30:00* Test Item Value Reference Range Interpretation Comments ALCOHOL (test code = ALC) mg/dL 0-3 CBC W/O [id number] 13:29:00* Test Item Value Reference Range Interpretation [...] MPV) 9.2 fL 6.7-11.0 N CBC W/O [id number] 13:25:00* Test Item Value Reference Range Interpretation [...] code = MPV) fL 6.7-11.0 BASIC METABOLIC [id number] 20:30:00* Test Item Value Reference Range Interpretation [...] CA) 8.7 mg/dL 8.5-10.1 N SPECIMEN HEMOLYZED [id number] HAS BEEN NOTIEFIED PLEASE REDRAWBASIC METABOLIC PANEL [...] code = CA) mg/dL 8.5-10.1 SPECIMEN HEMOLYZED [id number] HAS BEEN NOTIEFIED PLEASE REDRAWCBC W/O DIFF [...] MPV) 10.2 fL 6.7-11.0 N CBC W/O [id number] 19:04:00* Test Item Value Reference Range Interpretation [...] 6.7-11.0 - XR HAND 3 + V [id number] 16:20:00 FAX: Marry Luna NP [place]: St: [facility] FAX: Y Devin Wright MD [phone] Name: GRZEGORZ GONZALES [facility] : 1965 Age/S: 53/F [address] [facility] Unit #: [id number] Loc: [place] [address] Phys: Marry Luna NP Acct: [id number] Dis Date: Status: REG ER PHONE #: [phone] Exam Date: 09/01/2018 1605 FAX #: [phone] Reason: pain sp fall EXAMS: CPT CODE: [id number] XR HAND 3 + [place] [address] CLINICAL HISTORY: pain sp fall TECHNIQUE: AP, [...] MD Technologist: HOMER BLAKELY(R) Trnscrd Date/Time/By: 09/01/2018 (3070) : By: [email or web address] Orig Print D/T: S: 09/01/2018 (0640) PAGE 1 Signed Report - XR FOREARM 2 VIEWS [id number] 16:16:00 FAX: Marry Luna NP [place]: St: REG FAX: Y Devin Wright MD [phone] Name: GRZEGORZ GONZALES [facility] : 1965 Age/S: 53/F [address] [facility] Unit #: [id number] Loc: [place] [address] Phys: Marry Luna NP Acct: [id number] Dis Date: Status: REG ER PHONE #: [phone] Exam Date: 09/01/2018 1605 FAX #: [phone] Reason: pain sp fall EXAMS: CPT CODE: [id number] XR FOREARM 2 VIEWS 11726 CLINICAL HISTORY: pain sp fall TECHNIQUE: AP [...] Technologist: HOMER BLAKELY(R) Trnscrd Date/Time/By: 0 09/01/2018 (0099) : By: [email or web address] Orig Print D/T: S: 09/01/2018 (9767) PAGE 1 Signed Report BASIC METABOLIC [id number] 20:52:00* Test Item Value Reference Range Interpretation [...] code = CA) 9.2 mg/dL 8.5-10.1 N [id number] 20:52:00* Test Item Value Reference Range Interpretation Comments TROPONIN-I (test code = TROPI) <0.015 ng/mL 0-0.045 N BASIC METABOLIC [id number] 20:46:00* Test Item Value Reference Range Interpretation [...] code = CA) 9.2 mg/dL 8.5-10.1 N [id number] 20:46:00* Test Item Value Reference Range Interpretation Comments TROPONIN-I (test code = TROPI) ng/mL 0-0.045 CBC W/O [id number] 20:30:00* Test Item Value Reference Range Interpretation [...] code = MPV) fL 6.7-11.0 CBC W/O [id number] 20:30:00* Test Item Value Reference Range Interpretation [...] fL 6.7-11.0 N - XR CHEST 1 [id number] 19:48:00 FAX: Allen Brandon MD [phone] [place]: B St: REG Name: GRZEGORZ TOUSSAINT [facility] : [birth year] Age/S: 53/F [address] [facility] Unit #: [id number] Loc: [place] [address] Phys: Allen Brandon MD Acct: [id number] Dis Date: Status: REG ER PHONE #: [phone] Exam Date: 05/12/20181943 FAX #: [phone] Reason: CHEST PAIN EXAMS: CPT CODE: [id number] XR CHEST 1 V 20495 HISTORY: CHEST PAIN TECHNIQUE: AP chest x-ray [...] (1950) PAGE 1 Signed Report COMPREHENSIVE METABOLIC [id number] 19:35:00* Test Item Value Reference Range Interpretation [...] reference range due to change in reagent. [id number] 19:35:00* Test Item Value Reference Range Interpretation Comments AMYLASE (test code = DAVIDSON) 62 Unit/L 25-115 N URINALYSIS W/O [id number] 19:34:00* Test Item Value Reference Range Interpretation [...] = LEUUR) NEGATIVE NEG ATIVE COMPREHENSIVE METABOLIC [id number] 19:22:00* Test Item Value Reference Range Interpretation [...] TOTAL (test code = ALKP) IUnit/L 45-117 [id number] 19:22:00* Test Item Value Reference Range Interpretation Comments AMYLASE (test code = DAVIDSON) Unit/L 25-115 CBC W/AUTO [id number] 19:18:00* Test Item Value Reference Range Interpretation [...] NRBC#) 0.00 K/mm3 0.0-0.1 N CBC W/AUTO [id number] 19:14:00* Test Item Value Reference Range Interpretation [...] BA#) K/mm3 0.0-0.2 - XR CHEST 2 [id number] 17:23:00 FAX: MIKE MELÉNDEZ NP [place]: B St: REG Name: GRZEGORZ TOUSSAINT [facility] : [birth year] Age/S: 53/F [address] Unit #: [id number] Loc: [place] [address] Phys: MIKE MELÉNDEZ NP Acct: [id number] Dis Date: Status: REG ER PHONE #: [phone] Exam Date: 03/27/2018 1721 FAX #: [phone] Reason: cough EXAMS: CPT CODE: [id number] XR CHEST 2 V 17163 REASON FOR EXAM: cough Exam Order Date: 03/27/2018 4:55 PM Ordering Hernandez: MIKE MELÉNDEZ NP PROCEDURE: - XR CHEST 2 V COMPARISON: FINDINGS: PA and lateral views of the chest show clear lungs. No evidence of consolidation. No evidence of effusion. The heart size is within normal limits. Pulmonary vasculatures are unremarkable. The osseous structures are grossly intact. IMPRESSION: No active disease. at 3589 Reported and signed by: Dannie Hernández M.D. CC: MIKE MELÉNDEZ NP Technologist: JED BLAKELY(R) Trnscrd Date/Time/By: 03/27/2018 (6742) : By: Stephanie Orig Print D/T: S: 03/27/2018 (4954) PAGE 1 Signed Report - XR HAND 3 + V [id number] 23:59:00 FAX: Tonya Brennan [facility] [place]: B St: PRE Name: GRZEGORZ TOUSSAINT [facility] : [birth year] Age/S: 53/F [address] Unit #: [id number] Loc: [place] [address] Phys: Tonya Brennan [employer] DIRECT[employer] Acct: [id number] Dis Date: Status: PRE ER PHONE #: [phone] Exam Date: 03/09/2018 2350 FAX #: [phone] Reason: LAC, R/O FB EXAMS: CPT CODE: [id number] XR HAND 3 + V RT [id number] HISTORY: Laceration Location: C3 Comparison to exam [...] by Romaine Trivedi MD on 02/14 at 7786 Reported and signed by: Romaine Trivedi MD CC: Tonya Brennan NP Technologist: Liliana Diop Trnscrd Da te/Time/By: 03/09/2018 ([id number]) : By: [email or web address] Orig Print D/T: S: 03/10 (0002) PAGE 1 Signed Report
== END 2019-10-15 04:20 | disposition home or self-care (01) ==
LOC: ER 03:00
DX: S00.83XA Contusion of other part of head, initial encounter (principal); W01.0XXA Fall on same level from slipping, tripping and stumbling without subsequent striking against object, initial encounter; Y93.01 Activity, walking, marching and hiking; Y92.008 Other place in unspecified non-institutional (private) residence as the place of occurrence of the external cause; I10 Essential (primary) hypertension; G40.909 Epilepsy, unspecified, not intractable, without status epilepticus; M54.9 Dorsalgia, unspecified; G89.29 Other chronic pain; F31.9 Bipolar disorder, unspecified; Z86.73 Personal history of transient ischemic attack (TIA), and cerebral infarction without residual deficits
CPT/HCPCS: 70450; 72125; 99283

== ENCOUNTER 2020-03-10 06:46 | Inpatient (IN) | payer MEDICARE, OTHER ==
[2020-03-05 08:33] LABS: BASOPHILS # (AUTO) 0.1 (0.0-0.1); BASOPHILS % 0.5 % (0.0-1.0); EOSINOPHILS % 0.1 % (0.0-6.0); HEMATOCRIT 42.8 % (34.2-44.1); HEMOGLOBIN 13.6 g/dL (12.0-16.0); LYMPHOCYTES # (AUTO) 1.1 (1.0-3.2); LYMPHOCYTES % 10.5 % (18.0-39.1); MEAN CORPUSCULAR HEMOGLOBIN 30.8 pg (28-32); MEAN CORPUSCULAR HGB CONC 31.8 g/dL (31-35); MEAN CORPUSCULAR VOLUME 97.1 fL (81-99); MONOCYTES # (AUTO) 0.5 (0.2-0.8); MONOCYTES % 4.5 % (4.4-11.3); NEUTROPHILS # (AUTO) 9.1 (2.1-6.9); NEUTROPHILS % 83.8 % (38.7-80.0); PLATELET COUNT 347 x10e3/uL (140-360); RED BLOOD COUNT 4.41 x10e6/uL (3.6-5.1); RED CELL DISTRIBUTION WIDTH 12.6 % (11.7-14.4)
[2020-03-05 08:52] LABS: ALANINE AMINOTRANSFERASE 31 IU/L (0-55); ALBUMIN 3.9 g/dL (3.5-5.0); ALBUMIN/GLOBULIN RATIO 1.3 (0.8-2.0); ALKALINE PHOSPHATASE 147 IU/L (40-150); ANION GAP 13.1 mmol/L (8-16); BLOOD UREA NITROGEN 11 mg/dL (7-26); BUN/CREATININE RATIO 17 (6-25); CALCIUM 8.6 mg/dL (8.4-10.2); CARBON DIOXIDE 22 mmol/L (22-29); CHLORIDE 106 mmol/L (98-107); CREATININE, SERUM 0.66 mg/dL (0.57-1.11); EST GLOMERULAR FILTRATION RATE > 60 ML/MIN (60-); GLUCOSE 118 mg/dL (74-118); POTASSIUM 4.1 mmol/L (3.5-5.1); SODIUM 137 mmol/L (136-145)
[~2020-03-10] VITALS: Ht 157.5 cm; Wt 92.5 kg
[~2020-03-10 06:46] MED LIST changes: +DILANTIN100 MG PO; +TIZANIDINE HCL4 MG PO
[2020-03-10] MEDS ORDERED: CEFAZOLIN SOD 1 GM/NS 50ML 100 ML IV ONE (08:42)
[2020-03-10] MEDS ORDERED: BUPIVACAINE/EPINEPHRINE 0.25% 10 ML SDV INJ ONE (10:15)
[2020-03-10] MEDS ORDERED: ESTROGENS CONJUGATED VAGINAL CR 45 GM TUBE PV ONE (10:15)
[2020-03-10] MEDS ORDERED: ALPRAZOLAM 1 MG PO SCH (11:30)
[2020-03-10] MEDS ORDERED: DIPHENHYDRAMINE HCL 25 MG CAP PO PRN (11:30)
[2020-03-10] MEDS ORDERED: BISACODYL 5 MG TAB EC PO PRN (11:30)
[2020-03-10] MEDS ORDERED: ONDANSETRON HCL INJ 2MG/ML 2ML 2 MG/ML VIAL IV PRN (11:30)
[2020-03-10] MEDS ORDERED: TIZANIDINE HCL 4 MG TAB PO PRN (11:30)
[2020-03-10] MEDS ORDERED: DEXAMETHASONE SOD PHOS INJ 4 MG/ML VIAL ONE (12:33)
[2020-03-10] MEDS ORDERED: NEOSTIGMINE 1 MG/ML 10ML VIAL ONE (12:33)
[2020-03-10] MEDS ORDERED: LIDOCAINE HCL 2% JELLY 5 ML TUBE ONE (12:33)
[2020-03-10] MEDS ORDERED: LIDOCAINE HCL 2% LOCAL INJ 5 ML SDV VIAL INJ ONE (12:33)
[2020-03-10] MEDS ORDERED: ONDANSETRON HCL INJ 2MG/ML 2ML 2 MG/ML VIAL ONE (12:33)
[2020-03-10] MEDS ORDERED: GLYCOPYRROLATE INJ 0.2 MG/ML VIAL ONE (12:33)
[2020-03-10] MEDS ORDERED: PROPOFOL IV EMULSION 10 MG/ML 20 ML VIAL ONE (12:33)
[2020-03-10] MEDS ORDERED: ROCURONIUM BROMIDE 10 MG/ML 5ML VIAL IV ONE (12:33)
[2020-03-10] MEDS ORDERED: SEVOFLURANE INHAL SOLN 250 ML PEN BTL ONE (12:33)
[2020-03-10] MEDS ORDERED: INDIGOTINDISULFONATE SODIUM 8 MG/ML AMP IJ ONE (12:41)
[2020-03-10] MEDS ORDERED: GENTAMICIN SULFATE 40 MG/ML 2 ML VIAL ONE (13:31)
[2020-03-10] MEDS ORDERED: IOPAMIDOL 300MG/ML 50ML INFUS..BTL IV ONE (13:38)
[2020-03-10] MEDS ORDERED: FENTANYL CITRATE/PF 100MCG/2 ML INJ ONE ×2 (13:39→15:30)
[2020-03-10] MEDS ORDERED: MIDAZOLAM HCL 2 MG/2 ML VIAL ONE (13:39)
[2020-03-10] MEDS ORDERED: PHENYTOIN 50 MG TAB PO SCH (14:00)
[2020-03-10] MEDS ORDERED: HYDROMORPHONE 1MG/1ML INJ ONE (15:53)
[2020-03-10 16:40] VITALS: BP 164/92
[2020-03-10 17:04] VITALS: BP 164/92
[2020-03-10] MEDS: PHENYTOIN SODIUM EXT REL 100 MG CAP PO SCH ×2 (17:38→22:29)
[2020-03-10] MEDS: HYDROCODONE/APAP 5MG-325MG TAB PO PRN ×2 (17:38→22:40)
[2020-03-10] MEDS: LACTATED RINGER'S 1,000 ML IV SCH (18:37)
[2020-03-10 20:00] VITALS: BP_SYST 136; BP_SYST 164; BP_DIAS 84; BP_DIAS 92
[2020-03-10] MEDS: KETOROLAC TROMETHAMINE 30 MG/ML VIAL IM PRN (20:07)
[2020-03-10] MEDS: ALPRAZOLAM 1 MG TAB PO PRN (20:08)
[2020-03-10] MEDS: LITHIUM CARBONATE ER 300 MG TAB PO SCH (20:08)
[2020-03-10 20:31] VITALS: BP 136/84
[2020-03-10] MEDS ORDERED: NON-FORMULARY MEDICATION (Lithium Carbonate 300 MG) PO SCH (21:00)
[2020-03-10] MEDS ORDERED: ZOLPIDEM TARTRATE 5 MG TAB PO PRN (21:00)
[2020-03-11] VITALS (7 sets, daily range): BP systolic 116–130; BP diastolic 57–75
[2020-03-11] MEDS: HYDROCODONE/APAP 5MG-325MG TAB PO PRN ×3 (04:25→19:21)
[2020-03-11 05:14] LABS: BASOPHILS % 0.2 % (0.0-1.0); EOSINOPHILS % 0.2 % (0.0-6.0); HEMOGLOBIN 11.1 g/dL (12.0-16.0); LYMPHOCYTES # (AUTO) 1.9 (1.0-3.2); LYMPHOCYTES % 15.4 % (18.0-39.1); MEAN CORPUSCULAR HEMOGLOBIN 30.4 pg (28-32); MEAN CORPUSCULAR HGB CONC 31.7 g/dL (31-35); MEAN CORPUSCULAR VOLUME 95.9 fL (81-99); MONOCYTES # (AUTO) 1.1 (0.2-0.8); MONOCYTES % 9.2 % (4.4-11.3); NEUTROPHILS # (AUTO) 9.2 (2.1-6.9); NEUTROPHILS % 74.4 % (38.7-80.0); PLATELET COUNT 311 x10e3/uL (140-360); RED BLOOD COUNT 3.65 x10e6/uL (3.6-5.1); RED CELL DISTRIBUTION WIDTH 13.1 % (11.7-14.4)
[2020-03-11 05:29] LABS: ALANINE AMINOTRANSFERASE 36 IU/L (0-55); ALBUMIN 3.3 g/dL (3.5-5.0); ALBUMIN/GLOBULIN RATIO 1.5 (0.8-2.0); ALKALINE PHOSPHATASE 125 IU/L (40-150); ANION GAP 13.2 mmol/L (8-16); BLOOD UREA NITROGEN 10 mg/dL (7-26); BUN/CREATININE RATIO 16 (6-25); CARBON DIOXIDE 24 mmol/L (22-29); CHLORIDE 106 mmol/L (98-107); CREATININE, SERUM 0.62 mg/dL (0.57-1.11); EST GLOMERULAR FILTRATION RATE > 60 ML/MIN (60-); GLUCOSE 116 mg/dL (74-118); POTASSIUM 4.2 mmol/L (3.5-5.1); SODIUM 139 mmol/L (136-145)
[2020-03-11] MEDS: PHENYTOIN SODIUM EXT REL 100 MG CAP PO SCH ×3 (05:29→22:00)
[2020-03-11] MEDS: LACTATED RINGER'S 1,000 ML IV SCH ×3 (05:29→19:30)
[2020-03-11] MEDS: LITHIUM CARBONATE ER 300 MG TAB PO SCH ×2 (08:14→21:00)
[2020-03-11] MEDS ORDERED: NON-FORMULARY MEDICATION (Lithium Carbonate 300 MG) PO SCH (09:00)
[2020-03-11] MEDS ORDERED: MEPERIDINE HCL INJ 25 MG/ML VIAL IV PRN (09:45)
[2020-03-11] MEDS: KETOROLAC TROMETHAMINE 30 MG/ML VIAL IM PRN (10:16)
[2020-03-11] MEDS: GABAPENTIN 100 MG CAP PO SCH ×2 (14:54→21:00)
[2020-03-11] MEDS ORDERED: MAGNESIUM HYDROXIDE 30 ML UDC PO PRN (18:15)
[2020-03-11] MEDS: SENNOSIDES 8.6 MG TAB PO SCH (18:49)
[2020-03-11] MEDS: ALPRAZOLAM 1 MG TAB PO PRN (22:07)
[2020-03-12] VITALS: BP 133/84
[2020-03-12] MEDS: LACTATED RINGER'S 1,000 ML IV SCH ×2 (03:30→11:30)
[2020-03-12 04:00] VITALS: BP 116/71
[2020-03-12] MEDS: PHENYTOIN SODIUM EXT REL 100 MG CAP PO SCH (05:44)
[2020-03-12] MEDS: HYDROCODONE/APAP 5MG-325MG TAB PO PRN (07:34)
[2020-03-12] MEDS: LITHIUM CARBONATE ER 300 MG TAB PO SCH (07:34)
[2020-03-12] MEDS: SENNOSIDES 8.6 MG TAB PO SCH (07:34)
[2020-03-12] MEDS: GABAPENTIN 100 MG CAP PO SCH (07:34)
[2020-03-12 08:54] VITALS: BP 120/72
[2020-03-12] MEDS ORDERED: ONDANSETRON HCL 4 MG ORAL DISINTEGRATING TAB PO PRN (09:15)
[2020-03-12 09:23] VITALS: BP 120/72
[2020-03-12] MEDS: KETOROLAC TROMETHAMINE 30 MG/ML VIAL IM PRN (10:12)
[2020-03-12 13:31] VITALS: BP 118/68
[2020-03-19] MEDS ORDERED: BACTRIM DS TAB1 EACH PO (17:10)
[2020-04-20] MEDS ORDERED: LITHOBID300 MG PO (13:04)
== END 2020-03-12 14:45 | disposition home or self-care (01) | DRG 743 ==
LOC: OR 06:46 → PACU V 11:24 → MED/SURG 16:40 → OBSVTOIN 03-11 10:35
PROVIDERS: ADMIT Obstetrics & Gynecology; ATTEND Obstetrics & Gynecology
PROC: 0UT9FZZ Resection of Uterus, Via Natural or Artificial Opening With Percutaneous Endoscopic Assistance (ICD-10-PCS; 2020-03-10)
PROC: 0UT0FZZ Resection of Right Ovary, Via Natural or Artificial Opening With Percutaneous Endoscopic Assistance (ICD-10-PCS; 2020-03-10)
PROC: 0TJB8ZZ Inspection of Bladder, Via Natural or Artificial Opening Endoscopic (ICD-10-PCS; 2020-03-10)
PROC: BT141ZZ Fluoroscopy of Kidneys, Ureters and Bladder using Low Osmolar Contrast (ICD-10-PCS; 2020-03-10)
PROC: 0USG7ZZ Reposition Vagina, Via Natural or Artificial Opening (ICD-10-PCS; principal; 2020-03-10 09:30)
PROC: 0TQB7ZZ Repair Bladder, Via Natural or Artificial Opening (ICD-10-PCS; 2020-03-10 09:30)
PROC: 0JQC0ZZ Repair Pelvic Region Subcutaneous Tissue and Fascia, Open Approach (ICD-10-PCS; 2020-03-10 09:30)
DX: N81.4 Uterovaginal prolapse, unspecified (principal); E66.9 Obesity, unspecified; Z68.37 Body mass index [BMI] 37.0-37.9, adult; E78.00 Pure hypercholesterolemia, unspecified; Z88.8 Allergy status to other drugs, medicaments and biological substances; Z20.822 Contact with and (suspected) exposure to COVID-19
CPT/HCPCS: 36415; 74420; 80053; 84702; 85025; 88307; 93005; C1758; C2617; G0378; J0690; J1100; J1170; J1580; J1885; J2001; J2175; J2250; J2405; J2710; J3010; J7121; U0002

== ENCOUNTER → 2020-03-19 | Emergency (ER) | payer MEDICARE, OTHER ==
[~2020-03-19] VITALS: Ht 157.5 cm; Wt 92.5 kg
[~2020-03-19] MED LIST changes: +BACTRIM DS TAB1 EACH PO; +IOPAMIDOL 370 MG/ML 200 ML INFUS..BTL INJ ONE; +KETOROLAC TROMETHAMINE 30 MG/ML VIAL IV STA; +PHENAZOPYRIDINE HCL 100 MG TAB PO ONE; +SODIUM CHLORIDE 0.9% 1000ML 1,000 ML IV STA
[2020-03-19 15:08] LABS: CLARITY,URINE HAZY (CLEAR); COLOR,URINE YELLOW (YELLOW)
[2020-03-19 15:09] LABS: KETONES,URINE NEGATIVE (NEGATIVE); LEUKOCYTE ESTERASE ,URINE SMALL (NEGATIVE); NITRITE,URINE NEGATIVE (NEGATIVE); PROTEIN,URINE DIPSTICK 1+ (NEGATIVE); URINE UROBILINOGEN 0.2 mg/dL (0.2 - 1)
[2020-03-19 15:25] LABS: BACTERIA,URINE FEW /HPF
[2020-03-19 16:37] LABS: BASOPHILS # (AUTO) 0.1 (0.0-0.1); BASOPHILS % 0.7 % (0.0-1.0); EOSINOPHILS # (AUTO) 0.3 (0.0-0.4); EOSINOPHILS % 2.7 % (0.0-6.0); HEMATOCRIT 39.8 % (34.2-44.1); HEMOGLOBIN 12.3 g/dL (12.0-16.0); LYMPHOCYTES # (AUTO) 1.6 (1.0-3.2); LYMPHOCYTES % 13.4 % (18.0-39.1); MEAN CORPUSCULAR HEMOGLOBIN 30.8 pg (28-32); MEAN CORPUSCULAR HGB CONC 30.9 g/dL (31-35); MEAN CORPUSCULAR VOLUME 99.5 fL (81-99); MONOCYTES # (AUTO) 0.8 (0.2-0.8); MONOCYTES % 6.8 % (4.4-11.3); NEUTROPHILS # (AUTO) 9.1 (2.1-6.9); NEUTROPHILS % 75.7 % (38.7-80.0); PLATELET COUNT 300 x10e3/uL (140-360); RED CELL DISTRIBUTION WIDTH 13.3 % (11.7-14.4)
[2020-03-19 16:54] LABS: ALANINE AMINOTRANSFERASE 33 IU/L (0-55); ALBUMIN 3.9 g/dL (3.5-5.0); ALBUMIN/GLOBULIN RATIO 1.3 (0.8-2.0); ALKALINE PHOSPHATASE 189 IU/L (40-150); ANION GAP 13.9 mmol/L (8-16); BLOOD UREA NITROGEN 11 mg/dL (7-26); BUN/CREATININE RATIO 17 (6-25); CALCIUM 8.6 mg/dL (8.4-10.2); CARBON DIOXIDE 22 mmol/L (22-29); CHLORIDE 107 mmol/L (98-107); CREATINE KINASE 33 IU/L (29-168); CREATININE, SERUM 0.65 mg/dL (0.57-1.11); EST GLOMERULAR FILTRATION RATE > 60 ML/MIN (60-); GLUCOSE 93 mg/dL (74-118); POTASSIUM 3.9 mmol/L (3.5-5.1); SODIUM 139 mmol/L (136-145)
[2020-03-19 17:34] VITALS: BP 128/74
== END ==
LOC: ER 14:30
DX: N30.90 Cystitis, unspecified without hematuria (principal); R30.0 Dysuria; R10.9 Unspecified abdominal pain; G40.909 Epilepsy, unspecified, not intractable, without status epilepticus; F31.9 Bipolar disorder, unspecified; M54.9 Dorsalgia, unspecified; G89.29 Other chronic pain
CPT/HCPCS: 36415; 74177; 80053; 81001; 82550; 82553; 84484; 85025; 99284; J1885; J7030; Q9967

== ENCOUNTER 2020-03-23 20:46 | Emergency (ER) | payer MEDICARE, OTHER ==
[~2020-03-23] VITALS: Ht 157.5 cm; Wt 92.5 kg
[~2020-03-23 20:46] MED LIST changes: -IOPAMIDOL 370 MG/ML 200 ML INFUS..BTL INJ ONE; -KETOROLAC TROMETHAMINE 30 MG/ML VIAL IV STA; -PHENAZOPYRIDINE HCL 100 MG TAB PO ONE; -SODIUM CHLORIDE 0.9% 1000ML 1,000 ML IV STA
[2020-03-23 23:47] LABS: CLARITY,URINE CLOUDY (CLEAR); COLOR,URINE AMBER (YELLOW); KETONES,URINE TRACE (NEGATIVE); LEUKOCYTE ESTERASE ,URINE 1+ (NEGATIVE); NITRITE,URINE NEGATIVE (NEGATIVE); PROTEIN,URINE DIPSTICK >=300 (NEGATIVE); URINE UROBILINOGEN 1 mg/dL (0.2 - 1)
[2020-03-23 23:48] LABS: BACTERIA,URINE FEW /HPF; EPITHELIAL CELLS,URINE FEW /LPF; RBC,URINE >50 /HPF (0-5)
[2020-03-24] MEDS ORDERED: CEFTRIAXONE SOD 1 GM VIAL IM ONE (00:30)
[2020-03-24] MEDS ORDERED: CEFTRIAXONE SOD 1 GM/NS 50 ML 50 ML IV ONE (00:30)
[2020-03-24] MEDS ORDERED: LIDOCAINE HCL 1% LOCAL INJ 20 ML VIAL ONE (00:53)
== END 2020-03-24 01:40 | disposition home or self-care (01) ==
LOC: ER 21:05
DX: Z46.6 Encounter for fitting and adjustment of urinary device (principal); R33.9 Retention of urine, unspecified; N39.0 Urinary tract infection, site not specified
CPT/HCPCS: 51702; 74176; 81001; 87086; 99283; J0696; J2001; 51700

== ENCOUNTER 2020-04-20 20:26 | Emergency (ER) | payer MEDICARE, OTHER ==
[~2020-04-20] VITALS: Ht 157.5 cm; Wt 90.7 kg
[~2020-04-20 20:26] MED LIST changes: +LITHOBID300 MG PO
[2020-04-20] MEDS ORDERED: ONDANSETRON HCL 4 MG ORAL DISINTEGRATING TAB PO ONE (20:45)
[2020-04-20 21:38] LABS: CLARITY,URINE SL CLOUDY (CLEAR); COLOR,URINE ORANGE (YELLOW); KETONES,URINE NEGATIVE (NEGATIVE); LEUKOCYTE ESTERASE ,URINE TRACE (NEGATIVE); NITRITE,URINE POSITIVE (NEGATIVE); PROTEIN,URINE DIPSTICK 2+ (NEGATIVE); URINE UROBILINOGEN 1 mg/dL (0.2 - 1)
[2020-04-20 21:48] LABS: BACTERIA,URINE MODERATE /HPF; RBC,URINE 0-5 /HPF (0-5)
[2020-04-21 00:16] VITALS: BP 132/66
[2020-04-21] MEDS ORDERED: COLACE100 MG PO (14:45)
== END 2020-04-20 23:00 | disposition home or self-care (01) ==
LOC: ER 20:31
DX: R10.32 Left lower quadrant pain (principal); K59.00 Constipation, unspecified; R33.9 Retention of urine, unspecified; R30.0 Dysuria; N39.0 Urinary tract infection, site not specified
CPT/HCPCS: 51702; 74019; 81001; 87086; 99284; Q0162; 87186

== ENCOUNTER 2020-04-21 10:47 | Emergency (ER) | payer MEDICARE, OTHER ==
[~2020-04-21] VITALS: Ht 157.5 cm; Wt 90.7 kg
[2020-04-21] MEDS ORDERED: CITRATE OF MAGNESIA 300ML BOTTLE PO ONE (11:00)
[2020-04-21] MEDS ORDERED: MINERAL OIL 132 ML BTL PR ONE (11:00)
[2020-04-21] MEDS ORDERED: BISACODYL 5 MG TAB EC PO ONE (11:00)
[2020-04-21] MEDS ORDERED: LACTULOSE SYRUP 20 GM/30 ML UDC PO ONE (11:00)
[2020-04-21] MEDS ORDERED: DIATRIZOATE MEGL/DIATRIZOA SOD 30 ML BTL PO ONE (11:18)
[2020-04-21 13:21] LABS: BASOPHILS # (AUTO) 0.1 (0.0-0.1); BASOPHILS % 0.9 % (0.0-1.0); EOSINOPHILS # (AUTO) 0.1 (0.0-0.4); EOSINOPHILS % 1.3 % (0.0-6.0); HEMATOCRIT 42.8 % (34.2-44.1); HEMOGLOBIN 13.7 g/dL (12.0-16.0); LYMPHOCYTES # (AUTO) 1.5 (1.0-3.2); MEAN CORPUSCULAR HEMOGLOBIN 30.6 pg (28-32); MEAN CORPUSCULAR VOLUME 95.7 fL (81-99); MONOCYTES # (AUTO) 0.6 (0.2-0.8); MONOCYTES % 6.7 % (4.4-11.3); NEUTROPHILS # (AUTO) 6.4 (2.1-6.9); NEUTROPHILS % 73.8 % (38.7-80.0); PLATELET COUNT 371 x10e3/uL (140-360); RED BLOOD COUNT 4.47 x10e6/uL (3.6-5.1); RED CELL DISTRIBUTION WIDTH 13.3 % (11.7-14.4)
[2020-04-21 13:38] LABS: ALANINE AMINOTRANSFERASE 36 IU/L (0-55); ALBUMIN 4.3 g/dL (3.5-5.0); ALBUMIN/GLOBULIN RATIO 1.2 (0.8-2.0); ALKALINE PHOSPHATASE 215 IU/L (40-150); ANION GAP 14.8 mmol/L (8-16); BLOOD UREA NITROGEN 8 mg/dL (7-26); BUN/CREATININE RATIO 12 (6-25); CALCIUM 9.5 mg/dL (8.4-10.2); CARBON DIOXIDE 24 mmol/L (22-29); CHLORIDE 106 mmol/L (98-107); CREATININE, SERUM 0.69 mg/dL (0.57-1.11); EST GLOMERULAR FILTRATION RATE > 60 ML/MIN (60-); GLUCOSE 102 mg/dL (74-118); POTASSIUM 3.8 mmol/L (3.5-5.1); SODIUM 141 mmol/L (136-145)
[2020-04-21] MEDS ORDERED: COLACE100 MG PO (14:45)
[2020-04-21 15:13] VITALS: BP 125/74
== END 2020-04-21 15:18 | disposition home or self-care (01) ==
LOC: ER 10:49
DX: R10.31 Right lower quadrant pain (principal); K52.9 Noninfective gastroenteritis and colitis, unspecified; I10 Essential (primary) hypertension; G40.909 Epilepsy, unspecified, not intractable, without status epilepticus; F31.9 Bipolar disorder, unspecified; M54.9 Dorsalgia, unspecified; G89.29 Other chronic pain
CPT/HCPCS: 36415; 74176; 80053; 85025; 99285; U0002

== ENCOUNTER → 2020-04-23 | Day surgery (SDC) | payer MEDICARE, OTHER ==
[~2020-04-23] MED LIST changes: +B&O 60MG R/S 60 MG SUPP PR ONE; +CEFAZOLIN SOD 1 GM/NS 50ML 50 ML IV ONE; +DEXAMETHASONE SOD PHOS INJ 4 MG/ML VIAL ONE; +FENTANYL CITRATE/PF 100MCG/2 ML INJ ONE; +IOPAMIDOL 300MG/ML 50ML INFUS..BTL IV ONE; +LIDOCAINE HCL 2% LOCAL INJ 5 ML SDV VIAL INJ ONE; +MIDAZOLAM HCL 2 MG/2 ML VIAL ONE; +ONDANSETRON HCL INJ 2MG/ML 2ML 2 MG/ML VIAL ONE; +PROPOFOL IV EMULSION 10 MG/ML 20 ML VIAL ONE; +SEVOFLURANE INHAL SOLN 250 ML PEN BTL ONE
[2020-04-23 13:45] VITALS: BP 131/73
== END | disposition home or self-care (01) ==
LOC: OR 08:53
PROVIDERS: ATTEND Urology
DX: Z46.6 Encounter for fitting and adjustment of urinary device (principal); N13.30 Unspecified hydronephrosis; R35.0 Frequency of micturition; R33.9 Retention of urine, unspecified; H91.3 Deaf nonspeaking, not elsewhere classified; G40.909 Epilepsy, unspecified, not intractable, without status epilepticus; F41.9 Anxiety disorder, unspecified; F31.9 Bipolar disorder, unspecified; Z88.8 Allergy status to other drugs, medicaments and biological substances; Z01.812 Encounter for preprocedural laboratory examination; Z20.822 Contact with and (suspected) exposure to COVID-19; Z90.710 Acquired absence of both cervix and uterus
CPT/HCPCS: 52351; 74420; C1758; J0690; J1100; J2001; J2250; J2405; J2704; J3010; Q9967; U0002

== ENCOUNTER 2020-08-10 08:27 | Inpatient (IN) | payer MEDICARE, OTHER ==
[~2020-08-10] VITALS: Ht 157.5 cm; Wt 97.6 kg
[~2020-08-10 08:27] MED LIST changes: -B&O 60MG R/S 60 MG SUPP PR ONE; -CEFAZOLIN SOD 1 GM/NS 50ML 50 ML IV ONE; -DEXAMETHASONE SOD PHOS INJ 4 MG/ML VIAL ONE; -FENTANYL CITRATE/PF 100MCG/2 ML INJ ONE; -IOPAMIDOL 300MG/ML 50ML INFUS..BTL IV ONE; -LIDOCAINE HCL 2% LOCAL INJ 5 ML SDV VIAL INJ ONE; -MIDAZOLAM HCL 2 MG/2 ML VIAL ONE; -ONDANSETRON HCL INJ 2MG/ML 2ML 2 MG/ML VIAL ONE; -PROPOFOL IV EMULSION 10 MG/ML 20 ML VIAL ONE; -SEVOFLURANE INHAL SOLN 250 ML PEN BTL ONE
[2020-08-10] MEDS ORDERED: PIPERACILLIN/TAZOBACTAM 3.375 GM in SODIUM CHLORIDE 0.9% 50ML 50 ML IV STA (08:44)
[2020-08-10 09:12] LABS: BASOPHILS # (AUTO) 0.1 (0.0-0.1); BASOPHILS % 0.6 % (0.0-1.0); EOSINOPHILS # (AUTO) 0.1 (0.0-0.4); EOSINOPHILS % 0.8 % (0.0-6.0); HEMATOCRIT 38.6 % (34.2-44.1); HEMOGLOBIN 12.5 g/dL (12.0-16.0); LYMPHOCYTES # (AUTO) 1.9 (1.0-3.2); LYMPHOCYTES % 20.4 % (18.0-39.1); MEAN CORPUSCULAR HGB CONC 32.4 g/dL (31-35); MEAN CORPUSCULAR VOLUME 95.8 fL (81-99); MONOCYTES # (AUTO) 0.7 (0.2-0.8); MONOCYTES % 7.5 % (4.4-11.3); NEUTROPHILS # (AUTO) 6.7 (2.1-6.9); NEUTROPHILS % 70.2 % (38.7-80.0); PLATELET COUNT 291 x10e3/uL (140-360); RED BLOOD COUNT 4.03 x10e6/uL (3.6-5.1); RED CELL DISTRIBUTION WIDTH 13.6 % (11.7-14.4)
[2020-08-10 10:30] LABS: ALBUMIN 3.7 g/dL (3.5-5.0); ALBUMIN/GLOBULIN RATIO 1.5 (0.8-2.0); ANION GAP 10.2 mmol/L (8-16); CALCIUM 8.5 mg/dL (8.4-10.2); CREATININE, SERUM 0.66 mg/dL (0.57-1.11); POTASSIUM 4.2 mmol/L (3.5-5.1)
[2020-08-10 10:34] LABS: SALICYLATE < 5.0 mg/dL (0-30)
[2020-08-10] MEDS ORDERED: MORPHINE SULFATE INJ 4 MG/ML INJ 1ML IV STA (10:37)
[2020-08-10 11:03] LABS: AMPHETAMINES SCREEN,URINE NEGATIVE (NEGATIVE); BENZODIAZEPINES SCREEN,URINE POSITIVE (NEGATIVE); PHENCYCLIDINE SCREEN,URINE NEGATIVE (NEGATIVE)
[2020-08-10] MEDS ORDERED: ACETAMINOPHEN 325 MG TAB PO STA (16:30)
[2020-08-11 07:04] LABS: BASOPHILS # (AUTO) 0.1 (0.0-0.1); BASOPHILS % 0.8 % (0.0-1.0); EOSINOPHILS # (AUTO) 0.1 (0.0-0.4); HEMATOCRIT 37.6 % (34.2-44.1); HEMOGLOBIN 12.2 g/dL (12.0-16.0); LYMPHOCYTES # (AUTO) 1.9 (1.0-3.2); LYMPHOCYTES % 24.1 % (18.0-39.1); MEAN CORPUSCULAR HGB CONC 32.4 g/dL (31-35); MEAN CORPUSCULAR VOLUME 95.4 fL (81-99); MONOCYTES # (AUTO) 0.7 (0.2-0.8); MONOCYTES % 8.3 % (4.4-11.3); NEUTROPHILS # (AUTO) 5.1 (2.1-6.9); NEUTROPHILS % 65.2 % (38.7-80.0); PLATELET COUNT 284 x10e3/uL (140-360); RED BLOOD COUNT 3.94 x10e6/uL (3.6-5.1); RED CELL DISTRIBUTION WIDTH 13.4 % (11.7-14.4)
[2020-08-11 07:29] LABS: ALBUMIN 3.2 g/dL (3.5-5.0); ALBUMIN/GLOBULIN RATIO 1.3 (0.8-2.0); ANION GAP 13.1 mmol/L (8-16); CALCIUM 7.8 mg/dL (8.4-10.2); CREATININE, SERUM 0.61 mg/dL (0.57-1.11); POTASSIUM 4.1 mmol/L (3.5-5.1)
[2020-08-11] MEDS ORDERED: ONDANSETRON HCL INJ 2MG/ML 2ML 2 MG/ML VIAL IV PRN (11:45)
[2020-08-11] MEDS ORDERED: ALPRAZOLAM 1 MG PO SCH (11:45)
[2020-08-11] MEDS ORDERED: ACETAMINOPHEN 325 MG TAB PO PRN (11:45)
[2020-08-11 11:57] LABS: CHOL/HDL RATIO 3.5 (3.0-3.6)
[2020-08-11] MEDS ORDERED: ALPRAZOLAM 1 MG TAB PO PRN (12:00)
[2020-08-11] MEDS: TRAMADOL HCL 50 MG TAB PO PRN ×2 (13:07→23:00)
[2020-08-11] MEDS: LITHIUM PO SCH (15:00)
[2020-08-11 15:57] VITALS: BP 120/77
[2020-08-11] MEDS: DOCUSATE SODIUM 100 MG CAP PO SCH ×2 (16:30→22:00)
[2020-08-11] MEDS: CLINDAMYCIN 300MG 50 ML IV SCH ×2 (16:33→22:00)
[2020-08-11] MEDS ORDERED: GABAPENTIN300 MG PO (16:45)
[2020-08-11] MEDS ORDERED: BELBUCA150 MCG BU (16:45)
[2020-08-11] MEDS ORDERED: CYMBALTA30 MG PO (16:45)
[2020-08-11] MEDS ORDERED: ONDANSETRON ODT4 MG PO (16:45)
[2020-08-11] MEDS ORDERED: TRAZODONE HCL50 MG PO (16:45)
[2020-08-11] MEDS ORDERED: TIZANIDINE HCL4 M1 PO (16:45)
[2020-08-11] MEDS ORDERED: CRESTOR10 MG PO (16:45)
[2020-08-11] MEDS ORDERED: HYDROCODON-ACE1 EAC9 PO (16:45)
[2020-08-11] MEDS ORDERED: VIMPAT100 MG PO (16:45)
[2020-08-11] MEDS ORDERED: RELISTOR150 MG PO (16:45)
[2020-08-11] MEDS ORDERED: CELEBREX100 MG PO (16:45)
[2020-08-11] MEDS ORDERED: estradiol TD (16:45)
[2020-08-11] MEDS: MUPIROCIN 2% OINT 22 GM TUBE TOP SCH (17:00)
[2020-08-11] MEDS: PHENYTOIN SODIUM EXT REL 100 MG CAP PO SCH ×2 (18:46→22:00)
[2020-08-11] MEDS ORDERED: DULOXETINE HCL 30 MG DELAYED RELEASE PO SCH (21:00)
[2020-08-11] MEDS ORDERED: ZOLPIDEM TARTRATE 5 MG TAB PO PRN (21:00)
[2020-08-11] MEDS ORDERED: LITHIUM CARBONATE ER 300 MG TAB PO SCH (21:00)
[2020-08-11 21:01] VITALS: BP 97/63
[2020-08-11] MEDS: ALPRAZOLAM 1 MG TAB PO SCH (22:00)
[2020-08-11] MEDS: GABAPENTIN 300 MG CAP PO SCH (22:00)
[2020-08-11] MEDS: SIMVASTATIN 40 MG TAB PO SCH (22:00)
[2020-08-11] MEDS: TRAZODONE HCL 50 MG TAB PO SCH (22:00)
[2020-08-11 22:43] VITALS: BP 97/63
[2020-08-11] MEDS: LITHIUM CARBONATE 150 MG CAPSULE PO SCH (22:45)
[2020-08-12] VITALS (9 sets, daily range): BP systolic 111–130; BP diastolic 60–92
[2020-08-12] MEDS: CLINDAMYCIN 300MG 50 ML IV SCH ×3 (05:53→21:58)
[2020-08-12] MEDS: PHENYTOIN SODIUM EXT REL 100 MG CAP PO SCH ×2 (05:53→14:00)
[2020-08-12] MEDS ORDERED: ONDANSETRON HCL 4 MG ORAL DISINTEGRATING TAB PO PRN (08:15)
[2020-08-12] MEDS: CELECOXIB 100 MG CAP PO SCH (08:22)
[2020-08-12] MEDS: LACOSAMIDE 50 MG TABLET PO SCH ×2 (08:22→17:18)
[2020-08-12] MEDS: DOCUSATE SODIUM 100 MG CAP PO SCH ×3 (08:22→21:58)
[2020-08-12] MEDS: ALPRAZOLAM 1 MG TAB PO SCH ×3 (08:22→21:58)
[2020-08-12] MEDS: LITHIUM CARBONATE 150 MG CAPSULE PO SCH ×2 (08:22→21:58)
[2020-08-12] MEDS: MUPIROCIN 2% OINT 22 GM TUBE TOP SCH ×2 (08:22→17:18)
[2020-08-12] MEDS: GABAPENTIN 300 MG CAP PO SCH ×3 (08:22→21:58)
[2020-08-12] MEDS: TRAMADOL HCL 50 MG TAB PO PRN (15:18)
[2020-08-12] MEDS ORDERED: SODIUM CHLORIDE 0.9% 250ML 250 ML ONE (21:48)
[2020-08-12] MEDS: CYCLOBENZAPRINE HCL 10 MG TAB PO SCH (21:58)
[2020-08-12] MEDS: TRAZODONE HCL 50 MG TAB PO SCH (21:58)
[2020-08-12] MEDS: DULOXETINE HCL 30 MG DELAYED RELEASE PO SCH (21:58)
[2020-08-12] MEDS: SIMVASTATIN 40 MG TAB PO SCH (21:58)
[2020-08-13 03:27] VITALS: BP 122/77
[2020-08-13] MEDS: CLINDAMYCIN 300MG 50 ML IV SCH ×2 (06:00→13:51)
[2020-08-13] MEDS: CYCLOBENZAPRINE HCL 10 MG TAB PO SCH ×2 (06:00→13:51)
[2020-08-13 08:11] VITALS: BP 110/62
[2020-08-13] MEDS: DULOXETINE HCL 30 MG DELAYED RELEASE PO SCH (09:00)
[2020-08-13] MEDS: ALPRAZOLAM 1 MG TAB PO SCH ×2 (09:00→15:00)
[2020-08-13] MEDS: LACOSAMIDE 50 MG TABLET PO SCH ×2 (09:00→16:36)
[2020-08-13] MEDS: MUPIROCIN 2% OINT 22 GM TUBE TOP SCH (09:00)
[2020-08-13] MEDS: DOCUSATE SODIUM 100 MG CAP PO SCH ×2 (09:00→15:00)
[2020-08-13] MEDS: CELECOXIB 100 MG CAP PO SCH (09:00)
[2020-08-13] MEDS: GABAPENTIN 300 MG CAP PO SCH ×2 (09:00→15:00)
[2020-08-13] MEDS: LITHIUM CARBONATE 150 MG CAPSULE PO SCH (09:00)
[2020-08-13 09:20] VITALS: BP 110/62
[2020-08-13] MEDS ORDERED: MUPIROCIN22 GM TOP (11:08)
[2020-08-13] MEDS ORDERED: LITHIUM CARBON150 MG PO (11:08)
[2020-08-13] MEDS ORDERED: CLINDAMYCIN HC150 MG PO (11:08)
[2020-08-13 11:33] VITALS: BP 108/70
[2020-08-13] MEDS ORDERED: SIMVASTATIN 20 MG TAB PO SCH (21:00)
[2020-08-13] MEDS ORDERED: CLINDAMYCIN HCL 150 MG CAP PO SCH (22:00)
[2020-08-14] MEDS ORDERED: CELECOXIB 200 MG CAP PO SCH (09:00)
[2020-08-14] MEDS ORDERED: NEOMYCIN/POLYMYXIN/BACITRACIN 15 GM TUBE TOP SCH (09:00)
== END 2020-08-13 16:40 | DRG 935 ==
LOC: ER 09:18 → ERHOLD 19:57 → MED/SURG2 08-11 15:43 → OBSVTOIN 08-13 09:36
PROVIDERS: ADMIT Internal Medicine; ATTEND Internal Medicine
DX: T25.121A Burn of first degree of right foot, initial encounter (principal); L03.115 Cellulitis of right lower limb; R45.851 Suicidal ideations; E66.9 Obesity, unspecified; Z68.36 Body mass index [BMI] 36.0-36.9, adult; X15.8XXA Contact with other hot household appliances, initial encounter; Z20.822 Contact with and (suspected) exposure to COVID-19
CPT/HCPCS: 36415; 80053; 80061; 80178; 80307; 80329; 83036; 85025; 93005; 96365; 99251; 99285; G0378; J2270; J2543; J7050; U0002

== ENCOUNTER 2020-08-31 18:23 | Emergency (ER) | payer MEDICARE, OTHER ==
[~2020-08-31] VITALS: Ht 157.5 cm; Wt 97.5 kg
[~2020-08-31 18:23] MED LIST changes: +BELBUCA150 MCG BU; +CELEBREX100 MG PO; +CLINDAMYCIN HC150 MG PO; +CRESTOR10 MG PO; +CYMBALTA30 MG PO; +GABAPENTIN300 MG PO; +HYDROCODON-ACE1 EAC9 PO; +LITHIUM CARBON150 MG PO; +MUPIROCIN22 GM TOP; +ONDANSETRON ODT4 MG PO; +RELISTOR150 MG PO; +TIZANIDINE HCL4 M1 PO; +TRAZODONE HCL50 MG PO; +VIMPAT100 MG PO; +estradiol TD
[2020-08-31] MEDS ORDERED: METHYLPREDNISOLONE ACETATE 80 MG/ML VIAL IM ONE (19:45)
== END 2020-08-31 20:18 | disposition home or self-care (01) ==
LOC: ER 18:23
DX: R51.9 Headache, unspecified (principal); J32.9 Chronic sinusitis, unspecified; I10 Essential (primary) hypertension; G40.909 Epilepsy, unspecified, not intractable, without status epilepticus; F31.9 Bipolar disorder, unspecified; M54.9 Dorsalgia, unspecified; G89.29 Other chronic pain; Z86.73 Personal history of transient ischemic attack (TIA), and cerebral infarction without residual deficits
CPT/HCPCS: 70450; 99283

== ENCOUNTER 2020-11-03 16:02 | Emergency (ER) | payer MEDICARE ==
[~2020-11-03] VITALS: Ht 157.5 cm; Wt 97.5 kg
[2020-11-03] MEDS ORDERED: SODIUM CHLORIDE 0.9% 1000ML 1,000 ML IV STA (16:27)
[2020-11-03] MEDS ORDERED: KETOROLAC TROMETHAMINE 30 MG/ML VIAL IV STA (16:27)
[2020-11-03] MEDS ORDERED: METOCLOPRAMIDE HCL 10 MG/2ML VIAL IV ONE (16:30)
[2020-11-03] MEDS ORDERED: DIPHENHYDRAMINE HCL INJ 50 MG/ML VIAL IV ONE (16:30)
[2020-11-03 17:12] LABS: BASOPHILS # (AUTO) 0.1 (0.0-0.1); BASOPHILS % 0.8 % (0.0-1.0); EOSINOPHILS # (AUTO) 0.1 (0.0-0.4); EOSINOPHILS % 1.1 % (0.0-6.0); HEMATOCRIT 42.7 % (34.2-44.1); HEMOGLOBIN 13.3 g/dL (12.0-16.0); LYMPHOCYTES # (AUTO) 1.6 (1.0-3.2); LYMPHOCYTES % 24.5 % (18.0-39.1); MEAN CORPUSCULAR HEMOGLOBIN 30.7 pg (28-32); MEAN CORPUSCULAR HGB CONC 31.1 g/dL (31-35); MEAN CORPUSCULAR VOLUME 98.6 fL (81-99); MONOCYTES # (AUTO) 0.4 (0.2-0.8); MONOCYTES % 6.5 % (4.4-11.3); NEUTROPHILS # (AUTO) 4.3 (2.1-6.9); NEUTROPHILS % 66.8 % (38.7-80.0); PLATELET COUNT 383 x10e3/uL (140-360); RED BLOOD COUNT 4.33 x10e6/uL (3.6-5.1); RED CELL DISTRIBUTION WIDTH 13.2 % (11.7-14.4)
[2020-11-03 17:27] LABS: ALANINE AMINOTRANSFERASE 24 IU/L (0-55); ALBUMIN/GLOBULIN RATIO 1.3 (0.8-2.0); ALKALINE PHOSPHATASE 100 IU/L (40-150); ANION GAP 13.7 mmol/L (8-16); BLOOD UREA NITROGEN 11 mg/dL (7-26); BUN/CREATININE RATIO 15 (6-25); CARBON DIOXIDE 22 mmol/L (22-29); CHLORIDE 108 mmol/L (98-107); CREATINE KINASE 44 IU/L (29-168); CREATININE, SERUM 0.73 mg/dL (0.57-1.11); EST GLOMERULAR FILTRATION RATE 83 ML/MIN (60-); GLUCOSE 92 mg/dL (74-118); LIPASE 38 U/L (8-78); POTASSIUM 3.7 mmol/L (3.5-5.1); SODIUM 140 mmol/L (136-145)
[2020-11-03 17:30] LABS: STREPTOCOCCUS GRP A ANTIGEN NEGATIVE (NEGATIVE)
[2020-11-03 17:36] LABS: CLARITY,URINE CLEAR (CLEAR); COLOR,URINE YELLOW (YELLOW); KETONES,URINE NEGATIVE (NEGATIVE); LEUKOCYTE ESTERASE ,URINE NEGATIVE (NEGATIVE); NITRITE,URINE NEGATIVE (NEGATIVE); PROTEIN,URINE DIPSTICK NEGATIVE (NEGATIVE); URINE UROBILINOGEN 0.2 mg/dL (0.2 - 1)
[2020-11-03 17:47] LABS: BACTERIA,URINE FEW /HPF; EPITHELIAL CELLS,URINE MANY /LPF
[2020-11-03 17:54] LABS: INFLUENZAE A&B ANTIGEN (RAPID) NEGATIVE (NEGATIVE)
[2020-11-03] MEDS ORDERED: SODIUM CHLORIDE 0.9% 50ML 50 ML ONE (18:13)
[2020-11-03] MEDS ORDERED: IOPAMIDOL 370 MG/ML 200 ML INFUS..BTL INJ ONE (18:13)
[2020-11-03 20:19] VITALS: BP 134/86
== END 2020-11-03 20:24 | disposition home or self-care (01) ==
LOC: ER 17:47
DX: R07.9 Chest pain, unspecified (principal); R10.11 Right upper quadrant pain; R51.9 Headache, unspecified; R25.2 Cramp and spasm; I10 Essential (primary) hypertension; G40.909 Epilepsy, unspecified, not intractable, without status epilepticus; F31.9 Bipolar disorder, unspecified; Z86.73 Personal history of transient ischemic attack (TIA), and cerebral infarction without residual deficits
CPT/HCPCS: 36415; 71045; 74177; 76705; 80053; 81001; 82550; 82553; 83518; 83690; 84484; 85025; 87070; 87400; 93005; 99284; J1200; J1885; J2765; J7030; Q9967

== ENCOUNTER 2021-03-16 17:08 | Emergency (ER) | payer MEDICARE ==
[~2021-03-16] VITALS: Ht 157.5 cm; Wt 97.5 kg
== END 2021-03-16 18:22 | disposition home or self-care (01) ==
LOC: ER 17:21
DX: S92.354A Nondisplaced fracture of fifth metatarsal bone, right foot, initial encounter for closed fracture (principal); X50.1XXA Overexertion from prolonged static or awkward postures, initial encounter; Y93.01 Activity, walking, marching and hiking; Y92.008 Other place in unspecified non-institutional (private) residence as the place of occurrence of the external cause; I10 Essential (primary) hypertension; G40.909 Epilepsy, unspecified, not intractable, without status epilepticus; M54.9 Dorsalgia, unspecified; G89.29 Other chronic pain; F31.9 Bipolar disorder, unspecified; Z86.73 Personal history of transient ischemic attack (TIA), and cerebral infarction without residual deficits
CPT/HCPCS: 99283

== ENCOUNTER 2021-04-06 12:17 | Emergency (ER) | payer OTHER, MEDICARE ==
[~2021-04-06] VITALS: Ht 157.5 cm; Wt 88.5 kg
[2021-04-06] MEDS ORDERED: LIDOCAINE HCL 2% LOCAL 20 ML VIAL INJ ONE (12:40)
[2021-04-06] MEDS ORDERED: LIDOCAINE HCL 1% LOCAL INJ 20 ML VIAL ONE (12:43)
== END 2021-04-06 13:20 | disposition home or self-care (01) ==
LOC: ER 12:27
DX: S61.211A Laceration without foreign body of left index finger without damage to nail, initial encounter (principal); W26.0XXA Contact with knife, initial encounter; Y93.G3 Activity, cooking and baking; Y92.000 Kitchen of unspecified non-institutional (private) residence as the place of occurrence of the external cause; I10 Essential (primary) hypertension; G40.909 Epilepsy, unspecified, not intractable, without status epilepticus; M54.9 Dorsalgia, unspecified; G89.29 Other chronic pain; F31.9 Bipolar disorder, unspecified; Z86.73 Personal history of transient ischemic attack (TIA), and cerebral infarction without residual deficits
CPT/HCPCS: 99283; J2001

== ENCOUNTER 2022-08-03 14:26 | Emergency (ER) | payer MEDICARE, OTHER ==
[~2022-08-03] VITALS: Ht 157.5 cm; Wt 88.5 kg
[~2022-08-03 14:26] MED LIST changes: +BENZONATATE100 MG PO
[2022-08-03 14:38] VITALS: O2SAT 95
[2022-08-03] MEDS ORDERED: SODIUM CHLORIDE 0.9% 1000ML 1,000 ML IV STA (15:11)
[2022-08-03 15:54] LABS: BASOPHILS # (AUTO) 0.1 (0.0-0.1); BASOPHILS % 0.7 % (0.0-1.0); EOSINOPHILS # (AUTO) 0.2 (0.0-0.4); EOSINOPHILS % 2.4 % (0.0-6.0); HEMATOCRIT 35.8 % (34.2-44.1); HEMOGLOBIN 11.4 g/dL (12.0-16.0); LYMPHOCYTES # (AUTO) 1.7 (1.0-3.2); LYMPHOCYTES % 18.3 % (18.0-39.1); MEAN CORPUSCULAR HEMOGLOBIN 30.2 pg (28-32); MEAN CORPUSCULAR HGB CONC 31.8 g/dL (31-35); MONOCYTES # (AUTO) 0.7 (0.2-0.8); MONOCYTES % 7.3 % (4.4-11.3); NEUTROPHILS # (AUTO) 6.5 (2.1-6.9); PLATELET COUNT 316 x10e3/uL (140-360); RED BLOOD COUNT 3.77 x10e6/uL (3.6-5.1)
[2022-08-03 16:04] LABS: INR 0.88; PARTIAL THROMBOPLASTIN TIME 28.3 seconds (23.8-35.5); PROTHROMBIN TIME 12.4 seconds (11.9-14.5)
[2022-08-03 16:14] LABS: ALANINE AMINOTRANSFERASE 25 IU/L (0-55); ALBUMIN 3.6 g/dL (3.5-5.0); ALBUMIN/GLOBULIN RATIO 1.4 (0.8-2.0); ALKALINE PHOSPHATASE 184 IU/L (40-150); ANION GAP 13.9 mmol/L (8-16); BLOOD UREA NITROGEN 8 mg/dL (7-26); BUN/CREATININE RATIO 12 (6-25); CALCIUM 8.9 mg/dL (8.4-10.2); CARBON DIOXIDE 21 mmol/L (22-29); CHLORIDE 110 mmol/L (98-107); CREATINE KINASE 45 IU/L (29-168); CREATININE, SERUM 0.66 mg/dL (0.57-1.11); GLUCOSE 83 mg/dL (74-118); POTASSIUM 3.9 mmol/L (3.5-5.1); SODIUM 141 mmol/L (136-145)
== END 2022-08-03 18:33 | disposition home or self-care (01) ==
LOC: ER 15:12
DX: S00.01XA Abrasion of scalp, initial encounter (principal); W01.0XXA Fall on same level from slipping, tripping and stumbling without subsequent striking against object, initial encounter; Y92.89 Other specified places as the place of occurrence of the external cause; G40.909 Epilepsy, unspecified, not intractable, without status epilepticus; I10 Essential (primary) hypertension; F31.9 Bipolar disorder, unspecified; R94.31 Abnormal electrocardiogram [ECG] [EKG]
CPT/HCPCS: 36415; 70450; 71045; 72125; 80053; 80178; 80185; 82550; 83735; 84484; 85025; 85610; 85730; 93005; 99284; J7030; Q2009

== ENCOUNTER 2023-08-27 10:57 | Inpatient (IN) | payer MEDICARE, OTHER ==
[~2023-08-27] VITALS: Ht 157.5 cm; Wt 81.6 kg
[~2023-08-27 10:57] MED LIST changes: +AMOX TR-K CLV1 EAC2 PO; +DICYCLOMINE HCL20 MG PO; +HYDROCODONE-ACE10 M1 PO; +NAPROXEN250 MG PO
[2023-08-27 11:00] VITALS: TEMP 98.4
[2023-08-27] MEDS: ONDANSETRON HCL INJ 2MG/ML 2ML 2 MG/ML VIAL IV STA (11:38)
[2023-08-27] MEDS: Morphine 4mg INJECTION 4 MG/ML INJ IV STA (11:39)
[2023-08-27 11:41] LABS: BASOPHILS # (AUTO) 0.1 (0.0-0.1); BASOPHILS % 0.9 % (0.0-1.0); EOSINOPHILS # (AUTO) 0.4 (0.0-0.4); EOSINOPHILS % 3.6 % (0.0-6.0); HEMOGLOBIN 10.2 g/dL (12.0-16.0); LYMPHOCYTES # (AUTO) 2.2 (1.0-3.2); LYMPHOCYTES % 18.1 % (18.0-39.1); MEAN CORPUSCULAR VOLUME 93.4 fL (81-99); MONOCYTES % 7.7 % (4.4-11.3); NEUTROPHILS # (AUTO) 8.2 (2.1-6.9); NEUTROPHILS % 66.2 % (38.7-80.0); PLATELET COUNT 715 x10e3/uL (140-360); RED BLOOD COUNT 3.64 x10e6/uL (3.6-5.1); RED CELL DISTRIBUTION WIDTH 14.9 % (11.7-14.4); WHITE BLOOD COUNT 12.37 x10e3/uL (4.8-10.8)
[2023-08-27 12:11] LABS: ALBUMIN 3.3 g/dL (3.5-5.0); ALBUMIN/GLOBULIN RATIO 0.9 (0.8-2.0); ANION GAP 14.9 mmol/L (8-16); CALCIUM 9.3 mg/dL (8.4-10.2); CREATININE, SERUM 0.61 mg/dL (0.57-1.11); POTASSIUM 3.9 mmol/L (3.5-5.1); TOTAL PROTEIN 7.1 g/dL (6.5-8.1)
[2023-08-27] MEDS ORDERED: IOPAMIDOL 370 MG/ML 100 ML INFUS..BTL INJ ONE (12:27)
[2023-08-27 12:31] LABS: BILIRUBIN,TOTAL 0.2 mg/dL (0.2-1.2)
[2023-08-27 13:11] VITALS: PULSE 84; RESP 17
[2023-08-27] MEDS: SODIUM CHLORIDE 0.9% 1000ML 1,000 ML IV SCH (14:39)
[2023-08-27 15:36] VITALS: BP 120/80; PULSE 88; RESP 19; TEMP 97.9; O2SAT 97
[2023-08-27] MEDS: Morphine 4mg INJECTION 4 MG/ML INJ IV PRN (15:56)
[2023-08-27 16:00] VITALS: BP 120/80; PULSE 88; RESP 19; TEMP 97.9; O2SAT 97
[2023-08-27 20:00] VITALS: BP 124/70; PULSE 73; RESP 18; TEMP 98.1; O2SAT 99
[2023-08-27] MEDS: ONDANSETRON HCL INJ 2MG/ML 2ML 2 MG/ML VIAL IV PRN (20:24)
[2023-08-27 21:30] VITALS: BP 124/70; PULSE 73; RESP 18; TEMP 98.1; O2SAT 99
[2023-08-28] VITALS (10 sets, daily range): BP systolic 102–125; BP diastolic 63–71; PULSE 74–82; RESP 18–20; TEMP 97.8–98.9; O2SAT 95–100
[2023-08-28] MEDS ORDERED: SIMETHICONE 80 MG CHEW PO PRN (08:15)
[2023-08-28] MEDS ORDERED: METOPROLOL TARTRATE INJ 1 MG/ML VIAL IV PRN (08:15)
[2023-08-28] MEDS ORDERED: ALBUTEROL/IPRATROPIUM 3 ML NEB NEB PRN (08:15)
[2023-08-28] MEDS ORDERED: ALPRAZOLAM 0.5 MG TAB PO PRN (08:15)
[2023-08-28] MEDS: LITHIUM CARBONATE 150 MG CAPSULE PO SCH (09:19)
[2023-08-28] MEDS ORDERED: SIMVASTATIN 40 MG TAB PO SCH (21:00)
[2023-08-28] MEDS: CRESTOR 10MG PO SCH (21:02)
[2023-08-28] MEDS: PHENYTOIN SODIUM EXT REL 100 MG CAP PO SCH (21:03)
[2023-08-29] VITALS (9 sets, daily range): BP systolic 111–117; BP diastolic 56–76; PULSE 66–86; RESP 16–18; TEMP 97.3–98.9; O2SAT 94–100
[2023-08-29 05:23] LABS: BASOPHILS # (AUTO) 0.1 (0.0-0.1); BASOPHILS % 0.5 % (0.0-1.0); EOSINOPHILS # (AUTO) 0.4 (0.0-0.4); EOSINOPHILS % 3.6 % (0.0-6.0); HEMATOCRIT 33.7 % (34.2-44.1); HEMOGLOBIN 9.9 g/dL (12.0-16.0); LYMPHOCYTES # (AUTO) 2.7 (1.0-3.2); LYMPHOCYTES % 23.2 % (18.0-39.1); MEAN CORPUSCULAR HGB CONC 29.4 g/dL (31-35); MEAN CORPUSCULAR VOLUME 95.5 fL (81-99); MONOCYTES # (AUTO) 0.9 (0.2-0.8); MONOCYTES % 7.3 % (4.4-11.3); NEUTROPHILS # (AUTO) 7.1 (2.1-6.9); NEUTROPHILS % 61.2 % (38.7-80.0); PLATELET COUNT 689 x10e3/uL (140-360); RED BLOOD COUNT 3.53 x10e6/uL (3.6-5.1); RED CELL DISTRIBUTION WIDTH 14.9 % (11.7-14.4); WHITE BLOOD COUNT 11.57 x10e3/uL (4.8-10.8)
[2023-08-29 05:44] LABS: ANION GAP 12.6 mmol/L (8-16); BLOOD UREA NITROGEN < 5 mg/dL (7-26); CALCIUM 8.8 mg/dL (8.4-10.2); CARBON DIOXIDE 22 mmol/L (22-29); CHLORIDE 108 mmol/L (98-107); CREATININE, SERUM 0.61 mg/dL (0.57-1.11); EST GLOMERULAR FILTRATION RATE 104 ML/MIN (>=60); GLUCOSE 83 mg/dL (74-118); POTASSIUM 3.6 mmol/L (3.5-5.1); SODIUM 139 mmol/L (136-145)
[2023-08-29 05:50] LABS: BUN/CREATININE RATIO 8 (6-25)
[2023-08-29 06:01] LABS: PHOSPHORUS 4.6 MG/DL (2.3-4.7)
[2023-08-30] VITALS (9 sets, daily range): BP systolic 100–132; BP diastolic 53–83; PULSE 83–91; RESP 16–21; TEMP 97.6–99.1; O2SAT 96–100
[2023-08-30 06:10] LABS: BASOPHILS # (AUTO) 0.1 (0.0-0.1); BASOPHILS % 1.1 % (0.0-1.0); EOSINOPHILS # (AUTO) 0.4 (0.0-0.4); EOSINOPHILS % 3.7 % (0.0-6.0); HEMATOCRIT 31.5 % (34.2-44.1); HEMOGLOBIN 9.6 g/dL (12.0-16.0); LYMPHOCYTES # (AUTO) 2.2 (1.0-3.2); LYMPHOCYTES % 23.1 % (18.0-39.1); MEAN CORPUSCULAR HEMOGLOBIN 28.7 pg (28-32); MEAN CORPUSCULAR HGB CONC 30.5 g/dL (31-35); MONOCYTES # (AUTO) 0.8 (0.2-0.8); MONOCYTES % 8.1 % (4.4-11.3); NEUTROPHILS # (AUTO) 5.6 (2.1-6.9); NEUTROPHILS % 59.6 % (38.7-80.0); PLATELET COUNT 618 x10e3/uL (140-360); RED BLOOD COUNT 3.35 x10e6/uL (3.6-5.1); RED CELL DISTRIBUTION WIDTH 14.8 % (11.7-14.4); WHITE BLOOD COUNT 9.37 x10e3/uL (4.8-10.8)
[2023-08-30 06:28] LABS: ANION GAP 14.8 mmol/L (8-16); BLOOD UREA NITROGEN < 5 mg/dL (7-26); CALCIUM 9.1 mg/dL (8.4-10.2); CARBON DIOXIDE 22 mmol/L (22-29); CHLORIDE 106 mmol/L (98-107); CREATININE, SERUM 0.64 mg/dL (0.57-1.11); EST GLOMERULAR FILTRATION RATE 103 ML/MIN (>=60); GLUCOSE 85 mg/dL (74-118); POTASSIUM 3.8 mmol/L (3.5-5.1); SODIUM 139 mmol/L (136-145)
[2023-08-30 06:29] LABS: BUN/CREATININE RATIO 8 (6-25)
[2023-08-30 06:50] LABS: PHOSPHORUS 4.2 MG/DL (2.3-4.7)
[2023-08-30] MEDS: ACETAMINOPHEN/CODEINE 300MG - 30MG TAB PO PRN (10:46)
[2023-08-30] MEDS: MELATONIN 3 MG TAB PO PRN (21:17)
[2023-08-31] VITALS: BP 119/61; PULSE 76; RESP 18; TEMP 98.2; O2SAT 97
[2023-08-31 04:00] VITALS: BP 104/58; PULSE 74; RESP 16; TEMP 99.3; O2SAT 98
[2023-08-31] MEDS ORDERED: HYDROCODON-ACE1 EA12 PO (06:07)
[2023-08-31] MEDS ORDERED: AUGMENTIN 500-1 EACH PO (06:10)
[2023-08-31 07:12] VITALS: PULSE 75; RESP 18; O2SAT 94
[2023-08-31 08:24] VITALS: BP 114/63; PULSE 80; RESP 17; TEMP 98; O2SAT 99
[2023-08-31] MEDS: DOCUSATE SODIUM 100 MG CAP PO PRN (08:57)
[2023-08-31 09:04] VITALS: BP 114/63; PULSE 80; RESP 17; TEMP 98; O2SAT 99
[2023-08-31] MEDS ORDERED: SENOKOT8.6 MG PO (10:11)
[2023-08-31] MEDS ORDERED: ONDANSETRON ODT4 MG PO (10:11)
[2023-08-31 12:13] VITALS: BP 113/67; PULSE 76; RESP 17; TEMP 98; O2SAT 98
== END 2023-08-31 13:06 | disposition home or self-care (01) | DRG 862 ==
LOC: ER 11:12 → ERHOLD 14:23 → MED/SURG3 15:20 → OBSVTOIN 08-29 09:50
PROVIDERS: ADMIT Internal Medicine; ATTEND Internal Medicine
PROC: 02HV33Z Insertion of Infusion Device into Superior Vena Cava, Percutaneous Approach (ICD-10-PCS; principal; 2023-08-30)
DX: T81.43XA Infection following a procedure, organ and space surgical site, initial encounter (principal); K65.1 Peritoneal abscess; Y83.2 Surgical operation with anastomosis, bypass or graft as the cause of abnormal reaction of the patient, or of later complication, without mention of misadventure at the time of the procedure; E86.0 Dehydration; D75.839 Thrombocytosis, unspecified; F31.9 Bipolar disorder, unspecified; E66.9 Obesity, unspecified; Z68.32 Body mass index [BMI] 32.0-32.9, adult; Z11.52 Encounter for screening for COVID-19; I10 Essential (primary) hypertension; G40.909 Epilepsy, unspecified, not intractable, without status epilepticus; M54.9 Dorsalgia, unspecified; Z90.49 Acquired absence of other specified parts of digestive tract; Z90.710 Acquired absence of both cervix and uterus; Z91.51 Personal history of suicidal behavior; Z91.010 Allergy to peanuts; Z88.8 Allergy status to other drugs, medicaments and biological substances; Z91.048 Other nonmedicinal substance allergy status
CPT/HCPCS: 36415; 36569; 71045; 74177; 80048; 80053; 83735; 84100; 85025; 94799; 99284; G0378; J2270; J2405; J2470; J2543; J7030; Q9967; U0002

== ENCOUNTER 2023-09-01 20:45 | Inpatient (IN) | payer MEDICARE, OTHER ==
[~2023-09-01] VITALS: Ht 157.5 cm; Wt 81.6 kg
[~2023-09-01 20:45] MED LIST changes: +AUGMENTIN 500-1 EACH PO; +HYDROCODON-ACE1 EA12 PO; +SENOKOT8.6 MG PO
[2023-09-01] MEDS: ONDANSETRON HCL INJ 2MG/ML 2ML 2 MG/ML VIAL IV STA (21:22)
[2023-09-01] MEDS ORDERED: ONDANSETRON HCL INJ 2MG/ML 2ML 2 MG/ML VIAL ONE (21:25)
[2023-09-01 21:28] LABS: BASOPHILS # (AUTO) 0.1 (0.0-0.1); BASOPHILS % 0.7 % (0.0-1.0); EOSINOPHILS # (AUTO) 0.4 (0.0-0.4); EOSINOPHILS % 3.8 % (0.0-6.0); HEMATOCRIT 33.6 % (34.2-44.1); LYMPHOCYTES # (AUTO) 2.5 (1.0-3.2); LYMPHOCYTES % 26.5 % (18.0-39.1); MEAN CORPUSCULAR HEMOGLOBIN 28.2 pg (28-32); MEAN CORPUSCULAR HGB CONC 29.8 g/dL (31-35); MEAN CORPUSCULAR VOLUME 94.9 fL (81-99); MONOCYTES # (AUTO) 0.7 (0.2-0.8); MONOCYTES % 7.1 % (4.4-11.3); NEUTROPHILS # (AUTO) 5.7 (2.1-6.9); NEUTROPHILS % 60.1 % (38.7-80.0); PLATELET COUNT 573 x10e3/uL (140-360); RED BLOOD COUNT 3.54 x10e6/uL (3.6-5.1); WHITE BLOOD COUNT 9.47 x10e3/uL (4.8-10.8)
[2023-09-01 21:48] LABS: ALBUMIN 3.4 g/dL (3.5-5.0); ALBUMIN/GLOBULIN RATIO 1.1 (0.8-2.0); ANION GAP 14.9 mmol/L (8-16); BILIRUBIN,TOTAL 0.1 mg/dL (0.2-1.2); CALCIUM 8.4 mg/dL (8.4-10.2); CREATININE, SERUM 0.68 mg/dL (0.57-1.11); POTASSIUM 3.9 mmol/L (3.5-5.1); TOTAL PROTEIN 6.6 g/dL (6.5-8.1)
[2023-09-01] MEDS ORDERED: IOPAMIDOL 370 MG/ML 100 ML INFUS..BTL INJ ONE (22:30)
[2023-09-02] VITALS (9 sets, daily range): BP systolic 91–129; BP diastolic 53–89; PULSE 75–83; RESP 18–20; TEMP 97.6–99.3; O2SAT 94–100
[2023-09-02] MEDS: SODIUM CHLORIDE 0.9% 1000ML 1,000 ML IV SCH (01:52)
[2023-09-02] MEDS: Morphine 4mg INJECTION 4 MG/ML INJ IV PRN (02:16)
[2023-09-02] MEDS: ONDANSETRON HCL INJ 2MG/ML 2ML 2 MG/ML VIAL IV PRN (02:16)
[2023-09-02] MEDS ORDERED: ALBUTEROL/IPRATROPIUM 3 ML NEB NEB PRN (13:30)
[2023-09-02] MEDS ORDERED: METOPROLOL TARTRATE INJ 1 MG/ML VIAL IV PRN (13:30)
[2023-09-02] MEDS: PHENYTOIN SODIUM EXT REL 100 MG CAP PO SCH (20:12)
[2023-09-02] MEDS: LITHIUM CARBONATE 150 MG CAPSULE PO SCH (20:13)
[2023-09-03] VITALS (9 sets, daily range): BP systolic 92–127; BP diastolic 62–79; PULSE 67–94; RESP 16–20; TEMP 98–99.2; O2SAT 93–98
[2023-09-03 09:04] LABS: BASOPHILS # (AUTO) 0.1 (0.0-0.1); EOSINOPHILS # (AUTO) 0.5 (0.0-0.4); EOSINOPHILS % 6.2 % (0.0-6.0); HEMATOCRIT 32.8 % (34.2-44.1); HEMOGLOBIN 9.9 g/dL (12.0-16.0); LYMPHOCYTES # (AUTO) 2.5 (1.0-3.2); LYMPHOCYTES % 34.1 % (18.0-39.1); MEAN CORPUSCULAR HEMOGLOBIN 28.6 pg (28-32); MEAN CORPUSCULAR HGB CONC 30.2 g/dL (31-35); MEAN CORPUSCULAR VOLUME 94.8 fL (81-99); MONOCYTES # (AUTO) 0.6 (0.2-0.8); MONOCYTES % 8.2 % (4.4-11.3); NEUTROPHILS # (AUTO) 3.6 (2.1-6.9); NEUTROPHILS % 49.4 % (38.7-80.0); PLATELET COUNT 471 x10e3/uL (140-360); RED BLOOD COUNT 3.46 x10e6/uL (3.6-5.1); WHITE BLOOD COUNT 7.31 x10e3/uL (4.8-10.8)
[2023-09-03 09:27] LABS: ALANINE AMINOTRANSFERASE 13 IU/L (0-55); ALBUMIN 3.1 g/dL (3.5-5.0); ALKALINE PHOSPHATASE 138 IU/L (40-150); ANION GAP 16.3 mmol/L (8-16); BILIRUBIN,TOTAL 0.2 mg/dL (0.2-1.2); CALCIUM 8.8 mg/dL (8.4-10.2); CARBON DIOXIDE 20 mmol/L (22-29); CHLORIDE 109 mmol/L (98-107); CREATININE, SERUM 0.64 mg/dL (0.57-1.11); EST GLOMERULAR FILTRATION RATE 103 ML/MIN (>=60); GLUCOSE 82 mg/dL (74-118); POTASSIUM 4.3 mmol/L (3.5-5.1); SODIUM 141 mmol/L (136-145); TOTAL PROTEIN 6.1 g/dL (6.5-8.1)
[2023-09-03 09:41] LABS: BLOOD UREA NITROGEN < 5 mg/dL (7-26)
[2023-09-03 09:42] LABS: BUN/CREATININE RATIO 8 (6-25)
[2023-09-03 09:55] LABS: % IRON SATURATION 18 % (15-50); IRON 47 ug/dL (50-170); TOTAL IRON BINDING CAPACITY 258 ug/dL (261-478); TRANSFERRIN 184 mg/dL (180-382)
[2023-09-03 10:30] LABS: FOLATE 5.2 ng/mL (7.0-15.4)
[2023-09-03] MEDS ORDERED: SUGAMMADEX SODIUM 200 MG/2 ML VIAL IV ONE (11:14)
[2023-09-03] MEDS: FENTANYL CITRATE/PF 100MCG/2 ML INJ IV ONE ×2 (11:50→11:55)
[2023-09-03] MEDS: FENTANYL CITRATE/PF 100MCG/2 ML INJ ONE (12:33)
[2023-09-03] MEDS: BUPIVACAINE LIPOSOME/PF 266 MG/20 ML IJ ONE (12:33)
[2023-09-03] MEDS ORDERED: FENTANYL CITRATE/PF 100MCG/2 ML INJ ONE (13:35)
[2023-09-03] MEDS ORDERED: Morphine 10mg syringe 10 MG/ML INJ ONE (13:35)
[2023-09-03] MEDS: HYDROMORPHONE 1MG/1ML INJ IV PRN (13:50)
[2023-09-03] MEDS ORDERED: METOCLOPRAMIDE HCL 10 MG/2ML VIAL ONE (18:05)
[2023-09-03] MEDS ORDERED: KETOROLAC TROMETHAMINE 30 MG/ML VIAL ONE (18:05)
[2023-09-03] MEDS ORDERED: DEXAMETHASONE SOD PHOS INJ 4 MG/ML SDV ONE (18:05)
[2023-09-03] MEDS ORDERED: SEVOFLURANE INHAL SOLN 250 ML PEN BTL ONE (18:05)
[2023-09-03] MEDS ORDERED: SUCCINYLCHOLINE CHLORIDE 20 MG/ML 10ML VIAL ONE (18:05)
[2023-09-03] MEDS ORDERED: LIDOCAINE HCL 2% LOCAL INJ 5 ML SDV VIAL INJ ONE (18:05)
[2023-09-03] MEDS ORDERED: ROCURONIUM BROMIDE 10 MG/ML 5ML VIAL IV ONE (18:05)
[2023-09-03] MEDS ORDERED: PROPOFOL IV EMULSION 10 MG/ML 20 ML VIAL ONE (18:05)
[2023-09-03] MEDS ORDERED: ONDANSETRON HCL INJ 2MG/ML 2ML 2 MG/ML VIAL ONE (18:05)
[2023-09-03] MEDS: SODIUM CHLORIDE 0.9% 1000ML 1,000 ML IV ONE (21:45)
[2023-09-03] MEDS: MELATONIN 3 MG TAB PO PRN (23:38)
[2023-09-04] VITALS (54 sets, daily range): BP systolic 61–119; BP diastolic 33–87; PULSE 93–121; RESP 18–27; TEMP 98.2–99.6; O2SAT 91–100
[2023-09-04] MEDS: FOLIC ACID 1 MG TAB PO ONE (02:30)
[2023-09-04] MEDS: METOCLOPRAMIDE HCL 10 MG/2ML VIAL IV ONE (02:30)
[2023-09-04 05:02] LABS: BASOPHILS # (AUTO) 0.1 (0.0-0.1); BASOPHILS % 0.4 % (0.0-1.0); HEMATOCRIT 42.1 % (34.2-44.1); HEMOGLOBIN 12.3 g/dL (12.0-16.0); LYMPHOCYTES # (AUTO) 1.4 (1.0-3.2); LYMPHOCYTES % 10.6 % (18.0-39.1); MEAN CORPUSCULAR HGB CONC 29.2 g/dL (31-35); MEAN CORPUSCULAR VOLUME 95.7 fL (81-99); MONOCYTES # (AUTO) 0.5 (0.2-0.8); MONOCYTES % 3.7 % (4.4-11.3); PLATELET COUNT 550 x10e3/uL (140-360); RED CELL DISTRIBUTION WIDTH 15.3 % (11.7-14.4); WHITE BLOOD COUNT 12.97 x10e3/uL (4.8-10.8)
[2023-09-04] MEDS: MIDODRINE 2.5 MG TAB PO SCH (06:30)
[2023-09-04] MEDS: ACETAMINOPHEN 1000 MG/100 ML IV PRN (07:08)
[2023-09-04] MEDS ORDERED: IRON SUCROSE 100 MG in SODIUM CHLORIDE 0.9% 100 ML IV SCH (09:00)
[2023-09-04] MEDS: SODIUM CHLORIDE 0.9% 1000ML 1,000 ML IV ONE ×2 (09:09→11:25)
[2023-09-04 09:16] LABS: BASOPHILS % 0.2 % (0.0-1.0); HEMATOCRIT 39.2 % (34.2-44.1); LYMPHOCYTES # (AUTO) 1.3 (1.0-3.2); MEAN CORPUSCULAR HEMOGLOBIN 28.5 pg (28-32); MEAN CORPUSCULAR HGB CONC 30.6 g/dL (31-35); MEAN CORPUSCULAR VOLUME 93.1 fL (81-99); MONOCYTES # (AUTO) 0.6 (0.2-0.8); MONOCYTES % 4.9 % (4.4-11.3); NEUTROPHILS # (AUTO) 10.9 (2.1-6.9); NEUTROPHILS % 84.5 % (38.7-80.0); PLATELET COUNT 487 x10e3/uL (140-360); RED BLOOD COUNT 4.21 x10e6/uL (3.6-5.1); RED CELL DISTRIBUTION WIDTH 15.6 % (11.7-14.4); WHITE BLOOD COUNT 12.94 x10e3/uL (4.8-10.8)
[2023-09-04 09:33] LABS: INR 1.13; PROTHROMBIN TIME 15.3 seconds (11.9-14.5)
[2023-09-04] MEDS ORDERED: IOPAMIDOL 370 MG/ML 100 ML INFUS..BTL INJ ONE (09:41)
[2023-09-04 09:42] LABS: ALBUMIN/GLOBULIN RATIO 0.8 (0.8-2.0); ANION GAP 18.8 mmol/L (8-16); BILIRUBIN,TOTAL 0.4 mg/dL (0.2-1.2); CALCIUM 7.2 mg/dL (8.4-10.2); CREATININE, SERUM 1.54 mg/dL (0.57-1.11); POTASSIUM 3.8 mmol/L (3.5-5.1); TOTAL PROTEIN 4.5 g/dL (6.5-8.1)
[2023-09-04] MEDS: ALBUMIN 25% 25GM 100ML 0.25 GM/ML BTL IV ONE ×2 (10:47→12:34)
[2023-09-04] MEDS: Vancomycin IV 1 GM in SODIUM CHLORIDE 0.9% 250ML 250 ML IV ONE (10:48)
[2023-09-04] MEDS: METOCLOPRAMIDE HCL 10 MG/2ML VIAL IV SCH (11:23)
[2023-09-04] MEDS: FOLIC ACID 1 MG TAB PO SCH (11:24)
[2023-09-04] MEDS: MUPIROCIN 2% OINT 22 GM TUBE TOP SCH (11:25)
[2023-09-04] MEDS: SODIUM CHLORIDE 0.9% 500ML 500 ML IV ONE (11:28)
[2023-09-04 11:40] LABS: BAND NEUTROPHILS % (MANUAL) 14 %; LYMPHOCYTES % (MANUAL) 10 % (19-48); MONOCYTES % (MANUAL) 1 % (3.4-9.0); NEUTROPHILS % (MANUAL) 75 % (40-74)
[2023-09-04 11:41] LABS: PLATELET ESTIMATE ADEQUATE; PLATELET MORPHOLOGY COMMENT NORMAL; RBC MORPHOLOGY COMMENT NORMAL
[2023-09-04] MEDS: SODIUM FERRIC GLUCONATE COMPLX 125 MG in SODIUM CHLORIDE 0.9% 100 ML IV SCH (11:49)
[2023-09-04] MEDS: SODIUM CHLORIDE 0.9% 1000ML 1,000 ML ONE (12:53)
[2023-09-04 14:14] LABS: CLARITY,URINE CLEAR (CLEAR); COLOR,URINE YELLOW (YELLOW); LEUKOCYTE ESTERASE ,URINE NEGATIVE (NEGATIVE); NITRITE,URINE NEGATIVE (NEGATIVE); PH,URINE 5.5 (5 - 7)
[2023-09-04 14:15] LABS: BILIRUBIN,URINE NEGATIVE (NEGATIVE); GLUCOSE, URINE NEGATIVE (NEGATIVE); KETONES,URINE TRACE (NEGATIVE); PROTEIN,URINE DIPSTICK 1+ (NEGATIVE); URINE UROBILINOGEN 0.2 mg/dL (0.2 - 1)
[2023-09-04 14:30] LABS: BACTERIA,URINE FEW /HPF; EPITHELIAL CELLS,URINE FEW /LPF; RBC,URINE 0-5 /HPF (0-5)
[2023-09-04] MEDS: NOREPINEPHRINE 8 MG/D5W 250 ML 250 ML IV SCH (15:45)
[2023-09-04] MEDS ORDERED: DEXTROSE 50% SYRINGE 50 ML IV PRN (17:45)
[2023-09-04] MEDS: LACTATED RINGER'S 1,000 ML INJ SCH (19:54)
[2023-09-04] MEDS ORDERED: INSULIN REGULAR, HUMAN 100 UNIT/1 ML SQ SCH (21:00)
[2023-09-05] VITALS (42 sets, daily range): BP systolic 89–118; BP diastolic 53–73; PULSE 2–120; RESP 17–31; TEMP 97.4–100.4; O2SAT 96–100
[2023-09-05 07:20] LABS: BASOPHILS # (AUTO) 0.1 (0.0-0.1); BASOPHILS % 0.5 % (0.0-1.0); HEMATOCRIT 34.2 % (34.2-44.1); HEMOGLOBIN 10.5 g/dL (12.0-16.0); LYMPHOCYTES # (AUTO) 0.9 (1.0-3.2); LYMPHOCYTES % 9.4 % (18.0-39.1); MEAN CORPUSCULAR HEMOGLOBIN 28.4 pg (28-32); MEAN CORPUSCULAR HGB CONC 30.7 g/dL (31-35); MEAN CORPUSCULAR VOLUME 92.4 fL (81-99); MONOCYTES # (AUTO) 0.3 (0.2-0.8); MONOCYTES % 2.6 % (4.4-11.3); NEUTROPHILS # (AUTO) 8.3 (2.1-6.9); NEUTROPHILS % 85.9 % (38.7-80.0); PLATELET COUNT 337 x10e3/uL (140-360); RED CELL DISTRIBUTION WIDTH 15.7 % (11.7-14.4); WHITE BLOOD COUNT 9.65 x10e3/uL (4.8-10.8)
[2023-09-05 07:42] LABS: ALBUMIN 2.3 g/dL (3.5-5.0); ALKALINE PHOSPHATASE 41 IU/L (40-150); ANION GAP 14.4 mmol/L (8-16); BILIRUBIN,TOTAL 0.3 mg/dL (0.2-1.2); BLOOD UREA NITROGEN 20 mg/dL (7-26); BUN/CREATININE RATIO 25 (6-25); CALCIUM 7.3 mg/dL (8.4-10.2); CARBON DIOXIDE 16 mmol/L (22-29); CHLORIDE 107 mmol/L (98-107); CREATININE, SERUM 0.81 mg/dL (0.57-1.11); EST GLOMERULAR FILTRATION RATE 85 ML/MIN (>=60); GLUCOSE 137 mg/dL (74-118); SODIUM 134 mmol/L (136-145); TOTAL PROTEIN 4.5 g/dL (6.5-8.1)
[2023-09-05 07:55] LABS: POTASSIUM 3.4 mmol/L (3.5-5.1)
[2023-09-05 08:35] LABS: ALANINE AMINOTRANSFERASE < 6 IU/L (0-55)
[2023-09-05 09:48] LABS: BAND NEUTROPHILS % (MANUAL) 21 %; LYMPHOCYTES % (MANUAL) 10 % (19-48); METAMYELOCYTES % (MANUAL) 2 % (0-0); MONOCYTES % (MANUAL) 2 % (3.4-9.0); NEUTROPHILS % (MANUAL) 64 % (40-74); PLATELET ESTIMATE ADEQUATE; PLATELET MORPHOLOGY COMMENT NORMAL; RBC MORPHOLOGY COMMENT NORMAL; REACTIVE LYMPHOCYTES 1
[2023-09-05] MEDS: NOREPINEPHRINE 8 MG/D5W 250 ML 250 ML IV SCH (10:30)
[2023-09-05] MEDS: ACETAMINOPHEN 1000 MG/100 ML IV SCH (11:23)
[2023-09-05] MEDS: ALBUMIN 25% 25GM 100ML 0.25 GM/ML BTL IV ONE (13:28)
[2023-09-05] MEDS: ACETAMINOPHEN 325 MG TAB PO PRN (16:09)
[2023-09-05] MEDS: HYDROCODONE/APAP 7.5MG-325MG 1 EA TAB PO PRN (18:59)
[2023-09-05] MEDS: ACETAMINOPHEN 1000 MG/100 ML IV PRN (23:17)
[2023-09-06] VITALS (21 sets, daily range): BP systolic 93–120; BP diastolic 51–73; PULSE 92–112; RESP 16–23; TEMP 98.2–100.2; O2SAT 90–100
[2023-09-06 07:06] LABS: BASOPHILS % 0.6 % (0.0-1.0); EOSINOPHILS % 0.1 % (0.0-6.0); HEMATOCRIT 27.4 % (34.2-44.1); HEMOGLOBIN 8.4 g/dL (12.0-16.0); LYMPHOCYTES # (AUTO) 0.7 (1.0-3.2); LYMPHOCYTES % 10.2 % (18.0-39.1); MEAN CORPUSCULAR HEMOGLOBIN 28.3 pg (28-32); MEAN CORPUSCULAR HGB CONC 30.7 g/dL (31-35); MEAN CORPUSCULAR VOLUME 92.3 fL (81-99); MONOCYTES # (AUTO) 0.3 (0.2-0.8); MONOCYTES % 3.8 % (4.4-11.3); NEUTROPHILS # (AUTO) 5.9 (2.1-6.9); NEUTROPHILS % 84.7 % (38.7-80.0); PLATELET COUNT 248 x10e3/uL (140-360); RED BLOOD COUNT 2.97 x10e6/uL (3.6-5.1); RED CELL DISTRIBUTION WIDTH 15.3 % (11.7-14.4); WHITE BLOOD COUNT 6.93 x10e3/uL (4.8-10.8)
[2023-09-06 08:05] LABS: ALBUMIN/GLOBULIN RATIO 0.9 (0.8-2.0); BILIRUBIN,TOTAL 0.3 mg/dL (0.2-1.2); CREATININE, SERUM 0.48 mg/dL (0.57-1.11); TOTAL PROTEIN 4.2 g/dL (6.5-8.1)
[2023-09-06 08:06] LABS: POTASSIUM 3.2 mmol/L (3.5-5.1)
[2023-09-06 08:12] LABS: BAND NEUTROPHILS % (MANUAL) 8 %; LYMPHOCYTES % (MANUAL) 13 % (19-48); MONOCYTES % (MANUAL) 1 % (3.4-9.0); NEUTROPHILS % (MANUAL) 78 % (40-74); PLATELET ESTIMATE ADEQUATE; PLATELET MORPHOLOGY COMMENT NORMAL; RBC MORPHOLOGY COMMENT NORMAL
[2023-09-06] MEDS: SODIUM CHLORIDE 0.9% 1000ML 1,000 ML IV SCH (11:24)
[2023-09-06] MEDS: CENTRAL TPN FORMULA 1 BAG IV SCH (21:23)
[2023-09-06] MEDS: ALPRAZOLAM 0.5 MG TAB PO PRN (22:23)
[2023-09-07] VITALS (7 sets, daily range): BP systolic 106–123; BP diastolic 56–69; PULSE 92–110; RESP 16–20; TEMP 99.4–101.8; O2SAT 94–99
[2023-09-07 06:36] LABS: BASOPHILS % 0.3 % (0.0-1.0); EOSINOPHILS # (AUTO) 0.1 (0.0-0.4); EOSINOPHILS % 1.9 % (0.0-6.0); HEMATOCRIT 24.9 % (34.2-44.1); HEMOGLOBIN 7.5 g/dL (12.0-16.0); LYMPHOCYTES # (AUTO) 0.9 (1.0-3.2); LYMPHOCYTES % 15.9 % (18.0-39.1); MEAN CORPUSCULAR HEMOGLOBIN 27.9 pg (28-32); MEAN CORPUSCULAR HGB CONC 30.1 g/dL (31-35); MEAN CORPUSCULAR VOLUME 92.6 fL (81-99); MONOCYTES # (AUTO) 0.3 (0.2-0.8); MONOCYTES % 5.6 % (4.4-11.3); NEUTROPHILS # (AUTO) 4.4 (2.1-6.9); NEUTROPHILS % 74.4 % (38.7-80.0); PLATELET COUNT 250 x10e3/uL (140-360); RED BLOOD COUNT 2.69 x10e6/uL (3.6-5.1); RED CELL DISTRIBUTION WIDTH 15.3 % (11.7-14.4); WHITE BLOOD COUNT 5.93 x10e3/uL (4.8-10.8)
[2023-09-07 06:59] LABS: ALBUMIN 1.6 g/dL (3.5-5.0); ALBUMIN/GLOBULIN RATIO 0.6 (0.8-2.0); ALKALINE PHOSPHATASE 40 IU/L (40-150); BILIRUBIN,TOTAL 0.2 mg/dL (0.2-1.2); BLOOD UREA NITROGEN 7 mg/dL (7-26); BUN/CREATININE RATIO 15 (6-25); CALCIUM 7.2 mg/dL (8.4-10.2); CARBON DIOXIDE 19 mmol/L (22-29); CHLORIDE 105 mmol/L (98-107); CREATININE, SERUM 0.48 mg/dL (0.57-1.11); EST GLOMERULAR FILTRATION RATE 110 ML/MIN (>=60); GLUCOSE 108 mg/dL (74-118); SODIUM 131 mmol/L (136-145); TOTAL PROTEIN 4.3 g/dL (6.5-8.1)
[2023-09-07 07:05] LABS: ALANINE AMINOTRANSFERASE < 6 IU/L (0-55)
[2023-09-07 08:38] LABS: LYMPHOCYTES % (MANUAL) 16 % (19-48); NEUTROPHILS % (MANUAL) 84 % (40-74); PLATELET ESTIMATE ADEQUATE; PLATELET MORPHOLOGY COMMENT NORMAL; RBC MORPHOLOGY COMMENT NORMAL
[2023-09-07] MEDS ORDERED: IOPAMIDOL 370 MG/ML 100 ML INFUS..BTL INJ ONE (09:54)
[2023-09-08] VITALS (8 sets, daily range): BP systolic 104–142; BP diastolic 56–72; PULSE 95–103; RESP 14–21; TEMP 98.6–100.6; O2SAT 94–98
[2023-09-08] MEDS ORDERED: LIDOCAINE HCL 1% LOCAL INJ 20 ML VIAL ONE (09:03)
[2023-09-08] MEDS ORDERED: FENTANYL CITRATE/PF 100MCG/2 ML INJ ONE (09:09)
[2023-09-08] MEDS ORDERED: MIDAZOLAM HCL 2 MG/2 ML VIAL ONE (09:09)
[2023-09-08] MEDS ORDERED: SODIUM CHLORIDE 0.9% 250ML 250 ML ONE (09:09)
[2023-09-08] MEDS ORDERED: CEFTRIAXONE 1 GM VIAL ONE (09:09)
[2023-09-08] MEDS ORDERED: CENTRAL TPN FORMULA 1 BAG IV SCH (12:10)
[2023-09-08] MEDS: SODIUM CHLORIDE 0.9% 250ML 250 ML ONE (14:07)
[2023-09-08] MEDS: CENTRAL TPN FORMULA 1 BAG IV SCH (20:16)
[2023-09-09] VITALS (9 sets, daily range): BP systolic 98–123; BP diastolic 49–66; PULSE 92–107; RESP 16–22; TEMP 97.8–101.1; O2SAT 96–100
[2023-09-09 06:22] LABS: BASOPHILS # (AUTO) 0.1 (0.0-0.1); BASOPHILS % 0.6 % (0.0-1.0); EOSINOPHILS # (AUTO) 0.8 (0.0-0.4); EOSINOPHILS % 4.3 % (0.0-6.0); HEMATOCRIT 25.1 % (34.2-44.1); HEMOGLOBIN 7.6 g/dL (12.0-16.0); LYMPHOCYTES # (AUTO) 1.4 (1.0-3.2); LYMPHOCYTES % 7.6 % (18.0-39.1); MEAN CORPUSCULAR HEMOGLOBIN 28.3 pg (28-32); MEAN CORPUSCULAR HGB CONC 30.3 g/dL (31-35); MEAN CORPUSCULAR VOLUME 93.3 fL (81-99); MONOCYTES # (AUTO) 1.1 (0.2-0.8); PLATELET COUNT 239 x10e3/uL (140-360); RED BLOOD COUNT 2.69 x10e6/uL (3.6-5.1); RED CELL DISTRIBUTION WIDTH 15.9 % (11.7-14.4); WHITE BLOOD COUNT 17.79 x10e3/uL (4.8-10.8)
[2023-09-09 06:24] LABS: ANION GAP 9.1 mmol/L (8-16); CALCIUM 7.5 mg/dL (8.4-10.2); CREATININE, SERUM 0.41 mg/dL (0.57-1.11); PHOSPHORUS 1.2 MG/DL (2.3-4.7)
[2023-09-09 06:25] LABS: POTASSIUM 3.1 mmol/L (3.5-5.1)
[2023-09-09 11:30] LABS: BAND NEUTROPHILS % (MANUAL) 21 %; EOSINOPHILS % (MANUAL) 3 % (0-7); LYMPHOCYTES % (MANUAL) 11 % (19-48); METAMYELOCYTES % (MANUAL) 4 % (0-0); MONOCYTES % (MANUAL) 3 % (3.4-9.0); NEUTROPHILS % (MANUAL) 56 % (40-74)
[2023-09-09 11:34] LABS: ANISOCYTOSIS SLIGHT; PLATELET ESTIMATE ADEQUATE; PLATELET MORPHOLOGY COMMENT NORMAL; POLYCHROMASIA FEW; RBC MORPHOLOGY COMMENT NORMAL
[2023-09-09 11:35] LABS: BASOPHILS % (MANUAL) 0 % (0-1.5); MYELOCYTES % (MANUAL) 2 % (0-0); TOXIC GRANULATION SLIGHT
[2023-09-09] MEDS ORDERED: PROPOFOL IV EMULSION 10 MG/ML 20 ML VIAL ONE (12:36)
[2023-09-09] MEDS ORDERED: ROCURONIUM BROMIDE 10 MG/ML 5ML VIAL IV ONE (12:36)
[2023-09-09] MEDS ORDERED: SUCCINYLCHOLINE CHLORIDE 20 MG/ML 10ML VIAL ONE (12:36)
[2023-09-09] MEDS ORDERED: LIDOCAINE HCL 2% LOCAL INJ 5 ML SDV VIAL INJ ONE (12:36)
[2023-09-09] MEDS ORDERED: SEVOFLURANE INHAL SOLN 250 ML PEN BTL ONE (12:36)
[2023-09-09] MEDS ORDERED: Morphine 10mg syringe 10 MG/ML INJ ONE (12:44)
[2023-09-09] MEDS ORDERED: FENTANYL CITRATE/PF 100MCG/2 ML INJ ONE (12:44)
[2023-09-09] MEDS: SODIUM CHLORIDE 0.9% 1000ML 1,000 ML IV SCH (15:03)
[2023-09-09] MEDS ORDERED: HEPARIN SOD/SOD CHLORIDE 1,000 ML ONE (18:17)
[2023-09-09] MEDS ORDERED: SUGAMMADEX SODIUM 200 MG/2 ML VIAL IV ONE (18:27)
[2023-09-09] MEDS: CENTRAL TPN FORMULA 1 BAG IV SCH (22:46)
[2023-09-09] MEDS: SODIUM CHLORIDE 0.9% 250ML IRRIG IR SCH (22:54)
[2023-09-10] VITALS (9 sets, daily range): BP systolic 108–131; BP diastolic 65–76; PULSE 98–119; RESP 18–22; TEMP 98.1–101.4; O2SAT 95–100
[2023-09-10 06:49] LABS: BASOPHILS # (AUTO) 0.1 (0.0-0.1); BASOPHILS % 0.4 % (0.0-1.0); EOSINOPHILS # (AUTO) 0.1 (0.0-0.4); EOSINOPHILS % 0.3 % (0.0-6.0); HEMATOCRIT 26.2 % (34.2-44.1); HEMOGLOBIN 7.9 g/dL (12.0-16.0); LYMPHOCYTES # (AUTO) 1.3 (1.0-3.2); LYMPHOCYTES % 6.6 % (18.0-39.1); MEAN CORPUSCULAR HGB CONC 30.2 g/dL (31-35); MEAN CORPUSCULAR VOLUME 92.9 fL (81-99); MONOCYTES % 5.2 % (4.4-11.3); NEUTROPHILS # (AUTO) 15.6 (2.1-6.9); NEUTROPHILS % 81.5 % (38.7-80.0); PLATELET COUNT 302 x10e3/uL (140-360); RED BLOOD COUNT 2.82 x10e6/uL (3.6-5.1); RED CELL DISTRIBUTION WIDTH 16.2 % (11.7-14.4); WHITE BLOOD COUNT 19.15 x10e3/uL (4.8-10.8)
[2023-09-10 07:05] LABS: BUN/CREATININE RATIO 42 (6-25); CALCIUM 8.8 mg/dL (8.4-10.2); CHLORIDE 108 mmol/L (98-107); CREATININE, SERUM 0.43 mg/dL (0.57-1.11); EST GLOMERULAR FILTRATION RATE 113 ML/MIN (>=60); GLUCOSE 162 mg/dL (74-118)
[2023-09-10] MEDS: SODIUM CHLORIDE 0.9% 1000ML 1,000 ML ONE (07:45)
[2023-09-10 09:48] LABS: BLOOD UREA NITROGEN < 5 mg/dL (7-26); SODIUM 133 mmol/L (136-145)
[2023-09-10 10:36] LABS: POTASSIUM 3.8 mmol/L (3.5-5.1)
[2023-09-10 12:31] LABS: CARBON DIOXIDE 18 mmol/L (22-29)
[2023-09-10 12:34] LABS: ANION GAP 10.8 mmol/L (8-16)
[2023-09-10] MEDS: LINEZOLID 600 MG/D5W 300ML 300 ML IV SCH ×2 (15:45→20:33)
[2023-09-10] MEDS: ACETAMINOPHEN 1000 MG/100 ML IV ONE (16:09)
[2023-09-10] MEDS: ENOXAPARIN SOD INJ 40 MG/0.4 ML SYR SC SCH (16:14)
[2023-09-10] MEDS: FLUCONAZOLE 200 MG/100 ML 100 ML IV SCH (17:19)
[2023-09-10] MEDS: Morphine 2mg Syringe 2 MG/ML SYR IV PRN (20:34)
[2023-09-10] MEDS: CENTRAL TPN FORMULA 1 BAG IV SCH (21:02)
[2023-09-11] VITALS (7 sets, daily range): BP systolic 105–112; BP diastolic 54–65; PULSE 75–106; RESP 18–19; TEMP 98.2–99.6; O2SAT 95–99
[2023-09-11] MEDS: Morphine 4mg INJECTION 4 MG/ML INJ IV PRN (09:14)
[2023-09-11 10:13] LABS: ALBUMIN 1.2 g/dL (3.5-5.0); ALBUMIN/GLOBULIN RATIO 0.4 (0.8-2.0); ANION GAP 8.6 mmol/L (8-16); BILIRUBIN,TOTAL 0.2 mg/dL (0.2-1.2); CALCIUM 7.1 mg/dL (8.4-10.2); CREATININE, SERUM 0.38 mg/dL (0.57-1.11); POTASSIUM 3.6 mmol/L (3.5-5.1); TOTAL PROTEIN 4.4 g/dL (6.5-8.1)
[2023-09-11] MEDS ORDERED: Morphine 2mg Syringe 2 MG/ML SYR IV PRN (10:30)
[2023-09-11 11:00] LABS: BASOPHILS % 0.3 % (0.0-1.0); EOSINOPHILS # (AUTO) 0.2 (0.0-0.4); LYMPHOCYTES # (AUTO) 1.2 (1.0-3.2); LYMPHOCYTES % 10.2 % (18.0-39.1); MEAN CORPUSCULAR HGB CONC 30.5 g/dL (31-35); MEAN CORPUSCULAR VOLUME 92.1 fL (81-99); MONOCYTES # (AUTO) 0.8 (0.2-0.8); MONOCYTES % 6.5 % (4.4-11.3); NEUTROPHILS # (AUTO) 8.6 (2.1-6.9); NEUTROPHILS % 74.3 % (38.7-80.0); PLATELET COUNT 367 x10e3/uL (140-360); RED BLOOD COUNT 2.14 x10e6/uL (3.6-5.1); RED CELL DISTRIBUTION WIDTH 16.3 % (11.7-14.4); WHITE BLOOD COUNT 11.62 x10e3/uL (4.8-10.8)
[2023-09-11 12:00] LABS: HEMATOCRIT 19.7 % (34.2-44.1)
[2023-09-11] MEDS: LORAZEPAM INJ 2 MG/ML VIAL IV PRN (21:24)
[2023-09-11] MEDS: SODIUM CHLORIDE 0.9% 250ML 250 ML IV ONE (23:05)
[2023-09-11] MEDS: CENTRAL TPN FORMULA 1 BAG IV SCH (23:07)
[2023-09-11] MEDS: SODIUM CHLORIDE 0.9% 250ML 250 ML ONE (23:10)
[2023-09-11 23:46] LABS: INR 0.99; PARTIAL THROMBOPLASTIN TIME 21.5 seconds (23.8-35.5); PROTHROMBIN TIME 13.8 seconds (11.9-14.5)
[2023-09-12] VITALS (60 sets, daily range): BP systolic 82–127; BP diastolic 54–83; PULSE 86–113; RESP 13–24; TEMP 98.6–100; O2SAT 93–100
[2023-09-12 00:17] LABS: ALBUMIN 1.2 g/dL (3.5-5.0); ALBUMIN/GLOBULIN RATIO 0.4 (0.8-2.0); ANION GAP 10.9 mmol/L (8-16); BILIRUBIN,TOTAL 0.3 mg/dL (0.2-1.2); CALCIUM 7.2 mg/dL (8.4-10.2); CREATININE, SERUM 0.38 mg/dL (0.57-1.11); POTASSIUM 3.9 mmol/L (3.5-5.1); TOTAL PROTEIN 4.5 g/dL (6.5-8.1)
[2023-09-12 00:29] LABS: BASOPHILS % 0.3 % (0.0-1.0); EOSINOPHILS # (AUTO) 0.3 (0.0-0.4); EOSINOPHILS % 2.3 % (0.0-6.0); LYMPHOCYTES # (AUTO) 1.4 (1.0-3.2); LYMPHOCYTES % 11.8 % (18.0-39.1); MEAN CORPUSCULAR HEMOGLOBIN 27.8 pg (28-32); MEAN CORPUSCULAR HGB CONC 30.1 g/dL (31-35); MEAN CORPUSCULAR VOLUME 92.3 fL (81-99); MONOCYTES # (AUTO) 0.7 (0.2-0.8); NEUTROPHILS # (AUTO) 8.4 (2.1-6.9); NEUTROPHILS % 72.3 % (38.7-80.0); PLATELET COUNT 365 x10e3/uL (140-360); RED BLOOD COUNT 2.09 x10e6/uL (3.6-5.1); RED CELL DISTRIBUTION WIDTH 16.6 % (11.7-14.4); WHITE BLOOD COUNT 11.57 x10e3/uL (4.8-10.8)
[2023-09-12 00:32] LABS: HEMATOCRIT 19.3 % (34.2-44.1); HEMOGLOBIN 5.8 g/dL (12.0-16.0)
[2023-09-12] MEDS ORDERED: NOREPINEPHRINE 8 MG/D5W 250 ML 250 ML IV SCH (03:45)
[2023-09-12] MEDS ORDERED: SODIUM CHLORIDE 0.9% 500ML 500 ML IV ONE (03:45)
[2023-09-12 05:38] LABS: BAND NEUTROPHILS % (MANUAL) 1 %; EOSINOPHILS % (MANUAL) 4 % (0-7); LYMPHOCYTES % (MANUAL) 11 % (19-48); MONOCYTES % (MANUAL) 8 % (3.4-9.0); NEUTROPHILS % (MANUAL) 76 % (40-74); NUCLEATED RED BLOOD CELLS 1; PLATELET ESTIMATE ADEQUATE; PLATELET MORPHOLOGY COMMENT NORMAL; RBC MORPHOLOGY COMMENT NORMAL; TOXIC GRANULATION SLIGHT
[2023-09-12 05:39] LABS: HYPOCHROMASIA SLIGHT
[2023-09-12 08:52] LABS: PREALBUMIN 6 mg/dL (10-36)
[2023-09-12 10:54] LABS: BASOPHILS # (AUTO) 0.1 (0.0-0.1); BASOPHILS % 0.4 % (0.0-1.0); EOSINOPHILS # (AUTO) 0.3 (0.0-0.4); EOSINOPHILS % 1.8 % (0.0-6.0); HEMATOCRIT 24.2 % (34.2-44.1); HEMOGLOBIN 7.6 g/dL (12.0-16.0); LYMPHOCYTES # (AUTO) 1.1 (1.0-3.2); LYMPHOCYTES % 7.7 % (18.0-39.1); MEAN CORPUSCULAR HEMOGLOBIN 28.7 pg (28-32); MEAN CORPUSCULAR HGB CONC 31.4 g/dL (31-35); MEAN CORPUSCULAR VOLUME 91.3 fL (81-99); MONOCYTES # (AUTO) 0.8 (0.2-0.8); MONOCYTES % 5.5 % (4.4-11.3); NEUTROPHILS # (AUTO) 10.7 (2.1-6.9); NEUTROPHILS % 76.9 % (38.7-80.0); PLATELET COUNT 393 x10e3/uL (140-360); RED BLOOD COUNT 2.65 x10e6/uL (3.6-5.1); RED CELL DISTRIBUTION WIDTH 17.5 % (11.7-14.4); WHITE BLOOD COUNT 13.86 x10e3/uL (4.8-10.8)
[2023-09-12] MEDS ORDERED: IOPAMIDOL 370 MG/ML 100 ML INFUS..BTL INJ ONE (11:22)
[2023-09-12] MEDS: BISACODYL 10 MG SUPP PR ONE (18:32)
[2023-09-12] MEDS: FOSPHENYTOIN IV SCH (20:46)
[2023-09-12] MEDS: SODIUM CHLORIDE 0.9% IV SCH (20:46)
[2023-09-13] VITALS (10 sets, daily range): BP systolic 108–135; BP diastolic 50–69; PULSE 94–110; RESP 16–20; TEMP 98–101.7; O2SAT 96–100
[2023-09-13 05:40] LABS: BASOPHILS # (AUTO) 0.1 (0.0-0.1); BASOPHILS % 0.5 % (0.0-1.0); EOSINOPHILS # (AUTO) 0.2 (0.0-0.4); EOSINOPHILS % 1.6 % (0.0-6.0); HEMATOCRIT 26.9 % (34.2-44.1); HEMOGLOBIN 8.2 g/dL (12.0-16.0); LYMPHOCYTES # (AUTO) 1.3 (1.0-3.2); LYMPHOCYTES % 8.9 % (18.0-39.1); MEAN CORPUSCULAR HEMOGLOBIN 27.7 pg (28-32); MEAN CORPUSCULAR HGB CONC 30.5 g/dL (31-35); MEAN CORPUSCULAR VOLUME 90.9 fL (81-99); MONOCYTES # (AUTO) 0.8 (0.2-0.8); MONOCYTES % 5.6 % (4.4-11.3); NEUTROPHILS # (AUTO) 10.7 (2.1-6.9); NEUTROPHILS % 76.1 % (38.7-80.0); PLATELET COUNT 351 x10e3/uL (140-360); RED BLOOD COUNT 2.96 x10e6/uL (3.6-5.1); RED CELL DISTRIBUTION WIDTH 17.6 % (11.7-14.4); WHITE BLOOD COUNT 14.04 x10e3/uL (4.8-10.8)
[2023-09-13 06:30] LABS: ALBUMIN 1.3 g/dL (3.5-5.0); ALBUMIN/GLOBULIN RATIO 0.4 (0.8-2.0); ANION GAP 11.4 mmol/L (8-16); BILIRUBIN,TOTAL 0.6 mg/dL (0.2-1.2); CALCIUM 7.6 mg/dL (8.4-10.2); CREATININE, SERUM 0.39 mg/dL (0.57-1.11); POTASSIUM 4.4 mmol/L (3.5-5.1)
[2023-09-13 07:46] LABS: BAND NEUTROPHILS % (MANUAL) 1 %; BASOPHILS % (MANUAL) 1 % (0-1.5); LYMPHOCYTES % (MANUAL) 5 % (19-48); METAMYELOCYTES % (MANUAL) 2 % (0-0); MONOCYTES % (MANUAL) 6 % (3.4-9.0); MYELOCYTES % (MANUAL) 2 % (0-0); NEUTROPHILS % (MANUAL) 81 % (40-74); PROMYELOCYTES % (MANUAL) 2 % (0-0)
[2023-09-13 07:47] LABS: PLATELET ESTIMATE ADEQUATE
[2023-09-13 07:48] LABS: HYPOCHROMASIA SLIGHT; PLATELET MORPHOLOGY COMMENT NORMAL; RBC MORPHOLOGY COMMENT NORMAL; TOXIC GRANULATION MODERATE
[2023-09-13] MEDS ORDERED: PHENYTOIN SODIUM INJ 50 MG/ML 2 ML VIAL IV SCH (09:00)
[2023-09-13] MEDS: CENTRAL TPN FORMULA 1 BAG IV SCH (21:36)
[2023-09-14] VITALS (9 sets, daily range): BP systolic 104–132; BP diastolic 58–75; PULSE 92–112; RESP 16–18; TEMP 98.1–100.8; O2SAT 95–97
[2023-09-14 05:54] LABS: BASOPHILS # (AUTO) 0.1 (0.0-0.1); BASOPHILS % 0.4 % (0.0-1.0); EOSINOPHILS # (AUTO) 0.2 (0.0-0.4); EOSINOPHILS % 1.7 % (0.0-6.0); HEMATOCRIT 23.3 % (34.2-44.1); LYMPHOCYTES # (AUTO) 1.3 (1.0-3.2); LYMPHOCYTES % 9.1 % (18.0-39.1); MEAN CORPUSCULAR HGB CONC 30.9 g/dL (31-35); MEAN CORPUSCULAR VOLUME 90.7 fL (81-99); MONOCYTES # (AUTO) 0.9 (0.2-0.8); MONOCYTES % 6.4 % (4.4-11.3); NEUTROPHILS # (AUTO) 10.6 (2.1-6.9); NEUTROPHILS % 76.3 % (38.7-80.0); PLATELET COUNT 482 x10e3/uL (140-360); RED BLOOD COUNT 2.57 x10e6/uL (3.6-5.1); RED CELL DISTRIBUTION WIDTH 17.5 % (11.7-14.4); WHITE BLOOD COUNT 13.91 x10e3/uL (4.8-10.8)
[2023-09-14 05:56] LABS: HEMOGLOBIN 7.2 g/dL (12.0-16.0)
[2023-09-14 06:32] LABS: ALBUMIN 1.3 g/dL (3.5-5.0); ALBUMIN/GLOBULIN RATIO 0.4 (0.8-2.0); ANION GAP 9.6 mmol/L (8-16); BILIRUBIN,TOTAL 0.4 mg/dL (0.2-1.2); CALCIUM 7.6 mg/dL (8.4-10.2); CREATININE, SERUM 0.39 mg/dL (0.57-1.11); POTASSIUM 4.6 mmol/L (3.5-5.1); TOTAL PROTEIN 4.9 g/dL (6.5-8.1)
[2023-09-14 10:15] LABS: BAND NEUTROPHILS % (MANUAL) 3 %; LYMPHOCYTES % (MANUAL) 9 % (19-48); MONOCYTES % (MANUAL) 5 % (3.4-9.0); MYELOCYTES % (MANUAL) 3 % (0-0); NEUTROPHILS % (MANUAL) 80 % (40-74); PLATELET ESTIMATE ADEQUATE
[2023-09-14 10:16] LABS: PLATELET MORPHOLOGY COMMENT NORMAL; RBC MORPHOLOGY COMMENT NORMAL
[2023-09-14] MEDS ORDERED: SEVOFLURANE INHAL SOLN 250 ML PEN BTL ONE (12:27)
[2023-09-14] MEDS ORDERED: ONDANSETRON HCL INJ 2MG/ML 2ML 2 MG/ML VIAL ONE (12:27)
[2023-09-14] MEDS ORDERED: PROPOFOL IV EMULSION 10 MG/ML 20 ML VIAL ONE (12:27)
[2023-09-14] MEDS ORDERED: LIDOCAINE HCL 2% LOCAL INJ 5 ML SDV VIAL INJ ONE (12:27)
[2023-09-14] MEDS ORDERED: DEXAMETHASONE SOD PHOS INJ 4 MG/ML SDV ONE (12:27)
[2023-09-14] MEDS ORDERED: FENTANYL CITRATE/PF 100MCG/2 ML INJ ONE (12:33)
[2023-09-14] MEDS ORDERED: MIDAZOLAM HCL 2 MG/2 ML VIAL ONE (12:33)
[2023-09-14] MEDS: HYDROMORPHONE 1MG/1ML INJ ONE (14:55)
[2023-09-15] VITALS (11 sets, daily range): BP systolic 111–131; BP diastolic 56–90; PULSE 79–103; RESP 16–19; TEMP 98.6–102.1; O2SAT 94–98
[2023-09-15] MEDS: DOCUSATE SODIUM 100 MG CAP PO PRN (10:14)
[2023-09-15 11:36] LABS: BASOPHILS # (AUTO) 0.1 (0.0-0.1); BASOPHILS % 0.4 % (0.0-1.0); EOSINOPHILS # (AUTO) 0.1 (0.0-0.4); EOSINOPHILS % 0.6 % (0.0-6.0); HEMATOCRIT 23.2 % (34.2-44.1); HEMOGLOBIN 7.1 g/dL (12.0-16.0); MEAN CORPUSCULAR HGB CONC 30.6 g/dL (31-35); MEAN CORPUSCULAR VOLUME 91.3 fL (81-99); MONOCYTES # (AUTO) 0.8 (0.2-0.8); MONOCYTES % 5.9 % (4.4-11.3); NEUTROPHILS # (AUTO) 10.4 (2.1-6.9); NEUTROPHILS % 80.5 % (38.7-80.0); PLATELET COUNT 556 x10e3/uL (140-360); RED BLOOD COUNT 2.54 x10e6/uL (3.6-5.1); RED CELL DISTRIBUTION WIDTH 17.3 % (11.7-14.4); WHITE BLOOD COUNT 12.93 x10e3/uL (4.8-10.8)
[2023-09-15 12:00] LABS: MAGNESIUM 1.9 MG/DL (1.3-2.1); PHOSPHORUS 2.7 MG/DL (2.3-4.7)
[2023-09-15 12:02] LABS: ALBUMIN 1.4 g/dL (3.5-5.0); ALBUMIN/GLOBULIN RATIO 0.4 (0.8-2.0); ANION GAP 13.1 mmol/L (8-16); BILIRUBIN,TOTAL 0.3 mg/dL (0.2-1.2); CALCIUM 7.6 mg/dL (8.4-10.2); CREATININE, SERUM 0.44 mg/dL (0.57-1.11); POTASSIUM 4.1 mmol/L (3.5-5.1); TOTAL PROTEIN 5.2 g/dL (6.5-8.1)
[2023-09-15] MEDS: SODIUM CHLORIDE 0.9% 250ML 250 ML IV ONE (14:25)
[2023-09-16] VITALS (9 sets, daily range): BP systolic 115–123; BP diastolic 60–68; PULSE 82–110; RESP 18; TEMP 98–102.9; O2SAT 94–98
[2023-09-16 03:13] LABS: TROPONIN I < 0.001 ng/mL (0-0.300)
[2023-09-16 03:14] LABS: CREATINE KINASE < 7 IU/L (29-168)
[2023-09-16] MEDS: HYDROCODONE/APAP 7.5MG-325MG 1 EA TAB PO PRN (14:30)
[2023-09-17] VITALS (8 sets, daily range): BP systolic 103–131; BP diastolic 57–73; PULSE 106–119; RESP 17–20; TEMP 98.8–101; O2SAT 94–100
[2023-09-17 04:04] LABS: BASOPHILS # (AUTO) 0.1 (0.0-0.1); BASOPHILS % 0.6 % (0.0-1.0); EOSINOPHILS # (AUTO) 0.2 (0.0-0.4); EOSINOPHILS % 1.2 % (0.0-6.0); HEMATOCRIT 24.8 % (34.2-44.1); HEMOGLOBIN 7.5 g/dL (12.0-16.0); LYMPHOCYTES # (AUTO) 1.8 (1.0-3.2); MEAN CORPUSCULAR HEMOGLOBIN 27.6 pg (28-32); MEAN CORPUSCULAR HGB CONC 30.2 g/dL (31-35); MEAN CORPUSCULAR VOLUME 91.2 fL (81-99); MONOCYTES # (AUTO) 1.1 (0.2-0.8); MONOCYTES % 8.3 % (4.4-11.3); NEUTROPHILS # (AUTO) 9.1 (2.1-6.9); NEUTROPHILS % 70.4 % (38.7-80.0); PLATELET COUNT 572 x10e3/uL (140-360); RED BLOOD COUNT 2.72 x10e6/uL (3.6-5.1); RED CELL DISTRIBUTION WIDTH 17.1 % (11.7-14.4); WHITE BLOOD COUNT 12.91 x10e3/uL (4.8-10.8)
[2023-09-17 04:34] LABS: ALBUMIN 1.5 g/dL (3.5-5.0); ALBUMIN/GLOBULIN RATIO 0.3 (0.8-2.0); ANION GAP 14.2 mmol/L (8-16); BILIRUBIN,TOTAL 0.3 mg/dL (0.2-1.2); CALCIUM 8.3 mg/dL (8.4-10.2); CREATININE, SERUM 0.41 mg/dL (0.57-1.11); POTASSIUM 4.2 mmol/L (3.5-5.1); TOTAL PROTEIN 5.9 g/dL (6.5-8.1)
[2023-09-17] MEDS ORDERED: CEFTRIAXONE 2 GM in SODIUM CHLORIDE 0.9% 100 ML IV SCH (18:56)
[2023-09-17] MEDS: METRONIDAZOLE 500MG/NS 100ML 100 ML IV SCH (23:12)
[2023-09-17] MEDS: CEFTRIAXONE 2 GM in SODIUM CHLORIDE 0.9% 100 ML IV SCH (23:14)
[2023-09-18] VITALS (10 sets, daily range): BP systolic 104–142; BP diastolic 56–69; PULSE 101–114; RESP 18; TEMP 98.2–100.7; O2SAT 93–100
[2023-09-18 05:29] LABS: BASOPHILS # (AUTO) 0.1 (0.0-0.1); BASOPHILS % 0.6 % (0.0-1.0); EOSINOPHILS # (AUTO) 0.2 (0.0-0.4); EOSINOPHILS % 1.7 % (0.0-6.0); HEMATOCRIT 24.7 % (34.2-44.1); HEMOGLOBIN 7.3 g/dL (12.0-16.0); LYMPHOCYTES # (AUTO) 1.6 (1.0-3.2); LYMPHOCYTES % 14.2 % (18.0-39.1); MEAN CORPUSCULAR HEMOGLOBIN 27.7 pg (28-32); MEAN CORPUSCULAR HGB CONC 29.6 g/dL (31-35); MEAN CORPUSCULAR VOLUME 93.6 fL (81-99); MONOCYTES # (AUTO) 1.1 (0.2-0.8); MONOCYTES % 9.6 % (4.4-11.3); NEUTROPHILS # (AUTO) 7.5 (2.1-6.9); PLATELET COUNT 574 x10e3/uL (140-360); RED BLOOD COUNT 2.64 x10e6/uL (3.6-5.1); RED CELL DISTRIBUTION WIDTH 16.9 % (11.7-14.4); WHITE BLOOD COUNT 11.13 x10e3/uL (4.8-10.8)
[2023-09-18 05:51] LABS: ALBUMIN 1.5 g/dL (3.5-5.0); ALBUMIN/GLOBULIN RATIO 0.3 (0.8-2.0); ANION GAP 14.4 mmol/L (8-16); BILIRUBIN,TOTAL 0.2 mg/dL (0.2-1.2); CALCIUM 8.3 mg/dL (8.4-10.2); CREATININE, SERUM 0.45 mg/dL (0.57-1.11); MAGNESIUM 1.9 MG/DL (1.3-2.1); PHOSPHORUS 3.5 MG/DL (2.3-4.7); POTASSIUM 4.4 mmol/L (3.5-5.1); TOTAL PROTEIN 5.8 g/dL (6.5-8.1)
[2023-09-18 07:23] LABS: BAND NEUTROPHILS % (MANUAL) 4 %; EOSINOPHILS % (MANUAL) 2 % (0-7); LYMPHOCYTES % (MANUAL) 17 % (19-48); MONOCYTES % (MANUAL) 6 % (3.4-9.0); NEUTROPHILS % (MANUAL) 71 % (40-74); PLATELET ESTIMATE ADEQUATE; PLATELET MORPHOLOGY COMMENT NORMAL; RBC MORPHOLOGY COMMENT NORMAL
[2023-09-18] MEDS ORDERED: CEFTRIAXONE 2 GM in SODIUM CHLORIDE 0.9% 100 ML IV SCH (09:00)
[2023-09-18] MEDS: Morphine 4mg INJECTION 4 MG/ML INJ IV PRN (14:11)
[2023-09-18] MEDS: CENTRAL TPN FORMULA 1 BAG IV SCH (20:30)
[2023-09-19] VITALS (9 sets, daily range): BP systolic 112–126; BP diastolic 60–81; PULSE 102–119; RESP 17–20; TEMP 98.5–102.7; O2SAT 95–98
[2023-09-19 05:54] LABS: ALBUMIN 1.4 g/dL (3.5-5.0); ALBUMIN/GLOBULIN RATIO 0.3 (0.8-2.0); BILIRUBIN,TOTAL 0.2 mg/dL (0.2-1.2); CALCIUM 8.4 mg/dL (8.4-10.2); CREATININE, SERUM 0.45 mg/dL (0.57-1.11); TOTAL PROTEIN 5.6 g/dL (6.5-8.1)
[2023-09-19] MEDS ORDERED: MICAFUNGIN SODIUM 100 MG IV SCH (14:00)
[2023-09-19] MEDS: ALPRAZOLAM 0.25 MG TAB PO ONE (14:17)
[2023-09-19 15:56] LABS: PREALBUMIN 8 mg/dL (10-36)
[2023-09-20] VITALS (7 sets, daily range): BP systolic 116–141; BP diastolic 60–68; PULSE 91–117; RESP 18–20; TEMP 98.6–101.9; O2SAT 94–100
[2023-09-20] MEDS: MICAFUNGIN SODIUM 100 MG in SODIUM CHLORIDE 0.9% 100 ML IV SCH (08:11)
[2023-09-20] MEDS ORDERED: MICAFUNGIN SODIUM 100 MG in SODIUM CHLORIDE 0.9% 100 ML IV SCH (14:45)
[2023-09-20] MEDS: PHENYTOIN SODIUM EXT REL 100 MG CAP PO SCH (21:04)
[2023-09-20] MEDS: FUROSEMIDE INJ 10 MG/ML 4 ML VIAL IV SCH (21:04)
[2023-09-21] VITALS (7 sets, daily range): BP systolic 89–122; BP diastolic 52–68; PULSE 92–108; RESP 16–19; TEMP 97.8–100.1; O2SAT 7–100
[2023-09-21 05:03] LABS: BASOPHILS # (AUTO) 0.1 (0.0-0.1); EOSINOPHILS # (AUTO) 0.2 (0.0-0.4); EOSINOPHILS % 1.6 % (0.0-6.0); HEMATOCRIT 23.1 % (34.2-44.1); HEMOGLOBIN 7.1 g/dL (12.0-16.0); LYMPHOCYTES # (AUTO) 1.4 (1.0-3.2); LYMPHOCYTES % 11.4 % (18.0-39.1); MEAN CORPUSCULAR HEMOGLOBIN 27.5 pg (28-32); MEAN CORPUSCULAR HGB CONC 30.7 g/dL (31-35); MEAN CORPUSCULAR VOLUME 89.5 fL (81-99); MONOCYTES # (AUTO) 1.3 (0.2-0.8); MONOCYTES % 10.7 % (4.4-11.3); NEUTROPHILS # (AUTO) 7.6 (2.1-6.9); NEUTROPHILS % 61.4 % (38.7-80.0); PLATELET COUNT 623 x10e3/uL (140-360); RED BLOOD COUNT 2.58 x10e6/uL (3.6-5.1); RED CELL DISTRIBUTION WIDTH 16.8 % (11.7-14.4); WHITE BLOOD COUNT 12.41 x10e3/uL (4.8-10.8)
[2023-09-21 05:25] LABS: ALBUMIN 1.6 g/dL (3.5-5.0); ALBUMIN/GLOBULIN RATIO 0.4 (0.8-2.0); BILIRUBIN,TOTAL 0.2 mg/dL (0.2-1.2); CALCIUM 8.1 mg/dL (8.4-10.2); CREATININE, SERUM 0.47 mg/dL (0.57-1.11); TOTAL PROTEIN 5.8 g/dL (6.5-8.1)
[2023-09-21 07:57] LABS: ANISOCYTOSIS SLIGHT; BAND NEUTROPHILS % (MANUAL) 5 %; LYMPHOCYTES % (MANUAL) 20 % (19-48); METAMYELOCYTES % (MANUAL) 3 % (0-0); MONOCYTES % (MANUAL) 4 % (3.4-9.0); MYELOCYTES % (MANUAL) 2 % (0-0); NEUTROPHILS % (MANUAL) 64 % (40-74); PLATELET ESTIMATE MODERATELY INCREASED; PLATELET MORPHOLOGY COMMENT NORMAL; POLYCHROMASIA FEW; PROMYELOCYTES % (MANUAL) 2 % (0-0); RBC MORPHOLOGY COMMENT ABNORMAL; TOXIC GRANULATION MODERATE
[2023-09-21 07:58] LABS: HYPOCHROMASIA SLIGHT
[2023-09-21] MEDS ORDERED: SODIUM CHLORIDE 0.9% 100 ML ONE (13:17)
[2023-09-21] MEDS: ALPRAZOLAM 0.5 MG TAB PO PRN (15:27)
[2023-09-22] VITALS (10 sets, daily range): BP systolic 105–131; BP diastolic 49–63; PULSE 89–105; RESP 16–20; TEMP 97.7–102.5; O2SAT 95–99
[2023-09-22 06:33] LABS: ANION GAP 13.8 mmol/L (8-16); CALCIUM 8.1 mg/dL (8.4-10.2); CREATININE, SERUM 0.5 mg/dL (0.57-1.11); POTASSIUM 3.8 mmol/L (3.5-5.1)
[2023-09-22] MEDS ORDERED: MIDODRINE HCL2.5 MG PO (10:25)
[2023-09-22] MEDS ORDERED: FUROSEMIDE40 MG PO (10:25)
[2023-09-22] MEDS ORDERED: PANTOPRAZOLE SO40 MG PO (10:25)
[2023-09-22 11:56] LABS: INR 1.28; PROTHROMBIN TIME 16.6 seconds (11.9-14.5)
[2023-09-22] MEDS ORDERED: LIDOCAINE HCL 1% LOCAL INJ 20 ML VIAL ONE (14:04)
[2023-09-22] MEDS ORDERED: FENTANYL CITRATE/PF 100MCG/2 ML INJ ONE (14:21)
[2023-09-22] MEDS ORDERED: SODIUM CHLORIDE 0.9% 250ML 250 ML ONE (14:21)
[2023-09-23] VITALS: BP 129/66; PULSE 105; RESP 18; TEMP 99.5; O2SAT 99
[2023-09-23 04:00] VITALS: BP 137/70; PULSE 102; RESP 18; TEMP 98.8; O2SAT 98
[2023-09-23] MEDS: SODIUM CHLORIDE FLUSH 10 ML SYR IV SCH (08:17)
[2023-09-23 10:17] VITALS: PULSE 100; RESP 18; O2SAT 93
[2023-09-23 11:27] VITALS: BP 117/55; PULSE 96; RESP 18; TEMP 98.4
[2023-09-23] MEDS: ACETAMINOPHEN 325 MG TAB PO PRN (13:21)
[2023-09-23 20:00] VITALS: BP 131/66; PULSE 97; RESP 18; TEMP 98.5; O2SAT 95
[2023-09-23 21:00] VITALS: BP 131/66; PULSE 97; RESP 18; TEMP 98.5; O2SAT 95
[2023-09-24] VITALS (9 sets, daily range): BP systolic 115–127; BP diastolic 45–72; PULSE 86–101; RESP 18–20; TEMP 98.3–98.7; O2SAT 94–97
[2023-09-25] VITALS (12 sets, daily range): BP systolic 116–131; BP diastolic 58–72; PULSE 93–104; RESP 18–20; TEMP 97.8–100.5; O2SAT 94–98
[2023-09-25 10:04] LABS: BASOPHILS % 0.2 % (0.0-1.0); EOSINOPHILS # (AUTO) 0.1 (0.0-0.4); EOSINOPHILS % 0.5 % (0.0-6.0); HEMATOCRIT 24.5 % (34.2-44.1); HEMOGLOBIN 7.3 g/dL (12.0-16.0); LYMPHOCYTES % 11.7 % (18.0-39.1); MEAN CORPUSCULAR HEMOGLOBIN 27.5 pg (28-32); MEAN CORPUSCULAR HGB CONC 29.8 g/dL (31-35); MEAN CORPUSCULAR VOLUME 92.5 fL (81-99); MONOCYTES # (AUTO) 1.2 (0.2-0.8); MONOCYTES % 7.4 % (4.4-11.3); NEUTROPHILS # (AUTO) 12.2 (2.1-6.9); NEUTROPHILS % 73.2 % (38.7-80.0); PLATELET COUNT 655 x10e3/uL (140-360); RED BLOOD COUNT 2.65 x10e6/uL (3.6-5.1); RED CELL DISTRIBUTION WIDTH 17.1 % (11.7-14.4)
[2023-09-25 12:26] LABS: BAND NEUTROPHILS % (MANUAL) 1 %; EOSINOPHILS % (MANUAL) 2 % (0-7); LYMPHOCYTES % (MANUAL) 7 % (19-48); METAMYELOCYTES % (MANUAL) 2 % (0-0); MONOCYTES % (MANUAL) 4 % (3.4-9.0); NEUTROPHILS % (MANUAL) 84 % (40-74)
[2023-09-25 12:27] LABS: HYPOCHROMASIA SLIGHT; PLATELET ESTIMATE MODERATELY INCREASED; PLATELET MORPHOLOGY COMMENT NORMAL; RBC MORPHOLOGY COMMENT NORMAL; TOXIC GRANULATION MODERATE
[2023-09-25] MEDS: Morphine 4mg INJECTION 4 MG/ML INJ IV PRN (15:57)
[2023-09-26] VITALS (8 sets, daily range): BP systolic 109–123; BP diastolic 63–71; PULSE 83–107; RESP 16–20; TEMP 97.7–100.2; O2SAT 94–96
[2023-09-26 06:13] LABS: BASOPHILS # (AUTO) 0.1 (0.0-0.1); BASOPHILS % 0.7 % (0.0-1.0); EOSINOPHILS # (AUTO) 0.2 (0.0-0.4); EOSINOPHILS % 1.3 % (0.0-6.0); HEMATOCRIT 24.6 % (34.2-44.1); HEMOGLOBIN 7.4 g/dL (12.0-16.0); LYMPHOCYTES # (AUTO) 1.8 (1.0-3.2); LYMPHOCYTES % 10.8 % (18.0-39.1); MEAN CORPUSCULAR HEMOGLOBIN 27.7 pg (28-32); MEAN CORPUSCULAR HGB CONC 30.1 g/dL (31-35); MEAN CORPUSCULAR VOLUME 92.1 fL (81-99); MONOCYTES # (AUTO) 1.3 (0.2-0.8); MONOCYTES % 7.7 % (4.4-11.3); NEUTROPHILS # (AUTO) 12.2 (2.1-6.9); NEUTROPHILS % 73.3 % (38.7-80.0); PLATELET COUNT 662 x10e3/uL (140-360); RED BLOOD COUNT 2.67 x10e6/uL (3.6-5.1); RED CELL DISTRIBUTION WIDTH 17.2 % (11.7-14.4); WHITE BLOOD COUNT 16.63 x10e3/uL (4.8-10.8)
[2023-09-26 06:31] LABS: ALANINE AMINOTRANSFERASE 6 IU/L (0-55); ALBUMIN 2.7 g/dL (3.5-5.0); ALBUMIN/GLOBULIN RATIO 0.8 (0.8-2.0); ALKALINE PHOSPHATASE 95 IU/L (40-150); ANION GAP 14.4 mmol/L (8-16); BILIRUBIN,TOTAL 0.2 mg/dL (0.2-1.2); BLOOD UREA NITROGEN < 5 mg/dL (7-26); CALCIUM 8.1 mg/dL (8.4-10.2); CARBON DIOXIDE 21 mmol/L (22-29); CHLORIDE 102 mmol/L (98-107); CREATININE, SERUM 0.45 mg/dL (0.57-1.11); EST GLOMERULAR FILTRATION RATE 112 ML/MIN (>=60); GLUCOSE 99 mg/dL (74-118); SODIUM 134 mmol/L (136-145)
[2023-09-26 06:33] LABS: BUN/CREATININE RATIO 11 (6-25); POTASSIUM 3.4 mmol/L (3.5-5.1)
[2023-09-26 09:23] LABS: BASOPHILS % (MANUAL) 1 % (0-1.5); EOSINOPHILS % (MANUAL) 1 % (0-7); HYPOCHROMASIA SLIGHT; LYMPHOCYTES % (MANUAL) 14 % (19-48); MONOCYTES % (MANUAL) 11 % (3.4-9.0); NEUTROPHILS % (MANUAL) 73 % (40-74); PLATELET ESTIMATE MODERATELY INCREASED; PLATELET MORPHOLOGY COMMENT NORMAL; RBC MORPHOLOGY COMMENT NORMAL; TOXIC GRANULATION MODERATE
[2023-09-26] MEDS ORDERED: IOPAMIDOL 370 MG/ML 100 ML INFUS..BTL INJ ONE (11:32)
[2023-09-26] MEDS: POLYETHYLENE GLYCOL 3350 17 GM PACK PO ONE (23:33)
[2023-09-27] VITALS (7 sets, daily range): BP systolic 109–157; BP diastolic 54–92; PULSE 98–102; RESP 16–20; TEMP 97.7–100.8; O2SAT 92–100
[2023-09-27] MEDS: POLYETHYLENE GLYCOL 3350 17 GM PACK PO SCH (09:10)
[2023-09-27] MEDS: SODIUM CHLORIDE 0.9% 250ML 250 ML ONE (10:43)
[2023-09-27] MEDS ORDERED: MICAFUNGIN SODIUM 100 MG IV SCH (16:00)
[2023-09-27] MEDS: MICAFUNGIN SODIUM 100 MG in SODIUM CHLORIDE 0.9% 100 ML IV SCH (18:11)
== END 2023-09-27 22:30 | disposition short-term general hospital (02) | DRG 853 ==
LOC: ER 20:50 → ERHOLD 09-02 01:35 → MED/SURG3 09-02 02:20 → ICU 09-04 09:36 → MED/SURG 09-06 11:57 → ICU 09-11 22:56 → MED/SURG 09-13 03:39
PROVIDERS: ADMIT Internal Medicine; ATTEND Internal Medicine
PROC: 05HC33Z Insertion of Infusion Device into Left Basilic Vein, Percutaneous Approach (ICD-10-PCS; 2023-09-02)
PROC: 3E03329 Introduction of Other Anti-infective into Peripheral Vein, Percutaneous Approach (ICD-10-PCS; 2023-09-02)
PROC: 0DN80ZZ Release Small Intestine, Open Approach (ICD-10-PCS; 2023-09-03)
PROC: 0DNW0ZZ Release Peritoneum, Open Approach (ICD-10-PCS; 2023-09-03)
PROC: 0W9G0ZZ Drainage of Peritoneal Cavity, Open Approach (ICD-10-PCS; 2023-09-03)
PROC: 0W9G0ZZ Drainage of Peritoneal Cavity, Open Approach (ICD-10-PCS; 2023-09-03)
PROC: 0W9F30Z Drainage of Abdominal Wall with Drainage Device, Percutaneous Approach (ICD-10-PCS; 2023-09-08)
PROC: 0DB80ZZ Excision of Small Intestine, Open Approach (ICD-10-PCS; 2023-09-09)
PROC: 0DN80ZZ Release Small Intestine, Open Approach (ICD-10-PCS; 2023-09-09)
PROC: 0DBB0ZZ Excision of Ileum, Open Approach (ICD-10-PCS; 2023-09-09)
PROC: 30233N1 Transfusion of Nonautologous Red Blood Cells into Peripheral Vein, Percutaneous Approach (ICD-10-PCS; principal; 2023-09-11)
PROC: 02HV33Z Insertion of Infusion Device into Superior Vena Cava, Percutaneous Approach (ICD-10-PCS; 2023-09-11)
PROC: B548ZZA Ultrasonography of Superior Vena Cava, Guidance (ICD-10-PCS; 2023-09-11)
PROC: 30233N1 Transfusion of Nonautologous Red Blood Cells into Peripheral Vein, Percutaneous Approach (ICD-10-PCS; 2023-09-12)
PROC: 0J9C00Z Drainage of Pelvic Region Subcutaneous Tissue and Fascia with Drainage Device, Open Approach (ICD-10-PCS; 2023-09-14)
PROC: 05PYX3Z Removal of Infusion Device from Upper Vein, External Approach (ICD-10-PCS; 2023-09-20)
PROC: 02HV33Z Insertion of Infusion Device into Superior Vena Cava, Percutaneous Approach (ICD-10-PCS; 2023-09-21)
PROC: B548ZZA Ultrasonography of Superior Vena Cava, Guidance (ICD-10-PCS; 2023-09-21)
PROC: 02HV33Z Insertion of Infusion Device into Superior Vena Cava, Percutaneous Approach (ICD-10-PCS; 2023-09-25)
PROC: B548ZZA Ultrasonography of Superior Vena Cava, Guidance (ICD-10-PCS; 2023-09-25)
DX: A41.9 Sepsis, unspecified organism (principal); E43 Unspecified severe protein-calorie malnutrition; K63.1 Perforation of intestine (nontraumatic); K65.8 Other peritonitis; R65.21 Severe sepsis with septic shock; N17.9 Acute kidney failure, unspecified; K92.1 Melena; Z16.29 Resistance to other single specified antibiotic; Z16.22 Resistance to vancomycin related antibiotics; B37.89 Other sites of candidiasis; K63.2 Fistula of intestine; E44.0 Moderate protein-calorie malnutrition; T81.43XA Infection following a procedure, organ and space surgical site, initial encounter; B37.7 Candidal sepsis; F31.9 Bipolar disorder, unspecified; F41.9 Anxiety disorder, unspecified; I95.9 Hypotension, unspecified; G40.909 Epilepsy, unspecified, not intractable, without status epilepticus; B96.4 Proteus (mirabilis) (morganii) as the cause of diseases classified elsewhere; B95.2 Enterococcus as the cause of diseases classified elsewhere; B96.5 Pseudomonas (aeruginosa) (mallei) (pseudomallei) as the cause of diseases classified elsewhere; E66.9 Obesity, unspecified; Z68.32 Body mass index [BMI] 32.0-32.9, adult; M54.9 Dorsalgia, unspecified; G89.29 Other chronic pain; D64.9 Anemia, unspecified; E86.1 Hypovolemia; R53.81 Other malaise; Z11.52 Encounter for screening for COVID-19
CPT/HCPCS: 36415; 36568; 36569; 49406; 71045; 74150; 74174; 74177; 74470; 77012; 78278; 80048; 80053; 80178; 81001; 82550; 82607; 82746; 82948; 83540; 83605; 83690; 83735; 84100; 84134; 84466; 84478; 84484; 84630; 85025; 85045; 85610; 85730; 86850; 86900; 86920; 87040; 87070; 87071; 87075; 87186; 87205; 88304; 88307; 93005; 94799; 97606; 99152; 99153; 99252; 99284; A9512; C1769; J0330; J0690; J0696; J1100; J1170; J1450; J1650; J1885; J1940; J2001; J2020; J2060; J2248; J2250; J2270; J2405; J2470; J2543; J2765; J2916; J7030; J7040; J7050; P9016; P9047; Q2009; Q9967; U0002

== ENCOUNTER 2024-01-30 23:52 | Emergency (ER) | payer MEDICARE ==
[~2024-01-30] VITALS: Ht 157.5 cm; Wt 81.6 kg
[~2024-01-30 23:52] MED LIST changes: +FUROSEMIDE40 MG PO; +MIDODRINE HCL2.5 MG PO; +PANTOPRAZOLE SO40 MG PO
[2024-01-31] VITALS: RESP 19; TEMP 98.1
[2024-01-31 01:20] VITALS: PULSE 98
[2024-01-31 01:41] VITALS: BP 112/61; O2SAT 100
== END 2024-01-31 01:41 | disposition home or self-care (01) ==
LOC: ER 01-31 00:03
DX: S00.31XA Abrasion of nose, initial encounter (principal); W01.0XXA Fall on same level from slipping, tripping and stumbling without subsequent striking against object, initial encounter; Y93.01 Activity, walking, marching and hiking; Y92.89 Other specified places as the place of occurrence of the external cause; I10 Essential (primary) hypertension; G40.909 Epilepsy, unspecified, not intractable, without status epilepticus; K21.9 Gastro-esophageal reflux disease without esophagitis; M54.9 Dorsalgia, unspecified; G89.29 Other chronic pain; F31.9 Bipolar disorder, unspecified
CPT/HCPCS: 70450; 70486; 72125; 99283

== ENCOUNTER 2024-02-23 13:37 | Emergency (ER) | payer MEDICARE ==
[~2024-02-23] VITALS: Ht 157.5 cm; Wt 81.6 kg
[2024-02-23 13:45] VITALS: PULSE 70; RESP 17; TEMP 97.9; O2SAT 99
[2024-02-23 14:45] LABS: COLOR,URINE YELLOW (YELLOW)
[2024-02-23 14:46] LABS: CLARITY,URINE CLEAR (CLEAR)
[2024-02-23 14:47] LABS: LEUKOCYTE ESTERASE ,URINE NEGATIVE (NEGATIVE); NITRITE,URINE NEGATIVE (NEGATIVE); PH,URINE 5.5 (5 - 7); PROTEIN,URINE DIPSTICK NEGATIVE (NEGATIVE)
[2024-02-23 14:48] LABS: BILIRUBIN,URINE NEGATIVE (NEGATIVE); EPITHELIAL CELLS,URINE RARE /LPF; GLUCOSE, URINE NEGATIVE (NEGATIVE); KETONES,URINE NEGATIVE (NEGATIVE); RBC,URINE 0-5 /HPF (0-5); URINE UROBILINOGEN 0.2 mg/dL (0.2 - 1); WBC,URINE (MAN) 0-5 /HPF (0-5)
[2024-02-23] MEDS ORDERED: CEFDINIR300 MG PO (14:59)
== END 2024-02-23 15:35 | disposition home or self-care (01) ==
LOC: ER 13:58
DX: R30.0 Dysuria (principal); N39.0 Urinary tract infection, site not specified; R10.30 Lower abdominal pain, unspecified; I10 Essential (primary) hypertension; K21.9 Gastro-esophageal reflux disease without esophagitis; G40.909 Epilepsy, unspecified, not intractable, without status epilepticus; F31.9 Bipolar disorder, unspecified; M54.9 Dorsalgia, unspecified; G89.29 Other chronic pain
CPT/HCPCS: 81001; 87086; 99282

== ENCOUNTER 2024-03-24 13:28 | Emergency (ER) | payer MEDICARE ==
[~2024-03-24] VITALS: Ht 157.5 cm; Wt 81.6 kg
[~2024-03-24 13:28] MED LIST changes: +CEFDINIR300 MG PO
[2024-03-24 13:36] VITALS: PULSE 85; RESP 17; TEMP 97.7; O2SAT 100
[2024-03-24] MEDS: TETANUS/DIPHTHERIA TOX ADULT 0.5 ML SYR IM ONE (13:49)
[2024-03-24] MEDS ORDERED: LIDOCAINE HCL 1% LOCAL INJ 20 ML VIAL INJ ONE (14:45)
== END 2024-03-24 16:04 | disposition home or self-care (01) ==
LOC: ER 13:43
DX: S01.81XA Laceration without foreign body of other part of head, initial encounter (principal); W01.0XXA Fall on same level from slipping, tripping and stumbling without subsequent striking against object, initial encounter; Y93.01 Activity, walking, marching and hiking; Y92.89 Other specified places as the place of occurrence of the external cause; I10 Essential (primary) hypertension; G40.909 Epilepsy, unspecified, not intractable, without status epilepticus; K21.9 Gastro-esophageal reflux disease without esophagitis; F31.9 Bipolar disorder, unspecified; M54.9 Dorsalgia, unspecified; G89.29 Other chronic pain
CPT/HCPCS: 12013; 70450; 90471; 90714; 99284; J2003

== ENCOUNTER 2024-05-02 23:45 | Emergency (ER) | payer MEDICARE ==
[~2024-05-02] VITALS: Ht 157.5 cm; Wt 81.6 kg
[2024-05-02 23:50] VITALS: PULSE 92; RESP 16; TEMP 98.8; O2SAT 99
[2024-05-03 00:06] LABS: CLARITY,URINE CLEAR (CLEAR); COLOR,URINE YELLOW (YELLOW); PH,URINE 7 (5 - 7)
[2024-05-03 00:07] LABS: BILIRUBIN,URINE NEGATIVE (NEGATIVE); GLUCOSE, URINE NEGATIVE (NEGATIVE); KETONES,URINE NEGATIVE (NEGATIVE); LEUKOCYTE ESTERASE ,URINE TRACE (NEGATIVE); NITRITE,URINE NEGATIVE (NEGATIVE); PROTEIN,URINE DIPSTICK NEGATIVE (NEGATIVE); URINE UROBILINOGEN 0.2 mg/dL (0.2 - 1)
[2024-05-03 01:00] LABS: BACTERIA,URINE MANY /HPF
[2024-05-03 01:01] LABS: EPITHELIAL CELLS,URINE MANY /LPF
[2024-05-03 01:02] LABS: TRIPLE PHOSPHATE CRYSTAL,UR FEW
[2024-05-03] MEDS ORDERED: PYRIDIUM200 MG PO (01:25)
[2024-05-03] MEDS ORDERED: CEFDINIR300 MG PO (01:25)
== END 2024-05-03 01:32 | disposition home or self-care (01) ==
LOC: ER 23:51
DX: R30.0 Dysuria (principal); N39.0 Urinary tract infection, site not specified; I10 Essential (primary) hypertension; G40.909 Epilepsy, unspecified, not intractable, without status epilepticus; K21.9 Gastro-esophageal reflux disease without esophagitis; F31.9 Bipolar disorder, unspecified; M54.9 Dorsalgia, unspecified; G89.29 Other chronic pain
CPT/HCPCS: 74019; 81001; 87086; 99283

== ENCOUNTER 2024-06-04 12:13 | Emergency (ER) | payer MEDICARE ==
[~2024-06-04] VITALS: Ht 157.5 cm; Wt 77.1 kg
[~2024-06-04 12:13] MED LIST changes: +PYRIDIUM200 MG PO
[2024-06-04 13:02] VITALS: TEMP 98.2
[2024-06-04 14:00] VITALS: PULSE 86; RESP 18; O2SAT 100
[2024-06-04] MEDS: LIDOCAINE 1% W/EPINEPHRINE 20 ML VIAL INJ ONE (15:27)
[2024-06-04] MEDS ORDERED: AMOX TR-K CLV1 EAC2 PO (15:43)
== END 2024-06-04 15:53 | disposition home or self-care (01) ==
LOC: ER 13:17
DX: S51.811A Laceration without foreign body of right forearm, initial encounter (principal); W25.XXXA Contact with sharp glass, initial encounter; Y92.89 Other specified places as the place of occurrence of the external cause; I10 Essential (primary) hypertension; G40.909 Epilepsy, unspecified, not intractable, without status epilepticus; K21.9 Gastro-esophageal reflux disease without esophagitis; F31.9 Bipolar disorder, unspecified; M54.9 Dorsalgia, unspecified; G89.29 Other chronic pain
CPT/HCPCS: 99283

== ENCOUNTER 2024-06-09 20:06 | Emergency (ER) | payer MEDICARE ==
[~2024-06-09] VITALS: Ht 157.5 cm; Wt 77.1 kg
[2024-06-09 20:36] LABS: BASOPHILS # (AUTO) 0.1 (0.0-0.1); BASOPHILS % 0.9 % (0.0-1.0); EOSINOPHILS # (AUTO) 0.1 (0.0-0.4); EOSINOPHILS % 1.8 % (0.0-6.0); HEMATOCRIT 38.8 % (34.2-44.1); HEMOGLOBIN 12.4 g/dL (12.0-16.0); LYMPHOCYTES # (AUTO) 2.1 (1.0-3.2); LYMPHOCYTES % 38.7 % (18.0-39.1); MEAN CORPUSCULAR HEMOGLOBIN 30.3 pg (28-32); MEAN CORPUSCULAR VOLUME 94.9 fL (81-99); MONOCYTES # (AUTO) 0.5 (0.2-0.8); MONOCYTES % 8.4 % (4.4-11.3); NEUTROPHILS # (AUTO) 2.7 (2.1-6.9); NEUTROPHILS % 49.8 % (38.7-80.0); PLATELET COUNT 248 x10e3/uL (140-360); RED BLOOD COUNT 4.09 x10e6/uL (3.6-5.1); RED CELL DISTRIBUTION WIDTH 13.1 % (11.7-14.4); WHITE BLOOD COUNT 5.48 x10e3/uL (4.8-10.8)
[2024-06-09 20:50] LABS: ALBUMIN/GLOBULIN RATIO 1.4 (0.8-2.0); ANION GAP 14.7 mmol/L (8-16); BILIRUBIN,TOTAL 0.1 mg/dL (0.2-1.2); CALCIUM 8.9 mg/dL (8.4-10.2); CREATININE, SERUM 0.72 mg/dL (0.57-1.11); POTASSIUM 4.7 mmol/L (3.5-5.1); TOTAL PROTEIN 6.8 g/dL (6.5-8.1)
[2024-06-09 21:42] LABS: BILIRUBIN,URINE NEGATIVE (NEGATIVE); CLARITY,URINE CLEAR (CLEAR); COLOR,URINE YELLOW (YELLOW); GLUCOSE, URINE NEGATIVE (NEGATIVE); KETONES,URINE NEGATIVE (NEGATIVE); LEUKOCYTE ESTERASE ,URINE NEGATIVE (NEGATIVE); NITRITE,URINE NEGATIVE (NEGATIVE); PH,URINE 7 (5 - 7); PROTEIN,URINE DIPSTICK NEGATIVE (NEGATIVE); URINE UROBILINOGEN 0.2 mg/dL (0.2 - 1)
[2024-06-09 21:46] LABS: BACTERIA,URINE FEW /HPF; EPITHELIAL CELLS,URINE MODERATE /LPF; RBC,URINE 0-5 /HPF (0-5); WBC,URINE (MAN) 0-5 /HPF (0-5)
[2024-06-09] MEDS ORDERED: FOSPHENYTOIN 50 MG/ML VIAL ONE (22:27)
[2024-06-09] MEDS: FOSPHENYTOIN 50 MG/ML VIAL ONE (22:35)
[2024-06-09] MEDS: FOSPHENYTOIN 50 MG/ML VIAL IV STA (22:47)
[2024-06-10] MEDS ORDERED: PHENYTOIN 100 MG/4 ML CUP PO ONE (00:15)
[2024-06-10 02:00] VITALS: PULSE 80; RESP 13; TEMP 98.2; O2SAT 97
== END 2024-06-10 02:10 | disposition home or self-care (01) ==
LOC: ER 20:18
DX: M54.2 Cervicalgia (principal); R51.9 Headache, unspecified; G40.909 Epilepsy, unspecified, not intractable, without status epilepticus; I10 Essential (primary) hypertension; K21.9 Gastro-esophageal reflux disease without esophagitis; F31.9 Bipolar disorder, unspecified; M54.9 Dorsalgia, unspecified; G89.29 Other chronic pain; Z98.0 Intestinal bypass and anastomosis status
CPT/HCPCS: 36415; 70450; 72125; 80053; 80185; 81001; 85025; 93005; 99284; Q2009

== ENCOUNTER 2024-09-08 18:57 | Emergency (ER) | payer MEDICARE ==
[~2024-09-08] VITALS: Ht 157.5 cm; Wt 77.1 kg
[2024-09-08 20:20] LABS: BASOPHILS % 0.9 % (0.0-1.0); EOSINOPHILS % 2.0 % (0.0-6.0); LYMPHOCYTES % 40.3 % (18.0-39.1); MONOCYTES % 8.9 % (4.4-11.3); NEUTROPHILS % 47.5 % (38.7-80.0); RED CELL DISTRIBUTION WIDTH 13.1 % (11.7-14.4)
[2024-09-08 20:41] LABS: EST GLOMERULAR FILTRATION RATE 101.0 ML/MIN (>=60)
[2024-09-08] MEDS ORDERED: FOSPHENYTOIN 50 MG/ML 10ML VIAL ONE (20:56)
[2024-09-08] MEDS: FOSPHENYTOIN 50 MG/ML VIAL IV STA (21:01)
[2024-09-08] MEDS: ONDANSETRON HCL INJ 2MG/ML 2ML 2 MG/ML VIAL IV STA (21:42)
[2024-09-08] MEDS: ACETAMINOPHEN 325 MG TAB PO ONE (21:42)
[2024-09-08 22:29] VITALS: PULSE 81; RESP 18; TEMP 98.3; O2SAT 99
== END 2024-09-08 22:30 | disposition home or self-care (01) ==
LOC: ER 19:12
DX: R79.89 Other specified abnormal findings of blood chemistry (principal); G40.909 Epilepsy, unspecified, not intractable, without status epilepticus; I10 Essential (primary) hypertension; K21.9 Gastro-esophageal reflux disease without esophagitis; F31.9 Bipolar disorder, unspecified; M54.9 Dorsalgia, unspecified; G89.29 Other chronic pain
CPT/HCPCS: 36415; 80053; 80185; 85025; 99284; J2405; Q2009

== ENCOUNTER 2024-09-21 18:44 | Emergency (ER) | payer MEDICARE, OTHER ==
[~2024-09-21] VITALS: Ht 160 cm; Wt 81.6 kg
[2024-09-21 19:30] VITALS: PULSE 83; RESP 18; TEMP 98.5
[2024-09-21 20:03] LABS: LEUKOCYTE ESTERASE ,URINE NEGATIVE (NEGATIVE); PROTEIN,URINE DIPSTICK NEGATIVE (NEGATIVE); URINE UROBILINOGEN 0.2 mg/dL (0.2 - 1)
[2024-09-21 20:11] LABS: EPITHELIAL CELLS,URINE FEW /LPF
[2024-09-21] MEDS ORDERED: MACROBID 100 M100 MG PO (21:10)
[2024-09-21 21:54] VITALS: BP 137/82; PULSE 83; RESP 18; O2SAT 99
== END 2024-09-21 21:14 | disposition home or self-care (01) ==
LOC: ER 19:42
DX: R30.0 Dysuria (principal); N39.0 Urinary tract infection, site not specified; K59.00 Constipation, unspecified; I10 Essential (primary) hypertension; G40.909 Epilepsy, unspecified, not intractable, without status epilepticus; K21.9 Gastro-esophageal reflux disease without esophagitis; M54.9 Dorsalgia, unspecified; G89.29 Other chronic pain
CPT/HCPCS: 74018; 81001; 99283

== ENCOUNTER 2024-12-12 13:29 | Emergency (ER) | payer MEDICARE, OTHER ==
[~2024-12-12] VITALS: Ht 157.5 cm; Wt 90.7 kg
[~2024-12-12 13:29] MED LIST changes: +MACROBID 100 M100 MG PO
[2024-12-12 13:40] VITALS: TEMP 98
[2024-12-12 15:06] LABS: BASOPHILS % 0.8 % (0.0-1.0); EOSINOPHILS % 2.5 % (0.0-6.0); LYMPHOCYTES % 28.6 % (18.0-39.1); MONOCYTES % 7.5 % (4.4-11.3); NEUTROPHILS % 60.3 % (38.7-80.0); RED CELL DISTRIBUTION WIDTH 13.0 % (11.7-14.4)
[2024-12-12 15:45] LABS: EST GLOMERULAR FILTRATION RATE 102.0 ML/MIN (>=60)
[2024-12-12 17:47] VITALS: PULSE 84; RESP 19
[2024-12-12] MEDS: PHENYTOIN SODIUM EXT REL 100 MG CAP PO SCH (17:56)
[2024-12-12 18:26] VITALS: BP 132/77; O2SAT 97
== END 2024-12-12 17:47 | disposition home or self-care (01) ==
LOC: ER 14:03
DX: S00.03XA Contusion of scalp, initial encounter (principal); G40.909 Epilepsy, unspecified, not intractable, without status epilepticus; Z91.148 Patient's other noncompliance with medication regimen for other reason; I10 Essential (primary) hypertension; F31.9 Bipolar disorder, unspecified; M54.9 Dorsalgia, unspecified; K21.9 Gastro-esophageal reflux disease without esophagitis
CPT/HCPCS: 36415; 70450; 80048; 85025; 99283